=== PATIENT | female | born 1990 | race Caucasian/White ===

== ENCOUNTER 2016-07-09 17:17 | Emergency (ER) | payer OTHER ==
--- NOTE | 2016-07-09 19:13 | EDM.PDOC ---
ED HPI Trauma - General Chief Complaint: Upper Extremity Injury/Pain Stated Complaint: RT ARM INJURY Time Seen by Provider: 07/09/16 18:52 Source: Reports: Patient History Limitations: Reports: No limitations - History of Present Illness INITIAL COMMENTS - FREE TEXT/NARRATIVE: Patient presents for evaluation and treatment of an injury to the right clavicle and shoulder. Patient reports that she was using a rifle on a tripod for target shooting. She states that the gun kicked back jarring her right clavicle and right shoulder. States she is having pain to the right clavicle and right shoulder. She has also noticed some numbness and tingling down her right arm. She is limited range of motion due to the pain. She states that she has tried [id number] Tylenol but does not have any symptom relief. No Other treatment prior to arrival in the ER. No previous injury to the right shoulder. Patient is right-handed. Occurred When: this afternoon Method of Injury: direct blow Pain/Injury Location: Reports: upper extremity, right Allergies/ADRs: Allergies amoxicillin Allergy (Verified 07/09/16 19:57) Other amoxicillin trihydrate [From Augmentin] Allergy (Verified 07/09/16 19:57) Other ciprofloxacin Allergy (Verified 07/09/16 19:57) Itching codeine phosphate [From Tylenol-Codeine #3] Allergy (Verified 07/09/16 19:57) Itching potassium clavulanate [From Augmentin] Allergy (Verified 07/09/16 19:57) Other diphenhydramine HCl [From Benadryl] Adverse Reaction (Verified 07/09/16 19:57) "muscle aches" Home Medications: Ambulatory Orders Cholecalciferol (Vitamin D3) [Vitamin D3] 2,000 unit PO DAILY 11/11/14 [ Confirmed 02/18/16] Ketorolac [Toradol] 10 mg PO Q8H #12 tablet 01/05/16 [Confirmed 02/18/16] Metoclopramide [Reglan] 10 mg PO Q8H #12 tablet 01/05/16 [Confirmed 02/18/16] predniSONE 20 mg PO DAILY #5 tablet 02/19/16 Past Medical History - Past Health History Medical/Surgical History: Denies Medical/Surgical History Cardiovascular History: Reports: Heart murmur Other Cardiovascular History: Recent EKG and Echo secondary to low K+, Na+ in ER when there c/o kidney/back pain on 12/02/14. Respiratory History: Reports: Asthma, Other (see below) Other Respiratory History: Rx'd Albuterol inhaler PRN--uses on occasion. Last use was approx 10d ago. 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 Musculoskeletal History: Reports: RA, SLE, Other (see below) Other Musculoskeletal History: Sjogren syndrome Neurological History: Reports: Migraines Other Neuro History: Lupus Psychiatric History: Reports: Depression Other Psychiatric History: PP depression following second child's delivery. On antidepressant medication x approx 6 months for such. Oncologic (Cancer) History: Reports: None Other Dermatologic History: Severe cellulitis with pseudomonal infection to L ear cartlidge following ear piercing at age 11--required a PICC line and 6 weeks of IV abx as well as two reconstructive surgeries following daily debridement over a period of weeks as well. - Past Surgical History GI Surgical History: Reports: Cholecystectomy Female Surgical History: Reports: Kidney stone extraction Social & Family History - Family History Family Medical History: Noncontributory - Tobacco Use Smoking Status *Q: Never Smoker Second Hand Smoke Exposure: No - Caffeine Use Caffeine Use: Reports: Coffee, Soda - Alcohol Use Days Per Week of Alcohol Use: 0 - Recreational Drug Use Recreational Drug Use: No - Living Situation & Occupation Living situation: Reports: , with spouse, with family (5 kids) Occupation: unemployed Review of Systems - Review of Systems Review Of Systems: See Below Musculoskeletal: Reports: shoulder pain (right) Skin: Denies: bruising, erythema, wound Neurological: Reports: Numbness, Tingling (right anterior shoulder and proximal right arm) Trauma Exam - Physical Exam Exam: See Below Exam Limited By: No limitations General Appearance: Reports: alert, WD/WN, no apparent distress Head: Reports: atraumatic, normocephalic Eyes: bilateral eye: PERRL Ears: Reports: normal external exam Nose: Reports: normal inspection Throat/Mouth: Reports: Normal inspection, Normal voice, No airway compromise Neck: Reports: non-tender, full range of motion, normal alignment, normal inspection. Denies: spinous processes tender Respiratory Exam: Reports: no respiratory distress, lungs clear, normal breath sounds Cardiovascular: Reports: normal peripheral pulses, regular rate, rhythm, no murmur Extremities: Reports: no evidence of injury, pain with movement (forward flexion of the right arm to 90 degrees, extension to 10 degrees, adduction to 90 degrees, abduction to 70 degrees, po), tenderness (right clavicle and superior to the clavicle; right shoulder (anterior proximal humerus)), other ( no bruising or swelling noted to the right shoulder or clavicle; reports pain with right empty can testing, unable to preform lift off or additional special tests due to pain) Neurologic: Reports: alert, other (reports sensation to light touch to the right arm; filling hauler left is 5/5, girp right is 4/5 (questoinable effort)) Skin: Reports: Normal color, Warm/dry. Denies: Ecchymosis Course - Vital Signs Last Recorded V/S: Last Vital Signs Temp 37.1 C 07/09/16 17:37 Pulse 75 07/09/16 20:24 Resp 16 07/09/16 20:24 BP 126/80 07/09/16 20:24 Pulse Ox 98 07/09/16 20:24 - Radiology Interpretation Free Text/Narrative:: xrays of the right should and clavicle shows no acute fractures or dislocations. - Re-Assessments/Exams Free Text/Narrative Re-Assessment/Exam: 07/09/16 20:08 I reviewed the x-ray results with the patient. Likely just soft tissue injury causing her symptoms. I will have her utilize [id number] Tylenol or Motrin as needed for pain relief. Discharge instructions as documented. Departure - Departure Time of Disposition: 20:10 Disposition: Home, Self-Care 01 Condition: good Clinical Impression: Contusion Instructions: Contusion Referrals: PCP,None [Primary Care Provider] - Birdie Ying PA [Physician Rock Splitter] - Forms: ED Department Discharge Additional Instructions: [id number] Tylenol and Motrin as needed for pain and symptom relief. Shoulder sling as needed for comfort. I recommend you move the arm from the sling and perform pendulum arm circles several times a day to prevent a frozen shoulder. Use ice to this area or heat to help with muscle relaxation. Expect your symptoms to last about 10 days. The first 3 days will be the worst. If her symptoms last beyond 10 days I recommend you follow up with family medicine. I recommend karthikeyan Woodruff or Ursula ying. Call [phone] to schedule for them. Please return to the ER should your symptoms change or worsen.
[2016-07-09 20:26] VITALS: BP 126/80
--- NOTE | 2016-07-10 16:19 | CR ---
Right clavicle: Two views of the right clavicle were obtained. Comparison: No previous clavicle study. No fracture or other bony normality is seen. Impression: 1. No abnormality is identified on two-view right clavicle study. Diagnostic code #1
--- NOTE | 2016-07-10 16:19 | CR ---
Right shoulder: Three views of the right shoulder were obtained. Glenohumeral joint and acromioclavicular joint are unremarkable. No fracture, dislocation or other bony abnormality is seen. Impression: 1. No abnormality is identified on three-view right shoulder study. Diagnostic code #1
== END 2016-07-09 20:20 | disposition home or self-care (01) ==
LOC: JD.ED 17:17
DX: S40.021A Contusion of right upper arm, initial encounter (principal); W22.8XXA Striking against or struck by other objects, initial encounter; J45.909 Unspecified asthma, uncomplicated; Z79.899 Other long term (current) drug therapy; M32.9 Systemic lupus erythematosus, unspecified; F32.9 Major depressive disorder, single episode, unspecified; Z90.49 Acquired absence of other specified parts of digestive tract; Z98.890 Other specified postprocedural states; Z88.1 Allergy status to other antibiotic agents; Z88.8 Allergy status to other drugs, medicaments and biological substances
CPT/HCPCS: 73000-26-RT; 73000-RT; 73030-26-RT; 73030-RT; 99282; 99283

== ENCOUNTER 2016-07-22 23:35 | Emergency (ER) | payer OTHER ==
[2016-07-23] MEDS ORDERED: HYDROmorphone 1 MG/ML Syringe IM ONE (00:20)
--- NOTE | 2016-07-23 00:59 | EDM.PDOC ---
ED HPI ENT - General Chief Complaint: ENT Problem Stated Complaint: INFECTED TOOTH Time Seen by Provider: 07/22/16 23:51 Source of Information: Reports: Patient, RN notes reviewed - History of Present Illness INITIAL COMMENTS - FREE TEXT/NARRATIVE: 25 year old female comes in with L lower jaw pain. She had her 2 lower jaw wisdom teeth extracted 2 days ago. slight bleeding only. Increased pain and swelling L lower jaw area of extraction today. Slight L facial swelling. No fever or chills. On ceftin abx. Allergic to pcn and clindamycin. - Related Data Allergies/ADRs: Allergies Allergy/AdvReac Type Severity Reaction Status Date / Time amoxicillin Allergy Other Verified 07/22/16 23:43 amoxicillin trihydrate Allergy Other Verified 07/22/16 23:43 [From Augmentin] ciprofloxacin Allergy Itching Verified 07/22/16 23:43 clindamycin Allergy Rash Verified 07/22/16 23:43 codeine phosphate Allergy Itching Verified 07/22/16 23:43 [From Tylenol-Codeine #3] potassium clavulanate Allergy Other Verified 07/22/16 23:43 [From Augmentin] diphenhydramine HCl AdvReac "muscle Verified 07/22/16 23:43 [From Benadryl] aches" Home Meds: Home Meds Albuterol [Proair HFA] 2 puff INH Q6H PRN 07/22/16 [History] Hydrocodone/Acetaminophen [Hydrocodon-Acetaminophen 5-325] 2 tab PO ASDIRECTED PRN 07/22/16 [History] Past Medical History - Past Health History Medical/Surgical History: Denies Medical/Surgical History Cardiovascular History: Reports: Heart murmur Other Cardiovascular History: Recent EKG and Echo secondary to low K+, Na+ in ER when there c/o kidney/back pain on 12/02/14. Respiratory History: Reports: Asthma, Other (see below) Other Respiratory History: Rx'd Albuterol inhaler PRN--uses on occasion. Last use was approx 10d ago. 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 Musculoskeletal History: Reports: RA, SLE, Other (see below) Other Musculoskeletal History: Sjogren syndrome Neurological History: Reports: Migraines Other Neuro History: Lupus Psychiatric History: Reports: Depression Other Psychiatric History: PP depression following second child's delivery. On antidepressant medication x approx 6 months for such. Oncologic (Cancer) History: Reports: None Other Dermatologic History: Severe cellulitis with pseudomonal infection to L ear cartlidge following ear piercing at age 11--required a PICC line and 6 weeks of IV abx as well as two reconstructive surgeries following daily debridement over a period of weeks as well. - Past Surgical History GI Surgical History: Reports: Cholecystectomy Female Surgical History: Reports: Kidney stone extraction Social & Family History - Family History Family Medical History: Noncontributory - Tobacco Use Smoking Status *Q: Never Smoker Second Hand Smoke Exposure: No - Caffeine Use Caffeine Use: Reports: Coffee, Soda - Alcohol Use Days Per Week of Alcohol Use: 0 - Recreational Drug Use Recreational Drug Use: No - Living Situation & Occupation Living situation: Reports: , with spouse, with family (5 kids) Occupation: unemployed ED ROS ENT - Review of Systems Review Of Systems: See Below Constitutional: Denies: fever, chills HEENT: Reports: Other (L lower jaw pain) Respiratory: Denies: Shortness of Breath Cardiovascular: Denies: Chest pain GI/Abdominal: Denies: Nausea, Vomiting Musculoskeletal: Reports: joint pain (mild pain L TMJ) Skin: Reports: no symptoms Neurological: Reports: No Symptoms ED EXAM, ENT - Physical Exam Exam: See Below General Appearance: alert, moderate distress Eye Exam: bilateral eye: PERRL Ears: normal external exam, normal canal, normal TMs Mouth/Throat: Other (no active bleeding, L posterior gum very mildly swollen, locally tender) Head: facial swelling (slight L angle of mandible) Neck: supple, lymphadenopathy (L) (very mild L ant. ). No: lymphadenopathy (R) Respiratory/Chest: no respiratory distress, lungs clear Cardiovascular: regular rate, rhythm Extremities: normal inspection, normal range of motion Neurological: alert, oriented, no motor/sensory deficits Course - Vital Signs Last Recorded V/S: Last Vital Signs Temp 98.4 F 07/22/16 23:45 Pulse 72 07/23/16 01:07 Resp 16 07/22/16 23:45 BP 135/78 07/23/16 01:07 Pulse Ox 99 07/23/16 01:07 - Orders/Labs/Meds Meds: Medications Discontinued Medications Generic Name Dose Route Start Last Admin Trade Name Jarvis PRN Reason Stop Dose Admin Hydromorphone HCl 1 mg 07/23/16 00:20 07/23/16 00:27 Dilaudid IM 07/23/16 00:21 1 mg ONETIME ONE Administration Departure - Departure Time of Disposition: 00:57 Disposition: Home, Self-Care 01 Condition: fair Clinical Impression: Pain, dental Instructions: Dental Caries Referrals: PCP,None [Primary Care Provider] - Forms: ED Department Discharge Additional Instructions: Continue Ceftin antibiotic as prescribed, percocet for the next 2 or 3 days as needed for severe pain, than back to hydrocodone as it gets better for you, call or see your dentist if not much better by Monday.
[2016-07-23 01:09] VITALS: BP 135/78
== END 2016-07-23 01:09 | disposition home or self-care (01) ==
LOC: JD.ED 23:35
DX: K08.89 Other specified disorders of teeth and supporting structures (principal); R22.0 Localized swelling, mass and lump, head; R01.1 Cardiac murmur, unspecified; J45.909 Unspecified asthma, uncomplicated; F32.9 Major depressive disorder, single episode, unspecified; Z90.49 Acquired absence of other specified parts of digestive tract; Z88.1 Allergy status to other antibiotic agents; Z88.5 Allergy status to narcotic agent
CPT/HCPCS: 96372; 99282; J1170; 99284

== ENCOUNTER 2016-07-27 09:24 | Emergency (ER) | payer OTHER ==
--- NOTE | 2016-07-27 10:41 | EDM.PDOC ---
ED HPI GENERAL MEDICAL PROBLEM - General Chief Complaint: General Stated Complaint: JAW PAIN AFTER WISDOM TEETH REMOVED Time Seen by Provider: 07/27/16 10:15 Source of Information: Reports: Patient History Limitations: Reports: No limitations - History of Present Illness INITIAL COMMENTS - FREE TEXT/NARRATIVE: 25-year-old female presents to the ED with severe pain in her left mandible. She is wisdom tooth extraction bilaterally on the lower mandible about one week ago by Dr. Taco Kim maxillofacial surgeon in [place]. The right side was temporarily sore but is much improved. She still has severe trismus and severe pain on the end of her mandible condyle on the left side and temporomandibular joint. She is taking pain medicine continuously. Has appreciated that the gingiva in the areas now becoming once again reddened. He did have a primary infection that she was started on antibiotics for but unfortunately developed allergy to clindamycin and Augmentin. She is currently on Ceftin 500 twice daily. Onset: sudden Onset Date: 07/20/16 Duration: Day(s):, Constant Location: Reports: face (Left mandible and temporomandibular joint.) Quality: Reports: Ache, Throbbing Severity: severe Improves with: Reports: Cold therapy, Medication (Percocet tabs.) Worsens with: Reports: Movement Context: Reports: Trauma ([place] tooth extraction left mandible one week ago). Denies: Activity, Exercise, Lifting, Sick contact Associated Symptoms: Reports: no other symptoms Treatments SAMPLE DISTRIBUTOR: Reports: Other (see below) Other Treatments SAMPLE DISTRIBUTOR: oxycodone at 0600 Left Tooth/Teeth Pain Score (Numeric/FACES): 7 - Related Data Allergies Allergy/AdvReac Type Severity Reaction Status Date / Time amoxicillin Allergy Other Verified 07/27/16 09:33 amoxicillin trihydrate Allergy Other Verified 07/27/16 09:33 [From Augmentin] ciprofloxacin Allergy Itching Verified 07/27/16 09:33 clindamycin Allergy Rash Verified 07/27/16 09:33 codeine phosphate Allergy Itching Verified 07/27/16 09:33 [From Tylenol-Codeine #3] potassium clavulanate Allergy Other Verified 07/27/16 09:33 [From Augmentin] diphenhydramine HCl AdvReac "muscle Verified 07/27/16 09:33 [From Benadryl] aches" Home Meds: Home Meds Albuterol [Proair HFA] 2 puff INH Q6H PRN 07/22/16 [History] Cefuroxime [Ceftin] 500 mg PO BID 07/27/16 [History] Cefuroxime [Ceftin] 500 mg PO ONETIME #10 tablet 07/27/16 [Rx] Dexamethasone 4 mg PO BID #6 tablet 07/27/16 [Rx] oxyCODONE HCl/Acetaminophen [Oxycodone-Acetaminophen 5-325] 1 tab PO Q6H PRN [History] oxyCODONE HCl/Acetaminophen [Percocet 5-325 mg Tablet] 1 - 2 each PO Q4H PRN # 20 tablet 07/27/16 [Rx] Past Medical History - Past Health History Medical/Surgical History: Denies Medical/Surgical History Cardiovascular History: Reports: Heart murmur Other Cardiovascular History: Recent EKG and Echo secondary to low K+, Na+ in ER when there c/o kidney/back pain on 12/02/14. Respiratory History: Reports: Asthma, Other (see below) Other Respiratory History: Rx'd Albuterol inhaler PRN--uses on occasion. 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 Musculoskeletal History: Reports: RA, SLE, Other (see below) Other Musculoskeletal History: Sjogren syndrome Neurological History: Reports: Migraines Other Neuro History: Lupus Psychiatric History: Reports: Depression Other Psychiatric History: PP depression following second child's delivery. On antidepressant medication x approx 6 months for such. Oncologic (Cancer) History: Reports: None Other Dermatologic History: Severe cellulitis with pseudomonal infection to L ear cartlidge following ear piercing at age 11--required a PICC line and 6 weeks of IV abx as well as two reconstructive surgeries following daily debridement over a period of weeks as well. - Past Surgical History HEENT Surgical History: Reports: Other (see below) Other HEENT Surgeries/Procedures: wisdom teeth removal GI Surgical History: Reports: Cholecystectomy Female Surgical History: Reports: Kidney stone extraction Social & Family History - Family History Family Medical History: Noncontributory - Tobacco Use Smoking Status *Q: Never Smoker Second Hand Smoke Exposure: No - Caffeine Use Caffeine Use: Reports: Other - Alcohol Use Days Per Week of Alcohol Use: 0 - Recreational Drug Use Recreational Drug Use: No - Living Situation & Occupation Living situation: Reports: , with spouse, with family (5 kids) Occupation: unemployed ED ROS GENERAL - Review of Systems Review Of Systems: See Below Constitutional: Reports: fatigue. Denies: fever, chills, weakness HEENT: Reports: Dental pain (Left lower molar or wisdom tooth extraction site), Other Respiratory: Reports: No Symptoms (Left temporomandibular joint and angle of the mandible.) Cardiovascular: Reports: No symptoms Endocrine: Reports: no symptoms GI/Abdominal: Reports: No symptoms : Reports: no symptoms ED EXAM, GENERAL - Physical Exam Exam: See Below Exam Limited By: No limitations General Appearance: alert, WD/WN, moderate distress, other Ears: normal TMs Nose: normal inspection Throat/Mouth: Other (She does have some erythema developing on the medial aspect of the extraction site left lower mandible. There appears to be a likely Vicryl suture coming out of this area. No purulent material identified. Pain is localized to the angle of the mandible goes up towards her ear and temporomandibular joint. There is no 2 temporomandibular joint crepitus on opening and closing but she has limited range of motion.) Head: atraumatic, normocephalic Neck: normal inspection, supple, non-tender, full range of motion Respiratory/Chest: no respiratory distress, lungs clear, normal breath sounds, no accessory muscle use Course - Vital Signs Last Recorded V/S: Last Vital Signs Temp 37.3 C 07/27/16 09:36 Pulse 82 07/27/16 09:36 Resp 16 07/27/16 09:36 BP 131/78 07/27/16 09:36 Pulse Ox 100 07/27/16 09:36 - Radiology Interpretation Free Text/Narrative:: 25-year-old female tends the ED with severe pain at postoperative wisdom tooth extraction site left lower mandible. Pain is radiating up into the temporomandibular joint and she can barely open her mouth one week postop. On examination she is showing some signs of infection occurring at the site and will continue on Ceftin 500 twice a day for the next 7 days. She has 2 days of medicine at home. I'm going to CT her mandible to make sure that there is no cough fracture from extraction. - Re-Assessments/Exams Free Text/Narrative Re-Assessment/Exam: 07/27/16 11:25 CT of the mandible does not reveal any abnormalities. The mandibular condyle and temporal mandibular joints are anatomically aligned without any evidence of fracture. Patient will continue using Percocet 5 325 one or 2 every 3-4 hours as needed for pain relief going to place her on dexamethasone 4 mg twice daily for 3 days to reduce pain and inflammation. We' ll continue Ceftin 500 twice a day for another 5 days as well. Departure - Departure Time of Disposition: 11:26 Disposition: Home, Self-Care 01 Condition: fair Clinical Impression: Post-operative pain Prescriptions: Cefuroxime [Ceftin] 500 mg PO ONETIME #10 tablet Dexamethasone 4 mg PO BID #6 tablet oxyCODONE HCl/Acetaminophen [Percocet 5-325 mg Tablet] 1 - 2 each PO Q4H PRN # 20 tablet PRN Reason: pain relief. Instructions: Pain Relief Preoperatively and Postoperatively Referrals: PCP,None [Primary Care Provider] - Forms: ED Department Discharge Additional Instructions: Evaluation in the emergency department today in regards to persistent postoperative pain and wisdom tooth extraction site left lower mandible. It is now one week postop. Significant pain persists at the operative site as well as freeing up the condyle of the mandible into the temporomandibular joint and side of face. This may be due to nerve eructation but it is most likely due to bone pain from the extraction site. Slight amount of infection or erythema is appreciated in the medial aspect of the extraction site. Therefore it would advise continuing Ceftin 500 g twice daily for the next 7 days to clear up any infection. CT of the mandible was carried out and it reveals no anatomical abnormalities or fractures of the tibial condyle or temporomandibular joint. Therefore continue pain management with Percocet 5 325 mg tablets one or 2 every 4-6 hours nystatin for pain relief. Continue Aleve 2 tablets every 8 hours for pain inflammation relief. I also placed her on dexamethasone 4 mg tablet be taken with breakfast and supper for 3 days to reduce pain and inflammation as well. Expect gradual improvement in the pain over the next 10 days.
--- NOTE | 2016-07-27 11:25 | CT ---
CT facial bones Technique: Multiple axial sections through the facial bones were obtained. Reconstructed coronal and sagittal images were reviewed. Findings: Defect noted within the anterior right molar on the mandible. Please correlate if this represents a large dental caries. Lucency noted on both sides the mandible from previous wisdom teeth removal. Small amount of air noted on the left side within the surgical bed raising the possibility of incomplete overlying defect within the soft tissue cap causing the air within the surgical defect which can be a cause of pain. No fluid collections are seen to indicate soft tissue abscess. Minimal areas of mucosal thickening seen within both maxillary sinuses. Mild nasal septal deviation is noted. Impression: 1. Lucency on both sides of the mandible compatible with previous wisdom teeth removal. Small amount of air noted within the left surgical bed raising the possibility of incomplete soft tissue cap which can be a cause of pain. 2. Questionable dental caries on the right side, please correlate. 3. Other incidental findings as noted above. Diagnostic code #3
[2016-07-27 11:50] VITALS: BP 132/74
== END 2016-07-27 11:40 | disposition home or self-care (01) ==
LOC: JD.ED 09:24
DX: G89.18 Other acute postprocedural pain (principal); K08.89 Other specified disorders of teeth and supporting structures; Z88.1 Allergy status to other antibiotic agents; Z88.8 Allergy status to other drugs, medicaments and biological substances; J45.909 Unspecified asthma, uncomplicated; Z79.899 Other long term (current) drug therapy; M06.9 Rheumatoid arthritis, unspecified; F32.9 Major depressive disorder, single episode, unspecified
CPT/HCPCS: 70486; 70486-26; 99283; 99284-25

== ENCOUNTER 2017-01-20 19:29 | Emergency (ER) | payer BC, OTHER ==
[2017-01-20 19:42] VITALS: BP 134/91
--- NOTE | 2017-01-20 20:16 | EDM.PDOC ---
ED HPI GENERAL MEDICAL PROBLEM - General Chief Complaint: Chest Pain Stated Complaint: CHEST PAINS/POTASIUM LOW Time Seen by Provider: 01/20/17 20:00 Source of Information: Reports: Patient, Old Records (recent clinic visit ) History Limitations: Reports: No Limitations - History of Present Illness INITIAL COMMENTS - FREE TEXT/NARRATIVE: 26-year-old female presents for evaluation treatment of chest pain. This of the chest pain for started about 1 week ago. She describes the chest pain as a tightness, pressure and dull pain. She was seen by her primary care provider 3 days ago on 01/17/17. Labs were done including a CBC, CMP, magnesium, TSH and hCG. She was found to have a low potassium of 3.3 and was started on potassium supplementation. She has not appreciated any change of her symptoms with potassium supplementation. Reports she is now breaking out in hives with the potassium. She called her primary care and was instructed take Zyrtec with the potassium. She has not done this but didn't take her potassium today. Patient reports the chest pain is located in the center of her chest. No radiation into her neck, arms or back. She reports that is episodic. Last episode was around 17:30 tonight. Reports that this is the fifth time this occurred today. She states that her heart feels irregular. she states today speeds up. She states that she then coughs and it seems to go back on her normal. She feels like if she would not cough she would possibly pass out. She describes this as a tightness, pressure and abdomen pain. Reports after the episode she feels short of breath, lightheaded, diaphoretic, nauseous, fatigued , irritable and develops a headache afterwards. She denies any dizziness, syncope, vomiting or abdominal pain. Patient reports that she had similar symptoms to this in the past. She has had full cardiac workups in the past including Holter monitors and saw cardiology about one year ago. She was told that her heart looks great. Reports her last Holter monitor was around age 16. Patient has a past medical history of connective tissue disease, lupus like syndrome. She sees rheumatology in [place]. She is currently on tramadol and Zanaflex for her autoimmune diseases. Primary care provider is Ramya So. Duration: Week(s): (1) Location: Reports: Chest Chest Pain Score (Numeric/FACES): 3 - Related Data Allergies Allergy/AdvReac Type Severity Reaction Status Date / Time amoxicillin Allergy Other Verified 01/20/17 19:42 amoxicillin trihydrate Allergy Other Verified 01/20/17 19:42 [From Augmentin] ciprofloxacin Allergy Itching Verified 01/20/17 19:42 clindamycin Allergy Rash Verified 01/20/17 19:42 codeine phosphate Allergy Itching Verified 01/20/17 19:42 [From Tylenol-Codeine #3] potassium clavulanate Allergy Other Verified 01/20/17 19:42 [From Augmentin] diphenhydramine HCl AdvReac "muscle Verified 01/20/17 19:42 [From Benadryl] aches" Home Meds: Home Meds tiZANidine [Zanaflex] 4 mg PO BEDTIME PRN 01/20/17 [History] traMADol [Ultram] 50 mg PO Q4H PRN 01/20/17 [History] Past Medical History - Past Health History Medical/Surgical History: Denies Medical/Surgical History Cardiovascular History: Reports: Heart Murmur Other Cardiovascular History: Recent EKG and Echo secondary to low K+, Na+ in ER when there c/o kidney/back pain on 12/02/14. Respiratory History: Reports: Asthma Other Respiratory History: Rx'd Albuterol inhaler PRN--uses on occasion. 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 Musculoskeletal History: Reports: RA, SLE, Other (See Below) Other Musculoskeletal History: Sjogren syndrome Neurological History: Reports: Migraines Other Neuro History: Lupus Psychiatric History: Reports: Depression Other Psychiatric History: PP depression following second child's delivery. On antidepressant medication x approx 6 months for such. Immunologic History: Reports: Other (See Below) Other Immunologic History: lupus Oncologic (Cancer) History: Reports: None Other Dermatologic History: Severe cellulitis with pseudomonal infection to L ear cartlidge following ear piercing at age 11--required a PICC line and 6 weeks of IV abx as well as two reconstructive surgeries following daily debridement over a period of weeks as well. - Past Surgical History GI Surgical History: Reports: Cholecystectomy Social & Family History - Family History Family Medical History: Noncontributory - Tobacco Use Smoking Status *Q: Never Smoker Second Hand Smoke Exposure: No - Caffeine Use Caffeine Use: Reports: Soda - Alcohol Use Days Per Week of Alcohol Use: 0 - Recreational Drug Use Recreational Drug Use: No - Living Situation & Occupation Living situation: Reports: , with Spouse, with Family Occupation: Unemployed ED ROS GENERAL - Review of Systems Review Of Systems: See Below Constitutional: Reports: Malaise, Diaphoresis. Denies: Fever Respiratory: Reports: Shortness of Breath. Denies: Cough Cardiovascular: Reports: Chest Pain GI/Abdominal: Reports: Nausea. Denies: Abdominal Pain, Vomiting Neurological: Reports: Headache. Denies: Syncope ED EXAM, GENERAL - Physical Exam Exam: See Below Exam Limited By: No Limitations General Appearance: Alert, WD/WN, No Apparent Distress, Obese Eye Exam: Bilateral Eye: Normal Inspection Ears: Normal External Exam Nose: Normal Inspection Throat/Mouth: Normal Inspection, Normal Lips, Normal Oropharynx, Normal Voice, No Airway Compromise Respiratory/Chest: No Respiratory Distress, Lungs Clear, Normal Breath Sounds, Chest Non-Tender Cardiovascular: Normal Peripheral Pulses, Regular Rate, Rhythm, Systolic Murmur (grade 2 systolic heart murmur) GI/Abdominal: Soft, Non-Tender Neurological: Alert, Oriented, Normal Cognition Psychiatric: Normal Affect, Normal Mood Skin Exam: Warm, Dry, Normal Color EKG INTERPRETATION EKG Date: 01/20/17 Time: 19:45 Rhythm: NSR Rate (Beats/Min): 88 [place]: Normal P-Wave: Present QRS: Normal ST-T: Normal QT: Normal EKG Interpretation Comments: NSR at 88bpm. No acute changes. V6 lead missing. Reviewed by myself and Dr. Tirado. Course - Vital Signs Last Recorded V/S: Last Vital Signs Temp 36.4 C 01/20/17 19:39 Pulse 91 01/20/17 19:39 Resp 16 01/20/17 19:39 BP 134/91 H 01/20/17 19:39 Pulse Ox 100 01/20/17 19:39 - Orders/Labs/Meds Orders: Active Orders 24 hr Category Date Time Status Cardiac Monitoring [RC] . DIRECTED Care 01/20/17 20:07 Active EKG Documentation Completion [RC] ASDIRECTED Care 01/20/17 19:46 Active Holter Monitor 48 Hours [RC] .PRN Care 01/20/17 21:26 Ordered Orthostatic Vital Signs [RC] ASDIRECTED Care 01/20/17 20:27 Active Chest 2V [CR] Stat Exams 01/20/17 20:07 Taken EKG 12 Lead [EK] Stat Ther 01/20/17 19:46 Ordered Labs: Laboratory Tests 01/20/17 01/20/17 Range/Units 20:25 20:25 WBC 8.91 (3.98-10.04) K/mm3 RBC 4.43 (3.98-5.22) M/mm3 Hgb 12.6 (11.2-15.7) gm/L Hct 38.3 (34.1-44.9) % MCV 86.5 (79.4-94.8) fl MCH 28.4 (25.6-32.2) pg MCHC 32.9 (32.2-35.5) g/dl RDW Std Deviation 38.8 (36.4-46.3) fL Plt Count 398 H (182-369) K/mm3 MPV 8.5 L (9.4-12.3) fl Neut % (Auto) 54.0 (34.0-71.1) % Lymph % (Auto) 35.4 (19.3-51.7) % [place] % (Auto) 8.3 (4.7-12.5) % Eos % (Auto) 1.7 (0.7-5.8) Baso % (Auto) 0.4 (0.1-1.2) % Neut # (Auto) 4.81 (1.56-6.13) K/mm3 Lymph # (Auto) 3.15 (1.18-3.74) K/mm3 [place] # (Auto) 0.74 H (0.24-0.36) K/mm3 Eos # (Auto) 0.15 (0.04-0.36) K/mm3 Baso # (Auto) 0.04 (0.01-0.08) K/mm3 Sodium 145 (136-145) mEq/L Potassium 3.6 (3.5-5.1) mEq/L Chloride 107 (98-107) mEq/L Carbon Dioxide 26 (21-32) mEq/L Anion Gap 15.6 H (5-15) BUN 12 (7-18) mg/dL Creatinine 0.8 (0.55-1.02) mg/dL Est Cr Clr Drug Dosing 90.41 mL/min Estimated GFR (MDRD) > 60 (>60) mL/min BUN/Creatinine Ratio 15.0 (14-18) Glucose 98 (74-106) mg/dL Calcium 9.1 (8.5-10.1) mg/dL Total Bilirubin 0.6 (0.2-1.0) mg/dL AST 17 (15-37) U/L ALT 21 (14-59) U/L Alkaline Phosphatase 67 (46-116) U/L Troponin I < 0.017 (0.00-0.056) ng/mL C-Reactive Protein 0.5 (<1.0) mg/dL Total Protein 7.6 (6.4-8.2) g/dl Albumin 3.3 L (3.4-5.0) g/dl Globulin 4.3 gm/dL Albumin/Globulin Ratio 0.8 L (1-2) Lipase 178 (73-393) U/L Meds: Medications Discontinued Medications Generic Name Dose Route Start Last Admin Trade Name Freq PRN Reason Stop Dose Admin Ketorolac Tromethamine 60 mg 01/20/17 21:26 01/20/17 21:35 Toradol IM 01/20/17 21:27 60 mg ONETIME ONE Administration - Radiology Interpretation Free Text/Narrative:: chest xray shows no acute intrathroacic process - Re-Assessments/Exams Free Text/Narrative Re-Assessment/Exam: 01/20/17 21:41 I reviewed the chest x-ray, EKG and lab results with the patient. She reports she is now getting headache. I will order Toradol IM. I feel the next appropriate step would be to obtain a Holter monitor. We have not appreciated anything on the energy assistant here. She states that she did have a "slight "episode while in the ER but no changes were identified on telemetryl. Will discharge her home with a Holter monitor. Discharge instructions as documented. Departure - Departure Time of Disposition: 21:42 Disposition: Home, Self-Care 01 Condition: Fair Clinical Impression: Heart palpitations Instructions: Palpitations, [id number] Referrals: Ramya So, REGIONAL CONSTRUCTION MANAGER [Primary Care Provider] - Forms: ED Department Discharge Additional Instructions: wear the Holter monitor the next 48 hours. Follow-up with Ramya Johnson this week for a recheck of your symptoms and for your Holter monitor results. Rest. Make sure you're drinking plenty of fluids. may continue on potassium if you choose to. your Potassium was normal today. You could also supplement your diet with potassium rich foods in lieu of taking the oral potassium. Please return to the ER if your symptoms change or worsen. - My Orders Last 24 Hours: My Active Orders 01/20/17 19:46 EKG Documentation Completion [RC] ASDIRECTED EKG 12 Lead [EK] Stat 01/20/17 20:07 Cardiac Monitoring [RC] . DIRECTED Chest 2V [CR] Stat 01/20/17 20:27 Orthostatic Vital Signs [RC] ASDIRECTED 01/20/17 21:26 Holter Monitor 48 Hours [RC] .PRN - Assessment/Plan Last 24 Hours: My Active Orders 01/20/17 19:46 EKG Documentation Completion [RC] ASDIRECTED EKG 12 Lead [EK] Stat 01/20/17 20:07 Cardiac Monitoring [RC] . DIRECTED Chest 2V [CR] Stat 01/20/17 20:27 Orthostatic Vital Signs [RC] ASDIRECTED 01/20/17 21:26 Holter Monitor 48 Hours [RC] .PRN
[2017-01-20] MEDS ORDERED: Ketorolac 60 MG/2 ML SDV IM ONE (21:26)
--- NOTE | 2017-01-22 17:12 | CR ---
Chest: Two views of the chest were obtained. Comparison: Prior chest x-ray of 01/14/16. Heart size and mediastinum are within normal limits. Lungs are clear. Bony structures are within normal limits for the patient's age. Impression: 1. Nothing acute is seen on two-view chest x-ray. Diagnostic code #1
== END 2017-01-20 21:53 | disposition home or self-care (01) ==
LOC: JD.ED 19:29
DX: R00.2 Palpitations (principal); Z88.1 Allergy status to other antibiotic agents; Z88.8 Allergy status to other drugs, medicaments and biological substances
CPT/HCPCS: 36415; 71020; 80053; 83690; 84484; 85025; 86140; 93005; 93225; 93226; 96372; 99285; J1885

== ENCOUNTER 2017-04-15 02:15 | Emergency (ER) | payer BC ==
[2017-04-15 02:28] VITALS: BP 153/81
--- NOTE | 2017-04-15 03:52 | EDM.PDOC ---
ED HPI GENERAL MEDICAL PROBLEM - General Chief Complaint: Cardiovascular Problem Stated Complaint: HEART ISSUES DIFICULTY BREATHING Time Seen by Provider: 04/15/17 03:05 Source of Information: Reports: Patient, Family (), Old Records History Limitations: Reports: No Limitations - History of Present Illness INITIAL COMMENTS - FREE TEXT/NARRATIVE: The patient states that she has had palpitations, the sensation of a racing heart, on and off for the past 2 years. Initially she would have episodes only once or twice a month, but they have been increasing in frequency recently. She has worn a Holter monitor 2 or 3 times in the past, but states that she did not have any palpitations while wearing the Holter monitor, and the reports have always come back negative. She states that she has not had any other type of cardiac evaluation. She states that she had another episode of racing heart palpitations that developed around 01:45 this morning, lasting 10 minutes, terminating after she coughed. She states that when she has the palpitations, she feels short of breath and cannot swallow. Here in the ED, the patient states that she is asymptomatic, without any palpitations, dyspnea, or difficulty swallowing. The patient's PCP is Ramya So. - Related Data Allergies Allergy/AdvReac Type Severity Reaction Status Date / Time amoxicillin Allergy Other Verified 01/20/17 19:42 amoxicillin trihydrate Allergy Other Verified 01/20/17 19:42 [From Augmentin] ciprofloxacin Allergy Itching Verified 01/20/17 19:42 clindamycin Allergy Rash Verified 01/20/17 19:42 potassium clavulanate Allergy Other Verified 01/20/17 19:42 [From Augmentin] diphenhydramine HCl AdvReac "muscle Verified 01/20/17 19:42 [From Benadryl] aches" Home Meds: Home Meds traMADol [Ultram] 50 mg PO Q4H PRN 01/20/17 [History] Acetaminophen [Tylenol Extra Strength] 1,000 mg PO DAILY 04/15/17 [History] ClomiPHENE [ClomiPHENE Citrate] 50 mg PO DAILY 04/15/17 [History] Past Medical History Respiratory History: Reports: Asthma Genitourinary History: Reports: Renal Calculus, Other (See Below) (Thin basement membrane nephropathy, aka benign familial hematuria) 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: Psychiatric History: Reports: Anxiety (untreated), Depression (untreated) Endocrine/Metabolic History: Reports: Obesity/BMI 30+ - Past Surgical History GI Surgical History: Reports: Cholecystectomy Social & Family History - Family History Family Medical History: Noncontributory - Tobacco Use Smoking Status *Q: Never Smoker Second Hand Smoke Exposure: No - Caffeine Use Caffeine Use: Reports: Soda - Alcohol Use Days Per Week of Alcohol Use: 0 - Recreational Drug Use Recreational Drug Use: No - Living Situation & Occupation Living situation: Reports: , with Spouse, with Family Occupation: Unemployed ED ROS GENERAL - Review of Systems Review Of Systems: ROS reveals no pertinent complaints other than HPI. ED EXAM, GENERAL - Physical Exam Exam: See Below Exam Limited By: No Limitations General Appearance: Alert, WD/WN, No Apparent Distress, Anxious Eye Exam: Bilateral Eye: Normal Inspection Ears: Normal External Exam, Hearing Grossly Normal Nose: Normal Inspection, No Blood Throat/Mouth: Normal Inspection, Normal Lips, Normal Voice, No Airway Compromise Head: Atraumatic, Normocephalic Neck: Normal Inspection, Full Range of Motion Respiratory/Chest: No Respiratory Distress, Lungs Clear, Normal Breath Sounds, No Accessory Muscle Use Cardiovascular: Normal Peripheral Pulses, No Gallop, No JVD, No Murmur, No Rub, Tachycardia (regular) Peripheral Pulses: 4+: Radial (L), Radial (R) GI/Abdominal: Normal Bowel Sounds, Soft, Non-Tender, No Organomegaly, No Distention, No Abnormal Bruit, No Mass, Other (Obese) (Female) Exam: Deferred Rectal (Female) Exam: Deferred Back Exam: Normal Inspection, Full Range of Motion, NT Extremities: Normal Inspection, Normal Range of Motion, No Pedal Edema, Normal Capillary Refill Neurological: Alert, Oriented, Normal Cognition, No Motor/Sensory Deficits Psychiatric: Normal Affect, Anxious Skin Exam: Warm, Dry, Intact, Normal Color, No Rash EKG INTERPRETATION EKG Date: 04/15/17 Time: 03:46 Rhythm: NSR Rate (Beats/Min): 88 [place]: Normal P-Wave: Present QRS: Normal ST-T: Normal QT: Normal Comparison: No Change (01/20/2017) Course - Vital Signs Last Recorded V/S: Last Vital Signs Temp 36.2 C 04/15/17 02:22 Pulse 90 04/15/17 02:22 Resp 16 04/15/17 02:22 BP 153/81 H 04/15/17 02:22 Pulse Ox 99 04/15/17 02:22 Orthostatic Blood Pressure [ 127/91 Standing] Orthostatic Blood Pressure [ 125/79 Sitting] Orthostatic Blood Pressure [ 121/84 Supine] - Orders/Labs/Meds Orders: Active Orders 24 hr Category Date Time Status EKG Documentation Completion [RC] STAT Care 04/15/17 03:32 Active Event Monitor [RC] .PRN Care 04/15/17 05:36 Active Orthostatic Vital Signs [RC] STAT Care 04/15/17 03:32 Active Chest 2V [CR] Stat Exams 04/15/17 03:32 Taken Labs: Laboratory Tests 04/15/17 04/15/17 04/15/17 Range/Units 03:35 03:35 03:44 WBC 10.85 H (3.98-10.04) K/mm3 RBC 4.73 (3.98-5.22) M/mm3 Hgb 13.4 (11.2-15.7) gm/L Hct 40.8 (34.1-44.9) % MCV 86.3 (79.4-94.8) fl MCH 28.3 (25.6-32.2) pg MCHC 32.8 (32.2-35.5) g/dl RDW Std Deviation 38.0 (36.4-46.3) fL Plt Count 452 H (182-369) K/mm3 MPV 8.4 L (9.4-12.3) fl Neutrophils % (Manual) 69 H (40-60) % Band Neutrophils % 0 (0-10) % Lymphocytes % (Manual) 26 (20-40) % Atypical Lymphs % 0 % Monocytes % (Manual) 2 (2-10) % Eosinophils % (Manual) 3 (0.7-5.8) % Basophils % (Manual) 0 L (0.1-1.2) Platelet Estimate Adequate RBC Morph Comment Normal PT (8.0-13.0) SECONDS INR APTT (22-36) SECONDS D-Dimer, Quantitative (0.19-0.59) mg/L Puncture Site ABG pH (7.35-7.45) ABG pCO2 (35.0-45.0) mmHg ABG pO2 (80.0-100.0) mmHg ABG HCO3 (22.0-26.0) meq/L ABG O2 Saturation (96.0-97.0) % ABG Base Excess (-2-2.0) A-a Gradient mmHg O2 Delivery Device FiO2 (21.00-100.00) % Sodium (136-145) mEq/L Potassium (3.5-5.1) mEq/L Chloride (98-107) mEq/L Carbon Dioxide (21-32) mEq/L Anion Gap (5-15) BUN (7-18) mg/dL Creatinine (0.55-1.02) mg/dL Est Cr Clr Drug Dosing mL/min Estimated GFR (MDRD) (>60) mL/min BUN/Creatinine Ratio (14-18) Glucose (74-106) mg/dL Calcium (8.5-10.1) mg/dL Magnesium (1.8-2.4) mg/dl Total Bilirubin (0.2-1.0) mg/dL AST (15-37) U/L ALT (14-59) U/L Alkaline Phosphatase (46-116) U/L Troponin I (0.00-0.056) ng/mL C-Reactive Protein (<1.0) mg/dL NT-Pro-B Natriuret Pep (0-125) pg/mL Total Protein (6.4-8.2) g/dl Albumin (3.4-5.0) g/dl Globulin gm/dL Albumin/Globulin Ratio (1-2) TSH 3rd Generation (0.358-3.74) uIU/mL Urine Color Yellow (Yellow) Urine Appearance Clear (Clear) Urine pH 6.5 (5.0-8.0) Ur Specific [place] 1.015 (1.005-1.030) Urine Protein Negative (Negative) Urine Glucose (UA) Negative (Negative) Urine Ketones Negative (Negative) Urine Occult Blood 1+ H (Negative) Urine Nitrite Negative (Negative) Urine Bilirubin Negative (Negative) Urine Urobilinogen 0.2 (0.2-1.0) Ur Leukocyte Esterase Negative (Negative) Urine RBC 0-5 (0-5) /hpf Urine WBC 0-5 (0-5) /hpf Ur Epithelial Cells 0-5 (0-5) /hpf Urine Bacteria Not seen (FEW) /hpf Urine Mucus Not seen (FEW) /hpf Urine HCG, Qual Negative (NEGATIVE) 04/15/17 04/15/17 04/15/17 Range/Units 03:44 03:44 03:50 WBC (3.98-10.04) K/mm3 RBC (3.98-5.22) M/mm3 Hgb (11.2-15.7) gm/L Hct (34.1-44.9) % MCV (79.4-94.8) fl MCH (25.6-32.2) pg MCHC (32.2-35.5) g/dl RDW Std Deviation (36.4-46.3) fL Plt Count (182-369) K/mm3 MPV (9.4-12.3) fl Neutrophils % (Manual) (40-60) % Band Neutrophils % (0-10) % Lymphocytes % (Manual) (20-40) % Atypical Lymphs % % Monocytes % (Manual) (2-10) % Eosinophils % (Manual) (0.7-5.8) % Basophils % (Manual) (0.1-1.2) Platelet Estimate RBC Morph Comment PT 10.5 (8.0-13.0) SECONDS INR 0.97 APTT 29 (22-36) SECONDS D-Dimer, Quantitative 0.39 (0.19-0.59) mg/L Puncture Site Lt radial ABG pH 7.41 (7.35-7.45) ABG pCO2 39.7 (35.0-45.0) mmHg ABG pO2 81.0 (80.0-100.0) mmHg ABG HCO3 24.3 (22.0-26.0) meq/L ABG O2 Saturation 97.3 H (96.0-97.0) % ABG Base Excess 0.2 (-2-2.0) A-a Gradient 4 mmHg O2 Delivery Device Room air FiO2 21.00 (21.00-100.00) % Sodium 142 (136-145) mEq/L Potassium 3.6 (3.5-5.1) mEq/L Chloride 104 (98-107) mEq/L Carbon Dioxide 27 (21-32) mEq/L Anion Gap 14.6 (5-15) BUN 13 (7-18) mg/dL Creatinine 0.9 (0.55-1.02) mg/dL Est Cr Clr Drug Dosing 80.36 mL/min Estimated GFR (MDRD) > 60 (>60) mL/min BUN/Creatinine Ratio 14.4 (14-18) Glucose 98 (74-106) mg/dL Calcium 9.7 (8.5-10.1) mg/dL Magnesium 1.4 L (1.8-2.4) mg/dl Total Bilirubin 0.6 (0.2-1.0) mg/dL AST 18 (15-37) U/L ALT 20 (14-59) U/L Alkaline Phosphatase 58 (46-116) U/L Troponin I < 0.017 (0.00-0.056) ng/mL C-Reactive Protein < 0.2 (<1.0) mg/dL NT-Pro-B Natriuret Pep 18 (0-125) pg/mL Total Protein 7.8 (6.4-8.2) g/dl Albumin 3.6 (3.4-5.0) g/dl Globulin 4.2 gm/dL Albumin/Globulin Ratio 0.9 L (1-2) TSH 3rd Generation 5.586 H (0.358-3.74) uIU/mL Urine Color (Yellow) Urine Appearance (Clear) Urine pH (5.0-8.0) Ur Specific [place] (1.005-1.030) Urine Protein (Negative) Urine Glucose (UA) (Negative) Urine Ketones (Negative) Urine Occult Blood (Negative) Urine Nitrite (Negative) Urine Bilirubin (Negative) Urine Urobilinogen (0.2-1.0) Ur Leukocyte Esterase (Negative) Urine RBC (0-5) /hpf Urine WBC (0-5) /hpf Ur Epithelial Cells (0-5) /hpf Urine Bacteria (FEW) /hpf Urine Mucus (FEW) /hpf Urine HCG, Qual (NEGATIVE) - Re-Assessments/Exams Free Text/Narrative Re-Assessment/Exam: 04/15/17 04:04 Two-view chest radiograph appears to be grossly normal. Cardiac silhouette is within normal limits. No pulmonary vascular congestion. No pleural effusions. No focal infiltrate. No pneumothorax. Formal read per the Radiologist pending. 04/15/17 04:10 The patient is not orthostatic. 04/15/17 05:40 Test results discussed with the patient and her . The patient's oxygen saturation was noted be 100% on room air, suspicious for hyperventilation syndrome, as were her symptoms of perioral tingling, throat tightness, chest pain, dyspnea, palpitations, and bilateral hand and feet tingling. Known medical causes of hyperventilation, including , metabolic acidosis, hypocalcemia, hypoglycemia, hyperthyroidism, liver failure, severe anemia, sepsis, acute coronary event, pneumothorax, pneumonia, dysrhythmia, PE, and CHF were all ruled out. By a process of elimination, the patient's hyperventilation syndrome is most likely due to anxiety. I recommended that she follow-up with her PCP to discuss anxiety treatment options. The patient's TSH returned high, suggesting hypo-thyroidism, so I also recommended that she have that rechecked per her PCP, as well. The patient will be discharged home with an event monitor. Departure - Departure Time of Disposition: 05:44 Disposition: Home, Self-Care 01 Condition: Good Clinical Impression: Hyperventilation syndrome, Palpitations Instructions: Hyperventilation Referrals: Ramya So NP [Primary Care Provider] - Forms: ED Department Discharge Additional Instructions: You were seen in the emergency room for recurrent palpitations, felt as a rapid heart beat. Your oxygen saturation was noticed to be 100% on room air, suggestive of hyperventilation syndrome. Workup in the ER included blood work, an arterial blood gas, an ECG, a chest x- ray, and positional blood pressure checks. With the exception of your magnesium being low at 1.4, and your TSH being high at 5.586 (suggestive of hypothyroidism), your entire workup was unremarkable. We recommend that you take some [id number] magnesium. Hyperventilation syndrome is usually caused by anxiety, but can also be caused by medical problems, such as , metabolic acidosis, hypocalcemia, hypoglycemia, hyperthyroidism, liver failure, severe anemia, sepsis, acute coronary event, pneumothorax, pneumonia, dysrhythmia, PE, and CHF. In your case , all of these were ruled out. The cause of your palpitations, and, likely, the cause of the tingling that you have felt around your mouth, the throat tightness, chest pain, shortness of breath, and tingling of your hands and feet, is MOST LIKELY due to hyperventilation due to anxiety. You have been fitted with an event monitor. We recommend that you follow-up with your PCP, Ramya So, to get the event monitor results, discuss treatment options for anxiety, and recheck your TSH ( thyroid-stimulating hormone). If any other problems, please do not hesitate to return to the ER. - My Orders Last 24 Hours: My Active Orders 04/15/17 03:32 EKG Documentation Completion [RC] STAT Orthostatic Vital Signs [RC] STAT Chest 2V [CR] Stat 04/15/17 05:36 Event Monitor [RC] .PRN - Assessment/Plan Last 24 Hours: My Active Orders 04/15/17 03:32 EKG Documentation Completion [RC] STAT Orthostatic Vital Signs [RC] STAT Chest 2V [CR] Stat 04/15/17 05:36 Event Monitor [RC] .PRN
--- NOTE | 2017-04-15 13:29 | CR ---
Chest: Two views of the chest were obtained. Comparison: Prior chest x-ray of 01/20/17. Heart size and mediastinum are normal. Lungs are clear. Bony structures are unremarkable. Impression: 1. Nothing acute is identified on two-view chest x-ray. Diagnostic code #1
== END 2017-04-15 06:09 | disposition home or self-care (01) ==
LOC: JD.ED 02:15
DX: F45.8 Other somatoform disorders (principal); R00.2 Palpitations; J45.909 Unspecified asthma, uncomplicated; Z79.899 Other long term (current) drug therapy; Z88.8 Allergy status to other drugs, medicaments and biological substances; Z88.1 Allergy status to other antibiotic agents
CPT/HCPCS: 36415; 36600; 71046; 71046-26; 80053; 81001; 81025; 82803; 83735; 83880; 84443; 84484; 85025; 85379; 85610; 85730; 86140; 93005; 93010; 93270; 93271; 99282-25; 99285-25

== ENCOUNTER 2017-06-08 20:28 | Emergency (ER) | payer BC ==
[2017-06-08 20:38] VITALS: BP 149/84
--- NOTE | 2017-06-08 22:15 | EDM.PDOC ---
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 She slipped on the ice yesterday and did the splits and then landed on her butt. She did not hit her head or hurt her neck. She does have pain to her right lower abdomen. She is 9 weeks with twins. Her LNMP was April 07. She has no bleeding. She normally has vaginal discharge but there is more and it is clear. She has no headache, neck pain, chest pain, or back pain. She has no pain in her hips. She did talk to her OB nurse and she was told to come in if she got worse and she has a little more pain to the right lower abdomen. She has some cramping. Onset: Sudden Duration: Day(s): (Yesterday) Location: Reports: Abdomen (RLQ) Quality: Reports: Sharp Severity: Mild Improves with: Reports: None Worsens with: Reports: None Associated Symptoms: Reports: No Other Symptoms Right Lower Abdomen Pain Score (Numeric/FACES): 6 - Related Data Allergies Allergy/AdvReac Type Severity Reaction Status Date / Time amoxicillin Allergy Other Verified 06/08/17 20:38 amoxicillin trihydrate Allergy Other Verified 06/08/17 20:38 [From Augmentin] ciprofloxacin Allergy Itching Verified 06/08/17 20:38 clindamycin Allergy Rash Verified 06/08/17 20:38 potassium clavulanate Allergy Other Verified 06/08/17 20:38 [From Augmentin] diphenhydramine HCl AdvReac "muscle Verified 06/08/17 20:38 [From Benadryl] aches" Home Meds: Home Meds Acetaminophen [Tylenol Extra Strength] 1,000 mg PO DAILY 04/15/17 [History] Pnv No.122/Iron/Folic Acid [ Multi Tablet] 1 each PO DAILY 06/08/17 [ History] Past Medical History - Past Health History Medical/Surgical History: Denies Medical/Surgical History Cardiovascular History: Reports: Heart Murmur Other Cardiovascular History: Recent EKG and Echo secondary to low K+, Na+ in ER when there c/o kidney/back pain on 12/02/14. Respiratory History: Reports: Asthma Other Respiratory History: Rx'd Albuterol inhaler PRN--uses on occasion. 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 Musculoskeletal History: Reports: RA, SLE, Other (See Below) Other Musculoskeletal History: Sjogren syndrome Neurological History: Reports: Migraines Other Neuro History: Lupus Psychiatric History: Reports: Anxiety, Depression Other Psychiatric History: PP depression following second child's delivery. On antidepressant medication x approx 6 months for such. Endocrine/Metabolic History: Reports: Obesity/BMI 30+ Immunologic History: Reports: Other (See Below) Other Immunologic History: lupus Oncologic (Cancer) History: Reports: None Other Dermatologic History: Severe cellulitis with pseudomonal infection to L ear cartlidge following ear piercing at age 11--required a PICC line and 6 weeks of IV abx as well as two reconstructive surgeries following daily debridement over a period of weeks as well. - Past Surgical History GI Surgical History: Reports: Cholecystectomy Social & Family History - Family History Family Medical History: Noncontributory - Tobacco Use Smoking Status *Q: Never Smoker Second Hand Smoke Exposure: No - Caffeine Use Caffeine Use: Reports: None - Alcohol Use Days Per Week of Alcohol Use: 0 - Recreational Drug Use Recreational Drug Use: No - Living Situation & Occupation Living situation: Reports: , with Spouse, with Family Occupation: Unemployed ED ROS GENERAL - Review of Systems Review Of Systems: See Below Constitutional: Reports: No Symptoms HEENT: Reports: No Symptoms Respiratory: Reports: No Symptoms Cardiovascular: Reports: No Symptoms Endocrine: Reports: No Symptoms GI/Abdominal: Reports: Abdominal Pain (RLQ) : Reports: No Symptoms Musculoskeletal: Reports: No Symptoms Skin: Reports: No Symptoms Neurological: Reports: No Symptoms ED EXAM, GI/ABD - Physical Exam Exam: See Below Exam Limited By: No Limitations General Appearance: Alert, No Apparent Distress Ears: Normal External Exam Nose: Normal Inspection Head: Atraumatic, Normocephalic Neck: Normal Inspection Respiratory/Chest: No Respiratory Distress, Lungs Clear, Normal Breath Sounds Cardiovascular: Regular Rate, Rhythm, No Edema, No Murmur GI/Abdominal Exam: Soft, No Organomegaly, No Mass, Tender (Mild to the RLQ) (Female) Exam: Other (Cervical os is closed. There is very minimal whitish clear drainage) Course - Vital Signs Last Recorded V/S: Last Vital Signs Temp 97.6 F 06/08/17 20:35 Pulse 73 06/08/17 20:35 Resp 19 06/08/17 20:35 BP 149/84 H 06/08/17 20:35 Pulse Ox 100 06/08/17 20:35 - Orders/Labs/Meds Orders: Active Orders 24 hr Category Date Time Status Cardiac Monitoring [RC] . DIRECTED Care 06/08/17 20:54 Active Pelvic Exam, Set Up [RC] ASDIRECTED Care 06/08/17 20:56 Active OB Transvaginal [US] Stat Exams 06/08/17 20:56 Taken Labs: Laboratory Tests 06/08/17 06/08/17 06/08/17 Range/Units 21:11 21:24 21:24 WBC 12.07 H (3.98-10.04) K/mm3 RBC 4.46 (3.98-5.22) M/mm3 Hgb 12.8 (11.2-15.7) gm/L Hct 38.5 (34.1-44.9) % MCV 86.3 (79.4-94.8) fl MCH 28.7 (25.6-32.2) pg MCHC 33.2 (32.2-35.5) g/dl RDW Std Deviation 38.0 (36.4-46.3) fL Plt Count 426 H (182-369) K/mm3 MPV 8.4 L (9.4-12.3) fl Neut % (Auto) 67.3 (34.0-71.1) % Lymph % (Auto) 24.4 (19.3-51.7) % Mccormick % (Auto) 7.4 (4.7-12.5) % Eos % (Auto) 0.5 L (0.7-5.8) Baso % (Auto) 0.2 (0.1-1.2) % Neut # (Auto) 8.14 H (1.56-6.13) K/mm3 Lymph # (Auto) 2.94 (1.18-3.74) K/mm3 Mccormick # (Auto) 0.89 H (0.24-0.36) K/mm3 Eos # (Auto) 0.06 (0.04-0.36) K/mm3 Baso # (Auto) 0.02 (0.01-0.08) K/mm3 Urine Color Yellow (Yellow) Urine Appearance Clear (Clear) Urine pH 6.0 (5.0-8.0) Ur Specific [place] > or = 1.030 (1.005-1.030) Urine Protein 1+ H (Negative) Urine Glucose (UA) Negative (Negative) Urine Ketones Negative (Negative) Urine Occult Blood 1+ H (Negative) Urine Nitrite Negative (Negative) Urine Bilirubin Negative (Negative) Urine Urobilinogen 0.2 (0.2-1.0) Ur Leukocyte Esterase Negative (Negative) Urine RBC 5-10 H (0-5) /hpf Urine WBC 5-10 H (0-5) /hpf Ur Epithelial Cells 50-75 H (0-5) /hpf Urine Bacteria Moderate H (FEW) /hpf Urine Mucus Few (FEW) /hpf Blood Type A POSITIVE - Re-Assessments/Exams Free Text/Narrative Re-Assessment/Exam: 06/08/17 22:18 I ordered a transvaginal US and labs. 06/08/17 22:32 Her WBC was slightly elevated at 12.07. Her Hgb was normal. Her platelets were elevated at 426. Her UA was contaminated. She is A positive. I did a pelvic exam and her cervical os is closed. I tested the pH of her vaginal discharge and the pH was about 5 to 6. I am waiting for the US report now. 06/08/17 22:51 The US shows living twin intrauterine both measure 8 weeks 6 days. No other abnormalities are seen. I will discharge her home. If she has more pain she should return. Departure - Departure Time of Disposition: 22:55 Disposition: Home, Self-Care 01 Condition: Good Clinical Impression: Fall Qualifiers: Encounter type: initial encounter Qualified Code(s): W19.XXXA - Unspecified fall, initial encounter Qualifiers: Weeks of gestation: 8 weeks Qualified Code(s): Z3A.08 - 8 weeks gestation of Abdominal pain Qualifiers: Abdominal location: right lower quadrant Qualified Code(s): R10.31 - Right lower quadrant pain - Discharge Information Referrals: Karl Peralta MD [Primary Care Provider] - 1 Week Forms: ED Department Discharge Additional Instructions: Take tylenol for any pain. Please return if the pain in your right lower abdomen gets worse. That is where your appendix is. Also return if you have more drainage, bleeding or cramping. Follow up with Dr Peralta within the week. - My Orders Last 24 Hours: My Active Orders 06/08/17 20:54 Cardiac Monitoring [RC] . DIRECTED 06/08/17 20:56 Pelvic Exam, Set Up [RC] ASDIRECTED OB Transvaginal [US] Stat - Assessment/Plan Last 24 Hours: My Active Orders 06/08/17 20:54 Cardiac Monitoring [RC] . DIRECTED 06/08/17 20:56 Pelvic Exam, Set Up [RC] ASDIRECTED OB Transvaginal [US] Stat
--- NOTE | 2017-06-09 07:01 | US ---
First trimester obstetrical ultrasound (multiple gestation): Multiple real-time images were obtained transvaginally. Dates: LMP: LMP given as 04/07/17, ERNIE 01/12/18, gestational age of 8 weeks 6 days Gestation A: Current ultrasound: ERNIE 01/14/18, gestational age of 8 weeks 4 days Gestation B: Current ultrasound: ERNIE 01/10/18, gestational age 9 weeks 1 days Twin is seen in separate amniotic sacs. Embryos are identified within both gestational sacs. No subchorionic hemorrhage is seen. Small amount of fluid seen around the right ovary. Two cysts seen within the right ovary measuring 2.2 cm and 2.5 cm. Small cyst noted within the left ovary measuring 2.2 cm. Measurements (gestation A): Rincon-rump length: 21.82 mm - 8 weeks 6 days Mean sac diameter: 2.97 cm - 8 weeks 2 days Heart rate: 172 bpm Measurements (gestation B): Rincon-rump length: 21.12 cm - 8 weeks 6 days Mean sac diameter: 3.84 cm - 9 weeks 3 days Heart rate: 181 bpm Impression: 1. Twin in separate amniotic sacs. Dates as noted above. 2. Small cysts within both ovaries felt to be incidental. Small amount of fluid around the right ovary is seen likely due to cyst leakage. 3. No complicating process is seen by ultrasound at this time. Diagnostic code #1 Agree with preliminary report issued by [email or web address] ([facility] preliminary report dictated on 06/08/17, 11:35 PM Central Time)
== END 2017-06-08 23:00 | disposition home or self-care (01) ==
LOC: JD.ED 20:28
DX: O99.89 Other specified diseases and conditions complicating pregnancy, childbirth and the puerperium (principal); R10.31 Right lower quadrant pain; Z88.1 Allergy status to other antibiotic agents; Z79.899 Other long term (current) drug therapy; Z3A.09 9 weeks gestation of pregnancy; W00.9XXA Unspecified fall due to ice and snow, initial encounter
CPT/HCPCS: 36415; 76817; 76817-26; 81001; 85025; 86900; 86901; 99283; 99284-25

== ENCOUNTER 2019-03-19 13:21 | Emergency (ER) | payer BC ==
[2019-03-19 13:38] VITALS: BP 129/86; PULSE 68
[2019-03-19] MEDS ORDERED: Sodium Chloride 0.9% 10 ML Syringe FLUSH PRN (13:42)
--- NOTE | 2019-03-19 14:14 | EDM.PDOC ---
<Jose Hillman - Last Filed: 03/19/19 18:06> ED HPI GENERAL MEDICAL PROBLEM - General Chief Complaint: Syncope Stated Complaint: BLOODY STOOLS, FAINTED Time Seen by Provider: 03/19/19 13:39 - Related Data Allergies Allergy/AdvReac Type Severity Reaction Status Date / Time amoxicillin Allergy Other Verified 03/19/19 13:38 amoxicillin trihydrate Allergy Other Verified 03/19/19 13:38 [From Augmentin] ciprofloxacin Allergy Itching Verified 03/19/19 13:38 clindamycin Allergy Rash Verified 03/19/19 13:38 Penicillins Allergy Hives Verified 03/19/19 13:38 potassium clavulanate Allergy Other Verified 03/19/19 13:38 [From Augmentin] diphenhydramine HCl AdvReac "muscle Verified 03/19/19 13:38 [From Benadryl] aches" Home Meds: Home Meds Albuterol Sulfate [Proair Hfa] 2 puff IH Q4H PRN 11/22/17 [History] Ondansetron HCl [Zofran] 1 tab BUCCAL Q12H PRN 11/22/17 [History] traMADol [Ultram] 50 mg PO Q6H PRN 11/22/17 [History] oxyCODONE HCl/Acetaminophen [Endocet 5-325 Tablet] 5 - 325 mg PO Q6H PRN [History] Dicyclomine HCl [Bentyl] 20 mg PO QID #12 capsule 03/19/19 [Rx] Hydrocortisone Acetate [Anusol-Hc] 25 mg RC BEDTIME #5 supp.rect 03/19/19 [Rx] ED ABDOMINAL/GI PROCEDURES - Additional/Other Procedure(s) Procedure(s) (Free Text): Rigid sigmoidoscopy performed up to 15 cm. Patient had the anus and rectum anesthetized with lidocaine gel. I was able to introduce the scope up to about 15 cm before she to good deal of pain due to curvature of the sigmoid colon. The colon that I could visualize at this area was completely normal with no ulceration. It was nice and pink and no blood was coming from above this area. Bleeding was discovered to be coming from a ruptured internal hemorrhoid at the 3 o'clock position. Actively bleeding at the time of my exam. I could not identify any anal fissure. There is also a thrombosed internal hemorrhoid at the 11 o'clock position. No active bleeding from this area. It appears that 2 and half days of diarrhea have created this problem. Patient will be treated with Anusol suppositories at at bedtime 5 days and Bentyl 20 mg every 6 hours to reduce cramping and help form of the stool. He should stop within 2 days. Note the hemorrhoids were not big enough to band. Course - Vital Signs Last Recorded V/S: Last Vital Signs Temp 97.6 F 03/19/19 13:36 Pulse 68 03/19/19 13:36 Resp 15 03/19/19 13:36 BP 129/86 03/19/19 13:36 Pulse Ox 97 03/19/19 13:36 Orthostatic Blood Pressure [ 121/79 Standing] Orthostatic Blood Pressure [ 121/76 Supine] - Orders/Labs/Meds Orders: Active Orders 24 hr Category Date Time Status Orthostatic Vital Signs [RC] ASDIRECTED Care 03/19/19 13:44 Active Peripheral IV Care [RC] . DIRECTED Care 03/19/19 13:43 Active Peripheral IV Insertion Adult [OM.PC] Stat Oth 03/19/19 13:39 Ordered Labs: Laboratory Tests 03/19/19 03/19/19 03/19/19 Range/Units 13:55 13:55 13:55 WBC 9.57 (3.98-10.04) K/mm3 RBC 4.54 (3.98-5.22) M/mm3 Hgb 12.8 (11.2-15.7) gm/dl Hct 40.1 (34.1-44.9) % MCV 88.3 (79.4-94.8) fl MCH 28.2 (25.6-32.2) pg MCHC 31.9 L (32.2-35.5) g/dl RDW Std Deviation 39.6 (36.4-46.3) fL Plt Count 345 (182-369) K/mm3 MPV 8.4 L (9.4-12.3) fl Neut % (Auto) 78.0 H (34.0-71.1) % Lymph % (Auto) 15.8 L (19.3-51.7) % [place] % (Auto) 5.3 (4.7-12.5) % Eos % (Auto) 0.5 L (0.7-5.8) Baso % (Auto) 0.2 (0.1-1.2) % Neut # (Auto) 7.46 H (1.56-6.13) K/mm3 Lymph # (Auto) 1.51 (1.18-3.74) K/mm3 [place] # (Auto) 0.51 H (0.24-0.36) K/mm3 Eos # (Auto) 0.05 (0.04-0.36) K/mm3 Baso # (Auto) 0.02 (0.01-0.08) K/mm3 Manual Slide Review Normal smear Sodium 144 (136-145) mEq/L Potassium 3.5 (3.5-5.1) mEq/L Chloride 107 (98-107) mEq/L Carbon Dioxide 26 (21-32) mEq/L Anion Gap 14.5 (5-15) BUN 13 (7-18) mg/dL Creatinine 0.8 (0.55-1.02) mg/dL Est Cr Clr Drug Dosing TNP Estimated GFR (MDRD) > 60 (>60) mL/min BUN/Creatinine Ratio 16.3 (14-18) Glucose 154 H (74-106) mg/dL Calcium 8.8 (8.5-10.1) mg/dL Total Bilirubin 0.5 (0.2-1.0) mg/dL AST 17 (15-37) U/L ALT 23 (14-59) U/L Alkaline Phosphatase 50 (46-116) U/L Total Protein 7.2 (6.4-8.2) g/dl Albumin 3.4 (3.4-5.0) g/dl Globulin 3.8 gm/dL Albumin/Globulin Ratio 0.9 L (1-2) Blood Type A POSITIVE Gel Antibody Screen Negative Meds: Medications Discontinued Medications Generic Name Dose Route Start Last Admin Trade Name Freq PRN Reason Stop Dose Admin Dicyclomine HCl 20 mg 03/19/19 17:21 03/19/19 17:34 Bentyl PO 03/19/19 17:22 20 mg ONETIME ONE Administration Hydromorphone HCl 0.5 mg 03/19/19 15:58 03/19/19 16:04 Dilaudid IVPUSH 03/19/19 15:59 0.5 mg ONETIME ONE Administration Sodium Chloride 1,000 mls @ 999 mls/hr 03/19/19 15:21 03/19/19 15:35 Normal Saline IV 03/19/19 16:21 999 mls/hr ONETIME ONE Administration Lidocaine HCl 10 ml 03/19/19 16:56 03/19/19 17:02 Xylocaine 2% Jelly MUCMEM 03/19/19 16:57 10 ml ONETIME ONE Administration Metoclopramide HCl 10 mg 03/19/19 17:33 03/19/19 17:34 Reglan IVPUSH 03/19/19 17:34 10 mg ONETIME ONE Administration Metoclopramide HCl Confirm 03/19/19 17:31 Reglan Administered 03/19/19 17:32 Dose 10 mg .ROUTE .STK-MED ONE Ondansetron HCl 4 mg 03/19/19 15:58 03/19/19 16:04 Zofran IVPUSH 03/19/19 15:59 4 mg ONETIME ONE Administration Sodium Chloride 10 ml 03/19/19 13:42 03/19/19 14:38 Saline Flush FLUSH 10 ml ASDIRECTED PRN Administration Keep Vein Open Departure - Departure Disposition: Home, Self-Care 01 Clinical Impression: Heme positive stool Hemorrhoids Qualifiers: Hemorrhoid type: unspecified Qualified Code(s): K64.9 - Unspecified hemorrhoids - Discharge Information Prescriptions: Dicyclomine HCl [Bentyl] 20 mg PO QID #12 capsule Hydrocortisone Acetate [Anusol-Hc] 25 mg RC BEDTIME #5 supp.rect Instructions: Hemorrhoids, [id number] Referrals: Shy Fuchs PA-C [Primary Care Provider] - Forms: ED Department Discharge Additional Instructions: You were evaluated in the ER today regarding your abdominal cramping and blood in your stool. You were given some IV fluids, and your laboratory evaluation demonstrated no acute drop in your blood count that would require a blood transfusion at today' s visit. You did have a rigid sigmoidoscopy done in the ER, by Dr. Hillman, and this demonstrated a bleeding internal hemorrhoid. You have been given a prescription for Anusol, these are anal suppositories, please insert 1 per rectum for the next 5 nights, at bedtime. You were given a few tablets of dicyclomine, this is a pill for abdominal cramping, please take 20 mg 4 times daily as needed for further abdominal cramping. Recommend that you obtain some Metamucil, to help bulk up your stool and guard against ongoing diarrhea. Please do so for the next 4 days. Recommend follow-up with your regular provider in a week or so's time for re- evaluation. Please return to the ER at any time if your symptoms change or worsen. Sepsis Event Note - Focused Exam Vital Signs: Vital Signs Temp Pulse Resp BP Pulse Ox 03/19/19 13:36 97.6 F 68 15 129/86 97 Date Exam was Performed: 03/19/19 Time Exam was Performed: 18:06 - My Orders Last 24 Hours: My Active Orders 03/19/19 13:39 Peripheral IV Insertion Adult [OM.PC] Stat 03/19/19 13:43 Peripheral IV Care [RC] . DIRECTED 03/19/19 13:44 Orthostatic Vital Signs [RC] ASDIRECTED - Assessment/Plan Last 24 Hours: My Active Orders 03/19/19 13:39 Peripheral IV Insertion Adult [OM.PC] Stat 03/19/19 13:43 Peripheral IV Care [RC] . DIRECTED 03/19/19 13:44 Orthostatic Vital Signs [RC] ASDIRECTED <Francine Rico - Last Filed: 03/19/19 18:49> ED HPI GENERAL MEDICAL PROBLEM - General Source of Information: Reports: Patient, RN Notes Reviewed History Limitations: Reports: No Limitations - History of Present Illness INITIAL COMMENTS - FREE TEXT/NARRATIVE: Patient is a 28-year-old female who presents to the ED for evaluation of bloody stools. Patient notes that she has been sick with fever, body aches, cough since , she states that she developed lightheadedness and dizziness with a mild headache on Monday. Over the weekend things has not gotten much better. She notes that she has regular issues with chronic diarrhea and abdominal cramping, but she states that this morning she had a loose stool, and she noted some maroon-red blood with clots in the bottom of the toilet. She notes that she just finished up her last menstrual period last week, so does not think it could be menstrual. Patient states that this morning from sitting to standing, she felt increasingly dizzy, where vision kind of went black, and she began to not hear as well, so she laid down on her bed. She notes she had about 2 episodes of this, and she called her mother to bring her to the ER for evaluation. She states now that the fever has been better, but she still feels generalized fatigue, lower abdominal cramping some mild nausea but has not had any vomiting. Patient states that she has been trying to keep her oral fluid intake normal. Her primary care provider is Rebecca Reyes. Patient denies any sort of smoking, drugs, or alcohol use. She does note that she has had her gallbladder taken out, she still retains her appendix. She further notes a history of multiple autoimmune diseases. Past Medical History - Past Health History Medical/Surgical History: Denies Medical/Surgical History Cardiovascular History: Reports: Arrhythmia, Heart Murmur Other Cardiovascular History: Recent EKG and Echo secondary to low K+, Na+ in ER when there c/o kidney/back pain on 12/02/14. SVT Respiratory History: Reports: Asthma Other Respiratory History: Rx'd Albuterol inhaler PRN--uses on occasion. pleurisy Gastrointestinal History: Reports: Chronic Constipation, Chronic Diarrhea Genitourinary History: Reports: Pyelonephritis, Renal Calculus, Renal Disease, Other (See Below) Other Genitourinary History: thin basement membrane [employer] History: Reports: , Spontaneous Other [employer] History: Hx of PP hemorrhage following third son's delivery. Musculoskeletal History: Reports: RA, SLE, Other (See Below) Other Musculoskeletal History: Sjogren syndrome Neurological History: Reports: Migraines Other Neuro History: Lupus Psychiatric History: Reports: Anxiety, Depression Other Psychiatric History: PP depression following second child's delivery. On antidepressant medication x approx 6 months for such. Endocrine/Metabolic History: Reports: Obesity/BMI 30+ Hematologic History: Reports: Anemia Immunologic History: Reports: Other (See Below) Other Immunologic History: lupus Oncologic (Cancer) History: Reports: None Other Dermatologic History: Severe cellulitis with pseudomonal infection to L ear cartlidge following ear piercing at age 11--required a PICC line and 6 weeks of IV abx as well as two reconstructive surgeries following daily debridement over a period of weeks as well. - Past Surgical History Cardiovascular Surgical History: Reports: Cardiac Ablation GI Surgical History: Reports: Cholecystectomy, Colonoscopy Social & Family History - Family History Family Medical History: Noncontributory - Tobacco Use Smoking Status *Q: Never Smoker - Caffeine Use Caffeine Use: Reports: Soda Other Caffeine Use: coffee rarely - Recreational Drug Use Recreational Drug Use: No - Living Situation & Occupation Living situation: Reports: , with Spouse, with Family Occupation: Unemployed ED ROS GENERAL - Review of Systems Review Of Systems: See Below Constitutional: Reports: Fever (at home, afebrile here), Malaise (generalized) Respiratory: Denies: Shortness of Breath Cardiovascular: Denies: Chest Pain GI/Abdominal: Reports: Abdominal Pain (bilateral lower abdominal cramping), Bloody Stool (dark maroon red stool), Diarrhea, Nausea. Denies: Vomiting : Denies: Dysuria, Frequency, Urgency ED EXAM, GI/ABD - Physical Exam Exam: See Below Exam Limited By: No Limitations General Appearance: Alert, WD/WN, No Apparent Distress Throat/Mouth: Normal Inspection, Normal Lips, Normal Teeth, Normal Gums, Normal Oropharynx, Normal Voice, No Airway Compromise Head: Atraumatic, Normocephalic Neck: Normal Inspection Respiratory/Chest: No Respiratory Distress, Lungs Clear, Normal Breath Sounds, No Accessory Muscle Use, Chest Non-Tender Cardiovascular: Normal Peripheral Pulses, Regular Rate, Rhythm, No Edema, No Murmur GI/Abdominal Exam: Normal Bowel Sounds, Soft, No Distention, No Mass, Tender ( bilateral lower quadrant ) Rectal (Female) Exam: Normal Exam, Normal Rectal Tone, Heme + Stool (small amount of light brown stool noted on glove on rectal), Hemorrhoids (small external hemorrhoids noted), Tenderness (on rectal exam). No: Rectal Fissure Extremities: Normal Inspection, Normal Capillary Refill Neurological: Alert, Oriented, Normal Cognition, No Motor/Sensory Deficits Psychiatric: Normal Affect, Normal Mood Skin Exam: Warm, Dry, Intact, No Rash, Pallor (generalized) Course - Orders/Labs/Meds Labs: Laboratory Tests 03/19/19 03/19/19 03/19/19 Range/Units 13:55 13:55 13:55 WBC 9.57 (3.98-10.04) K/mm3 RBC 4.54 (3.98-5.22) M/mm3 Hgb 12.8 (11.2-15.7) gm/dl Hct 40.1 (34.1-44.9) % MCV 88.3 (79.4-94.8) fl MCH 28.2 (25.6-32.2) pg MCHC 31.9 L (32.2-35.5) g/dl RDW Std Deviation 39.6 (36.4-46.3) fL Plt Count 345 (182-369) K/mm3 MPV 8.4 L (9.4-12.3) fl Neut % (Auto) 78.0 H (34.0-71.1) % Lymph % (Auto) 15.8 L (19.3-51.7) % [place] % (Auto) 5.3 (4.7-12.5) % Eos % (Auto) 0.5 L (0.7-5.8) Baso % (Auto) 0.2 (0.1-1.2) % Neut # (Auto) 7.46 H (1.56-6.13) K/mm3 Lymph # (Auto) 1.51 (1.18-3.74) K/mm3 [place] # (Auto) 0.51 H (0.24-0.36) K/mm3 Eos # (Auto) 0.05 (0.04-0.36) K/mm3 Baso # (Auto) 0.02 (0.01-0.08) K/mm3 Manual Slide Review Normal smear Sodium 144 (136-145) mEq/L Potassium 3.5 (3.5-5.1) mEq/L Chloride 107 (98-107) mEq/L Carbon Dioxide 26 (21-32) mEq/L Anion Gap 14.5 (5-15) BUN 13 (7-18) mg/dL Creatinine 0.8 (0.55-1.02) mg/dL Est Cr Clr Drug Dosing TNP Estimated GFR (MDRD) > 60 (>60) mL/min BUN/Creatinine Ratio 16.3 (14-18) Glucose 154 H (74-106) mg/dL Calcium 8.8 (8.5-10.1) mg/dL Total Bilirubin 0.5 (0.2-1.0) mg/dL AST 17 (15-37) U/L ALT 23 (14-59) U/L Alkaline Phosphatase 50 (46-116) U/L Total Protein 7.2 (6.4-8.2) g/dl Albumin 3.4 (3.4-5.0) g/dl Globulin 3.8 gm/dL Albumin/Globulin Ratio 0.9 L (1-2) Blood Type A POSITIVE Gel Antibody Screen Negative - Re-Assessments/Exams Free Text/Narrative Re-Assessment/Exam: 03/19/19 14:17 Patient presents to the ED for the evaluation of bloody stools. Stool was heme positive, suggestive of a GI bleed of lower GI tract origin. Did order IV to be placed with CBC, CMP, type and screen, orthostatics were done at time of triage, and appear to be within normal limits at this time. 03/19/19 15:48 Labs are back, demonstrate no acute abnormalities. Hemoglobin is within normal limits, CMP is also within normal limits. Patient was reassessed at bedside, and states that she is having worsening bilateral lower abdominal cramping, she tried to go to the bathroom again, but did not have a productive stool at all. I did discuss the patient's case with Dr. Hillman, he suggests that the source of bleeding is probably d/t hemorrhoids and would not recommend CT or x-ray today. I did order 0.5mg Dilaudid and 4 mg Zofran for further management. Pt is hemodynamically stable on re-exam, Dr. Hillman will do a bedside sigmoidoscopy to try to see if we can find a source of bleeding. Pt is okay with this. Departure - Departure Time of Disposition: 17:24 Condition: Fair - Discharge Information *PRESCRIPTION DRUG MONITORING PROGRAM REVIEWED*: No *COPY OF PRESCRIPTION DRUG MONITORING REPORT IN PATIENT FLORENTINO: No Sepsis Event Note - Evaluation Sepsis Screening Result: No Definite Risk - Focused Exam Date Exam was Performed: 03/19/19 Time Exam was Performed: 18:49
[2019-03-19] MEDS ORDERED: Sodium Chloride 0.9% 1,000 ML IV ONE (15:21)
[2019-03-19] MEDS ORDERED: HYDROmorphone 0.5 MG/0.5 ML Syringe IVPUSH ONE (15:58)
[2019-03-19] MEDS ORDERED: Ondansetron 4 MG/2 ML SDV IVPUSH ONE (15:58)
[2019-03-19] MEDS ORDERED: Lidocaine 2% Jelly 10 ML Urojet MUCMEM ONE (16:56)
[2019-03-19] MEDS ORDERED: Dicyclomine 10 MG Cap PO ONE (17:21)
[2019-03-19] MEDS ORDERED: Metoclopramide 10 MG/2 ML SDV ONE (17:31)
[2019-03-19] MEDS ORDERED: Metoclopramide 10 MG/2 ML SDV IVPUSH ONE (17:33)
== END 2019-03-19 17:43 | disposition home or self-care (01) ==
LOC: JD.ED 13:21
DX: K92.1 Melena (principal); K64.4 Residual hemorrhoidal skin tags; K64.5 Perianal venous thrombosis; J45.909 Unspecified asthma, uncomplicated; F41.9 Anxiety disorder, unspecified; F32.9 Major depressive disorder, single episode, unspecified; E66.9 Obesity, unspecified; Z86.2 Personal history of diseases of the blood and blood-forming organs and certain disorders involving the immune mechanism; Z90.49 Acquired absence of other specified parts of digestive tract; Z88.1 Allergy status to other antibiotic agents; Z88.8 Allergy status to other drugs, medicaments and biological substances; Z88.0 Allergy status to penicillin
CPT/HCPCS: 36415; 45330; 80053; 85025; 86850; 86900; 86901; 87804; 96361; 96374; 96375; 99284; A9270; J1170; J2405; J2765; J7030; 45300; 99283

== ENCOUNTER 2019-08-21 16:15 | Emergency (ER) | payer BC, MEDICAID ==
[2019-08-21 17:43] VITALS: BP 157/85; PULSE 85
[2019-08-21] MEDS ORDERED: HYDROmorphone 1 MG/ML Syringe IM ONE (18:47)
--- NOTE | 2019-08-21 19:01 | EDM.PDOC ---
ED HPI GENERAL MEDICAL PROBLEM - General Chief Complaint: General Stated Complaint: LUPUS FLARE UP MULTIPLE ISSUES Time Seen by Provider: 08/21/19 17:40 Source of Information: Reports: Patient History Limitations: Reports: No Limitations - History of Present Illness INITIAL COMMENTS - FREE TEXT/NARRATIVE: The patient feels like she is having a lupus flare up. She was on steroids for about 3 weeks and she weaned off of them. A few days after she started having more pain. She has pain to her back, abdomen and chest. She also has hematuria. She is trying to get in to see a fnp but there has been some obstacles. Onset: Gradual Duration: Day(s): Location: Reports: Generalized Quality: Reports: Sharp Severity: Moderate Improves with: Reports: None Worsens with: Reports: None Associated Symptoms: Reports: Chest Pain Headache Pain Score (Numeric/FACES): 8 - Related Data Allergies Allergy/AdvReac Type Severity Reaction Status Date / Time amoxicillin Allergy Other Verified 08/21/19 17:46 amoxicillin trihydrate Allergy Other Verified 08/21/19 17:46 [From Augmentin] ciprofloxacin Allergy Itching Verified 08/21/19 17:46 clindamycin Allergy Rash Verified 08/21/19 17:46 Penicillins Allergy Hives Verified 08/21/19 17:46 potassium clavulanate Allergy Other Verified 08/21/19 17:46 [From Augmentin] diphenhydramine HCl AdvReac "muscle Verified 08/21/19 17:46 [From Benadryl] aches" Home Meds: Home Meds Albuterol Sulfate [Proair Hfa] 2 puff IH Q4H PRN 11/22/17 [History] ondansetron HCL [Zofran] 1 tab BUCCAL Q12H PRN 11/22/17 [History] traMADol [Ultram] 50 mg PO Q6H PRN 11/22/17 [History] oxyCODONE HCl/Acetaminophen [Endocet 5-325 Tablet] 5 - 325 mg PO Q6H PRN [History] Dicyclomine HCl [Bentyl] 20 mg PO QID #12 capsule 03/19/19 [Rx] Hydrocortisone Acetate [Anusol-Hc] 25 mg RC BEDTIME #5 supp.rect 03/19/19 [Rx] Hydrocodone/Acetaminophen [Hydrocodone-Acetamin 5-325 mg] 1 - 2 each PO Q6HR PRN #20 tablet 08/21/19 [Rx] predniSONE [Prednisone] 20 mg PO DAILY #10 tablet 08/21/19 [Rx] Past Medical History - Past Health History Medical/Surgical History: Denies Medical/Surgical History Cardiovascular History: Reports: Arrhythmia, Heart Murmur Other Cardiovascular History: Recent EKG and Echo secondary to low K+, Na+ in ER when there c/o kidney/back pain on 12/02/14. SVT Respiratory History: Reports: Asthma Other Respiratory History: Rx'd Albuterol inhaler PRN--uses on occasion. pleurisy Gastrointestinal History: Reports: Chronic Constipation, Chronic Diarrhea Genitourinary History: Reports: Pyelonephritis, Renal Calculus, Renal Disease, Other (See Below) Other Genitourinary History: thin basement membrane [employer] History: Reports: , Spontaneous Other [employer] History: Hx of PP hemorrhage following third son's delivery. Musculoskeletal History: Reports: RA, SLE, Other (See Below) Other Musculoskeletal History: Sjogren syndrome Neurological History: Reports: Migraines Other Neuro History: Lupus Psychiatric History: Reports: Anxiety, Depression Other Psychiatric History: PP depression following second child's delivery. On antidepressant medication x approx 6 months for such. Endocrine/Metabolic History: Reports: Obesity/BMI 30+ Hematologic History: Reports: Anemia Immunologic History: Reports: Other (See Below) Other Immunologic History: lupus Oncologic (Cancer) History: Reports: None Other Dermatologic History: Severe cellulitis with pseudomonal infection to L ear cartlidge following ear piercing at age 11--required a PICC line and 6 weeks of IV abx as well as two reconstructive surgeries following daily debridement over a period of weeks as well. - Past Surgical History HEENT Surgical History: Reports: Other (See Below) Other HEENT Surgeries/Procedures: ear piercing removed. Cardiovascular Surgical History: Reports: Cardiac Ablation GI Surgical History: Reports: Cholecystectomy, Colonoscopy Social & Family History - Family History Family Medical History: Noncontributory - Tobacco Use Smoking Status *Q: Never Smoker Second Hand Smoke Exposure: No - Caffeine Use Caffeine Use: Reports: None Other Caffeine Use: coffee rarely - Recreational Drug Use Recreational Drug Use: No - Living Situation & Occupation Living situation: Reports: , with Spouse, with Family Occupation: Unemployed ED ROS GENERAL - Review of Systems Review Of Systems: See Below Constitutional: Reports: No Symptoms HEENT: Reports: No Symptoms Respiratory: Reports: No Symptoms Cardiovascular: Reports: Chest Pain Endocrine: Reports: No Symptoms GI/Abdominal: Reports: Abdominal Pain Musculoskeletal: Reports: Back Pain ED EXAM, GENERAL - Physical Exam Exam: See Below Exam Limited By: No Limitations General Appearance: Alert, No Apparent Distress Ears: Normal External Exam Nose: Normal Inspection Head: Atraumatic, Normocephalic Neck: Normal Inspection Respiratory/Chest: No Respiratory Distress, Lungs Clear, Normal Breath Sounds Cardiovascular: Regular Rate, Rhythm, No Edema, No Murmur GI/Abdominal: Soft, No Organomegaly, No Mass, Tender (generalized) Back Exam: Other (Generalized tenderness) Extremities: Normal Inspection Course - Vital Signs Last Recorded V/S: Last Vital Signs Temp 97.3 F 08/21/19 17:38 Pulse 85 08/21/19 17:38 Resp 16 08/21/19 17:38 BP 157/85 H 08/21/19 17:38 Pulse Ox 100 08/21/19 17:38 - Orders/Labs/Meds Labs: Laboratory Tests 08/21/19 Range/Units 18:10 Sodium 141 (136-145) mEq/L Potassium 3.5 (3.5-5.1) mEq/L Chloride 105 (98-107) mEq/L Carbon Dioxide 26 (21-32) mEq/L Anion Gap 13.5 (5-15) BUN 11 (7-18) mg/dL Creatinine 0.7 (0.55-1.02) mg/dL Est Cr Clr Drug Dosing 110.01 mL/min Estimated GFR (MDRD) > 60 (>60) mL/min BUN/Creatinine Ratio 15.7 (14-18) Glucose 96 (74-106) mg/dL Calcium 8.9 (8.5-10.1) mg/dL Total Bilirubin 0.8 (0.2-1.0) mg/dL AST 19 (15-37) U/L ALT 28 (14-59) U/L Alkaline Phosphatase 52 (46-116) U/L Total Protein 7.1 (6.4-8.2) g/dl Albumin 3.4 (3.4-5.0) g/dl Globulin 3.7 gm/dL Albumin/Globulin Ratio 0.9 L (1-2) Meds: Medications Discontinued Medications Generic Name Dose Route Start Last Admin Trade Name Jarvis PRN Reason Stop Dose Admin Hydromorphone HCl 1 mg 08/21/19 18:47 Dilaudid IM 08/21/19 18:48 ONETIME ONE - Re-Assessments/Exams Free Text/Narrative Re-Assessment/Exam: 08/21/19 19:00 I ordered dilaudid 1mg IM and a CMP. The CMP looks good. I will discharge her on some prednisone 20mg daily for 10 days. I will also give her something for pain. Departure - Departure Time of Disposition: 19:05 Disposition: Home, Self-Care 01 Condition: Good Clinical Impression: Lupus - Discharge Information *PRESCRIPTION DRUG MONITORING PROGRAM REVIEWED*: No *COPY OF PRESCRIPTION DRUG MONITORING REPORT IN PATIENT FLORENTINO: No Prescriptions: Hydrocodone/Acetaminophen [Hydrocodone-Acetamin 5-325 mg] 1 - 2 each PO Q6HR PRN #20 tablet PRN Reason: Pain predniSONE [Prednisone] 20 mg PO DAILY #10 tablet Referrals: Shy Fuchs PA-C [Primary Care Provider] - Additional Instructions: Drink plenty of fluids. Take the prednisone daily for 10 days. Take the hydrocodone as needed for pain. Follow up with your doctor to discuss tapering off the the prednisone or keeping on a dose for longer. Do not stop the prednisone abruptly. That will make you very sick because your body gets used to the prednisone. Please return if you are worse. Sepsis Event Note - Evaluation Sepsis Screening Result: No Definite Risk - Focused Exam Vital Signs: Vital Signs Temp Pulse Resp BP Pulse Ox 08/21/19 17:38 97.3 F 85 16 157/85 H 100 Date Exam was Performed: 08/21/19 Time Exam was Performed: 18:56
== END 2019-08-21 19:17 | disposition home or self-care (01) ==
LOC: JD.ED 16:15
DX: M32.9 Systemic lupus erythematosus, unspecified (principal); F41.9 Anxiety disorder, unspecified; F32.9 Major depressive disorder, single episode, unspecified; E66.9 Obesity, unspecified; Z68.29 Body mass index [BMI] 29.0-29.9, adult; J45.909 Unspecified asthma, uncomplicated; Z88.1 Allergy status to other antibiotic agents; Z88.0 Allergy status to penicillin; Z88.8 Allergy status to other drugs, medicaments and biological substances
CPT/HCPCS: 36415; 80053; 96372; 99284; J1170; 99282

== ENCOUNTER 2019-09-07 13:03 | Emergency (ER) | payer MEDICAID ==
[2019-09-07 13:16] VITALS: BP 146/97; PULSE 85
[2019-09-07] MEDS ORDERED: Ondansetron 4 MG/2 ML SDV IVPUSH ONE (13:54)
[2019-09-07] MEDS ORDERED: HYDROmorphone 0.5 MG/0.5 ML Syringe IVPUSH ONE (13:54)
[2019-09-07] MEDS ORDERED: Sodium Chloride 0.9% 10 ML Syringe FLUSH PRN (13:54)
[2019-09-07] MEDS ORDERED: Sodium Chloride 0.9% 1,000 ML IV SCH (14:00)
--- NOTE | 2019-09-07 14:01 | EDM.PDOC ---
ED HPI GENERAL MEDICAL PROBLEM - General Chief Complaint: Abdominal Pain Stated Complaint: ABDOMINAL/CHEST PAIN Time Seen by Provider: 09/07/19 13:13 Source of Information: Reports: Patient History Limitations: Reports: No Limitations - History of Present Illness INITIAL COMMENTS - FREE TEXT/NARRATIVE: Patient is a 28-year-old female who presents with complaints of intermittent episodes of epigastric pain for the last 6 years. This particular episode she is having today has been going on for the last 3 days. She complains of nausea and diarrhea but has had no vomiting. She states the symptoms come and go. When she has an episode they generally last 4 to 7 days and then may be gone for a couple weeks to months. She has been seen by gastroenterology in the past. Had an EGD colonoscopy done about 2 years ago and there were no substantial findings. She has been tested for hpylori and was found to be negative. She has used Carafate in the past which she states did not help. States she has been seen in this emergency department previously for similar symptoms. She was given a GI cocktail which she states actually made the symptoms worse. She is not currently on a PPI. She says she is tried Tums with these episodes with no improvement. There is no correlation to when she eats or drinks. Patient does have a history of lupus and is currently taking prednisone. She also complains of intermittent kidney pain, however she states that she frequently has this with her lupus. Denies any dysuria or frequency of urination. She denies any fever or chills. - Related Data Allergies Allergy/AdvReac Type Severity Reaction Status Date / Time amoxicillin trihydrate Allergy Severe Other Verified 09/07/19 13:16 [From Augmentin] amoxicillin Allergy Other Verified 08/21/19 17:46 ciprofloxacin Allergy Itching Verified 08/21/19 17:46 clindamycin Allergy Rash Verified 08/21/19 17:46 Penicillins Allergy Hives Verified 08/21/19 17:46 potassium clavulanate Allergy Other Verified 08/21/19 17:46 [From Augmentin] diphenhydramine HCl AdvReac "muscle Verified 08/21/19 17:46 [From Benadryl] aches" Home Meds: Home Meds Albuterol Sulfate [Proair Hfa] 2 puff IH Q4H PRN 11/22/17 [History] ondansetron HCL [Zofran] 1 tab BUCCAL Q12H PRN 11/22/17 [History] traMADol [Ultram] 50 mg PO Q6H PRN 11/22/17 [History] oxyCODONE HCl/Acetaminophen [Endocet 5-325 Tablet] 5 - 325 mg PO Q6H PRN [History] predniSONE [Prednisone] 20 mg PO DAILY #10 tablet 08/21/19 [Rx] Past Medical History - Past Health History Medical/Surgical History: Denies Medical/Surgical History Cardiovascular History: Reports: Arrhythmia, Heart Murmur Other Cardiovascular History: Recent EKG and Echo secondary to low K+, Na+ in ER when there c/o kidney/back pain on 12/02/14. SVT Respiratory History: Reports: Asthma Other Respiratory History: Rx'd Albuterol inhaler PRN--uses on occasion. pleurisy Gastrointestinal History: Reports: Chronic Constipation, Chronic Diarrhea Genitourinary History: Reports: Pyelonephritis, Renal Calculus, Renal Disease, Other (See Below) Other Genitourinary History: thin basement membrane UNARMED SECURITY OFFICER History: Reports: , Spontaneous Other UNARMED SECURITY OFFICER History: Hx of PP hemorrhage following third son's delivery. Musculoskeletal History: Reports: RA, SLE, Other (See Below) Other Musculoskeletal History: Sjogren syndrome Neurological History: Reports: Migraines Other Neuro History: Lupus Psychiatric History: Reports: Anxiety, Depression Other Psychiatric History: PP depression following second child's delivery. On antidepressant medication x approx 6 months for such. Endocrine/Metabolic History: Reports: Obesity/BMI 30+ Hematologic History: Reports: Anemia Immunologic History: Reports: Other (See Below) Other Immunologic History: lupus Oncologic (Cancer) History: Reports: None Other Dermatologic History: Severe cellulitis with pseudomonal infection to L ear cartlidge following ear piercing at age 11--required a PICC line and 6 weeks of IV abx as well as two reconstructive surgeries following daily debridement over a period of weeks as well. - Past Surgical History HEENT Surgical History: Reports: Other (See Below) Other HEENT Surgeries/Procedures: ear piercing removed. Cardiovascular Surgical History: Reports: Cardiac Ablation GI Surgical History: Reports: Cholecystectomy, Colonoscopy Social & Family History - Family History Family Medical History: Noncontributory - Tobacco Use Smoking Status *Q: Never Smoker - Caffeine Use Caffeine Use: Reports: None Other Caffeine Use: coffee rarely - Living Situation & Occupation Living situation: Reports: , with Spouse, with Family Occupation: Unemployed ED ROS GENERAL - Review of Systems Review Of Systems: Comprehensive ROS is negative, except as noted in HPI. ED EXAM, GI/ABD - Physical Exam Exam: See Below Exam Limited By: No Limitations General Appearance: Alert, WD/WN, No Apparent Distress Respiratory/Chest: No Respiratory Distress, Lungs Clear, Normal Breath Sounds, No Accessory Muscle Use, Chest Non-Tender Cardiovascular: Normal Peripheral Pulses, Regular Rate, Rhythm, No Edema, No Gallop, No JVD, No Murmur, No Rub GI/Abdominal Exam: Normal Bowel Sounds, Soft, No Organomegaly, No Distention, No Abnormal Bruit, No Mass, Pelvis Stable, Tender (epigastric) Neurological: Alert, Oriented, CN II-XII Intact, Normal Cognition, Normal Gait, Normal Reflexes, No Motor/Sensory Deficits Psychiatric: Normal Affect, Normal Mood Skin Exam: Warm, Dry, Intact, Normal Color, No Rash Course - Vital Signs Last Recorded V/S: Last Vital Signs Temp 98.0 F 09/07/19 13:11 Pulse 85 09/07/19 13:11 Resp 16 09/07/19 13:11 BP 146/97 H 09/07/19 13:11 Pulse Ox 100 09/07/19 13:11 - Orders/Labs/Meds Orders: Active Orders 24 hr Category Date Time Status Peripheral IV Care [RC] . DIRECTED Care 09/07/19 13:54 Active Peripheral IV Insertion Adult [OM.PC] Stat Oth 09/07/19 13:54 Ordered Labs: Laboratory Tests 09/07/19 09/07/19 09/07/19 Range/Units 14:00 14:05 14:05 WBC 11.94 H (3.98-10.04) K/mm3 RBC 4.55 (3.98-5.22) M/mm3 Hgb 13.2 (11.2-15.7) gm/dl Hct 41.5 (34.1-44.9) % MCV 91.2 D (79.4-94.8) fl MCH 29.0 (25.6-32.2) pg MCHC 31.8 L (32.2-35.5) g/dl RDW Std Deviation 43.4 (36.4-46.3) fL Plt Count 480 H (182-369) K/mm3 MPV 8.5 L (9.4-12.3) fl Neut % (Auto) 80.0 H (34.0-71.1) % Lymph % (Auto) 12.8 L (19.3-51.7) % [place] % (Auto) 6.0 (4.7-12.5) % Eos % (Auto) 0.2 L (0.7-5.8) Baso % (Auto) 0.3 (0.1-1.2) % Neut # (Auto) 9.55 H (1.56-6.13) K/mm3 Lymph # (Auto) 1.53 (1.18-3.74) K/mm3 [place] # (Auto) 0.72 H (0.24-0.36) K/mm3 Eos # (Auto) 0.02 L (0.04-0.36) K/mm3 Baso # (Auto) 0.04 (0.01-0.08) K/mm3 Manual Slide Review Normal smear Sodium 143 (136-145) mEq/L Potassium 4.0 (3.5-5.1) mEq/L Chloride 106 (98-107) mEq/L Carbon Dioxide 25 (21-32) mEq/L Anion Gap 16.0 H (5-15) BUN 15 (7-18) mg/dL Creatinine 1.0 (0.55-1.02) mg/dL Est Cr Clr Drug Dosing 74.02 mL/min Estimated GFR (MDRD) > 60 (>60) mL/min BUN/Creatinine Ratio 15.0 (14-18) Glucose 136 H (74-106) mg/dL Calcium 10.1 (8.5-10.1) mg/dL Total Bilirubin 0.6 (0.2-1.0) mg/dL AST 11 L (15-37) U/L ALT 27 (14-59) U/L Alkaline Phosphatase 58 (46-116) U/L C-Reactive Protein < 0.2 (<1.0) mg/dL Total Protein 7.8 (6.4-8.2) g/dl Albumin 3.7 (3.4-5.0) g/dl Globulin 4.1 gm/dL Albumin/Globulin Ratio 0.9 L (1-2) Lipase 234 (73-393) U/L Urine Color Cancelled Urine Appearance Cancelled Urine pH Cancelled Ur Specific [place] Cancelled Urine Protein Cancelled Urine Glucose (UA) Cancelled Urine Ketones Cancelled Urine Occult Blood Cancelled Urine Nitrite Cancelled Urine Bilirubin Cancelled Urine Urobilinogen Cancelled Ur Leukocyte Esterase Cancelled U Hyaline Cast (Auto) Cancelled Urine RBC Cancelled Urine WBC Cancelled Urine WBC Clumps Cancelled Ur Epithelial Cells Cancelled Ur Squamous Epith Cells Cancelled Ur Transition Epith Cell Cancelled Ur Renal Epithelial Cell Cancelled Jesus Biurate Crystals Cancelled Calcium Carbonate Cryst Cancelled Calcium Phosphate Cryst Cancelled Calcium Oxalate Crystal Cancelled Leucine Crystals Cancelled Cystine Crystals Cancelled Uric Acid Crystals Cancelled Triple Phos Crystals Cancelled Sodium Urate Crystals Cancelled Tyrosine Crystals Cancelled Other Crystals Cancelled Amorphous Sediment Cancelled Urine Bacteria Cancelled Epithelial Casts Cancelled Fatty Casts Cancelled Fine Granular Casts Cancelled Coarse Granular Casts Cancelled Waxy Casts Cancelled Broad Casts Cancelled RBC Casts Cancelled WBC Casts Cancelled Urine Mucus Cancelled Urine Other Cancelled Urine Trichomonas Cancelled Urine Yeast Cancelled Ur Yeast w Hyphae Cancelled Urine Yeast (Budding) Cancelled Ur Oval Fat Bodies Cancelled Urinalysis Comment Cancelled 09/07/19 Range/Units 14:55 WBC (3.98-10.04) K/mm3 RBC (3.98-5.22) M/mm3 Hgb (11.2-15.7) gm/dl Hct (34.1-44.9) % MCV (79.4-94.8) fl MCH (25.6-32.2) pg MCHC (32.2-35.5) g/dl RDW Std Deviation (36.4-46.3) fL Plt Count (182-369) K/mm3 MPV (9.4-12.3) fl Neut % (Auto) (34.0-71.1) % Lymph % (Auto) (19.3-51.7) % [place] % (Auto) (4.7-12.5) % Eos % (Auto) (0.7-5.8) Baso % (Auto) (0.1-1.2) % Neut # (Auto) (1.56-6.13) K/mm3 Lymph # (Auto) (1.18-3.74) K/mm3 [place] # (Auto) (0.24-0.36) K/mm3 Eos # (Auto) (0.04-0.36) K/mm3 Baso # (Auto) (0.01-0.08) K/mm3 Manual Slide Review Sodium (136-145) mEq/L Potassium (3.5-5.1) mEq/L Chloride (98-107) mEq/L Carbon Dioxide (21-32) mEq/L Anion Gap (5-15) BUN (7-18) mg/dL Creatinine (0.55-1.02) mg/dL Est Cr Clr Drug Dosing mL/min Estimated GFR (MDRD) (>60) mL/min BUN/Creatinine Ratio (14-18) Glucose (74-106) mg/dL Calcium (8.5-10.1) mg/dL Total Bilirubin (0.2-1.0) mg/dL AST (15-37) U/L ALT (14-59) U/L Alkaline Phosphatase (46-116) U/L C-Reactive Protein (<1.0) mg/dL Total Protein (6.4-8.2) g/dl Albumin (3.4-5.0) g/dl Globulin gm/dL Albumin/Globulin Ratio (1-2) Lipase (73-393) U/L Urine Color Yellow Urine Appearance Slt cloudy H Urine pH 6.0 Ur Specific [place] > or = 1.030 Urine Protein 1+ H Urine Glucose (UA) Negative Urine Ketones Negative Urine Occult Blood 2+ H Urine Nitrite Negative Urine Bilirubin Negative Urine Urobilinogen 0.2 Ur Leukocyte Esterase Negative U Hyaline Cast (Auto) Urine RBC 30-40 H Urine WBC 0-5 Urine WBC Clumps Ur Epithelial Cells Ur Squamous Epith Cells 10-20 H Ur Transition Epith Cell Ur Renal Epithelial Cell Jesus Biurate Crystals Calcium Carbonate Cryst Calcium Phosphate Cryst Calcium Oxalate Crystal Few H Leucine Crystals Cystine Crystals Uric Acid Crystals Triple Phos Crystals Sodium Urate Crystals Tyrosine Crystals Other Crystals Amorphous Sediment Urine Bacteria Few Epithelial Casts Fatty Casts Fine Granular Casts Coarse Granular Casts Waxy Casts Broad Casts RBC Casts WBC Casts Urine Mucus Moderate H Urine Other Urine Trichomonas Urine Yeast Ur Yeast w Hyphae Urine Yeast (Budding) Ur Oval Fat Bodies Urinalysis Comment Meds: Medications Discontinued Medications Generic Name Dose Route Start Last Admin Trade Name Jarvis PRN Reason Stop Dose Admin Hydromorphone HCl 0.5 mg 09/07/19 13:54 09/07/19 14:10 Dilaudid IVPUSH 09/07/19 13:55 0.5 mg ONETIME ONE Administration Sodium Chloride 1,000 mls @ 150 mls/hr 09/07/19 14:00 09/07/19 14:10 Normal Saline IV 150 mls/hr ASDIRECTED RADHA Administration Ketorolac Tromethamine 30 mg 09/07/19 15:24 09/07/19 15:30 Toradol IVPUSH 09/07/19 15:25 30 mg ONETIME ONE Administration Ondansetron HCl 4 mg 09/07/19 13:54 09/07/19 14:10 Zofran IVPUSH 09/07/19 13:55 4 mg ONETIME ONE Administration Sodium Chloride 10 ml 09/07/19 13:54 09/07/19 14:10 Saline Flush FLUSH 10 ml ASDIRECTED PRN Administration Keep Vein Open - Re-Assessments/Exams Free Text/Narrative Re-Assessment/Exam: Patient is a 28-year-old female who presents with a long history of recurrent epigastric pain. This episodes been lasting the last 3 days. She has seen gastroenterology in the past, however it has been quite a while. They were not able at that time to determine the cause of the pain. She has a follow-up appointment scheduled with her primary care provider, Rebecca Reyes, this coming Monday. Discussed the option of attempting a GI cocktail, however she states that that has made it worse in the past and does not want that at this time. She states the pain has let up somewhat and denies the need for pain medications this time. We will start with a CBC, CMP, CRP, lipase, and urinalysis. 09/07/19 13:59 Patient notified nursing staff that her pain has returned. I will order a liter of IV fluids, Dilaudid for pain, and Zofran for nausea. 09/07/19 15:28 Patient notified nursing staff that pain returned. I have ordered Toradol 30 mg IV. Lab work was grossly unremarkable. WBC is elevated at 11.94, however patient is on prednisone so this is to be expected. Electrolytes are all normal. Anion gap slightly elevated at 16.0. The IV fluids she received should correct this. Kidney function is normal. There is no elevation in her lipase, liver enzymes, alk phos, or CRP. Urinalysis was negative for infection. Looking through the patient's past medical records, it appears that she has been on numerous PPIs, dicyclomine, and Carafate none of which she states helped her symptoms. I feel that ultimately she needs to return to gastroenterology for ongoing work-up and management of her chronic abdominal pain. She does have an appointment scheduled with Rebecca Reyes on Monday morning. Recommend she keep this to discuss the possibility of referral to GI. She is in agreement with this plan. Discharge instructions as documented. 09/07/19 2761 I was notified by nursing staff that the patient was requesting a prescription for pain medications. I discussed with her that she received a prescription for 30 tablets of Percocet at the end of August. Recommend that she use these medications as needed for pain. If she feels that she needs more, she may discuss this with her primary care provider on Monday. She agreed to this plan. Departure - Departure Time of Disposition: 15:30 Disposition: Home, Self-Care 01 Condition: Good Clinical Impression: Chronic abdominal pain - Discharge Information *PRESCRIPTION DRUG MONITORING PROGRAM REVIEWED*: Yes *COPY OF PRESCRIPTION DRUG MONITORING REPORT IN PATIENT [place]: No Instructions: Abdominal Pain, Adult, [id number] Referrals: Shy Fuchs PA-C [Primary Care Provider] - Forms: ED Department Discharge Additional Instructions: You were seen in the emergency department today for an episode of your chronic, recurrent epigastric pain. Blood work and urinalysis was completed and found to all be normal. You have been on numerous different GI medications and he reports that none of them worked to alleviate your symptoms. I would recommend that you keep your appointment with Rebecca Reyes on Monday to discuss a referral to a optical engineering technician for further work-up and management of your chronic abdominal pain. You may use the Percocets that FOSTER Shea prescribed at the end of August as needed for pain management. Return to the ER as needed. Sepsis Event Note - Evaluation Sepsis Screening Result: No Definite Risk - Focused Exam Vital Signs: Vital Signs Temp Pulse Resp BP Pulse Ox 09/07/19 13:11 98.0 F 85 16 146/97 H 100 Date Exam was Performed: 09/07/19 Time Exam was Performed: 16:49 - My Orders Last 24 Hours: My Active Orders 09/07/19 13:54 Peripheral IV Care [RC] . DIRECTED Peripheral IV Insertion Adult [OM.PC] Stat - Assessment/Plan Last 24 Hours: My Active Orders 09/07/19 13:54 Peripheral IV Care [RC] . DIRECTED Peripheral IV Insertion Adult [OM.PC] Stat
[2019-09-07] MEDS ORDERED: Ketorolac 30 MG/ML SDV IVPUSH ONE (15:24)
== END 2019-09-07 15:45 | disposition home or self-care (01) ==
LOC: JD.ED 13:03
DX: R10.13 Epigastric pain (principal); G89.29 Other chronic pain; R19.7 Diarrhea, unspecified; J45.909 Unspecified asthma, uncomplicated; E66.9 Obesity, unspecified; Z68.33 Body mass index [BMI] 33.0-33.9, adult; Z88.1 Allergy status to other antibiotic agents; Z88.0 Allergy status to penicillin; Z88.8 Allergy status to other drugs, medicaments and biological substances; Z79.899 Other long term (current) drug therapy
CPT/HCPCS: 36415; 80053; 81001; 83690; 85025; 86140; 96361; 96374; 96375; 99284; J1170; J1885; J2405; J7030

== ENCOUNTER 2019-10-06 13:48 | Emergency (ER) | payer MEDICAID ==
[2019-10-06 14:08] VITALS: BP 154/92; PULSE 86
[2019-10-06] MEDS ORDERED: Acetaminophen/HYDROcodone 325-5 MG Tab PO ONE (14:13)
--- NOTE | 2019-10-06 15:11 | EDM.PDOC ---
ED HPI GENERAL MEDICAL PROBLEM - General Chief Complaint: Genitourinary Problem Stated Complaint: KIDNEY STONES & TOOTH INFECTION Time Seen by Provider: 10/06/19 13:57 Source of Information: Reports: Patient History Limitations: Reports: No Limitations - History of Present Illness INITIAL COMMENTS - FREE TEXT/NARRATIVE: The patient presents with left flank pain, abdominal pain, nausea, vomiting, dysuria and hematuria. She also has some swelling to her left upper face. She had a dental infection and had the tooth extracted a few days ago. She was on keflex a few weeks before and now after the extraction. She has developed stomach cramps and diarrhea. She also has a history of kidney disease and multiple kidney stones in the past. She currently has 2 in her left kidney. She is concerned she may be passing a stone. Onset: Gradual Duration: Day(s): Location: Reports: Abdomen, Back Quality: Reports: Sharp Severity: Moderate Improves with: Reports: None Worsens with: Reports: None Associated Symptoms: Reports: Nausea/Vomiting. Denies: Chest Pain, Cough, Fever/Chills, Headaches, Shortness of Breath Lower Back Pain Score (Numeric/FACES): 5 - Related Data Allergies Allergy/AdvReac Type Severity Reaction Status Date / Time amoxicillin Allergy Severe Other Verified 10/06/19 14:09 amoxicillin trihydrate Allergy Severe Other Verified 10/06/19 14:09 [From Augmentin] ciprofloxacin Allergy Severe Itching Verified 10/06/19 14:09 clindamycin Allergy Severe Rash Verified 10/06/19 14:09 Penicillins Allergy Severe Hives Verified 10/06/19 14:09 potassium clavulanate Allergy Severe Other Verified 10/06/19 14:09 [From Augmentin] diphenhydramine HCl AdvReac Severe "muscle Verified 10/06/19 14:09 [From Benadryl] aches" Home Meds: Home Meds Albuterol Sulfate [Proair Hfa] 2 puff IH Q4H PRN 11/22/17 [History] ondansetron HCL [Zofran] 1 tab BUCCAL Q12H PRN 11/22/17 [History] traMADol [Ultram] 50 mg PO Q6H PRN 11/22/17 [History] Ibuprofen [Advil] 800 mg PO BID PRN 10/06/19 [History] Vancomycin 125 mg PO ONETIME #40 capsule 10/06/19 [Rx] predniSONE [Prednisone] 40 mg PO DAILY 10/06/19 [History] Past Medical History - Past Health History Medical/Surgical History: Denies Medical/Surgical History Cardiovascular History: Reports: Arrhythmia, Heart Murmur Other Cardiovascular History: Recent EKG and Echo secondary to low K+, Na+ in ER when there c/o kidney/back pain on 12/02/14. SVT Respiratory History: Reports: Asthma Other Respiratory History: Rx'd Albuterol inhaler PRN--uses on occasion. pleurisy Gastrointestinal History: Reports: Chronic Constipation, Chronic Diarrhea Genitourinary History: Reports: Pyelonephritis, Renal Calculus, Renal Disease, Other (See Below) Other Genitourinary History: thin basement membrane COURT INTERPRETER History: Reports: , Spontaneous Other COURT INTERPRETER History: Hx of PP hemorrhage following third son's delivery. Musculoskeletal History: Reports: RA, SLE, Other (See Below) Other Musculoskeletal History: Sjogren syndrome Neurological History: Reports: Migraines Other Neuro History: Lupus Psychiatric History: Reports: Anxiety, Depression Other Psychiatric History: PP depression following second child's delivery. On antidepressant medication x approx 6 months for such. Endocrine/Metabolic History: Reports: Obesity/BMI 30+ Hematologic History: Reports: Anemia Immunologic History: Reports: Other (See Below) Other Immunologic History: lupus Oncologic (Cancer) History: Reports: None Other Dermatologic History: Severe cellulitis with pseudomonal infection to L ear cartlidge following ear piercing at age 11--required a PICC line and 6 weeks of IV abx as well as two reconstructive surgeries following daily debridement over a period of weeks as well. - Past Surgical History HEENT Surgical History: Reports: Other (See Below) Other HEENT Surgeries/Procedures: ear piercing removed. Cardiovascular Surgical History: Reports: Cardiac Ablation GI Surgical History: Reports: Cholecystectomy, Colonoscopy Social & Family History - Family History Family Medical History: Noncontributory - Tobacco Use Smoking Status *Q: Never Smoker Second Hand Smoke Exposure: No - Caffeine Use Caffeine Use: Reports: None Other Caffeine Use: coffee rarely - Living Situation & Occupation Living situation: Reports: , with Spouse, with Family Occupation: Unemployed ED ROS GENERAL - Review of Systems Review Of Systems: See Below Constitutional: Reports: No Symptoms HEENT: Reports: No Symptoms Respiratory: Reports: No Symptoms Cardiovascular: Reports: No Symptoms Endocrine: Reports: No Symptoms GI/Abdominal: Reports: Abdominal Pain, Diarrhea, Nausea, Vomiting : Reports: Flank Pain (left) Musculoskeletal: Reports: Back Pain (left) ED EXAM, GI/ABD - Physical Exam Exam: See Below Exam Limited By: No Limitations General Appearance: Alert, No Apparent Distress Ears: Normal External Exam Nose: Normal Inspection Head: Atraumatic, Normocephalic Neck: Normal Inspection Respiratory/Chest: No Respiratory Distress, Lungs Clear, Normal Breath Sounds Cardiovascular: Regular Rate, Rhythm, No Edema, No Murmur GI/Abdominal Exam: Soft, Non-Tender, No Organomegaly, No Mass Back Exam: CVA Tenderness (L) Extremities: Normal Inspection Course - Vital Signs Last Recorded V/S: Last Vital Signs Temp 98.1 F 10/06/19 14:00 Pulse 86 10/06/19 14:00 Resp 20 10/06/19 14:00 BP 154/92 H 10/06/19 14:00 Pulse Ox 99 10/06/19 14:00 - Orders/Labs/Meds Orders: Active Orders 24 hr Category Date Time Status C DIFFICILE TOXIN IMMUNOASSAY [MREF] Stat Lab 10/06/19 15:47 Received STOOL CULTURE/SHIGA TOXIN [MREF] Stat Lab 10/06/19 15:47 Received Labs: Laboratory Tests 10/06/19 10/06/19 10/06/19 Range/Units 14:35 14:35 14:35 WBC 10.10 H (3.98-10.04) K/mm3 RBC 4.54 (3.98-5.22) M/mm3 Hgb 13.1 (11.2-15.7) gm/dl Hct 41.6 (34.1-44.9) % MCV 91.6 (79.4-94.8) fl MCH 28.9 (25.6-32.2) pg MCHC 31.5 L (32.2-35.5) g/dl RDW Std Deviation 44.9 (36.4-46.3) fL Plt Count 408 H (182-369) K/mm3 MPV 8.1 L (9.4-12.3) fl Neut % (Auto) 79.9 H (34.0-71.1) % Lymph % (Auto) 14.4 L (19.3-51.7) % [place] % (Auto) 4.3 L (4.7-12.5) % Eos % (Auto) 0.2 L (0.7-5.8) Baso % (Auto) 0.2 (0.1-1.2) % Neut # (Auto) 8.08 H (1.56-6.13) K/mm3 Lymph # (Auto) 1.45 (1.18-3.74) K/mm3 [place] # (Auto) 0.43 H (0.24-0.36) K/mm3 Eos # (Auto) 0.02 L (0.04-0.36) K/mm3 Baso # (Auto) 0.02 (0.01-0.08) K/mm3 Manual Slide Review Normal smear Sodium 141 (136-145) mEq/L Potassium 3.6 (3.5-5.1) mEq/L Chloride 104 (98-107) mEq/L Carbon Dioxide 25 (21-32) mEq/L Anion Gap 15.6 H (5-15) BUN 15 (7-18) mg/dL Creatinine 1.1 H (0.55-1.02) mg/dL Est Cr Clr Drug Dosing 67.29 mL/min Estimated GFR (MDRD) 58 (>60) mL/min BUN/Creatinine Ratio 13.6 L (14-18) Glucose 165 H (74-106) mg/dL Calcium 9.4 (8.5-10.1) mg/dL Total Bilirubin 0.7 (0.2-1.0) mg/dL AST 11 L (15-37) U/L ALT 25 (14-59) U/L Alkaline Phosphatase 48 (46-116) U/L Total Protein 7.4 (6.4-8.2) g/dl Albumin 3.5 (3.4-5.0) g/dl Globulin 3.9 gm/dL Albumin/Globulin Ratio 0.9 L (1-2) HCG, Qual Negative (NEGATIVE) Urine Color (Yellow) Urine Appearance (Clear) Urine pH (5.0-8.0) Ur Specific [place] (1.005-1.030) Urine Protein (Negative) Urine Glucose (UA) (Negative) Urine Ketones (Negative) Urine Occult Blood (Negative) Urine Nitrite (Negative) Urine Bilirubin (Negative) Urine Urobilinogen (0.2-1.0) Ur Leukocyte Esterase (Negative) Urine RBC (0-5) /hpf Urine WBC (0-5) /hpf Ur Squamous Epith Cells (0-5) /hpf Calcium Oxalate Crystal (NONE) Urine Bacteria (FEW) /hpf Urine Mucus (FEW) /hpf C.difficile [id number]-[id number] C. difficile Tox (PCR) 10/06/19 10/06/19 Range/Units 14:45 15:47 WBC (3.98-10.04) K/mm3 RBC (3.98-5.22) M/mm3 Hgb (11.2-15.7) gm/dl Hct (34.1-44.9) % MCV (79.4-94.8) fl MCH (25.6-32.2) pg MCHC (32.2-35.5) g/dl RDW Std Deviation (36.4-46.3) fL Plt Count (182-369) K/mm3 MPV (9.4-12.3) fl Neut % (Auto) (34.0-71.1) % Lymph % (Auto) (19.3-51.7) % [place] % (Auto) (4.7-12.5) % Eos % (Auto) (0.7-5.8) Baso % (Auto) (0.1-1.2) % Neut # (Auto) (1.56-6.13) K/mm3 Lymph # (Auto) (1.18-3.74) K/mm3 [place] # (Auto) (0.24-0.36) K/mm3 Eos # (Auto) (0.04-0.36) K/mm3 Baso # (Auto) (0.01-0.08) K/mm3 Manual Slide Review Sodium (136-145) mEq/L Potassium (3.5-5.1) mEq/L Chloride (98-107) mEq/L Carbon Dioxide (21-32) mEq/L Anion Gap (5-15) BUN (7-18) mg/dL Creatinine (0.55-1.02) mg/dL Est Cr Clr Drug Dosing mL/min Estimated GFR (MDRD) (>60) mL/min BUN/Creatinine Ratio (14-18) Glucose (74-106) mg/dL Calcium (8.5-10.1) mg/dL Total Bilirubin (0.2-1.0) mg/dL AST (15-37) U/L ALT (14-59) U/L Alkaline Phosphatase (46-116) U/L Total Protein (6.4-8.2) g/dl Albumin (3.4-5.0) g/dl Globulin gm/dL Albumin/Globulin Ratio (1-2) HCG, Qual (NEGATIVE) Urine Color Yellow (Yellow) Urine Appearance Clear (Clear) Urine pH 6.0 (5.0-8.0) Ur Specific [place] > or = 1.030 (1.005-1.030) Urine Protein 2+ H (Negative) Urine Glucose (UA) Negative (Negative) Urine Ketones Negative (Negative) Urine Occult Blood 3+ H (Negative) Urine Nitrite Negative (Negative) Urine Bilirubin Negative (Negative) Urine Urobilinogen 0.2 (0.2-1.0) Ur Leukocyte Esterase Negative (Negative) Urine RBC 10-20 H (0-5) /hpf Urine WBC 0-5 (0-5) /hpf Ur Squamous Epith Cells 20-30 H (0-5) /hpf Calcium Oxalate Crystal Few H (NONE) Urine Bacteria Rare (FEW) /hpf Urine Mucus Rare (FEW) /hpf C.difficile [id number]-[id number] Presumptive negative C. difficile Tox (PCR) Positive H Meds: Medications Discontinued Medications Generic Name Dose Route Start Last Admin Trade Name Freq PRN Reason Stop Dose Admin Hydrocodone Bitart/Acetaminophen 2 tab 10/06/19 14:13 10/06/19 14:43 Keo 325-5 Mg PO 10/06/19 14:14 2 tab ONETIME ONE Administration Ondansetron HCl 4 mg 10/06/19 15:50 10/06/19 15:54 Zofran Odt PO 10/06/19 15:51 4 mg ONETIME ONE Administration - Re-Assessments/Exams Free Text/Narrative Re-Assessment/Exam: 10/06/19 15:12 I ordered labs, UA and a stool sample. 10/06/19 16:49 Her WBC is elevated at 10.10. Her anion gap is elevated at 15.6. Her creatinine is elevated at 1.1. Her UA shows blood and calcium oxilate crystals. Her c-dif is postive. 10/06/19 16:51 I have ordered vancomyin 125mg PO and a shot of dilaudid. Departure - Departure Time of Disposition: 16:55 Disposition: Home, Self-Care 01 Condition: Good Clinical Impression: Clostridium difficile colitis - Discharge Information *PRESCRIPTION DRUG MONITORING PROGRAM REVIEWED*: No *COPY OF PRESCRIPTION DRUG MONITORING REPORT IN PATIENT FLORENTINO: No Prescriptions: Vancomycin 125 mg PO ONETIME #40 capsule Referrals: Shy Fuchs PA-C [Primary Care Provider] - 1 Week Forms: ED Department Discharge Additional Instructions: Drink plenty of fluids. Take vancomyin 4 times per day for 10 days. Take tylenol or motrin for pain. If that does not help, try the hydrocodone. Follow up with Rebecca Fuchs. Please return if you are worse. Hand sanitizers do not work on this bacteria. Do good hand washing with soap for about 20 seconds. Please return if you are worse. Sepsis Event Note (ED) - Evaluation Sepsis Screening Result: No Definite Risk - Focused Exam Vital Signs: Vital Signs Temp Pulse Resp BP Pulse Ox 10/06/19 14:00 98.1 F 86 20 154/92 H 99 - My Orders Last 24 Hours: My Active Orders 10/06/19 15:47 C DIFFICILE TOXIN IMMUNOASSAY [MREF] Stat STOOL CULTURE/SHIGA TOXIN [MREF] Stat - Assessment/Plan Last 24 Hours: My Active Orders 10/06/19 15:47 C DIFFICILE TOXIN IMMUNOASSAY [MREF] Stat STOOL CULTURE/SHIGA TOXIN [MREF] Stat
[2019-10-06] MEDS ORDERED: Ondansetron 4 MG Tab.DIS PO ONE (15:50)
[2019-10-06] MEDS ORDERED: Vancomycin 125 MG Cap PO ONE (16:51)
[2019-10-06] MEDS ORDERED: HYDROmorphone 1 MG/ML Syringe IM ONE (16:52)
== END 2019-10-06 17:15 | disposition home or self-care (01) ==
LOC: JD.ED 13:48
DX: A04.72 Enterocolitis due to Clostridium difficile, not specified as recurrent (principal); E66.9 Obesity, unspecified; Z68.33 Body mass index [BMI] 33.0-33.9, adult; Z88.1 Allergy status to other antibiotic agents; Z88.0 Allergy status to penicillin; Z88.8 Allergy status to other drugs, medicaments and biological substances; Z79.899 Other long term (current) drug therapy
CPT/HCPCS: 36415; 80053; 81001; 84703; 85025; 87045; 87046; 87324; 87493; 87899; 96372; 99284; A9270; J1170

== ENCOUNTER 2019-10-27 20:26 | Emergency (ER) | payer SELFPAY ==
[2019-10-27 20:46] VITALS: BP 156/81; PULSE 72
[2019-10-27] MEDS ORDERED: Ketorolac 30 MG/ML SDV IVPUSH ONE (21:24)
[2019-10-27] MEDS ORDERED: HYDROmorphone 0.5 MG/0.5 ML Syringe IVPUSH ONE ×2 (21:24→22:41)
[2019-10-27] MEDS ORDERED: Ondansetron 4 MG/2 ML SDV IVPUSH ONE (21:24)
[2019-10-27] MEDS ORDERED: Sodium Chloride 0.9% 1,000 ML IV SCH (21:30)
--- NOTE | 2019-10-27 21:39 | EDM.PDOC ---
ED HPI GENERAL MEDICAL PROBLEM - General Chief Complaint: Headache Stated Complaint: MIGRAINE/FLANK PAIN Time Seen by Provider: 10/27/19 20:52 Source of Information: Reports: Patient History Limitations: Reports: No Limitations - History of Present Illness INITIAL COMMENTS - FREE TEXT/NARRATIVE: Patient is a 29-year-old female who presents to the emergency department with complaints of a migraine headache. States symptoms began on Monday. She has been trying to manage it at home, however it has been getting progressively worse. Nausea began around 6 PM this evening and she developed intermittent visual changes around 5 PM this evening. She has been using [id number] Tylenol and ibuprofen for pain, in addition to her tramadol that is prescribed for her chronic pain. She last took ibuprofen around 5 PM this evening and tramadol around 2 PM this afternoon. She has a long history of migraine headaches. States she saw a neurologist this last Monday and the plan is for them to begin Botox treatments. Patient also complains of bilateral flank pain and hematuria. States she has a "kidney condition "that causes her to have chronic, recurrent hematuria; h owever, she is concerned that this may have developed into a urinary tract infection. She states that when she has hematuria, she usually waits a few weeks to see if symptoms of UTI develop. She denies any burning with urination or frequency. Denies any fever or chills. Headache Pain Score (Numeric/FACES): 8 - Related Data Allergies Allergy/AdvReac Type Severity Reaction Status Date / Time amoxicillin Allergy Severe Other Verified 10/27/19 20:45 amoxicillin trihydrate Allergy Severe Other Verified 10/27/19 20:45 [From Augmentin] ciprofloxacin Allergy Severe Itching Verified 10/27/19 20:45 clindamycin Allergy Severe Rash Verified 10/27/19 20:45 Penicillins Allergy Severe Hives Verified 10/27/19 20:45 potassium clavulanate Allergy Severe Other Verified 10/27/19 20:45 [From Augmentin] diphenhydramine HCl AdvReac Severe "muscle Verified 10/27/19 20:45 [From Benadryl] aches" Home Meds: Home Meds Albuterol Sulfate [Proair Hfa] 2 puff IH Q4H PRN 11/22/17 [History] ondansetron HCL [Zofran] 1 tab BUCCAL Q12H PRN 11/22/17 [History] traMADol [Ultram] 50 mg PO Q6H PRN 11/22/17 [History] Ibuprofen [Advil] 800 mg PO BID PRN 10/06/19 [History] Vancomycin 125 mg PO ONETIME #40 capsule 10/06/19 [Rx] predniSONE [Prednisone] 40 mg PO DAILY 10/06/19 [History] Past Medical History - Past Health History Medical/Surgical History: Denies Medical/Surgical History Cardiovascular History: Reports: Arrhythmia, Heart Murmur Other Cardiovascular History: Recent EKG and Echo secondary to low K+, Na+ in ER when there c/o kidney/back pain on 12/02/14. SVT Respiratory History: Reports: Asthma Other Respiratory History: Rx'd Albuterol inhaler PRN--uses on occasion. 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 Musculoskeletal History: Reports: RA, SLE, Other (See Below) Other Musculoskeletal History: Sjogren syndrome Neurological History: Reports: Migraines Other Neuro History: Lupus Psychiatric History: Reports: Anxiety, Depression Other Psychiatric History: PP depression following second child's delivery. On antidepressant medication x approx 6 months for such. Endocrine/Metabolic History: Reports: Obesity/BMI 30+ Hematologic History: Reports: Anemia Immunologic History: Reports: Other (See Below) Other Immunologic History: lupus Oncologic (Cancer) History: Reports: None Other Dermatologic History: Severe cellulitis with pseudomonal infection to L ear cartlidge following ear piercing at age 11--required a PICC line and 6 weeks of IV abx as well as two reconstructive surgeries following daily debridement over a period of weeks as well. - Past Surgical History HEENT Surgical History: Reports: Other (See Below) Other HEENT Surgeries/Procedures: ear piercing removed. Cardiovascular Surgical History: Reports: Cardiac Ablation GI Surgical History: Reports: Cholecystectomy, Colonoscopy Social & Family History - Family History Family Medical History: Noncontributory - Tobacco Use Smoking Status *Q: Never Smoker - Caffeine Use Caffeine Use: Reports: None Other Caffeine Use: coffee rarely - Living Situation & Occupation Living situation: Reports: , with Spouse, with Family Occupation: Unemployed ED ROS GENERAL - Review of Systems Review Of Systems: See Below Constitutional: Reports: No Symptoms. Denies: Fever, Chills, Weakness HEENT: Reports: Vision Change Respiratory: Reports: No Symptoms Cardiovascular: Reports: No Symptoms Endocrine: Reports: No Symptoms GI/Abdominal: Reports: Nausea. Denies: Vomiting : Reports: Flank Pain, Hematuria. Denies: Dysuria, Frequency Musculoskeletal: Reports: No Symptoms Skin: Reports: No Symptoms Neurological: Reports: Headache. Denies: Dizziness Psychiatric: Reports: No Symptoms Hematologic/Lymphatic: Reports: No Symptoms Immunologic: Reports: No Symptoms - Physical Exam Exam: See Below Exam Limited By: No Limitations General Appearance: Alert, WD/WN, No Apparent Distress Eye Exam: Bilateral Eye: PERRL Respiratory/Chest: No Respiratory Distress, Lungs Clear, Normal Breath Sounds, No Accessory Muscle Use, Chest Non-Tender Cardiovascular: Normal Peripheral Pulses, Regular Rate, Rhythm, No Edema, No Gallop, No JVD, No Murmur, No Rub Neuro Exam (Abbreviated): Alert, Oriented, CN II-XII Intact, Normal Cognition, Normal Gait, Normal Reflexes, No Motor/Sensory Deficits Back Exam: Normal Inspection, CVA Tenderness (L), CVA Tenderness (R) Psychiatric: Normal Affect, Normal Mood Skin Exam: Warm, Dry, Intact, Normal Color, No Rash Course - Vital Signs Last Recorded V/S: Last Vital Signs Temp 97.7 F 10/27/19 20:42 Pulse 72 10/27/19 20:42 Resp 16 10/27/19 20:42 BP 156/81 H 10/27/19 20:42 Pulse Ox 95 10/27/19 20:42 - Orders/Labs/Meds Orders: Active Orders 24 hr Category Date Time Status Acetaminophen/oxyCODONE [Percocet 325-5 MG] Med 10/27/19 23:11 Once 2 tab PO ONETIME ONE Sodium Chloride 0.9% [Normal Saline] 1,000 ml Med 10/27/19 21:30 Active IV ASDIRECTED Medication Orders Sodium Chloride (Normal Saline) 1,000 mls @ 999 mls/hr IV ASDIRECTED [facility] Last Admin: 10/27/19 21:57 Dose: 999 mls/hr Documented by: [facility] Labs: Laboratory Tests 10/27/19 Range/Units 22:15 Urine Color Yellow (Yellow) Urine Appearance Clear (Clear) Urine pH 6.0 (5.0-8.0) Ur Specific [place] > or = 1.030 (1.005-1.030) Urine Protein 1+ H (Negative) Urine Glucose (UA) Negative (Negative) Urine Ketones Trace H (Negative) Urine Occult Blood 3+ H (Negative) Urine Nitrite Negative (Negative) Urine Bilirubin Negative (Negative) Urine Urobilinogen 0.2 (0.2-1.0) Ur Leukocyte Esterase Negative (Negative) Urine RBC 75-100 H (0-5) /hpf Urine WBC 0-5 (0-5) /hpf Ur Squamous Epith Cells 0-5 (0-5) /hpf Amorphous Sediment Many H (NOT SEEN) /hpf Urine Bacteria Moderate H (FEW) /hpf Urine Mucus Many H (FEW) /hpf Meds: Medications Generic Name Dose Route Start Last Admin Trade Name Freq PRN Reason Stop Dose Admin Sodium Chloride 1,000 mls @ 999 mls/hr 10/27/19 21:30 10/27/19 21:57 Normal Saline IV 999 mls/hr ASDIRECTED RADHA Administration Discontinued Medications Generic Name Dose Route Start Last Admin Trade Name Freq PRN Reason Stop Dose Admin Hydromorphone HCl 0.5 mg 10/27/19 21:24 10/27/19 21:57 Dilaudid IVPUSH 10/27/19 21:25 0.5 mg ONETIME ONE Administration Hydromorphone HCl 0.5 mg 10/27/19 22:41 Dilaudid IVPUSH 10/27/19 22:42 ONETIME ONE Hydromorphone HCl 1 mg 10/27/19 22:43 10/27/19 22:57 Dilaudid IVPUSH 10/27/19 22:44 1 mg ONETIME ONE Administration Ketorolac Tromethamine 30 mg 10/27/19 21:24 10/27/19 21:56 Toradol IVPUSH 10/27/19 21:25 30 mg ONETIME ONE Administration Ondansetron HCl 4 mg 10/27/19 21:24 10/27/19 21:55 Zofran IVPUSH 10/27/19 21:25 4 mg ONETIME ONE Administration - Re-Assessments/Exams Free Text/Narrative Re-Assessment/Exam: Patient is a 29-year-old female who presents to the emergency department with complaints of migraine headache since Monday evening. She is also had blood in her urine which is fairly common for her, however she is unsure if she could have an infection. Patient has a long history of migraine headaches so this is nothing new for her. She has seen neurology this last Monday and they plan to start Botox. On review of the PAEDIATRIC SURGEON, patient does have tramadol and Percocet at home, however she states she is only been using the tramadol for the pain. I have ordered a liter of normal saline bolus, Dilaudid 0.5 mg IV, Zofran 4 mg IV, and Toradol 30 mg IV. We will do a UA to look for infection. [id number]/[id number] Nursing reports that when patient got up to use the bathroom and give a urine sample, her headache worsened. I ordered Dilaudid 1 mg IV. 10/27/19 23:13 Patient has had some relief after the Dilaudid. She feels that if we give her a longer acting medication to help her sleep through the night, she will do okay at home now. I ordered Percocet 2 tabs to be given now. Discharge instructions as documented. Departure - Departure Time of Disposition: 23:14 Disposition: Home, Self-Care 01 Condition: Good Clinical Impression: Migraine - Discharge Information *PRESCRIPTION DRUG MONITORING PROGRAM REVIEWED*: Yes *COPY OF PRESCRIPTION DRUG MONITORING REPORT IN PATIENT FLORENTINO: No Instructions: Recurrent Migraine Headache Referrals: Shy Fuchs PA-C [Primary Care Provider] - Forms: ED Department Discharge Additional Instructions: You were seen in the emergency department for an ongoing migraine as well as blood in your urine. Urinalysis was done and shows blood in your urine but no infection. While in the ER, you received a liter of IV fluids, Dilaudid, Toradol, and Zofran. This did improve your symptoms. Prior to discharge you received 2 Percocet to help you get through the night. Recommend that you go home and rest in a quiet dark room. Follow-up with your primary care provider tomorrow as you plan. Return to the ER as needed. Sepsis Event Note (ED) - Evaluation Sepsis Screening Result: No Definite Risk - Focused Exam Vital Signs: Vital Signs Temp Pulse Resp BP Pulse Ox 10/27/19 20:42 97.7 F 72 16 156/81 H 95 - My Orders Last 24 Hours: My Active Orders 10/27/19 21:30 Sodium Chloride 0.9% [Normal Saline] 1,000 ml IV ASDIRECTED 10/27/19 23:11 Acetaminophen/oxyCODONE [Percocet 325-5 MG] 2 tab PO ONETIME ONE - Assessment/Plan Last 24 Hours: My Active Orders 10/27/19 21:30 Sodium Chloride 0.9% [Normal Saline] 1,000 ml IV ASDIRECTED 10/27/19 23:11 Acetaminophen/oxyCODONE [Percocet 325-5 MG] 2 tab PO ONETIME ONE
[2019-10-27] MEDS ORDERED: HYDROmorphone 1 MG/ML Syringe IVPUSH ONE (22:43)
[2019-10-27] MEDS ORDERED: Acetaminophen/oxyCODONE 325-5 MG Tab PO ONE (23:11)
== END 2019-10-27 23:45 | disposition home or self-care (01) ==
LOC: JD.ED 20:26
DX: G43.909 Migraine, unspecified, not intractable, without status migrainosus (principal); J45.909 Unspecified asthma, uncomplicated; Z88.1 Allergy status to other antibiotic agents; Z88.0 Allergy status to penicillin; Z88.8 Allergy status to other drugs, medicaments and biological substances; Z79.899 Other long term (current) drug therapy
CPT/HCPCS: 81001; 96374; 96375; 96376; 99283; A9270; J1170; J1885; J2405; J7030

== ENCOUNTER 2019-11-09 15:12 | Emergency (ER) | payer MEDICAID ==
--- NOTE | 2019-11-09 15:51 | EDM.PDOC ---
ED HPI GENERAL MEDICAL PROBLEM - General Chief Complaint: Flank Pain Stated Complaint: MULTIPLE ISSUES WITH LUPUS AND KIDNEY DISEASE Time Seen by Provider: 11/09/19 15:41 - History of Present Illness INITIAL COMMENTS - FREE TEXT/NARRATIVE: 29-year-old female presents to the emergency room with right-sided flank pain and abdominal pain. This is been going on for a couple of months on and on and off basis. Patient has a significant past history of kidney stones usually on the left side. However this pain reminds her of a kidney stone. The patient currently has an ongoing C. difficile problem and is getting scheduled for a fecal transplant. She is under the care of a ultrasound tester for this. 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 Her ultrasound tester is trying to get her in sooner as her lupus and her 60 mg a day of prednisone that she is using to try and suppress the lupus is and potentially further can interfere with treatment for her C. difficile. 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 Bilateral Flank Pain Score (Numeric/FACES): 8 - Related Data Allergies Allergy/AdvReac Type Severity Reaction Status Date / Time amoxicillin Allergy Severe Other Verified 11/09/19 15:27 amoxicillin trihydrate Allergy Severe Other Verified 11/09/19 15:27 [From Augmentin] ciprofloxacin Allergy Severe Itching Verified 11/09/19 15:27 clindamycin Allergy Severe Rash Verified 11/09/19 15:27 Penicillins Allergy Severe Hives Verified 11/09/19 15:27 potassium clavulanate Allergy Severe Other Verified 11/09/19 15:27 [From Augmentin] diphenhydramine HCl AdvReac Severe "muscle Verified 11/09/19 15:27 [From Benadryl] aches" Home Meds: Home Meds Albuterol Sulfate [Proair Hfa] 2 puff IH Q4H PRN 11/22/17 [History] ondansetron HCL [Zofran] 1 tab BUCCAL Q12H PRN 11/22/17 [History] traMADol [Ultram] 50 mg PO Q6H PRN 11/22/17 [History] Ibuprofen [Advil] 800 mg PO BID PRN 10/06/19 [History] predniSONE [Prednisone] 60 mg PO DAILY 10/06/19 [History] Acetaminophen/HYDROcodone [Baggs 325-5 MG] 1 - 2 tab PO Q6H PRN #25 tablet 11/09/19 [Rx] Past Medical History - Past Health History Medical/Surgical History: Denies Medical/Surgical History Cardiovascular History: Reports: Arrhythmia, Heart Murmur Other Cardiovascular History: Recent EKG and Echo secondary to low K+, Na+ in ER when there c/o kidney/back pain on 12/02/14. SVT Respiratory History: Reports: Asthma Other Respiratory History: Rx'd Albuterol inhaler PRN--uses on occasion. pleurisy Gastrointestinal History: Reports: Chronic Constipation, Chronic Diarrhea Genitourinary History: Reports: Pyelonephritis, Renal Calculus, Renal Disease, Other (See Below) Other Genitourinary History: thin basement membrane TIRE MOUNTER History: Reports: , Spontaneous Other TIRE MOUNTER History: Hx of PP hemorrhage following third son's delivery. Musculoskeletal History: Reports: RA, SLE, Other (See Below) Other Musculoskeletal History: Sjogren syndrome Neurological History: Reports: Migraines Other Neuro History: Lupus Psychiatric History: Reports: Anxiety, Depression Other Psychiatric History: PP depression following second child's delivery. On antidepressant medication x approx 6 months for such. Endocrine/Metabolic History: Reports: Obesity/BMI 30+ Hematologic History: Reports: Anemia Immunologic History: Reports: Other (See Below) Other Immunologic History: lupus Oncologic (Cancer) History: Reports: None Other Dermatologic History: Severe cellulitis with pseudomonal infection to L ear cartlidge following ear piercing at age 11--required a PICC line and 6 weeks of IV abx as well as two reconstructive surgeries following daily debridement over a period of weeks as well. - Infectious Disease History Infectious Disease History: Reports: C-Difficile - Past Surgical History HEENT Surgical History: Reports: Other (See Below) Other HEENT Surgeries/Procedures: ear piercing removed. Cardiovascular Surgical History: Reports: Cardiac Ablation GI Surgical History: Reports: Cholecystectomy, Colonoscopy Social & Family History - Family History Family Medical History: Noncontributory - Tobacco Use Smoking Status *Q: Never Smoker Second Hand Smoke Exposure: No - Caffeine Use Caffeine Use: Reports: Coffee, Soda Other Caffeine Use: coffee rarely - Recreational Drug Use Recreational Drug Use: No - Living Situation & Occupation Living situation: Reports: , with Spouse, with Family Occupation: Unemployed ED ROS GENERAL - Review of Systems Review Of Systems: See Below Constitutional: Reports: No Symptoms HEENT: Reports: No Symptoms Respiratory: Reports: No Symptoms Cardiovascular: Reports: No Symptoms Endocrine: Reports: No Symptoms GI/Abdominal: Reports: Abdominal Pain, Diarrhea, Nausea. Denies: Constipation : Reports: Hematuria Skin: Reports: No Symptoms Neurological: Reports: No Symptoms Psychiatric: Reports: No Symptoms Hematologic/Lymphatic: Reports: No Symptoms Immunologic: Reports: No Symptoms ED EXAM, GENERAL - Physical Exam Exam: See Below Exam Limited By: No Limitations General Appearance: Alert, Mild Distress (She has a hard time getting comfortable) Head: Atraumatic, Normocephalic Neck: Normal Inspection, Supple, Non-Tender, Full Range of Motion Respiratory/Chest: No Respiratory Distress, Lungs Clear, Normal Breath Sounds Cardiovascular: Regular Rate, Rhythm, No Edema, No Murmur GI/Abdominal: Normal Bowel Sounds, Soft, Other (She has right-sided abdominal tenderness with palpation that is slightly worsened with palpation. She has generalized abdominal pain from her C. difficile.). No: Guarding, Rigid, Rebound Back Exam: Normal Inspection. No: CVA Tenderness (L), CVA Tenderness (R) Extremities: Normal Inspection, Normal Range of Motion, Non-Tender Neurological: Alert, Oriented, Normal Cognition Course - Vital Signs Last Recorded V/S: Last Vital Signs Temp 37.1 C 11/09/19 15:23 Pulse 99 11/09/19 15:23 Resp 20 11/09/19 15:23 BP 155/94 H 11/09/19 15:23 Pulse Ox 100 11/09/19 15:23 - Orders/Labs/Meds Orders: Active Orders 24 hr Category Date Time Status Abdomen Pelvis wo Cont [CT] Stat Exams 11/09/19 17:18 Ordered Lactated Ringers [Ringers, Lactated] 1,000 ml Med 11/09/19 16:30 Active IV ASDIRECTED Medication Orders Lactated Ringer's (Ringers, Lactated) 1,000 mls @ 125 mls/hr IV ASDIRECTED RADHA Last Admin: 11/09/19 16:46 Dose: 125 mls/hr Documented by: ISABELLA Labs: Laboratory Tests 11/09/19 11/09/19 11/09/19 Range/Units 16:00 16:30 16:30 WBC 13.46 H (3.98-10.04) K/mm3 RBC 4.42 (3.98-5.22) M/mm3 Hgb 13.0 (11.2-15.7) gm/dl Hct 40.4 (34.1-44.9) % MCV 91.4 (79.4-94.8) fl MCH 29.4 (25.6-32.2) pg MCHC 32.2 (32.2-35.5) g/dl RDW Std Deviation 45.1 (36.4-46.3) fL Plt Count 397 H (182-369) K/mm3 MPV 8.2 L (9.4-12.3) fl Neut % (Auto) 88.1 H (34.0-71.1) % Lymph % (Auto) 7.6 L (19.3-51.7) % [place] % (Auto) 3.0 L (4.7-12.5) % Eos % (Auto) 0 L (0.7-5.8) Baso % (Auto) 0.1 (0.1-1.2) % Neut # (Auto) 11.86 H (1.56-6.13) K/mm3 Lymph # (Auto) 1.02 L (1.18-3.74) K/mm3 [place] # (Auto) 0.40 H (0.24-0.36) K/mm3 Eos # (Auto) 0.00 L (0.04-0.36) K/mm3 Baso # (Auto) 0.02 (0.01-0.08) K/mm3 Manual Slide Review Abnormal smear ESR (0-20) mm/hr Sodium 138 (136-145) mEq/L Potassium 4.0 (3.5-5.1) mEq/L Chloride 101 (98-107) mEq/L Carbon Dioxide 30 (21-32) mEq/L Anion Gap 11.0 (5-15) BUN 17 (7-18) mg/dL Creatinine 1.0 (0.55-1.02) mg/dL Est Cr Clr Drug Dosing 73.35 mL/min Estimated GFR (MDRD) > 60 (>60) mL/min BUN/Creatinine Ratio 17.0 (14-18) Glucose 159 H (74-106) mg/dL Calcium 9.0 (8.5-10.1) mg/dL Total Bilirubin 0.8 (0.2-1.0) mg/dL AST 15 (15-37) U/L ALT 32 (14-59) U/L Alkaline Phosphatase 42 L (46-116) U/L C-Reactive Protein <0.2 (<1.0) mg/dL Total Protein 7.3 (6.4-8.2) g/dl Albumin 3.6 (3.4-5.0) g/dl Globulin 3.7 gm/dL Albumin/Globulin Ratio 1.0 (1-2) Urine Color Yellow (Yellow) Urine Appearance Slt cloudy H (Clear) Urine pH 6.0 (5.0-8.0) Ur Specific [place] > or = 1.030 (1.005-1.030) Urine Protein Trace H (Negative) Urine Glucose (UA) Negative (Negative) Urine Ketones Negative (Negative) Urine Occult Blood 2+ H (Negative) Urine Nitrite Negative (Negative) Urine Bilirubin Negative (Negative) Urine Urobilinogen 0.2 (0.2-1.0) Ur Leukocyte Esterase Negative (Negative) U Hyaline Cast (Auto) 0-5 (0-5) /lpf Urine RBC 10-20 H (0-5) /hpf Urine WBC 0-5 (0-5) /hpf Ur Squamous Epith Cells 10-20 H (0-5) /hpf Urine Bacteria Few (FEW) /hpf Urine Mucus Few (FEW) /hpf 11/09/19 Range/Units 16:30 WBC (3.98-10.04) K/mm3 RBC (3.98-5.22) M/mm3 Hgb (11.2-15.7) gm/dl Hct (34.1-44.9) % MCV (79.4-94.8) fl MCH (25.6-32.2) pg MCHC (32.2-35.5) g/dl RDW Std Deviation (36.4-46.3) fL Plt Count (182-369) K/mm3 MPV (9.4-12.3) fl Neut % (Auto) (34.0-71.1) % Lymph % (Auto) (19.3-51.7) % [place] % (Auto) (4.7-12.5) % Eos % (Auto) (0.7-5.8) Baso % (Auto) (0.1-1.2) % Neut # (Auto) (1.56-6.13) K/mm3 Lymph # (Auto) (1.18-3.74) K/mm3 [place] # (Auto) (0.24-0.36) K/mm3 Eos # (Auto) (0.04-0.36) K/mm3 Baso # (Auto) (0.01-0.08) K/mm3 Manual Slide Review ESR 9 (0-20) mm/hr Sodium (136-145) mEq/L Potassium (3.5-5.1) mEq/L Chloride (98-107) mEq/L Carbon Dioxide (21-32) mEq/L Anion Gap (5-15) BUN (7-18) mg/dL Creatinine (0.55-1.02) mg/dL Est Cr Clr Drug Dosing mL/min Estimated GFR (MDRD) (>60) mL/min BUN/Creatinine Ratio (14-18) Glucose (74-106) mg/dL Calcium (8.5-10.1) mg/dL Total Bilirubin (0.2-1.0) mg/dL AST (15-37) U/L ALT (14-59) U/L Alkaline Phosphatase (46-116) U/L C-Reactive Protein (<1.0) mg/dL Total Protein (6.4-8.2) g/dl Albumin (3.4-5.0) g/dl Globulin gm/dL Albumin/Globulin Ratio (1-2) Urine Color (Yellow) Urine Appearance (Clear) Urine pH (5.0-8.0) Ur Specific [place] (1.005-1.030) Urine Protein (Negative) Urine Glucose (UA) (Negative) Urine Ketones (Negative) Urine Occult Blood (Negative) Urine Nitrite (Negative) Urine Bilirubin (Negative) Urine Urobilinogen (0.2-1.0) Ur Leukocyte Esterase (Negative) U Hyaline Cast (Auto) (0-5) /lpf Urine RBC (0-5) /hpf Urine WBC (0-5) /hpf Ur Squamous Epith Cells (0-5) /hpf Urine Bacteria (FEW) /hpf Urine Mucus (FEW) /hpf Meds: Medications Generic Name Dose Route Start Last Admin Trade Name Jarvis PRN Reason Stop Dose Admin Lactated Ringer's 1,000 mls @ 125 mls/hr 11/09/19 16:30 11/09/19 16:46 Ringers, Lactated IV 125 mls/hr ASDIRECTED RADHA Administration Discontinued Medications Generic Name Dose Route Start Last Admin Trade Name Jarvis PRN Reason Stop Dose Admin Fentanyl 50 mcg 11/09/19 16:27 11/09/19 16:44 Sublimaze IVPUSH 11/09/19 16:28 50 mcg ONETIME ONE Administration Hydromorphone HCl 0.5 mg 11/09/19 18:10 11/09/19 18:15 Dilaudid IVPUSH 11/09/19 18:11 0.5 mg ONETIME ONE Administration Ondansetron HCl 4 mg 11/09/19 16:53 11/09/19 17:01 Zofran IVPUSH 11/09/19 16:54 4 mg ONETIME ONE Administration - Re-Assessments/Exams Free Text/Narrative Re-Assessment/Exam: 11/09/19 18:32 Laboratory evaluation is basically unrevealing it does not appear she has a urinary tract infection she is got microscopic hematuria. Looking back through old labs going back couple years this is a fairly constant finding. She seems to get very symptomatic when she has gross hematuria and following this which makes me wonder if thin basement membrane disease is really what is going on here or is there something else going on which can be a real possibility with her underlying lupus. I went ahead and got a CT of her abdomen and pelvis to rule in or rule out the presence of a kidney stone she is got bilateral obstructing nephrolithiasis. No CT evidence of appendicitis albeit no contrast was used. At this point the patient has follow-up with her primary provider on Monday I will give her some Baggs to use until then. Departure - Departure Time of Disposition: 18:37 Disposition: Home, Self-Care 01 Clinical Impression: Lupus, Clostridium difficile colitis, Abdominal pain, Hematuria, Thin basement membrane disease - Discharge Information Referrals: Shy Fuchs PA-C [Primary Care Provider] - Forms: ED Department Discharge Additional Instructions: Return to the emergency room with any questions problems or worsening symptoms. Follow-up with your regular provider this Monday as scheduled. To help improve your pain I have given you some Baggs, or hydrocodone take 1 or 2 every 6 hours only if absolutely necessary to help control your pain. Because of the pain medication you received here in the emergency room I do not want you taking a dose of this until 11:00 this evening. Sepsis Event Note (ED) - Evaluation Sepsis Screening Result: No Definite Risk - Focused Exam Vital Signs: Vital Signs Temp Pulse Resp BP Pulse Ox 11/09/19 15:23 37.1 C 99 20 155/94 H 100 - My Orders Last 24 Hours: My Active Orders 11/09/19 16:30 Lactated Ringers [Ringers, Lactated] 1,000 ml IV ASDIRECTED 11/09/19 17:18 Abdomen Pelvis wo Cont [CT] Stat - Assessment/Plan Last 24 Hours: My Active Orders 11/09/19 16:30 Lactated Ringers [Ringers, Lactated] 1,000 ml IV ASDIRECTED 11/09/19 17:18 Abdomen Pelvis wo Cont [CT] Stat
[2019-11-09] MEDS ORDERED: fentaNYL 100 MCG/2 ML SDV IVPUSH ONE (16:27)
[2019-11-09] MEDS ORDERED: Lactated Ringers 1,000 ML IV SCH (16:30)
[2019-11-09] MEDS ORDERED: Ondansetron 4 MG/2 ML SDV IVPUSH ONE (16:53)
[2019-11-09] MEDS ORDERED: HYDROmorphone 0.5 MG/0.5 ML Syringe IVPUSH ONE (18:10)
[2019-11-09 18:57] VITALS: BP 138/83; PULSE 82
--- NOTE | 2019-11-10 13:13 | CT ---
CT abdomen and pelvis Technique: Multiple axial sections were obtained from above the dome of the diaphragm inferiorly through the pubic symphysis. Intravenous and oral contrast not utilized. Study has been performed as a ureteral stone protocol. Findings: No ureteral dilatation or ureteral calculi are seen. Several nonobstructing calculi are seen within both kidneys. Visualized lung bases show nothing acute. Noncontrast appearance of the liver shows no focal abnormality. Spleen appears within normal limits. Surgical clips are seen from prior cholecystectomy. Pancreas is felt to be within normal limits. Aorta shows no aneurysm. No retroperitoneal adenopathy or mesenteric abnormalities are seen. No pelvic mass or adenopathy is seen. Cyst is noted within the left ovary measuring 3.1 cm in size. No free fluid or inflammatory change is seen. Appendix is not seen with certainty. Bone window settings were reviewed which shows no acute osseous finding. Impression: 1. Nonobstructing calculi within both kidneys. No ureteral dilatation or ureteral stone is seen. 2. 3.1 cm cyst within the left ovary. 3. Nothing acute is appreciated on CT study of the abdomen and pelvis. Diagnostic code #2 This report was dictated in MDT I agree with preliminary report from [facility], finalized on 11/09/19, 7:08 PM Central Daylight Time
== END 2019-11-09 19:00 | disposition home or self-care (01) ==
LOC: JD.ED 15:12
DX: M32.9 Systemic lupus erythematosus, unspecified (principal); A04.72 Enterocolitis due to Clostridium difficile, not specified as recurrent; N02.9 Recurrent and persistent hematuria with unspecified morphologic changes; J45.909 Unspecified asthma, uncomplicated; E66.9 Obesity, unspecified; Z90.49 Acquired absence of other specified parts of digestive tract; Z79.899 Other long term (current) drug therapy; Z88.0 Allergy status to penicillin; Z88.1 Allergy status to other antibiotic agents; Z88.8 Allergy status to other drugs, medicaments and biological substances; Z68.34 Body mass index [BMI] 34.0-34.9, adult
CPT/HCPCS: 36415; 74176; 80053; 81001; 85025; 85652; 86140; 96361; 96374; 96375; 99284; J1170; J2405; J3010; J7120

== ENCOUNTER 2019-11-24 21:42 | Emergency (ER) | payer MEDICAID ==
[2019-11-24 22:00] VITALS: BP 177/91; PULSE 88
--- NOTE | 2019-11-24 22:50 | EDM.PDOC ---
ED HPI GENERAL MEDICAL PROBLEM - General Chief Complaint: General Stated Complaint: MIGRAINE/KIDNEY STONES Time Seen by Provider: 11/24/19 22:48 Source of Information: Reports: Patient, RN Notes Reviewed - History of Present Illness INITIAL COMMENTS - FREE TEXT/NARRATIVE: 29 yr female with Campbell, nausea, bilat low back pain. Has had the back pain since yesterday, Campbell since last evening, worse today. Voiding urgency. No fever or chills, no vomiting. Hx Lupus. Headache Pain Score (Numeric/FACES): 8 - Related Data Allergies Allergy/AdvReac Type Severity Reaction Status Date / Time amoxicillin Allergy Severe Other Verified 11/24/19 22:01 amoxicillin trihydrate Allergy Severe Other Verified 11/24/19 22:01 [From Augmentin] ciprofloxacin Allergy Severe Itching Verified 11/24/19 22:01 clindamycin Allergy Severe Rash Verified 11/24/19 22:01 Penicillins Allergy Severe Hives Verified 11/24/19 22:01 potassium clavulanate Allergy Severe Other Verified 11/24/19 22:01 [From Augmentin] diphenhydramine HCl AdvReac Severe "muscle Verified 11/24/19 22:01 [From Benadryl] aches" Home Meds: Home Meds Albuterol Sulfate [Proair Hfa] 2 puff IH Q4H PRN 11/22/17 [History] ondansetron HCL [Zofran] 1 tab BUCCAL Q12H PRN 11/22/17 [History] traMADol [Ultram] 50 mg PO Q6H PRN 11/22/17 [History] Ibuprofen [Advil] 800 mg PO BID PRN 10/06/19 [History] predniSONE [Prednisone] 60 mg PO DAILY 10/06/19 [History] Acetaminophen/HYDROcodone [Trosper 325-5 MG] 1 - 2 tab PO Q6H PRN #25 tablet 11/09/19 [Rx] Acetaminophen/HYDROcodone [Trosper 325-5 MG] 1 tab PO Q6H PRN #10 tablet 11/25/19 [Rx] Past Medical History - Past Health History Medical/Surgical History: Denies Medical/Surgical History Cardiovascular History: Reports: Arrhythmia, Heart Murmur Other Cardiovascular History: Recent EKG and Echo secondary to low K+, Na+ in ER when there c/o kidney/back pain on 12/02/14. SVT Respiratory History: Reports: Asthma Other Respiratory History: Rx'd Albuterol inhaler PRN--uses on occasion. 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 Musculoskeletal History: Reports: RA, SLE, Other (See Below) Other Musculoskeletal History: Sjogren syndrome Neurological History: Reports: Migraines Other Neuro History: Lupus Psychiatric History: Reports: Anxiety, Depression Other Psychiatric History: PP depression following second child's delivery. On antidepressant medication x approx 6 months for such. Endocrine/Metabolic History: Reports: Obesity/BMI 30+ Hematologic History: Reports: Anemia Immunologic History: Reports: Other (See Below) Other Immunologic History: lupus Oncologic (Cancer) History: Reports: None Other Dermatologic History: Severe cellulitis with pseudomonal infection to L ear cartlidge following ear piercing at age 11--required a PICC line and 6 weeks of IV abx as well as two reconstructive surgeries following daily debridement over a period of weeks as well. - Infectious Disease History Infectious Disease History: Reports: C-Difficile - Past Surgical History HEENT Surgical History: Reports: Other (See Below) Other HEENT Surgeries/Procedures: ear piercing removed. Cardiovascular Surgical History: Reports: Cardiac Ablation GI Surgical History: Reports: Cholecystectomy, Colonoscopy Social & Family History - Family History Family Medical History: Noncontributory - Tobacco Use Smoking Status *Q: Never Smoker Second Hand Smoke Exposure: No - Caffeine Use Caffeine Use: Reports: None Other Caffeine Use: coffee rarely - Recreational Drug Use Recreational Drug Use: No - Living Situation & Occupation Living situation: Reports: , with Spouse, with Family Occupation: Unemployed ED ROS GENERAL - Review of Systems Review Of Systems: See Below Constitutional: Denies: Fever, Chills HEENT: Denies: Sinus Problem, Throat Pain Respiratory: Denies: Shortness of Breath, Cough Cardiovascular: Denies: Chest Pain GI/Abdominal: Reports: Nausea. Denies: Abdominal Pain, Vomiting Musculoskeletal: Reports: Back Pain Skin: Denies: Rash Neurological: Reports: Dizziness, Headache. Denies: Numbness, Tingling, Trouble Speaking, Difficulty Walking, Weakness ED EXAM, GENERAL - Physical Exam Exam: See Below General Appearance: Alert, Mild Distress Head: Atraumatic. No: Facial Swelling Neck: Normal Inspection, Supple Respiratory/Chest: No Respiratory Distress, Lungs Clear, Normal Breath Sounds Cardiovascular: Regular Rate, Rhythm GI/Abdominal: Soft, Non-Tender. No: Guarding Back Exam: No: CVA Tenderness (L), CVA Tenderness (R) Extremities: Normal Inspection, Normal Range of Motion, No Pedal Edema Skin Exam: Warm, Dry, Normal Color, No Rash Course - Vital Signs Last Recorded V/S: Last Vital Signs Temp 98.4 F 11/24/19 21:58 Pulse 88 11/24/19 21:58 Resp 16 11/24/19 21:58 BP 177/91 H 11/24/19 21:58 Pulse Ox 97 11/24/19 21:58 - Orders/Labs/Meds Orders: Active Orders 24 hr Category Date Time Status Abdomen Pelvis wo Cont [CT] Stat Exams 11/24/19 22:58 Taken CULTURE URINE [RM] Stat Lab 11/25/19 00:46 Received Peripheral IV Insertion Adult [OM.PC] Stat Oth 11/24/19 22:56 Ordered Labs: Laboratory Tests 11/24/19 11/24/19 11/24/19 Range/Units 22:05 23:10 23:10 WBC 13.36 H (3.98-10.04) K/mm3 RBC 4.30 (3.98-5.22) M/mm3 Hgb 12.6 (11.2-15.7) gm/dl Hct 39.4 (34.1-44.9) % MCV 91.6 (79.4-94.8) fl MCH 29.3 (25.6-32.2) pg MCHC 32.0 L (32.2-35.5) g/dl RDW Std Deviation 46.1 (36.4-46.3) fL Plt Count 366 (182-369) K/mm3 MPV 8.1 L (9.4-12.3) fl Neut % (Auto) 74.8 H (34.0-71.1) % Lymph % (Auto) 15.9 L (19.3-51.7) % Titus % (Auto) 7.3 (4.7-12.5) % Eos % (Auto) 0.1 L (0.7-5.8) Baso % (Auto) 0.4 (0.1-1.2) % Neut # (Auto) 9.99 H (1.56-6.13) K/mm3 Lymph # (Auto) 2.13 (1.18-3.74) K/mm3 Titus # (Auto) 0.97 H (0.24-0.36) K/mm3 Eos # (Auto) 0.01 L (0.04-0.36) K/mm3 Baso # (Auto) 0.06 (0.01-0.08) K/mm3 Manual Slide Review Normal smear Sodium 141 (136-145) mEq/L Potassium 3.9 (3.5-5.1) mEq/L Chloride 103 (98-107) mEq/L Carbon Dioxide 29 (21-32) mEq/L Anion Gap 12.9 (5-15) BUN 15 (7-18) mg/dL Creatinine 0.8 (0.55-1.02) mg/dL Est Cr Clr Drug Dosing 91.68 mL/min Estimated GFR (MDRD) > 60 (>60) mL/min BUN/Creatinine Ratio 18.8 H (14-18) Glucose 105 (74-106) mg/dL Calcium 9.3 (8.5-10.1) mg/dL Total Bilirubin 0.6 (0.2-1.0) mg/dL AST 15 (15-37) U/L ALT 35 (14-59) U/L Alkaline Phosphatase 40 L (46-116) U/L Total Protein 7.0 (6.4-8.2) g/dl Albumin 3.4 (3.4-5.0) g/dl Globulin 3.6 gm/dL Albumin/Globulin Ratio 0.9 L (1-2) Urine Color Yellow (Yellow) Urine Appearance Clear (Clear) Urine pH 6.5 (5.0-8.0) Ur Specific [place] > or = 1.030 (1.005-1.030) Urine Protein 1+ H (Negative) Urine Glucose (UA) Negative (Negative) Urine Ketones Negative (Negative) Urine Occult Blood 3+ H (Negative) Urine Nitrite Negative (Negative) Urine Bilirubin Negative (Negative) Urine Urobilinogen 0.2 (0.2-1.0) Ur Leukocyte Esterase Negative (Negative) Urine RBC >100 H (0-5) /hpf Urine WBC 0-5 (0-5) /hpf Ur Squamous Epith Cells 0-5 (0-5) /hpf Urine Bacteria Moderate H (FEW) /hpf Urine Mucus Not seen (FEW) /hpf Meds: Medications Discontinued Medications Generic Name Dose Route Start Last Admin Trade Name Freq PRN Reason Stop Dose Admin Hydromorphone HCl 0.5 mg 11/24/19 22:57 11/24/19 23:05 Dilaudid IVPUSH 11/24/19 22:58 0.5 mg ONETIME ONE Administration Hydromorphone HCl 0.5 mg 11/25/19 00:17 11/25/19 00:23 Dilaudid IVPUSH 11/25/19 00:18 0.5 mg ONETIME ONE Administration Sodium Chloride 1,000 mls @ 999 mls/hr 11/24/19 23:00 11/24/19 23:05 Normal Saline IV 999 mls/hr ONETIME RADHA Administration Metoclopramide HCl 5 mg 11/25/19 00:17 11/25/19 00:23 Reglan IVPUSH 11/25/19 00:18 5 mg ONETIME ONE Administration Ondansetron HCl 4 mg 11/24/19 22:57 11/24/19 23:05 Zofran IVPUSH 11/24/19 22:58 4 mg ONETIME ONE Administration Sodium Chloride 10 ml 11/24/19 22:57 11/24/19 23:05 Saline Flush FLUSH 10 ml ASDIRECTED PRN Administration Keep Vein Open - Re-Assessments/Exams Free Text/Narrative Re-Assessment/Exam: 11/25/19 02:[address] showed no acute findings, UA showed hematuria, some bacteria but nitrite and leukocyte neg. Urine culture done, treated with IV fluid and meds, feeling better at time of discharge. Departure - Departure Time of Disposition: 00:53 Disposition: Home, Self-Care 01 Condition: Fair Clinical Impression: Back pain, Headache, Hematuria - Discharge Information Prescriptions: Acetaminophen/HYDROcodone [Trosper 325-5 MG] 1 tab PO Q6H PRN #10 tablet PRN Reason: Pain Instructions: General Headache Without Cause, Acute Back Pain, Adult, Hematuria, Adult Referrals: Shy Fuchs PA-C [Primary Care Provider] - Forms: ED Department Discharge Additional Instructions: Drink plenty of water to maintain hydration. Tylenol q 6 to 8 hr for mild to moderate pain or 1/2 tablet hydrocodone with 500 mg tylenol not more than q 6 to 8 hr. Prescription has been sent to the [facility] located at the [facility]. Do not drive when taking hydrocodone. Follow up with your medical practice manager as planned. Sepsis Event Note (ED) - Evaluation Sepsis Screening Result: No Definite Risk - Focused Exam Vital Signs: Vital Signs Temp Pulse Resp BP Pulse Ox 11/24/19 21:58 98.4 F 88 16 177/91 H 97 - My Orders Last 24 Hours: My Active Orders 11/24/19 22:56 Peripheral IV Insertion Adult [OM.PC] Stat 11/24/19 22:58 Abdomen Pelvis wo Cont [CT] Stat 11/25/19 00:46 CULTURE URINE [RM] Stat - Assessment/Plan Last 24 Hours: My Active Orders 11/24/19 22:56 Peripheral IV Insertion Adult [OM.PC] Stat 11/24/19 22:58 Abdomen Pelvis wo Cont [CT] Stat 11/25/19 00:46 CULTURE URINE [RM] Stat
[2019-11-24] MEDS ORDERED: HYDROmorphone 0.5 MG/0.5 ML Syringe IVPUSH ONE (22:57)
[2019-11-24] MEDS ORDERED: Sodium Chloride 0.9% 10 ML Syringe FLUSH PRN (22:57)
[2019-11-24] MEDS ORDERED: Ondansetron 4 MG/2 ML SDV IVPUSH ONE (22:57)
[2019-11-24] MEDS ORDERED: Sodium Chloride 0.9% 1,000 ML IV SCH (23:00)
[2019-11-25] MEDS ORDERED: Metoclopramide 10 MG/2 ML SDV IVPUSH ONE (00:17)
[2019-11-25] MEDS ORDERED: HYDROmorphone 0.5 MG/0.5 ML Syringe IVPUSH ONE (00:17)
--- NOTE | 2019-11-25 07:22 | CT ---
CT abdomen and pelvis Technique: Multiple axial sections were obtained from above the dome of the diaphragm inferiorly through the pubic symphysis. Intravenous and oral contrast was not utilized. Comparison: Prior CT abdomen and pelvis exam of 11/09/19 and renal ultrasound of 11/14/19. Findings: Nonobstructing calculi are noted within both kidneys. Findings are fairly stable from previous exam. No ureteral dilatation or ureteral stone is seen. No bladder calculi are noted. Visualized lung bases show nothing acute. Liver contains no focal parenchymal abnormality. Spleen appears within normal limits. Adrenal glands show no nodule. Pancreas shows no discrete abnormality. Surgical clips are seen from prior cholecystectomy. Aorta shows no aneurysm. No retroperitoneal adenopathy or mesenteric abnormalities are seen. No pelvic mass or adenopathy is seen. No free fluid or inflammatory change is identified. Appendix is seen which is normal in size. Bone window settings were reviewed which show no acute osseous finding. Small fat-containing umbilical hernia is noted. Impression: 1. Both kidneys show nonobstructing renal calculi. 2. No ureteral dilatation or ureteral stone is seen. 3. Nothing acute is appreciated on noncontrast CT study of the abdomen and pelvis. Diagnostic code #2 This report was dictated in MDT I agree with preliminary report from [facility], finalized on 11/25/19, 12:48 AM Central Daylight Time
== END 2019-11-25 01:15 | disposition home or self-care (01) ==
LOC: JD.ED 21:42
DX: M54.5 Low back pain (principal); R51 Headache; R31.9 Hematuria, unspecified; E66.9 Obesity, unspecified; J45.909 Unspecified asthma, uncomplicated; Z88.1 Allergy status to other antibiotic agents; Z88.0 Allergy status to penicillin; Z88.8 Allergy status to other drugs, medicaments and biological substances; Z90.49 Acquired absence of other specified parts of digestive tract; Z79.899 Other long term (current) drug therapy; Z68.35 Body mass index [BMI] 35.0-35.9, adult
CPT/HCPCS: 36415; 74176; 80053; 81001; 85025; 87086; 96361; 96374; 96375; 96376; 99284; J1170; J2405; J2765; J7030

== ENCOUNTER 2019-12-19 17:12 | Emergency (ER) | payer MEDICAID ==
[2019-12-19 17:54] VITALS: BP 147/99; PULSE 87
--- NOTE | 2019-12-19 18:24 | EDM.PDOC ---
ED HPI GENERAL MEDICAL PROBLEM - General Chief Complaint: Flank Pain Stated Complaint: LOW ABDOMINAL AND KIDNEY PAIN Time Seen by Provider: 12/19/19 17:59 Source of Information: Reports: Patient, RN Notes Reviewed History Limitations: Reports: No Limitations - History of Present Illness INITIAL COMMENTS - FREE TEXT/NARRATIVE: Patient is a 29-year-old female who presents to the ED for her lower abdomen pain. 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 She has a history of kidney stones about 6 years ago. She states that the pain feels more in her bladder, rather than an issue with her kidneys at today's visit. She notes that she had her recent visit with her specialist in [place], and states everything seemed to be going fine. She notes that yesterday afternoon however the bladder symptoms started, she is complaining of severe dysuria, burning with frequency and urgency, she states some severe pelvic pressure as well. She is not had any fevers, but is complaining of some chills, no cough or shortness of breath, no nausea vomiting or diarrhea. Her primary care provider is Rebecca Fuchs. She states that she is using tramadol and ibuprofen for pain, but none of this seems to be helping much. She does note that she is also recently started an JORDAN inhibitor for the thin basement membrane syndrome along with the kidney pain she is having. Treatments MANAGER SPECIALTY: Reports: Other (see below) Other Treatments MANAGER SPECIALTY: motrin and tramadol; also took azo Bilateral Flank Pain Score (Numeric/FACES): 7 - Related Data Allergies Allergy/AdvReac Type Severity Reaction Status Date / Time amoxicillin Allergy Severe Other Verified 11/24/19 22:01 amoxicillin trihydrate Allergy Severe Other Verified 11/24/19 22:01 [From Augmentin] ciprofloxacin Allergy Severe Itching Verified 11/24/19 22:01 clindamycin Allergy Severe Rash Verified 11/24/19 22:01 Penicillins Allergy Severe Hives Verified 11/24/19 22:01 potassium clavulanate Allergy Severe Other Verified 11/24/19 22:01 [From Augmentin] diphenhydramine HCl AdvReac Severe "muscle Verified 11/24/19 22:01 [From Benadryl] aches" Home Meds: Home Meds Albuterol Sulfate [Proair Hfa] 2 puff IH Q4H PRN 11/22/17 [History] ondansetron HCL [Zofran] 1 tab BUCCAL Q12H PRN 11/22/17 [History] traMADol [Ultram] 50 mg PO Q6H PRN 11/22/17 [History] Ibuprofen [Advil] 800 mg PO BID PRN 10/06/19 [History] predniSONE [Prednisone] 10 mg PO DAILY 10/06/19 [History] Acetaminophen/HYDROcodone [[place] 325-5 MG] 1 tab PO Q6H PRN #12 tablet 12/19/19 [Rx] Cefdinir [Omnicef] 300 mg PO BID 7 Days #14 cap 12/19/19 [Rx] Past Medical History Cardiovascular History: Reports: Arrhythmia, Heart Murmur Other Cardiovascular History: Recent EKG and Echo secondary to low K+, Na+ in ER when there c/o kidney/back pain on 12/02/14. SVT Respiratory History: Reports: Asthma Other Respiratory History: Rx'd Albuterol inhaler PRN--uses on occasion. 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 Musculoskeletal History: Reports: RA, SLE, Other (See Below) Other Musculoskeletal History: Sjogren syndrome Neurological History: Reports: Migraines Other Neuro History: Lupus Psychiatric History: Reports: Anxiety, Depression Other Psychiatric History: PP depression following second child's delivery. On antidepressant medication x approx 6 months for such. Endocrine/Metabolic History: Reports: Obesity/BMI 30+ Hematologic History: Reports: Anemia Immunologic History: Reports: Other (See Below) Other Immunologic History: lupus Dermatologic History: Reports: Other (See Below) Other Dermatologic History: Severe cellulitis with pseudomonal infection to L ear cartlidge following ear piercing at age 11--required a PICC line and 6 weeks of IV abx as well as two reconstructive surgeries following daily debridement over a period of weeks as well. - Infectious Disease History Infectious Disease History: Reports: C-Difficile - Past Surgical History HEENT Surgical History: Reports: Other (See Below) Other HEENT Surgeries/Procedures: ear piercing removed. Cardiovascular Surgical History: Reports: Cardiac Ablation GI Surgical History: Reports: Cholecystectomy, Colonoscopy Social & Family History - Family History Family Medical History: Noncontributory - Tobacco Use Smoking Status *Q: Never Smoker - Caffeine Use Caffeine Use: Reports: Soda Other Caffeine Use: coffee rarely - Recreational Drug Use Recreational Drug Use: No - Living Situation & Occupation Living situation: Reports: , with Spouse, with Family Occupation: Unemployed ED ROS GENERAL - Review of Systems Review Of Systems: Comprehensive ROS is negative, except as noted in HPI. ED EXAM, RENAL/ - Physical Exam Exam: See Below Exam Limited By: No Limitations General Appearance: Alert, WD/WN, No Apparent Distress Respiratory/Chest: No Respiratory Distress, Lungs Clear, Normal Breath Sounds, No Accessory Muscle Use, Chest Non-Tender Cardiovascular: Normal Peripheral Pulses, Regular Rate, Rhythm, No Murmur GI/Abdominal: Normal Bowel Sounds, Soft, No Distention, No Mass, Tender (suprapubic tenderness noted) Extremities: Normal Inspection, Normal Capillary Refill Neurological: Alert, Oriented, Normal Cognition, No Motor/Sensory Deficits Psychiatric: Normal Affect, Normal Mood Skin Exam: Warm, Dry, Intact, Normal Color, No Rash Course - Vital Signs Last Recorded V/S: Last Vital Signs Temp 97.8 F 12/19/19 17:52 Pulse 87 12/19/19 17:52 Resp 20 12/19/19 17:52 BP 147/99 H 12/19/19 17:52 Pulse Ox 100 12/19/19 17:52 - Orders/Labs/Meds Orders: Active Orders 24 hr Category Date Time Status CULTURE URINE [RM] Routine Lab 12/19/19 19:26 Ordered Labs: Laboratory Tests 12/19/19 Range/Units 18:28 Urine Color Dark yellow (Yellow) Urine Appearance Clear (Clear) Urine pH 7.0 (5.0-8.0) Ur Specific [place] 1.020 (1.005-1.030) Urine Protein 1+ H (Negative) Urine Glucose (UA) Trace H (Negative) Urine Ketones Negative (Negative) Urine Occult Blood 3+ H (Negative) Urine Nitrite Positive H (Negative) Urine Bilirubin Negative (Negative) Urine Urobilinogen 1.0 (0.2-1.0) Ur Leukocyte Esterase Negative (Negative) Urine RBC 40-50 H (0-5) /hpf Urine WBC 0-5 (0-5) /hpf Ur Squamous Epith Cells 10-20 H (0-5) /hpf Urine Bacteria Few (FEW) /hpf Urine Mucus Not seen (FEW) /hpf Meds: Medications Discontinued Medications Generic Name Dose Route Start Last Admin Trade Name Freq PRN Reason Stop Dose Admin Cefdinir 300 mg 12/19/19 19:22 Omnicef PO 12/19/19 19:23 ONETIME ONE - Re-Assessments/Exams Free Text/Narrative Re-Assessment/Exam: 12/19/19 18:26 Patient presents to the ED for her urinary symptoms. Urine sample was obtained at time of triage. Rather orange in appearance, states that she did take Azo, for pain relief. 12/19/19 19:26 UA demonstrates a UTI in nature. She will be started on cefdinir for antibiotic and a culture will be sent for sensitivities. Departure - Departure Time of Disposition: 19:27 Disposition: Home, Self-Care 01 Condition: Good Clinical Impression: UTI (urinary tract infection) Qualifiers: Urinary tract infection type: acute cystitis Hematuria presence: with hematuria Qualified Code(s): N30.01 - Acute cystitis with hematuria - Discharge Information *PRESCRIPTION DRUG MONITORING PROGRAM REVIEWED*: Yes *COPY OF PRESCRIPTION DRUG MONITORING REPORT IN PATIENT FLORENTINO: No Prescriptions: Acetaminophen/HYDROcodone [[place] 325-5 MG] 1 tab PO Q6H PRN #12 tablet PRN Reason: Pain Cefdinir [Omnicef] 300 mg PO BID 7 Days #14 cap Instructions: Urinary Tract Infection, Adult, [id number] Referrals: Shy Fuchs PA-C [Primary Care Provider] - Forms: ED Department Discharge Additional Instructions: You have been evaluated in the ED for your urinary symptoms. Your urinalysis was consistent with an acute urinary tract infection. Your urine was sent for culture, and you will be notified if you should need a change in your antibiotic. This may take up to 48 hours to result. You may take AZO for urinary pain relief. This is available over the counter, and can be attained at any retail store like [employer] or any pharmacy. Please be aware that this medication will make your urine turn orange. Please only use this for 2 days. You have been given a prescription for cefdinir, 300 mg 1 tablet 2 times a day for 7 days. This has been electronically sent to the Clinic pharmacy located in in the [facility]. You were given a prescription for a strong pain medication, hydrocodone/acetaminophen 5/325 mg., please take 1 tab every 6 hours as needed for pain not relieved by Tylenol or ibuprofen alone. Please note this medication does contain Tylenol in it, so do not take more than 4000 mg in a 24- hour time span. These medications can be addictive, so please take as few as possible to achieve adequate pain control. These meds can also be quite constipating, recommend that you increase your oral fluid intake and take a stool softener like MiraLAX while taking these medications. Do not drive while taking this medication. Please increase your oral fluid intake and try to stay adequately hydrated. Please return to the ED if your symptoms change or worsen. Sepsis Event Note (ED) - Evaluation Sepsis Screening Result: No Definite Risk - Focused Exam Vital Signs: Vital Signs Temp Pulse Resp BP Pulse Ox 12/19/19 17:52 97.8 F 87 20 147/99 H 100 - My Orders Last 24 Hours: My Active Orders 12/19/19 19:26 CULTURE URINE [RM] Routine - Assessment/Plan Last 24 Hours: My Active Orders 12/19/19 19:26 CULTURE URINE [RM] Routine
[2019-12-19] MEDS ORDERED: Cefdinir 300 MG Cap PO ONE (19:22)
== END 2019-12-19 19:57 | disposition home or self-care (01) ==
LOC: JD.ED 17:12
DX: N30.01 Acute cystitis with hematuria (principal); J45.909 Unspecified asthma, uncomplicated; E66.9 Obesity, unspecified; Z68.33 Body mass index [BMI] 33.0-33.9, adult; Z88.1 Allergy status to other antibiotic agents; Z88.0 Allergy status to penicillin; Z88.8 Allergy status to other drugs, medicaments and biological substances; Z79.899 Other long term (current) drug therapy
CPT/HCPCS: 81001; 87086; 99284; A9270; 99283

== ENCOUNTER 2019-12-21 13:35 | Emergency (ER) | payer MEDICAID ==
[2019-12-21 13:54] VITALS: BP 156/92; PULSE 83
[2019-12-21] MEDS ORDERED: Metoclopramide 10 MG/2 ML SDV IVPUSH ONE (14:25)
[2019-12-21] MEDS ORDERED: HYDROmorphone 1 MG/ML Syringe IVPUSH ONE (14:25)
--- NOTE | 2019-12-21 14:29 | EDM.PDOC ---
ED HPI GENERAL MEDICAL PROBLEM - General Chief Complaint: Genitourinary Problem Stated Complaint: STOMACH PAIN Time Seen by Provider: 12/21/19 14:24 Source of Information: Reports: Patient History Limitations: Reports: No Limitations - History of Present Illness INITIAL COMMENTS - FREE TEXT/NARRATIVE: 29-year-old female returns to the ED after being seen 2 days ago. She presented at that time with acute onset of dysuria urgency frequency with urinary tract symptoms. The urinalysis done at that time revealed 1+ proteinuria 3+ occult blood positive nitrates and 40-50 red blood cells per high-power field but only 0-5 white cells and 10-20 squamous epithelial cells. Urine culture grew out a mixed for a suggestive of contamination. Patient was treated with Omnicef 300 mg twice daily. She returns today with increased severe left flank pain rating down towards the left groin. It is been very severe over the last 36 hours. She has a history of kidney stones with the last stone being removed by lithotripsy 4 years ago. She has a history of basement membrane disease nephritis and has been recently started on lisinopril lisinopril daily. She appreciates the urine to be quite dark and likely containing blood. She does not have the dysuria but she does have a constant feeling of need to void. She does have pain suprapubically. Associated nausea without vomiting. Has not been able to eat at all since yesterday at noon. Feels lightheaded dizzy and ill. No fever or chills. Having some loose stools which she blamed on the antibiotic. Onset: Gradual Onset Date: 12/18/19 (Been having left flank pain off and on with acute onset of dysuria urgency frequency on the evening of the .) Duration: Day(s):, Getting Worse (Left flank pain rating down to the left groin. Constant feeling of need to void.) Location: Reports: Abdomen, Back (Left lower quadrant of the abdomen left flank pain), Radiates to (Radiates down to the left groin and suprapubic region) Quality: Reports: Ache (Pain is described as a constant deep aching pain with intermittent colic compatible with cannot kidney stone. She has been taking Percocet and tramadol and Motrin with very little relief.) Severity: Severe Improves with: Reports: None (9 out of 10) Worsens with: Reports: None Context: Reports: Other (Spontaneous symptoms developing 3 days ago). Denies: Activity, Exercise, Lifting, Sick Contact, Trauma Associated Symptoms: Reports: Loss of Appetite (But ate anything solid since yesterday at noon.), Malaise, Nausea/Vomiting. Denies: Shortness of Breath Treatments [employer]: Reports: NSAIDS, Other (see below) (Motrin Percocet tablets) Lower Back Pain Score (Numeric/FACES): 9 - Related Data Allergies Allergy/AdvReac Type Severity Reaction Status Date / Time amoxicillin Allergy Severe Other Verified 12/21/19 14:02 amoxicillin trihydrate Allergy Severe Other Verified 12/21/19 14:02 [From Augmentin] ciprofloxacin Allergy Severe Itching Verified 12/21/19 14:02 clindamycin Allergy Severe Rash Verified 12/21/19 14:02 Penicillins Allergy Severe Hives Verified 12/21/19 14:02 potassium clavulanate Allergy Severe Other Verified 12/21/19 14:02 [From Augmentin] diphenhydramine HCl AdvReac Severe "muscle Verified 12/21/19 14:02 [From Benadryl] aches" Home Meds: Home Meds Albuterol Sulfate [Proair Hfa] 2 puff IH Q4H PRN 11/22/17 [History] ondansetron HCL [Zofran] 1 tab BUCCAL Q12H PRN 11/22/17 [History] traMADol [Ultram] 50 mg PO Q6H PRN 11/22/17 [History] Ibuprofen [Advil] 800 mg PO BID PRN 10/06/19 [History] predniSONE [Prednisone] 10 mg PO DAILY 10/06/19 [History] levoFLOXacin [Levaquin] 750 mg PO DAILY #7 tab 12/21/19 [Rx] oxyCODONE HCl/Acetaminophen [Percocet 5-325 mg Tablet] 1 - 2 each PO Q4H PRN #12 tablet 12/21/19 [Rx] Past Medical History - Past Health History Medical/Surgical History: Denies Medical/Surgical History Cardiovascular History: Reports: Arrhythmia, Heart Murmur Other Cardiovascular History: Recent EKG and Echo secondary to low K+, Na+ in ER when there c/o kidney/back pain on 12/02/14. SVT Respiratory History: Reports: Asthma Other Respiratory History: Rx'd Albuterol inhaler PRN--uses on occasion. pleurisy Gastrointestinal History: Reports: Chronic Constipation, Chronic Diarrhea Genitourinary History: Reports: Pyelonephritis, Renal Calculus, Renal Disease, Other (See Below) Other Genitourinary History: thin basement membrane;painful Loin disease [employer] P[employer]ER History: Reports: , Spontaneous Other W[employer]SE [employer] P[employer]ER History: Hx of PP hemorrhage following third son's delivery. Musculoskeletal History: Reports: RA, SLE, Other (See Below) Other Musculoskeletal History: Sjogren syndrome Neurological History: Reports: Migraines Other Neuro History: Lupus Psychiatric History: Reports: Anxiety, Depression Other Psychiatric History: PP depression following second child's delivery. On antidepressant medication x approx 6 months for such. Endocrine/Metabolic History: Reports: Obesity/BMI 30+ Hematologic History: Reports: Anemia Immunologic History: Reports: Other (See Below) Other Immunologic History: lupus Oncologic (Cancer) History: Reports: None Dermatologic History: Reports: Other (See Below) Other Dermatologic History: Severe cellulitis with pseudomonal infection to L ear cartlidge following ear piercing at age 11--required a PICC line and 6 weeks of IV abx as well as two reconstructive surgeries following daily debridement over a period of weeks as well. - Infectious Disease History Infectious Disease History: Reports: C-Difficile - Past Surgical History HEENT Surgical History: Reports: Other (See Below) Other HEENT Surgeries/Procedures: ear piercing removed. Cardiovascular Surgical History: Reports: Cardiac Ablation GI Surgical History: Reports: Cholecystectomy, Colonoscopy Social & Family History - Family History Family Medical History: Noncontributory - Tobacco Use Smoking Status *Q: Never Smoker Second Hand Smoke Exposure: No - Caffeine Use Caffeine Use: Reports: Soda Other Caffeine Use: coffee rarely Caffeine Use Comment: 1 Soda Daily - Recreational Drug Use Recreational Drug Use: No - Living Situation & Occupation Living situation: Reports: , with Spouse, with Family Occupation: Unemployed ED ROS GENERAL - Review of Systems Review Of Systems: See Below Constitutional: Reports: Malaise, Weakness, Fatigue, Decreased Appetite. Denies: Fever, Chills HEENT: Reports: No Symptoms Respiratory: Reports: Shortness of Breath (Is a history of asthma but not wheezing at present.) Cardiovascular: Reports: No Symptoms Endocrine: Reports: Fatigue GI/Abdominal: Reports: Abdominal Pain (See history of present illness.), Diarrhea (This are on the looser side which she blamed on the Omnicef she started 2 days ago.), Decreased Appetite, Nausea. Denies: Vomiting : Reports: Flank Pain, Frequency, Urgency (And feeling of need to void.). Denies: Dysuria (Left flank pain), Incontinence, Irregular Menses, Urinary Retention Musculoskeletal: Reports: Back Pain (Left flank pain) Skin: Reports: No Symptoms Neurological: Reports: No Symptoms Psychiatric: Reports: No Symptoms Hematologic/Lymphatic: Reports: No Symptoms Immunologic: Reports: No Symptoms ED EXAM, RENAL/ - Physical Exam Exam: See Below Exam Limited By: No Limitations General Appearance: WD/WN, Moderate Distress, Other (Patient looks to be in quite significant discomfort. Temperature is 36.1 with a heart rate of 83 and sinus respiratory is 18 BP 1 5692. Pulse ox 97% room air.) Eye Exam: Bilateral Eye: Normal Inspection (No scleral icterus or blepharal pallor.), PERRL Throat/Mouth: Other (Tongue is mildly dry and coated) Neck: Normal Inspection, Supple, Non-Tender, Full Range of Motion. No: Lymphadenopathy (L), Lymphadenopathy (R) Respiratory/Chest: No Respiratory Distress, Lungs Clear, Normal Breath Sounds, Chest Non-Tender Cardiovascular: Normal Peripheral Pulses, Regular Rate, Rhythm, No Edema, No Gallop, No Murmur, No Rub GI/Abdominal: No Organomegaly, Tender (Tenderness throughout the left lower quadrant of the abdomen which she feels radiates down towards her urethra.), Abnormal Bowel Sounds (Bowel sounds are very quiesced sent in all 4 quadrants.). No: Distended Back Exam: Normal Inspection, Full Range of Motion. No: CVA Tenderness (L), CVA Tenderness (R) Extremities: Normal Inspection, Normal Range of Motion, Non-Tender, No Pedal Edema Neurological: Alert, Oriented, CN II-XII Intact, Normal Cognition Psychiatric: Anxious, Tearful Skin Exam: Warm, Dry, Intact, Normal Color, No Rash Course - Vital Signs Last Recorded V/S: Last Vital Signs Temp 36.1 C 12/21/19 13:42 Pulse 83 12/21/19 13:42 Resp 18 12/21/19 13:42 BP 156/92 H 12/21/19 13:42 Pulse Ox 97 12/21/19 13:42 - Orders/Labs/Meds Orders: Active Orders 24 hr Category Date Time Status Abdomen Pelvis wo Cont [CT] Stat Exams 12/21/19 14:24 Taken CULTURE URINE [RM] Stat Lab 12/21/19 13:49 Received Dextrose 5%-0.9% NaCl [Dextrose 5%-Normal Saline] 1,000 Med 12/21/19 14:30 Active ml IV ASDIRECTED Medication Orders Dextrose/Sodium Chloride (Dextrose 5%-Normal Saline) 1,000 mls @ 999 mls/hr IV ASDIRECTED RADHA Last Admin: 12/21/19 14:42 Dose: 999 mls/hr Documented by: LANETTE Labs: Laboratory Tests 12/21/19 Range/Units 13:49 Urine Color [place] H (Yellow) Urine Appearance Clear (Clear) Urine pH 5.5 (5.0-8.0) Ur Specific [place] 1.020 (1.005-1.030) Urine Protein 2+ H (Negative) Urine Glucose (UA) Trace H (Negative) Urine Ketones Trace H (Negative) Urine Occult Blood 2+ H (Negative) Urine Nitrite Positive H (Negative) Urine Bilirubin 1+ H (Negative) Urine Urobilinogen 2.0 H (0.2-1.0) Ur Leukocyte Esterase 3+ H (Negative) Urine RBC 10-20 H (0-5) /hpf Urine WBC 5-10 H (0-5) /hpf Ur Squamous Epith Cells 10-20 H (0-5) /hpf Urine Bacteria Few (FEW) /hpf Urine Mucus Few (FEW) /hpf Meds: Medications Generic Name Dose Route Start Last Admin Trade Name Freq PRN Reason Stop Dose Admin Dextrose/Sodium Chloride 1,000 mls @ 999 mls/hr 12/21/19 14:30 12/21/19 14:42 Dextrose 5%-Normal Saline IV 999 mls/hr ASDIRECTED RADHA Administration Discontinued Medications Generic Name Dose Route Start Last Admin Trade Name Freq PRN Reason Stop Dose Admin Hydromorphone HCl 1 mg 12/21/19 14:25 12/21/19 14:44 Dilaudid IVPUSH 12/21/19 14:26 1 mg ONETIME ONE Administration Metoclopramide HCl 7.5 mg 12/21/19 14:25 12/21/19 14:43 Reglan IVPUSH 12/21/19 14:26 7.5 mg ONETIME ONE Administration - Radiology Interpretation Free Text/Narrative:: 29-year-old female presents to the ED with increased left flank pain rating down towards her left groin suspicious for a kidney stone. She was seen through the ED 2 days ago because of acute onset of dysuria urgency and feeling like she developed a UTI UTI. Her urinalysis showed 30-40 red blood cells per high-power field but no pus cells. It was nitrate positive due to the red cells in the urine. She was placed on Omnicef 300 mg twice daily for which she is been taking for the last 2 days. She states the pain increased yesterday afternoon in her left flank. It is constant with a strong colicky component which radiates down towards the left groin. She has a history of kidney stones requiring lithotripsy 4 years ago. She passes gravel intermittently per urethra. Associated nausea but no vomiting. Benign abdominal examination today. Suspect renal colic left side. Plan urinalysis to be repeated. CT of the abdomen per renal protocol to be done. IV will be D5 normal saline at open. Dilaudid 1 mg IV with Reglan 7.5 mg IV for pain and nausea relief. - Re-Assessments/Exams Free Text/Narrative Re-Assessment/Exam: 12/21/19 15:23 Urinalysis is reported as orange in color and I believe the patient is taking Azo. Urine protein is 2+ trace of glucose trace of ketones 2+ occult blood positive nitrate 1+ bilirubin and 2+ urobilinogen. Leukocyte Estrace is 3+ the micro shows 10-20 RBCs per high-power field and 5-10 WBCs per high-power field 10-20 epithelial cells suggestive of pyelonephritis. CT of the abdomen and pelvis has been performed per renal protocol. Liver appears normal with no masses. The gallbladder has been removed surgical clips present. Pancreas is normal spleen is normal adrenal glands are normal. Several stones are present within the kidneys. They are relatively small measuring 3 and 4 mm in size. At least 2 stones are present on the right and 2 stones on the left. A tiny stone is present within the distal left ureter near the region of the ureterovesical junction it measures approximately 0.1 x 0.1 cm. There is minimal hydroureter. There is minimal hydronephrosis on the left side few scattered colonic diverticula are present there is no evidence for active diverticulitis the appendix is well seen and normal in appearance. No free air no significant fluid collections in the pelvis no enlarged lymph nodes. Bladder is unremarkable reproductive system unremarkable. Plan patient is feeling much better after the IV Dilaudid and Reglan. She has had 500 mils of IV fluid and is feeling better. Plan will be to discontinue the Omnicef since it appears that she still has an active urinary tract infection in spite of being on antibiotics. She has essentially passed a small left renal stone which should help ease up her pain substantially on the left side. She will discontinue Omnicef and it will be replaced with Levaquin 500 mg once daily for 8 days. She wishes to use medications from the [facility] since her drugstore is closed at this time. Departure - Departure Time of Disposition: 15:25 Disposition: Home, Self-Care 01 Condition: Fair Clinical Impression: Renal colic on left side, UTI, Urinary tract infectious disease, Kidney stone Urinary tract infection Qualifiers: Urinary tract infection type: acute cystitis Hematuria presence: with hematuria Qualified Code(s): N30.01 - Acute cystitis with hematuria - Discharge Information *PRESCRIPTION DRUG MONITORING PROGRAM REVIEWED*: No *COPY OF PRESCRIPTION DRUG MONITORING REPORT IN PATIENT [place]: No Prescriptions: levoFLOXacin [Levaquin] 750 mg PO DAILY #7 tab oxyCODONE HCl/Acetaminophen [Percocet 5-325 mg Tablet] 1 - 2 each PO Q4H PRN #12 tablet PRN Reason: pain relief. Referrals: Shy Fuchs PA-C [Primary Care Provider] - Forms: ED Department Discharge Additional Instructions: Valuation in the emergency room today in regards to increasing left flank pain rating down towards the left groin highly suspicious for kidney stone. Recent evaluation in the ED did show 30-40 red blood cells per high-power field and only a few white blood cells but you are having significant burning with voiding. You were therefore treated with antibiotic Omnicef 300 mg twice daily for the last 2 days. In spite of this the pain has increased tremendously in the left kidney and lower abdomen. CT scan of the abdomen was performed and reveals a small stone that is just passing into the urinary bladder on the left side with a markedly dilated left ureter and mildly dilated left kidney. This stone will pass later today. You were treated with intravenous fluids and Dilaudid 1 mg and Reglan 7.5 mg IV for pain and nausea relief. Urinalysis today does show increased amount of pus cells in the urine indicating that the Omnicef is not clearing up the urinary tract infection caused by obstruction from stone. Therefore suggest discontinuing the Omnicef and replace it with Levaquin 750 mg once daily for the next 7 days. Continue pain medication Percocet 5/325mg as needed usually 1 tablet every 4-6 hours with Motrin 600 mg every 6 hours until pain relieves which should be within the next 24 hours. Sepsis Event Note (ED) - Evaluation Sepsis Screening Result: No Definite Risk - Focused Exam Vital Signs: Vital Signs Temp Pulse Resp BP Pulse Ox 12/21/19 13:42 36.1 C 83 18 156/92 H 97 - My Orders Last 24 Hours: My Active Orders 12/21/19 13:49 CULTURE URINE [RM] Stat 12/21/19 14:24 Abdomen Pelvis wo Cont [CT] Stat 12/21/19 14:30 Dextrose 5%-0.9% NaCl [Dextrose 5%-Normal Saline] 1,000 ml IV ASDIRECTED - Assessment/Plan Last 24 Hours: My Active Orders 12/21/19 13:49 CULTURE URINE [RM] Stat 12/21/19 14:24 Abdomen Pelvis wo Cont [CT] Stat 12/21/19 14:30 Dextrose 5%-0.9% NaCl [Dextrose 5%-Normal Saline] 1,000 ml IV ASDIRECTED
[2019-12-21] MEDS ORDERED: Dextrose 5%-0.9% NaCl 1,000 ML IV SCH (14:30)
--- NOTE | 2019-12-22 11:26 | CT ---
CT abdomen and pelvis Technique: Multiple axial sections were obtained from above the dome of the diaphragm inferiorly through the pubic symphysis. Intravenous and oral contrast not utilized. Study has been performed as a ureteral stone protocol. Reconstructed coronal and sagittal images were obtained. Comparison: Prior CT abdomen and pelvis study of 11/24/19. Findings: Left ureter and left renal collecting system is mildly prominent. Findings are caused by a distal left ureteral stone measuring about 2-3 mm in size. This calculus is located close to the UVJ. No additional ureteral calculi are seen. Nonobstructing calculi are seen within both kidneys. Other findings: Visualized lung bases show nothing acute. Noncontrast appearance of the liver shows no discrete abnormality. Spleen appears normal. Adrenal glands show no nodule. Pancreas shows no discrete abnormality. Surgical clips are seen from prior cholecystectomy. Aorta shows no aneurysm. No retroperitoneal adenopathy or mesenteric abnormalities are seen. Appendix is seen which is normal in size. No pelvic mass or adenopathy is seen. Bone window settings were reviewed. No acute osseous finding is appreciated. Impression: 1. 2-3 mm obstructing stone within the distal left ureter close to the UVJ causing mild proximal hydronephrosis and hydroureter. 2. Several nonobstructing calculi within both kidneys. 3. Other findings believed to be incidental as noted above. Diagnostic code #3 Agree with preliminary report issued by [facility] ([facility] preliminary report dictated on , 4:07 PM Central Daylight Time) Study was dictated in MDT
== END 2019-12-21 15:45 | disposition home or self-care (01) ==
LOC: JD.ED 13:35
DX: N30.01 Acute cystitis with hematuria (principal); N13.2 Hydronephrosis with renal and ureteral calculous obstruction; J45.909 Unspecified asthma, uncomplicated; E66.9 Obesity, unspecified; Z68.33 Body mass index [BMI] 33.0-33.9, adult; Z88.1 Allergy status to other antibiotic agents; Z88.0 Allergy status to penicillin; Z88.8 Allergy status to other drugs, medicaments and biological substances; Z79.899 Other long term (current) drug therapy
CPT/HCPCS: 74176; 81001; 87086; 96361; 96374; 96375; 99284; J1170; J2765; J7042

== ENCOUNTER 2019-12-22 20:30 | Emergency (ER) | payer MEDICAID ==
[2019-12-22 20:44] VITALS: BP 161/105; PULSE 77
[2019-12-22] MEDS ORDERED: HYDROmorphone 1 MG/ML Syringe IM ONE (21:42)
[2019-12-22] MEDS ORDERED: Tamsulosin 0.4 MG Cap.ER PO ONE (21:42)
[2019-12-22] MEDS ORDERED: Ondansetron 4 MG Tab.DIS PO ONE (21:43)
--- NOTE | 2019-12-22 21:45 | EDM.PDOC ---
ED HPI GENERAL MEDICAL PROBLEM - General Chief Complaint: Flank Pain Stated Complaint: KIDNEY STONE GETTING WORSE FEVER PAIN ECT Time Seen by Provider: 12/22/19 20:47 Source of Information: Reports: Patient, Old Records (ED visit 12/19/19, 12/21/19) History Limitations: Reports: No Limitations - History of Present Illness INITIAL COMMENTS - FREE TEXT/NARRATIVE: Mrs. Pablo is a very pleasant 29-year-old woman who, medical records indicate, was seen in this ED on , 12/19/2019, with a complaint at that time of lower abdominal pain, dysuria, and urinary frequency and urgency. She had not had fever, nausea, or vomiting. She was diagnosed with a UTI, and discharged home with a prescription for cefdinir (Omnicef). The urine culture sent at that time has since returned as mixed jonathon consistent with contamination. Medical records indicate that she was seen again in this ED yesterday, 12/21/2019, with increased left flank pain radiating to her left groin. She had had both nausea and vomiting, although still no fever or chills. CT of her abdomen and pelvis found a 2 to 3 mm stone in the distal left ureter, near the UVJ. Her urinalysis was suggestive of a UTI. She was discharged home with a prescription for Levaquin 750 mg po #7 and Percocet 5/325 #12, along with the recommendation that she take [id number] ibuprofen. The patient now returns the ED stating that her left flank pain has continued and worsened. She continues to have nausea, and vomited twice. No fever, but she reports having chills and increased urinary frequency without dysuria. She also reports watery diarrhea, but states that that is chronic for her, ever since she underwent a cholecystectomy in 2018. The patient states that she has been taking 4 tablets (800 mg) of ibuprofen twice a day. She is also taking prednisone 10 mg a day, to treat her rheumatologic conditions. Here in the ED, the patient's initial BP is found to be mildly elevated at 161/105, otherwise, she is hemodynamically stable, afebrile, saturating 100% on room air. Prior to 12/19/2019, the patient denies having a recent fever, chills, sore throat, ear pain, nasal or sinus congestion, cough, dyspnea, chest pain, palpitations, nausea, vomiting, constipation, diarrhea, abdominal pain, urinary symptoms, recent weight gain or weight loss, recent bloody bowel movements or black bowel movements, recent joint aches, headaches, or rashes. The patient's PCP is FOSTER Boone. Her Manager Special Events is Dr. Laquita Bird, at [facility] in [place], [place]. Her Rug Setter [place] is Dr. Mikel Rey. Her EP Flat Knitter is Dr. Huber Alcala. Her Vehicle Assembler is Dr. Richard Taylor. Her Ground Wirer is Dr. Taco Alejandra, at [facility] in [place], [place]. The patient does not recall the name of her Neurologist at [facility] (Carmencita Phillips, JOE?). - Related Data Allergies Allergy/AdvReac Type Severity Reaction Status Date / Time amoxicillin Allergy Severe Other Verified 12/22/19 20:48 amoxicillin trihydrate Allergy Severe Other Verified 12/22/19 20:48 [From Augmentin] ciprofloxacin Allergy Severe Itching Verified 12/22/19 20:48 clindamycin Allergy Severe Rash Verified 12/22/19 20:48 Penicillins Allergy Severe Hives Verified 12/22/19 20:48 potassium clavulanate Allergy Severe Other Verified 12/22/19 20:48 [From Augmentin] diphenhydramine HCl AdvReac Severe "muscle Verified 12/22/19 20:48 [From Benadryl] aches" Home Meds: Home Meds Albuterol Sulfate [Proair Hfa] 2 puff IH Q4H PRN 11/22/17 [History] ondansetron HCL [Zofran] 1 tab BUCCAL Q12H PRN 11/22/17 [History] traMADol [Ultram] 50 mg PO Q6H PRN 11/22/17 [History] Ibuprofen [Advil] 800 mg PO BID PRN 10/06/19 [History] predniSONE [Prednisone] 10 mg PO DAILY 10/06/19 [History] levoFLOXacin [Levaquin] 750 mg PO DAILY #7 tab 12/21/19 [Rx] oxyCODONE HCl/Acetaminophen [Percocet 5-325 mg Tablet] 1 - 2 each PO Q4H PRN #12 tablet 12/21/19 [Rx] Ondansetron [Zofran ODT] 1 tab PO Q8H PRN 20 Days #10 tab.dis 12/22/19 [Rx] Tamsulosin HCl [Flomax] 1 cap PO QPM #10 cap.er.24h 12/22/19 [Rx] Past Medical History Cardiovascular History: Reports: Arrhythmia (SVT, s/p ablation), Heart Murmur Gastrointestinal History: Reports: Diverticulosis Genitourinary History: Reports: Renal Calculus, Other (See Below) (Thin basement nephropathy, aka benign familial hematuria) 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: Reports: Spontaneous (x 2) : 7 Para: 6 Musculoskeletal History: Reports: RA, SLE, Other (See Below) (Sjogren syndrome) Neurological History: Reports: Migraines Psychiatric History: Reports: Anxiety (untreated), Depression (untreated) Endocrine/Metabolic History: Reports: Obesity/BMI 30+ - Infectious Disease History Infectious Disease History: Reports: C-Difficile - Past Surgical History HEENT Surgical History: Reports: Oral Surgery (wisdom teeth extracted) Cardiovascular Surgical History: Reports: Cardiac Ablation (for SVT, 2018) GI Surgical History: Reports: Cholecystectomy (2015), Colonoscopy (x 2 0r 3), EGD (x 2) Female Surgical History: Reports: D&C (x 1), Lithotripsy/ESWL (2016) Social & Family History - Family History Family Medical History: Noncontributory - Tobacco Use Smoking Status *Q: Never Smoker - Caffeine Use Caffeine Use: Reports: Soda Other Caffeine Use: coffee rarely Caffeine Use Comment: 1 Soda Daily - Alcohol Use Alcohol Use History: No - Recreational Drug Use Recreational Drug Use: No - Living Situation & Occupation Living situation: Reports: , with Spouse, with Family (6 kids) Occupation: Unemployed ED ROS GENERAL - Review of Systems Review Of Systems: Comprehensive ROS is negative, except as noted in HPI. GI/Abdominal: Reports: Diarrhea (chronic, since cholecystectomy 2014) ED EXAM, RENAL/ - Physical Exam Exam: See Below Exam Limited By: No Limitations General Appearance: Alert, WD/WN, Mild Distress (Appears mildly uncomfortable) Eye Exam: Bilateral Eye: EOMI, Normal Inspection Ears: Normal External Exam, Hearing Grossly Normal Nose: Normal Inspection Throat/Mouth: Normal Inspection, Normal Lips, Normal Voice, No Airway Compromise Head: Atraumatic, Normocephalic Neck: Normal Inspection, Full Range of Motion Respiratory/Chest: No Respiratory Distress, Lungs Clear, Normal Breath Sounds, No Accessory Muscle Use Cardiovascular: Normal Peripheral Pulses, Regular Rate, Rhythm, No Edema, No Ga llop, No JVD, No Murmur, No Rub GI/Abdominal: Normal Bowel Sounds, Soft, No Organomegaly, No Distention, No Abnormal Bruit, No Mass, Tender (Mild, left lower quadrant only. Nontender elsewhere.) Back Exam: Normal Inspection, Full Range of Motion, CVA Tenderness (L) (mild). No: CVA Tenderness (R) Extremities: Normal Inspection, Normal Range of Motion, No Pedal Edema, Normal Capillary Refill Neurological: Alert, Oriented, Normal Cognition, No Motor/Sensory Deficits Psychiatric: Normal Affect Skin Exam: Warm, Dry, Intact, Normal Color, No Rash Course - Vital Signs Last Recorded V/S: Last Vital Signs Temp 36.6 C 12/22/19 20:40 Pulse 77 12/22/19 20:40 Resp 16 12/22/19 20:40 BP 161/105 H 12/22/19 20:40 Pulse Ox 100 12/22/19 20:40 - Orders/Labs/Meds Meds: Medications Discontinued Medications Generic Name Dose Route Start Last Admin Trade Name Freq PRN Reason Stop Dose Admin Hydromorphone HCl 1 mg 12/22/19 21:42 12/22/19 21:54 Dilaudid IM 12/22/19 21:43 1 mg ONETIME ONE Administration Ondansetron HCl 4 mg 12/22/19 21:43 12/22/19 21:54 Zofran Odt PO 12/22/19 21:44 4 mg ONETIME ONE Administration Tamsulosin HCl 0.4 mg 12/22/19 21:42 12/22/19 21:54 Flomax PO 12/22/19 21:43 0.4 mg ONETIME ONE Administration - Re-Assessments/Exams Free Text/Narrative Re-Assessment/Exam: 12/22/19 21:45 As above, the patient was seen in this ED on 12/19/2019 with lower abdominal pain, dysuria, and urinary frequency and urgency. She was diagnosed with a UTI and prescribed cefdinir, however, the urine culture from that date returned as mixed jonathon consistent with contamination. She then returned to the ED yesterda y, 12/21/2019 with complaints of increased left flank pain radiating to her left groin, nausea, and vomiting. A CT of her abdomen and pelvis demonstrated a 2 to 3 mm stone near the left UVJ. Her urinalysis was consistent with a UTI, and she was prescribed both Levaquin and Percocet, that she was instructed to take along with [id number] ibuprofen. She now returns to the ED with increased pain, nausea, vomiting, chills without fever, and increased urinary frequency. She also reports watery diarrhea, but tells me that she has had watery diarrhea ever since her cholecystectomy in 2014, so that is not new. Her physical exam finds relatively mild left CVA tenderness and very mild left lower quadrant tenderness, with the remainder of her physical exam being benign. While she states that she is having significant pain, we spoke for a long time, and she really does not appear to be in all that much pain. I explained to the patient that I do not see an indication for a repeat CT of her abdomen and pelvis so soon after the one she had yesterday, and the patient appears to understand that. For today's purposes, I am recommending that we get her a urine strainer, and start her on oral Flomax and oral Zofran. She will receive a single injection of IM Dilaudid prior to being discharged home with prescriptions for both Zofran and Flomax. I will refer her to Dr. Iqbal at [facility]. Lastly, because the patient is on prednisone 10 mg a day to treat her rheumatologic issues, I instructed her to stop taking ibuprofen. Departure - Departure Time of Disposition: 21:48 Disposition: Home, Self-Care 01 Condition: Good Clinical Impression: Ureterolithiasis UTI (urinary tract infection) Qualifiers: Urinary tract infection type: acute cystitis Hematuria presence: with hematuria Qualified Code(s): N30.01 - Acute cystitis with hematuria - Discharge Information *PRESCRIPTION DRUG MONITORING PROGRAM REVIEWED*: Not Applicable *COPY OF PRESCRIPTION DRUG MONITORING REPORT IN PATIENT FLORENTINO: Not Applicable Prescriptions: Tamsulosin HCl [Flomax] 1 cap PO QPM #10 cap.er.24h Ondansetron [Zofran ODT] 1 tab PO Q8H PRN 20 Days #10 tab.dis PRN Reason: Nausea/Vomiting Instructions: Kidney Stones, [id number], Urinary Tract Infection, Adult, [id number] Referrals: Shy Fuchs PA-C [Primary Care Provider] - Carter Iqbal MD [Ordering Only Provider] - Mikel Rey MD [Ordering Only Provider] - Taco Alejandra MD [Ordering Only Provider] - Huber Alcala [Ordering Only Provider] - Laquita Bird MD [Ordering Only Provider] - Richard Taylor MD [Ordering Only Provider] - Forms: ED Department Discharge Additional Instructions: You were seen in the emergency room for persistent left flank pain, nausea, vomiting, urinary frequency, and chills, in the setting of being diagnosed with a left kidney stone yesterday. Based on your history and physical examination, your symptoms are most cons istent with the evolution of your kidney stone. A repeat CT of your abdomen and pelvis was not recommended, however, if your symptoms persist, we recommend that you follow-up with your PCP, FOSTER Aguilar, to discuss the option of obtaining an MRI of your abdomen and pelvis. This would avoid unnecessary radiation. You have been started on the anti-nausea medicine Zofran and the anti-spasm medicine Flomax, and prescriptions for both Zofran and Flomax have [facility], located in the [facility] across the [address] from the hospital. You may dissolve 1 tablet of Zofran on your tongue up to every 8 hours, as needed for nausea/vomiting. You may take 1 tablet of Flomax every evening, starting tomorrow evening, 12/23/2019, as needed for pain. You may continue to take your previously prescribed Percocet, 1 to 2 tablets up to every 6 hours, as needed for pain. As discussed, we recommend that you STOP taking [id number] ibuprofen, as long as you are on prednisone. Stay adequately hydrated. Strain all of your urine. If you capture the stone, take it to your doctor for analysis. Follow-up with the Urologist Dr. Carter Iqbal, at [facility], at the next available appointment. If any other problems, please do not hesitate to return to the ER. Sepsis Event Note (ED) - Evaluation Sepsis Screening Result: No Definite Risk - Focused Exam Vital Signs: Vital Signs Temp Pulse Resp BP Pulse Ox 12/22/19 20:40 36.6 C 77 16 161/105 H 100
== END 2019-12-22 22:05 | disposition home or self-care (01) ==
LOC: JD.ED 20:30
DX: N30.01 Acute cystitis with hematuria (principal); N20.1 Calculus of ureter; E66.9 Obesity, unspecified; Z68.33 Body mass index [BMI] 33.0-33.9, adult; Z88.1 Allergy status to other antibiotic agents; Z88.0 Allergy status to penicillin; Z88.8 Allergy status to other drugs, medicaments and biological substances; Z79.899 Other long term (current) drug therapy
CPT/HCPCS: 96372; 99283; A9270; J1170

== ENCOUNTER 2020-03-12 14:05 | Emergency (ER) | payer MEDICAID ==
[2020-03-12 15:07] VITALS: BP 162/90; PULSE 80
[2020-03-12] MEDS ORDERED: Sodium Chloride 0.9% 10 ML Syringe FLUSH PRN (15:29)
[2020-03-12] MEDS ORDERED: Sodium Chloride 0.9% 1,000 ML IV SCH (15:45)
[2020-03-12] MEDS ORDERED: HYDROmorphone 0.5 MG/0.5 ML Syringe IVPUSH ONE (16:21)
[2020-03-12] MEDS ORDERED: Metoclopramide 10 MG/2 ML SDV IVPUSH ONE (16:54)
[2020-03-12] MEDS ORDERED: Metoclopramide 10 MG/2 ML SDV ONE (16:55)
[2020-03-12] MEDS ORDERED: cefTRIAXone 2 GM in Sodium Chloride 0.9% 100 ML IV ONE (17:29)
--- NOTE | 2020-03-12 17:56 | EDM.PDOC ---
ED HPI GENERAL MEDICAL PROBLEM - General Chief Complaint: Genitourinary Problem Stated Complaint: C DIFF, BLADDER AND KIDNEY INFECTION NOT BETTER Time Seen by Provider: 03/12/20 15:11 Source of Information: Reports: Patient, RN Notes Reviewed - History of Present Illness INITIAL COMMENTS - FREE TEXT/NARRATIVE: 29 yr old female comes in with nausea, bladder sx. She was diagnosed with UTI 2 or 3 days ago but did not fill her script until this morning. Therefore first dose of macrobid this past AM, has only had 1 dose. Started having some back discomfort this afternoon, chills, nausea, worried about "kidney infection". she is not diabetic, not actively vomiting, chronic diarrhea for several months. Flank Pain Score (Numeric/FACES): 7 - Related Data Allergies Allergy/AdvReac Type Severity Reaction Status Date / Time amoxicillin Allergy Severe Other Verified 12/22/19 20:48 amoxicillin trihydrate Allergy Severe Other Verified 12/22/19 20:48 [From Augmentin] ciprofloxacin Allergy Severe Itching Verified 12/22/19 20:48 clindamycin Allergy Severe Rash Verified 12/22/19 20:48 Penicillins Allergy Severe Hives Verified 12/22/19 20:48 potassium clavulanate Allergy Severe Other Verified 12/22/19 20:48 [From Augmentin] diphenhydramine HCl AdvReac Severe "muscle Verified 12/22/19 20:48 [From Benadryl] aches" Home Meds: Home Meds Albuterol Sulfate [Proair Hfa] 2 puff IH Q4H PRN 11/22/17 [History] ondansetron HCL [Zofran] 1 tab BUCCAL Q12H PRN 11/22/17 [History] traMADol [Ultram] 50 mg PO Q6H PRN 11/22/17 [History] Ibuprofen [Advil] 800 mg PO BID PRN 10/06/19 [History] predniSONE [Prednisone] 10 mg PO DAILY 10/06/19 [History] oxyCODONE HCl/Acetaminophen [Percocet 5-325 mg Tablet] 1 - 2 each PO Q4H PRN #12 tablet 12/21/19 [Rx] L Acidophil/B Lactis/B Longum [Florajen3] 1 tab PO DAILY 03/12/20 [History] Nitrofurantoin Monohyd/M-Cryst [Macrobid 100 mg Capsule] 100 mg PO BID 03/12/20 [History] Past Medical History - Past Health History Medical/Surgical History: Denies Medical/Surgical History Cardiovascular History: Reports: Arrhythmia, Heart Murmur Other Cardiovascular History: Recent EKG and Echo secondary to low K+, Na+ in ER when there c/o kidney/back pain on 12/02/14. SVT Respiratory History: Reports: Asthma Other Respiratory History: Rx'd Albuterol inhaler PRN--uses on occasion. 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 Musculoskeletal History: Reports: RA, SLE, Other (See Below) Other Musculoskeletal History: Sjogren syndrome Neurological History: Reports: Migraines Other Neuro History: Lupus Psychiatric History: Reports: Anxiety, Depression Other Psychiatric History: PP depression following second child's delivery. On antidepressant medication x approx 6 months for such. Endocrine/Metabolic History: Reports: Obesity/BMI 30+ Hematologic History: Reports: Anemia Immunologic History: Reports: Other (See Below) Other Immunologic History: lupus Oncologic (Cancer) History: Reports: None Dermatologic History: Reports: Other (See Below) Other Dermatologic History: Severe cellulitis with pseudomonal infection to L ear cartlidge following ear piercing at age 11--required a PICC line and 6 weeks of IV abx as well as two reconstructive surgeries following daily debridement over a period of weeks as well. - Infectious Disease History Infectious Disease History: Reports: C-Difficile - Past Surgical History HEENT Surgical History: Reports: Oral Surgery Other HEENT Surgeries/Procedures: ear piercing removed. Cardiovascular Surgical History: Reports: Cardiac Ablation GI Surgical History: Reports: Cholecystectomy, Colonoscopy, EGD Female Surgical History: Reports: D&C, Lithotripsy/ESWL Musculoskeletal Surgical History: Reports: None Social & Family History - Family History Family Medical History: No Pertinent Family History - Tobacco Use Tobacco Use Status *Q: Never Tobacco User - Caffeine Use Caffeine Use: Reports: Coffee, Soda Other Caffeine Use: coffee rarely Caffeine Use Comment: 1 Soda Daily - Recreational Drug Use Recreational Drug Use: No - Living Situation & Occupation Living situation: Reports: , with Spouse, with Family (6 kids) Occupation: Unemployed ED ROS GENERAL - Review of Systems Review Of Systems: See Below Constitutional: Reports: Chills. Denies: Fever HEENT: Reports: No Symptoms Respiratory: Denies: Shortness of Breath Cardiovascular: Denies: Chest Pain GI/Abdominal: Reports: Diarrhea, Nausea. Denies: Abdominal Pain, Vomiting Musculoskeletal: Reports: Back Pain Skin: Reports: No Symptoms Neurological: Reports: No Symptoms ED EXAM, GENERAL - Physical Exam Exam: See Below General Appearance: Alert, No Apparent Distress Head: Atraumatic Neck: Supple Respiratory/Chest: No Respiratory Distress, Lungs Clear, Normal Breath Sounds Cardiovascular: Regular Rate, Rhythm GI/Abdominal: Soft, Non-Tender. No: Guarding Back Exam: CVA Tenderness (L) (mild), CVA Tenderness (R) (mild) Neurological: Alert, Oriented, No Motor/Sensory Deficits Skin Exam: Warm, Dry, Normal Color Course - Vital Signs Last Recorded V/S: Last Vital Signs Temp 98.3 F 03/12/20 15:06 Pulse 80 03/12/20 15:06 Resp 20 03/12/20 15:06 BP 162/90 H 03/12/20 15:06 Pulse Ox 100 03/12/20 15:06 - Orders/Labs/Meds Orders: Active Orders 24 hr Category Date Time Status Peripheral IV Insertion Adult [OM.PC] Stat Oth 03/12/20 15:30 Ordered Labs: Laboratory Tests 03/12/20 03/12/20 03/12/20 Range/Units 16:15 16:15 16:15 WBC 10.26 H (3.98-10.04) K/mm3 RBC 4.40 (3.98-5.22) M/mm3 Hgb 12.6 (11.2-15.7) gm/dl Hct 40.1 (34.1-44.9) % MCV 91.1 (79.4-94.8) fl MCH 28.6 (25.6-32.2) pg MCHC 31.4 L (32.2-35.5) g/dl RDW Std Deviation 42.3 (36.4-46.3) fL Plt Count 483 H (182-369) K/mm3 MPV 8.3 L (9.4-12.3) fl Neut % (Auto) 81.3 H (34.0-71.1) % Lymph % (Auto) 13.5 L (19.3-51.7) % [place] % (Auto) 4.0 L (4.7-12.5) % Eos % (Auto) 0.1 L (0.7-5.8) Baso % (Auto) 0.3 (0.1-1.2) % Neut # (Auto) 8.34 H (1.56-6.13) K/mm3 Lymph # (Auto) 1.39 (1.18-3.74) K/mm3 Gladwin # (Auto) 0.41 H (0.24-0.36) K/mm3 Eos # (Auto) 0.01 L (0.04-0.36) K/mm3 Baso # (Auto) 0.03 (0.01-0.08) K/mm3 Sodium 139 (136-145) mEq/L Potassium 4.2 (3.5-5.1) mEq/L Chloride 103 (98-107) mEq/L Carbon Dioxide 27 (21-32) mEq/L Anion Gap 13.2 (5-15) BUN 11 (7-18) mg/dL Creatinine 0.9 (0.55-1.02) mg/dL Est Cr Clr Drug Dosing 74.92 mL/min Estimated GFR (MDRD) > 60 (>60) mL/min BUN/Creatinine Ratio 12.2 L (14-18) Glucose 150 H (74-106) mg/dL Calcium 9.0 (8.5-10.1) mg/dL Total Bilirubin 0.4 (0.2-1.0) mg/dL AST 18 (15-37) U/L ALT 30 (14-59) U/L Alkaline Phosphatase 52 (46-116) U/L C-Reactive Protein 0.8 (<1.0) mg/dL Total Protein 7.5 (6.4-8.2) g/dl Albumin 3.4 (3.4-5.0) g/dl Globulin 4.1 gm/dL Albumin/Globulin Ratio 0.8 L (1-2) Meds: Medications Discontinued Medications Generic Name Dose Route Start Last Admin Trade Name Freq PRN Reason Stop Dose Admin Hydromorphone HCl 0.5 mg 03/12/20 16:21 03/12/20 17:03 Dilaudid IVPUSH 03/12/20 16:22 0.5 mg ONETIME ONE Administration Sodium Chloride 1,000 mls @ 999 mls/hr 03/12/20 15:45 03/12/20 16:17 Normal Saline IV 999 mls/hr ONETIME RADHA Administration Ceftriaxone Sodium 2 gm/ 100 mls @ 200 mls/hr 03/12/20 17:29 03/12/20 17:39 Sodium Chloride IV 03/12/20 17:58 200 mls/hr ONETIME ONE Administration Metoclopramide HCl 5 mg 03/12/20 16:54 03/12/20 17:02 Reglan IVPUSH 03/12/20 16:55 5 mg ONETIME ONE Administration Metoclopramide HCl Confirm 03/12/20 16:55 03/12/20 17:01 Reglan Administered 03/12/20 16:56 Not Given Dose 10 mg .ROUTE .STK-MED ONE Sodium Chloride 10 ml 03/12/20 15:29 03/12/20 16:17 Saline Flush FLUSH 10 ml ASDIRECTED PRN Administration Keep Vein Open - Re-Assessments/Exams Free Text/Narrative Re-Assessment/Exam: 03/12/20 18:12 WBC 10,000, CRP 0.8. Will give rocephin 2 grams IV, have her continue the macrobid as prescribed. Discharge instr. as documented. Departure - Departure Time of Disposition: 18:13 Disposition: Home, Self-Care 01 Condition: Fair Clinical Impression: UTI (urinary tract infection) Qualifiers: Urinary tract infection type: acute cystitis Hematuria presence: with hematuria Qualified Code(s): N30.01 - Acute cystitis with hematuria - Discharge Information Instructions: Urinary Tract Infection, Adult, [id number] Referrals: Shy Fuchs PA-C [Primary Care Provider] - Forms: ED Department Discharge Additional Instructions: Continue macrobid 100 mg twice daily as prescribed. You have been given a dose of 2 grams rocephin IV. Zofran if needed for any further nausea or vomiting. Drink plenty of water to maintain hydration. Follow up clinic as needed. Return to ED as needed if symptoms worsening in any way. Sepsis Event Note (ED) - Evaluation Sepsis Screening Result: No Definite Risk - My Orders Last 24 Hours: My Active Orders 03/12/20 15:30 Peripheral IV Insertion Adult [OM.PC] Stat - Assessment/Plan Last 24 Hours: My Active Orders 03/12/20 15:30 Peripheral IV Insertion Adult [OM.PC] Stat
== END 2020-03-12 18:25 | disposition home or self-care (01) ==
LOC: JD.ED 14:05
DX: N30.01 Acute cystitis with hematuria (principal); J45.909 Unspecified asthma, uncomplicated; M32.9 Systemic lupus erythematosus, unspecified; E66.9 Obesity, unspecified; Z68.35 Body mass index [BMI] 35.0-35.9, adult; Z88.1 Allergy status to other antibiotic agents; Z88.0 Allergy status to penicillin; Z88.8 Allergy status to other drugs, medicaments and biological substances
CPT/HCPCS: 36415; 80053; 85025; 86140; 96365; 96375; 99284; J0696; J1170; J2765; J7030; J7050; 99283

== ENCOUNTER 2020-04-25 22:16 | Emergency (ER) | payer MEDICAID ==
[2020-04-25 22:38] VITALS: BP 166/92; PULSE 89
--- NOTE | 2020-04-25 22:50 | EDM.PDOC ---
ED HPI GENERAL MEDICAL PROBLEM - General Chief Complaint: Genitourinary Problem Stated Complaint: KIDNEY STONES/POSS KIDNEY INFECTION Time Seen by Provider: 04/25/20 22:25 Source of Information: Reports: Patient History Limitations: Reports: No Limitations - History of Present Illness INITIAL COMMENTS - FREE TEXT/NARRATIVE: This is a 29-year-old female. She has been to the ER many times in the past due to kidney problems and stones. She states that several days ago she started having increasing urinary symptoms and now she has got some right renal colic and feels like there is a stone. She has been taking some Azo Gantrisin to help with the discomfort. She has an appointment to see her family doctor on Monday but due to the increasing discomfort she comes to the ER. 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 She is supposed to see your urologist on May 05 for evaluation of her kidney problems and her thin basement membrane disease. She denies any fever or chills. She denies any significant nausea vomiting or diarrhea. Treatments INFECTIOUS DISEASE PHYSICIAN: Reports: Acetaminophen, NSAIDS, Other Medication(s) Other Treatments INFECTIOUS DISEASE PHYSICIAN: Azo Lower Posterior Flank Pain Score (Numeric/FACES): 8 - Related Data Allergies Allergy/AdvReac Type Severity Reaction Status Date / Time amoxicillin Allergy Severe Other Verified 04/25/20 22:38 amoxicillin trihydrate Allergy Severe Other Verified 04/25/20 22:38 [From Augmentin] ciprofloxacin Allergy Severe Itching Verified 04/25/20 22:38 clindamycin Allergy Severe Rash Verified 04/25/20 22:38 Penicillins Allergy Severe Hives Verified 04/25/20 22:38 potassium clavulanate Allergy Severe Other Verified 04/25/20 22:38 [From Augmentin] diphenhydramine HCl AdvReac Severe "muscle Verified 04/25/20 22:38 [From Benadryl] aches" Home Meds: Home Meds Albuterol Sulfate [Proair Hfa] 2 puff IH Q4H PRN 11/22/17 [History] ondansetron HCL [Zofran] 1 tab BUCCAL Q12H PRN 11/22/17 [History] traMADol [Ultram] 50 mg PO Q6H PRN 08/22/18 [History] Ibuprofen [Advil] 800 mg PO BID PRN 10/06/19 [History] predniSONE [Prednisone] 10 mg PO DAILY 10/06/19 [History] L Acidophil/B Lactis/B Longum [Florajen3] 1 tab PO DAILY 03/12/20 [History] Nitrofurantoin Monohyd/M-Cryst [Macrobid 100 mg Capsule] 100 mg PO BID 03/12/20 [History] cephALEXin [Keflex] 500 mg PO TID #21 cap 04/26/20 [Rx] Past Medical History - Past Health History Medical/Surgical History: Denies Medical/Surgical History Cardiovascular History: Reports: Arrhythmia, Heart Murmur Other Cardiovascular History: Recent EKG and Echo secondary to low K+, Na+ in ER when there c/o kidney/back pain on 12/02/14. SVT Respiratory History: Reports: Asthma Other Respiratory History: Rx'd Albuterol inhaler PRN--uses on occasion. 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 Musculoskeletal History: Reports: RA, SLE, Other (See Below) Other Musculoskeletal History: Sjogren syndrome Neurological History: Reports: Migraines Other Neuro History: Lupus Psychiatric History: Reports: Anxiety, Depression Other Psychiatric History: PP depression following second child's delivery. On antidepressant medication x approx 6 months for such. Endocrine/Metabolic History: Reports: Obesity/BMI 30+ Hematologic History: Reports: Anemia Immunologic History: Reports: Other (See Below) Other Immunologic History: lupus Oncologic (Cancer) History: Reports: None Dermatologic History: Reports: Other (See Below) Other Dermatologic History: Severe cellulitis with pseudomonal infection to L ear cartlidge following ear piercing at age 11--required a PICC line and 6 weeks of IV abx as well as two reconstructive surgeries following daily debridement over a period of weeks as well. - Infectious Disease History Infectious Disease History: Reports: C-Difficile - Past Surgical History HEENT Surgical History: Reports: Oral Surgery Other HEENT Surgeries/Procedures: ear piercing removed. Cardiovascular Surgical History: Reports: Cardiac Ablation GI Surgical History: Reports: Cholecystectomy, Colonoscopy, EGD Female Surgical History: Reports: D&C, Lithotripsy/ESWL Musculoskeletal Surgical History: Reports: None Social & Family History - Family History Family Medical History: No Pertinent Family History - Tobacco Use Tobacco Use Status *Q: Never Tobacco User Second Hand Smoke Exposure: No - Caffeine Use Caffeine Use: Reports: Coffee, Soda Other Caffeine Use: coffee rarely Caffeine Use Comment: 1 Soda Daily - Recreational Drug Use Recreational Drug Use: No - Living Situation & Occupation Living situation: Reports: , with Spouse, with Family (6 kids) Occupation: Unemployed ED ROS GENERAL - Review of Systems Review Of Systems: See Below Constitutional: Denies: Fever, Chills HEENT: Reports: No Symptoms Respiratory: Reports: No Symptoms Cardiovascular: Reports: No Symptoms Endocrine: Reports: No Symptoms GI/Abdominal: Denies: Diarrhea, Nausea, Vomiting : Reports: Dysuria, Flank Pain, Hematuria, Pain Musculoskeletal: Reports: No Symptoms Skin: Reports: No Symptoms Neurological: Reports: No Symptoms Psychiatric: Reports: No Symptoms Hematologic/Lymphatic: Reports: No Symptoms ED EXAM, RENAL/ - Physical Exam Exam: See Below Exam Limited By: No Limitations General Appearance: Alert, WD/WN, No Apparent Distress Eye Exam: Bilateral Eye: Normal Inspection Ears: Normal External Exam Nose: Normal Inspection Throat/Mouth: Normal Inspection, Normal Lips, Normal Voice, No Airway Compromise Head: Normocephalic Neck: Supple Respiratory/Chest: No Respiratory Distress, Lungs Clear, Normal Breath Sounds Cardiovascular: Regular Rate, Rhythm, No Murmur GI/Abdominal: Soft, Other (Planes of tenderness in the right flank and slightly in the right lower quadrant no masses no rebound noted) Back Exam: Normal Inspection, Full Range of Motion, Other (Complains of right- sided CVAT though both sides of her back hurt.) Extremities: Normal Inspection, Normal Range of Motion Neurological: Alert, Oriented Psychiatric: Normal Affect, Normal Mood Skin Exam: Warm, Dry Course - Vital Signs Last Recorded V/S: Last Vital Signs Temp 97.0 F 04/25/20 22:33 Pulse 89 04/25/20 22:33 Resp 18 04/25/20 22:33 BP 166/92 H 04/25/20 22:33 Pulse Ox 98 04/25/20 22:33 - Orders/Labs/Meds Orders: Active Orders 24 hr Category Date Time Status Abdomen Pelvis wo Cont [CT] Stat Exams 04/25/20 22:46 Taken Sodium Chloride 0.9% [Normal Saline] 1,000 ml Med 04/25/20 23:45 Active IV ASDIRECTED Medication Orders Sodium Chloride (Normal Saline) 1,000 mls @ 1,000 mls/hr IV ASDIRECTED RADHA Last Admin: 04/26/20 00:03 Dose: 1,000 mls/hr Documented by: LANETTE Labs: Laboratory Tests 04/25/20 04/25/20 04/25/20 Range/Units 22:30 23:00 23:00 WBC 14.88 H (3.98-10.04) K/mm3 RBC 4.47 (3.98-5.22) M/mm3 Hgb 12.6 (11.2-15.7) gm/dl Hct 40.1 (34.1-44.9) % MCV 89.7 (79.4-94.8) fl MCH 28.2 (25.6-32.2) pg MCHC 31.4 L (32.2-35.5) g/dl RDW Std Deviation 42.7 (36.4-46.3) fL Plt Count 514 H (182-369) K/mm3 MPV 8.3 L (9.4-12.3) fl Neut % (Auto) 72.3 H (34.0-71.1) % Lymph % (Auto) 18.9 L (19.3-51.7) % [place] % (Auto) 7.9 (4.7-12.5) % Eos % (Auto) 0.3 L (0.7-5.8) Baso % (Auto) 0.2 (0.1-1.2) % Neut # (Auto) 10.75 H (1.56-6.13) K/mm3 Lymph # (Auto) 2.81 (1.18-3.74) K/mm3 [place] # (Auto) 1.18 H (0.24-0.36) K/mm3 Eos # (Auto) 0.05 (0.04-0.36) K/mm3 Baso # (Auto) 0.03 (0.01-0.08) K/mm3 Manual Slide Review Abnormal smear Sodium 142 (136-145) mEq/L Potassium 3.8 (3.5-5.1) mEq/L Chloride 104 (98-107) mEq/L Carbon Dioxide 27 (21-32) mEq/L Anion Gap 14.8 (5-15) BUN 15 (7-18) mg/dL Creatinine 0.8 (0.55-1.02) mg/dL Est Cr Clr Drug Dosing 87.99 mL/min Estimated GFR (MDRD) > 60 (>60) mL/min BUN/Creatinine Ratio 18.8 H (14-18) Glucose 109 H (74-106) mg/dL Calcium 9.3 (8.5-10.1) mg/dL Total Bilirubin 0.6 (0.2-1.0) mg/dL AST 11 L (15-37) U/L ALT 21 (14-59) U/L Alkaline Phosphatase 55 (46-116) U/L C-Reactive Protein <0.2 (<1.0) mg/dL Total Protein 7.7 (6.4-8.2) g/dl Albumin 3.5 (3.4-5.0) g/dl Globulin 4.2 gm/dL Albumin/Globulin Ratio 0.8 L (1-2) Urine Color [place] H (Yellow) Urine Appearance Cloudy H (Clear) Urine pH 5.5 (5.0-8.0) Ur Specific [place] > or = 1.030 (1.005-1.030) Urine Protein 2+ H (Negative) Urine Glucose (UA) Trace H (Negative) Urine Ketones Negative (Negative) Urine Occult Blood 3+ H (Negative) Urine Nitrite Positive H (Negative) Urine Bilirubin 1+ H (Negative) Urine Urobilinogen 1.0 (0.2-1.0) Ur Leukocyte Esterase Negative (Negative) Urine RBC >100 H (0-5) /hpf Urine WBC 0-5 (0-5) /hpf Ur Squamous Epith Cells 0-5 (0-5) /hpf Urine Bacteria Few (FEW) /hpf Urine Mucus Few (FEW) /hpf Meds: Medications Generic Name Dose Route Start Last Admin Trade Name Freq PRN Reason Stop Dose Admin Sodium Chloride 1,000 mls @ 1,000 mls/hr 04/25/20 23:45 04/26/20 00:03 Normal Saline IV 1,000 mls/hr ASDIRECTED RADHA Administration Discontinued Medications Generic Name Dose Route Start Last Admin Trade Name Jarvis PRN Reason Stop Dose Admin Hydromorphone HCl 0.5 mg 04/25/20 23:56 04/26/20 00:07 Dilaudid IVPUSH 04/25/20 23:57 0.5 mg ONETIME ONE Administration Hydromorphone HCl 0.5 mg 04/26/20 01:05 04/26/20 01:13 Dilaudid IVPUSH 04/26/20 01:06 0.5 mg ONETIME ONE Administration Ceftriaxone Sodium 2 gm/ 100 mls @ 200 mls/hr 04/25/20 23:59 04/26/20 00:08 Sodium Chloride IV 04/26/20 00:28 200 mls/hr ONETIME ONE Administration Ketorolac Tromethamine 30 mg 04/25/20 23:55 04/26/20 00:13 Toradol IM 04/25/20 23:56 Not Given ONETIME ONE Ketorolac Tromethamine 30 mg 04/26/20 00:13 04/26/20 00:14 Toradol IVPUSH 04/26/20 00:14 30 mg ONETIME STA Administration Ondansetron HCl 4 mg 04/25/20 23:55 04/26/20 00:04 Zofran IVPUSH 04/25/20 23:56 4 mg ONETIME ONE Administration - Radiology Interpretation Free Text/Narrative:: The scan of the abdomen and pelvis shows a mild to moderate right hydronephrosis and hydroureter due to a cluster of small calculi at the distal ureter and the group of them measure about 8 mm in length by 3 mm in width. - Re-Assessments/Exams Free Text/Narrative Re-Assessment/Exam: 04/25/20 23:58 Over the patient regarding the CT scan and her need to follow-up with her doctor on Monday and hopefully see the urologist sooner than May 05 due to this cluster of stones on the right side. She does have Percocet at home she states. 04/26/20 02:04 The patient is feeling better and now wants to go home. I am going to increase her Percocet to 2 tablets every 4 hours as needed for pain. I instructed her to tell her provider that we are doing this so if she runs short at the end of the month the provider will know why. Departure - Departure Time of Disposition: 02:05 Disposition: Home, Self-Care 01 Condition: Fair Clinical Impression: Renal colic on right side, Ureteral stone with hydronephrosis, Acute hemorrhagic cystitis - Discharge Information *PRESCRIPTION DRUG MONITORING PROGRAM REVIEWED*: Yes *COPY OF PRESCRIPTION DRUG MONITORING REPORT IN PATIENT FLORENTINO: No Prescriptions: cephALEXin [Keflex] 500 mg PO TID #21 cap Instructions: Renal Colic, [id number], Urinary Tract Infection, Adult, [id number] Referrals: Shy Fuchs PA-C [Primary Care Provider] - Forms: ED Department Discharge Additional Instructions: Start the antibiotics tomorrow for the infection and make sure you take them since the infection can get into your kidney and become seriously worse, increase your Percocet to 2 tablets every 4 hours as needed for pain, make sure you let your provider know that we changed the dose for the Percocet so if you run out of Percocet by the end of the month she will understand why because of the kidney stones, make sure you call her office on Monday you need to be seen as soon as possible and hopefully get into the urologist as soon as possible for those kidney stones, return to the ER if your symptoms worsen or you develop a fever greater than 101. Sepsis Event Note (ED) - Evaluation Sepsis Screening Result: No Definite Risk - Focused Exam Vital Signs: Vital Signs Temp Pulse Resp BP Pulse Ox 04/25/20 22:33 97.0 F 89 18 166/92 H 98 - My Orders Last 24 Hours: My Active Orders 04/25/20 22:46 Abdomen Pelvis wo Cont [CT] Stat 04/25/20 23:45 Sodium Chloride 0.9% [Normal Saline] 1,000 ml IV ASDIRECTED - Assessment/Plan Last 24 Hours: My Active Orders 04/25/20 22:46 Abdomen Pelvis wo Cont [CT] Stat 04/25/20 23:45 Sodium Chloride 0.9% [Normal Saline] 1,000 ml IV ASDIRECTED
[2020-04-25] MEDS ORDERED: Sodium Chloride 0.9% 1,000 ML IV SCH (23:45)
[2020-04-25] MEDS ORDERED: Ondansetron 4 MG/2 ML SDV IVPUSH ONE (23:55)
[2020-04-25] MEDS ORDERED: HYDROmorphone 0.5 MG/0.5 ML Syringe IVPUSH ONE (23:56)
[2020-04-25] MEDS ORDERED: cefTRIAXone 2 GM in Sodium Chloride 0.9% 100 ML IV ONE (23:59)
[2020-04-26] MEDS: Ketorolac 30 MG/ML SDV IM ONE ×2 (00:03→00:13)
[2020-04-26] MEDS ORDERED: Ketorolac 30 MG/ML SDV IVPUSH STA (00:13)
[2020-04-26] MEDS ORDERED: HYDROmorphone 0.5 MG/0.5 ML Syringe IVPUSH ONE (01:05)
--- NOTE | 2020-04-26 11:02 | CT ---
CT abdomen and pelvis Technique: Multiple axial sections were obtained from above the dome of the diaphragm inferiorly through the pubic symphysis. Intravenous and oral contrast was not utilized. Coronal and sagittal reconstructed images were obtained. Comparison: Prior CT abdomen and pelvis study of 12/21/19. Findings: Left kidney shows a nonobstructing stone within the lower pole measuring 6 mm. Several small nonobstructing calculi are noted within the right kidney. Right ureter is prominent which is caused by one or several small adjacent calcifications within the mid to distal right ureter located at the level of the sacroiliac joint. These measure approximately 6.5 mm in greatest dimension. No other abnormal calcifications are seen along the course of the ureters. Visualized lung bases show nothing acute. Noncontrast appearance of the liver shows no focal abnormality. Spleen appears normal. Surgical clips are noted from prior cholecystectomy. Pancreas is normal. Adrenal glands show no nodule. Aorta shows no aneurysm. No retroperitoneal adenopathy or mesenteric abnormalities are noted. Rectus sheath is mildly hypoplastic and bulges anteriorly mostly at the level of the umbilicus. No pelvic mass or adenopathy is appreciated. Minimal diverticulosis is seen within the sigmoid colon without findings of diverticulitis. Appendix is seen which is normal in size. Bone window settings were reviewed. No acute osseous abnormality is appreciated. Impression: 1. Nonobstructing calculi within both kidneys. 2. One or possibly several adjacent calcifications within the mid distal right ureter at the level of the sacroiliac joints causing proximal dilatation of the ureter. 3. Other nonacute findings as noted above. 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
== END 2020-04-26 02:15 | disposition home or self-care (01) ==
LOC: JD.ED 22:16
DX: N13.2 Hydronephrosis with renal and ureteral calculous obstruction (principal); N30.00 Acute cystitis without hematuria; J45.909 Unspecified asthma, uncomplicated; M32.9 Systemic lupus erythematosus, unspecified; E66.9 Obesity, unspecified; Z68.38 Body mass index [BMI] 38.0-38.9, adult; Z88.0 Allergy status to penicillin; Z88.1 Allergy status to other antibiotic agents
CPT/HCPCS: 36415; 74176; 80053; 81001; 85025; 86140; 96365; 96375; 96376; 99284; J0696; J1170; J1885; J2405; J7030; J7050

== ENCOUNTER 2020-05-28 12:22 | Emergency (ER) | payer MEDICAID ==
[2020-05-28 13:01] VITALS: BP 149/93; PULSE 80
[2020-05-28] MEDS ORDERED: Ondansetron 4 MG/2 ML SDV IVPUSH ONE (13:13)
[2020-05-28] MEDS ORDERED: Sodium Chloride 0.9% 10 ML Syringe FLUSH PRN (13:13)
[2020-05-28] MEDS ORDERED: HYDROmorphone 0.5 MG/0.5 ML Syringe IVPUSH ONE ×3 (13:13→14:41)
[2020-05-28] MEDS ORDERED: Sodium Chloride 0.9% 1,000 ML IV SCH (13:15)
--- NOTE | 2020-05-28 13:38 | EDM.PDOC ---
ED HPI GENERAL MEDICAL PROBLEM - General Chief Complaint: Flank Pain Stated Complaint: BACK PAIN /KIDNEY PAIN Time Seen by Provider: 05/28/20 12:52 Source of Information: Reports: Patient, RN Notes Reviewed - History of Present Illness INITIAL COMMENTS - FREE TEXT/NARRATIVE: 29 yr old female had onset of L back pain about 3 1/2 hrs ago today that radiates to L flank. Pain became severe quite suddenly, is sharp and shooting similar to discomfort she has had with previous stones. Slight dysuria for the past 2 days off and on. No fever or chills. No R sided discomfort. Left Flank Pain Score (Numeric/FACES): 9 Left Groin Pain Score (Numeric/FACES): 7 - Related Data Allergies Allergy/AdvReac Type Severity Reaction Status Date / Time amoxicillin Allergy Severe Other Verified 04/25/20 22:38 amoxicillin trihydrate Allergy Severe Other Verified 04/25/20 22:38 [From Augmentin] ciprofloxacin Allergy Severe Itching Verified 04/25/20 22:38 clindamycin Allergy Severe Rash Verified 04/25/20 22:38 Penicillins Allergy Severe Hives Verified 04/25/20 22:38 potassium clavulanate Allergy Severe Other Verified 04/25/20 22:38 [From Augmentin] diphenhydramine HCl AdvReac Severe "muscle Verified 04/25/20 22:38 [From Benadryl] aches" Home Meds: Home Meds Albuterol Sulfate [Proair Hfa] 2 puff IH Q4H PRN 11/22/17 [History] ondansetron HCL [Zofran] 1 tab BUCCAL Q12H PRN 11/22/17 [History] traMADol [Ultram] 50 mg PO Q6H PRN 11/22/17 [History] Ibuprofen [Advil] 800 mg PO BID PRN 10/06/19 [History] predniSONE [Prednisone] 10 mg PO DAILY 10/06/19 [History] L Acidophil/B Lactis/B Longum [Florajen3] 1 tab PO DAILY 03/12/20 [History] Nitrofurantoin Monohyd/M-Cryst [Macrobid 100 mg Capsule] 100 mg PO BID 03/12/20 [History] cephALEXin [Keflex] 500 mg PO TID #21 cap 04/26/20 [Rx] Past Medical History - Past Health History Medical/Surgical History: Denies Medical/Surgical History Cardiovascular History: Reports: Arrhythmia, Heart Murmur Other Cardiovascular History: Recent EKG and Echo secondary to low K+, Na+ in ER when there c/o kidney/back pain on 12/02/14. SVT Respiratory History: Reports: Asthma Other Respiratory History: Rx'd Albuterol inhaler PRN--uses on occasion. 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 Musculoskeletal History: Reports: RA, SLE, Other (See Below) Other Musculoskeletal History: Sjogren syndrome Neurological History: Reports: Migraines Other Neuro History: Lupus Psychiatric History: Reports: Anxiety, Depression Other Psychiatric History: PP depression following second child's delivery. On antidepressant medication x approx 6 months for such. Endocrine/Metabolic History: Reports: Obesity/BMI 30+ Hematologic History: Reports: Anemia Immunologic History: Reports: Other (See Below) Other Immunologic History: lupus Oncologic (Cancer) History: Reports: None Dermatologic History: Reports: Other (See Below) Other Dermatologic History: Severe cellulitis with pseudomonal infection to L ear cartlidge following ear piercing at age 11--required a PICC line and 6 weeks of IV abx as well as two reconstructive surgeries following daily debridement over a period of weeks as well. - Infectious Disease History Infectious Disease History: Reports: C-Difficile - Past Surgical History HEENT Surgical History: Reports: Oral Surgery Other HEENT Surgeries/Procedures: ear piercing removed. Cardiovascular Surgical History: Reports: Cardiac Ablation GI Surgical History: Reports: Cholecystectomy, Colonoscopy, EGD Female Surgical History: Reports: D&C, Lithotripsy/ESWL Musculoskeletal Surgical History: Reports: None Social & Family History - Family History Family Medical History: No Pertinent Family History - Tobacco Use Tobacco Use Status *Q: Never Tobacco User - Caffeine Use Caffeine Use: Reports: Coffee, Soda Other Caffeine Use: coffee rarely Caffeine Use Comment: 1 Soda Daily - Recreational Drug Use Recreational Drug Use: No - Living Situation & Occupation Living situation: Reports: , with Spouse, with Family (6 kids) Occupation: Unemployed ED ROS GENERAL - Review of Systems Review Of Systems: See Below Constitutional: Denies: Fever, Chills HEENT: Reports: No Symptoms Respiratory: Denies: Shortness of Breath, Pleuritic Chest Pain, Cough Cardiovascular: Denies: Chest Pain GI/Abdominal: Reports: Abdominal Pain (L flankd) Musculoskeletal: Reports: Back Pain Skin: Reports: No Symptoms Neurological: Reports: No Symptoms ED EXAM, RENAL/ - Physical Exam Exam: See Below General Appearance: Alert, Moderate Distress Throat/Mouth: Normal Inspection Respiratory/Chest: No Respiratory Distress, Lungs Clear, Normal Breath Sounds Cardiovascular: Regular Rate, Rhythm GI/Abdominal: Soft, Tender (mild tenderness L flank) Back Exam: CVA Tenderness (L) Extremities: Normal Inspection, Normal Range of Motion Neurological: Alert, Oriented, No Motor/Sensory Deficits Skin Exam: Warm, Dry, Normal Color Course - Vital Signs Last Recorded V/S: Last Vital Signs Temp 98.4 F 05/28/20 13:00 Pulse 80 05/28/20 13:00 Resp 20 05/28/20 13:00 BP 149/93 H 05/28/20 13:00 Pulse Ox 99 05/28/20 13:00 - Orders/Labs/Meds Orders: Active Orders 24 hr Category Date Time Status CULTURE URINE [RM] Stat Lab 05/28/20 14:17 Received Peripheral IV Insertion Adult [OM.PC] Stat Oth 05/28/20 13:13 Ordered Labs: Laboratory Tests 05/28/20 Range/Units 14:17 Urine Color Yellow (Yellow) Urine Appearance Cloudy H (Clear) Urine pH 6.0 (5.0-8.0) Ur Specific [place] > or = 1.030 (1.005-1.030) Urine Protein 1+ H (Negative) Urine Glucose (UA) Negative (Negative) Urine Ketones Negative (Negative) Urine Occult Blood 3+ H (Negative) Urine Nitrite Negative (Negative) Urine Bilirubin Negative (Negative) Urine Urobilinogen 0.2 (0.2-1.0) Ur Leukocyte Esterase Trace H (Negative) Urine RBC >100 H (0-5) /hpf Urine WBC 5-10 H (0-5) /hpf Ur Squamous Epith Cells 10-20 H (0-5) /hpf Urine Bacteria Moderate H (FEW) /hpf Urine Mucus Few (FEW) /hpf Meds: Medications Discontinued Medications Generic Name Dose Route Start Last Admin Trade Name Freq PRN Reason Stop Dose Admin Hydromorphone HCl 0.5 mg 05/28/20 13:13 05/28/20 13:24 Dilaudid IVPUSH 05/28/20 13:14 0.5 mg ONETIME ONE Administration Hydromorphone HCl 0.5 mg 05/28/20 14:19 05/28/20 14:25 Dilaudid IVPUSH 05/28/20 14:20 0.5 mg ONETIME ONE Administration Hydromorphone HCl 0.5 mg 05/28/20 14:41 05/28/20 14:51 Dilaudid IVPUSH 05/28/20 14:42 0.5 mg ONETIME ONE Administration Sodium Chloride 1,000 mls @ 999 mls/hr 05/28/20 13:15 05/28/20 13:23 Normal Saline IV 999 mls/hr ONETIME RADHA Administration Ondansetron HCl 4 mg 05/28/20 13:13 05/28/20 13:24 Zofran IVPUSH 05/28/20 13:14 4 mg ONETIME ONE Administration Sodium Chloride 10 ml 05/28/20 13:13 05/28/20 13:25 Saline Flush FLUSH 10 ml ASDIRECTED PRN Administration Keep Vein Open - Re-Assessments/Exams Free Text/Narrative Re-Assessment/Exam: 05/28/20 14:46 CT show 7 mm stone L proximal ureter, see Radiology report for details. There is hydronephrosis as expected. Pt has been given 2 doses dilaudid 0.5 mg IV with so far little relief of what is reported as severe pain. Have ordered 3rd dose of 0.5 mg dilaudid. Ua shows 7 mm stone L proximal ureter. 15:05. Still having moderate discomfort after 3rd dose of dilaudid. Pt is very concerned to go home regarding pain management. Have discussed with Dr Santiago, her Urologist. He suggests she be transferred to [facility] for hospital admission for pain management. He will than take her to surgery tomorrow. Dr Villalba, Hospitalist accepting Phys. Ua most likely contaminated specimen. 10-20 epith. cells, 5-10 WBC's, moderate bacteria. Have ordered culture of urine. Will send by ground ambulance to allow for IV fluid, IV pain control. Departure - Departure Time of Disposition: 15:56 Disposition: DC/Tfer to [facility] 02 Clinical Impression: Ureteric colic, Kidney stone on left side - Discharge Information Referrals: Shy Fuchs PA-C [Primary Care Provider] - Forms: ED Department Discharge Sepsis Event Note (ED) - Evaluation Sepsis Screening Result: No Definite Risk - Focused Exam Vital Signs: Vital Signs Temp Pulse Resp BP Pulse Ox 05/28/20 13:00 98.4 F 80 20 149/93 H 99 - My Orders Last 24 Hours: My Active Orders 05/28/20 13:13 Peripheral IV Insertion Adult [OM.PC] Stat 05/28/20 14:17 CULTURE URINE [RM] Stat - Assessment/Plan Last 24 Hours: My Active Orders 05/28/20 13:13 Peripheral IV Insertion Adult [OM.PC] Stat 05/28/20 14:17 CULTURE URINE [RM] Stat
--- NOTE | 2020-05-28 14:02 | CT ---
CT abdomen and pelvis Technique: Multiple axial sections were obtained from above the dome of the diaphragm inferiorly through the pubic symphysis. Intravenous and oral contrast was not utilized. Study has been performed as a ureteral stone protocol. Comparison: Prior CT abdomen and pelvis study of 04/25/20. Findings: Dilated left renal pelvis is seen. This finding is caused by an obstructing stone located within the proximal left ureter slightly past the UPJ. The stone measures about 7 mm and represents a stone seen within the kidney on prior study. Several minimal areas of nonobstructing calculi are noted within the right kidney. Visualized lung bases show nothing acute. Noncontrast appearance of the liver shows no focal abnormality. Surgical clips are seen from prior cholecystectomy. Spleen appears normal. Adrenal glands show no nodule. Pancreas shows no discrete abnormality. Abdominal aorta shows no aneurysm. No retroperitoneal adenopathy or mesenteric abnormalities are seen. No pelvic mass or adenopathy is appreciated. Appendix is seen which is normal in size. Bone window settings were reviewed which appear within normal limits for the patient's age. Impression: 1. 7 mm obstructing stone within the proximal left ureter slightly past the UPJ causing proximal hydronephrosis. 2. Several small nonobstructing calculi within the right kidney. 3. No other acute abnormality is appreciated. Diagnostic code #3
== END 2020-05-28 15:43 ==
LOC: JD.ED 12:22
DX: N13.2 Hydronephrosis with renal and ureteral calculous obstruction (principal); J45.909 Unspecified asthma, uncomplicated; E66.9 Obesity, unspecified; Z68.36 Body mass index [BMI] 36.0-36.9, adult; Z88.0 Allergy status to penicillin; Z88.1 Allergy status to other antibiotic agents; Z88.8 Allergy status to other drugs, medicaments and biological substances; Z79.899 Other long term (current) drug therapy
CPT/HCPCS: 74176; 81001; 87086; 96374; 96375; 96376; 99285; J1170; J2405; J7030; 99284

== ENCOUNTER 2020-08-22 12:35 | Observation (INO) | payer MEDICAID ==
[2020-08-22] MEDS ORDERED: Sodium Chloride 0.9% 10 ML Syringe FLUSH PRN (13:13)
[2020-08-22] MEDS ORDERED: Sodium Chloride 0.9% 1,000 ML IV ONE (13:14)
[2020-08-22] MEDS ORDERED: HYDROmorphone 0.5 MG/0.5 ML Syringe IVPUSH ONE (13:14)
[2020-08-22] MEDS ORDERED: Ondansetron 4 MG/2 ML SDV IVPUSH ONE (13:14)
--- NOTE | 2020-08-22 13:18 | EDM.PDOC ---
ED HPI GENERAL MEDICAL PROBLEM - General Chief Complaint: Abdominal Pain Stated Complaint: ABD PAIN AND BACK PAIN Time Seen by Provider: 08/22/20 12:53 Source of Information: Reports: Patient, RN Notes Reviewed History Limitations: Reports: No Limitations - History of Present Illness INITIAL COMMENTS - FREE TEXT/NARRATIVE: The patient is a 29-year-old female who presents to the ER for the evaluation of her ongoing abdomen pain and back pain. Patient notes she has been suffering from C. difficile for roughly 1 year. She has had multiple hospitalizations, where she has been given IV vancomycin and Flagyl with no results. She notes that she began to have another flare on Monday, so she went to the hospital in [facility] and was discharged early Monday morning. She states that they did give her some pain medication to try to keep her comfortable, they did a sigmoidoscopy, and this did not show any obvious inflammation. So they were unsure as to what to do to with her. She notes that she has been having multiple watery stools, that are full of bright red blood. She states that her pain has worsened, so much that she is not been able to get out of her bed since 9 PM last night. She notes she is not liking the care she is getting in [place] and has consulted a GI specialist in [place] named Dr. Ashraf through [facility] and he thinks that the patient could benefit from a fecal transplant. Apparently the patient's family did call [facility] yesterday as she was told this might be the only hospital in the area that could provide her with the services and the mother notes that the staff at [facility] stated that they would take her in transfer if all the doctors were in agreement as this is what she would need. She states that she is having some hot and cold flashes but no obvious fever. She is having nausea but no vomiting. She is having no cough or shortness of breath. She states she did have a tramadol and Tylenol at around 11 AM. She does also note she has history of kidney issues, but the back pain feels different than her normal kidney issues, and she believes that it is stemming from her abdomen issues. Patient states she has not been able to keep much down for food or fluids due to the nausea. Abdomen Pain Score (Numeric/FACES): 6 - Related Data Allergies Allergy/AdvReac Type Severity Reaction Status Date / Time amoxicillin Allergy Severe Other Verified 08/22/20 12:57 amoxicillin trihydrate Allergy Severe Other Verified 08/22/20 12:57 [From Augmentin] ciprofloxacin Allergy Severe Itching Verified 08/22/20 12:57 clindamycin Allergy Severe Rash Verified 08/22/20 12:57 Penicillins Allergy Severe Hives Verified 08/22/20 12:57 potassium clavulanate Allergy Severe Other Verified 08/22/20 12:57 [From Augmentin] diphenhydramine HCl AdvReac Severe "muscle Verified 08/22/20 12:57 [From Benadryl] aches" Home Meds: Home Meds Albuterol Sulfate [Proair Hfa] 2 puff IH Q4H PRN 11/22/17 [History] ondansetron HCL [Zofran] 1 tab BUCCAL Q12H PRN 11/22/17 [History] traMADol [Ultram] 50 mg PO Q6H PRN 11/22/17 [History] Ibuprofen [Advil] 800 mg PO BID PRN 10/06/19 [History] predniSONE [Prednisone] 20 mg PO DAILY 10/06/19 [History] Past Medical History Cardiovascular History: Reports: Arrhythmia, Heart Murmur Other Cardiovascular History: Recent EKG and Echo secondary to low K+, Na+ in ER when there c/o kidney/back pain on 12/02/14. SVT Respiratory History: Reports: Asthma Other Respiratory History: Rx'd Albuterol inhaler PRN--uses on occasion. pleurisy Gastrointestinal History: Reports: Diverticulosis Genitourinary History: Reports: Renal Calculus, Other (See Below) Other Genitourinary History: thin basement membrane;painful Loin disease SLATE HANDLER History: Reports: , Spontaneous Other SLATE HANDLER History: Hx of PP hemorrhage following third son's delivery. Musculoskeletal History: Reports: RA, SLE, Other (See Below) Other Musculoskeletal History: Sjogren syndrome Neurological History: Reports: Migraines Psychiatric History: Reports: Anxiety, Depression Other Psychiatric History: PP depression following second child's delivery. On antidepressant medication x approx 6 months for such. Endocrine/Metabolic History: Reports: Obesity/BMI 30+ Hematologic History: Reports: Anemia Immunologic History: Reports: Other (See Below) Other Immunologic History: lupus Dermatologic History: Reports: Other (See Below) Other Dermatologic History: Severe cellulitis with pseudomonal infection to L ear cartlidge following ear piercing at age 11--required a PICC line and 6 weeks of IV abx as well as two reconstructive surgeries following daily debridement over a period of weeks as well. - Infectious Disease History Infectious Disease History: Reports: C-Difficile - Past Surgical History HEENT Surgical History: Reports: Oral Surgery Other HEENT Surgeries/Procedures: ear piercing removed. Cardiovascular Surgical History: Reports: Cardiac Ablation GI Surgical History: Reports: Cholecystectomy, Colonoscopy, EGD Female Surgical History: Reports: D&C, Lithotripsy/ESWL Social & Family History - Family History Family Medical History: No Pertinent Family History - Caffeine Use Caffeine Use: Reports: Coffee, Soda Other Caffeine Use: coffee rarely Caffeine Use Comment: 1 Soda Daily - Living Situation & Occupation Living situation: Reports: , with Spouse, with Family (6 kids) Occupation: Unemployed ED ROS GENERAL - Review of Systems Review Of Systems: Comprehensive ROS is negative, except as noted in HPI. ED EXAM, GI/ABD - Physical Exam Exam: See Below Exam Limited By: No Limitations General Appearance: Alert, WD/WN, No Apparent Distress Eyes: Bilateral: Normal Appearance Respiratory/Chest: No Respiratory Distress, Lungs Clear, Normal Breath Sounds, No Accessory Muscle Use, Chest Non-Tender Cardiovascular: Normal Peripheral Pulses, Regular Rate, Rhythm, No Edema GI/Abdominal Exam: Normal Bowel Sounds, Soft, No Distention, No Mass, Tender (diffuse generalized) Extremities: Normal Inspection, Normal Capillary Refill Neurological: Alert, Oriented, Normal Cognition, No Motor/Sensory Deficits Psychiatric: Normal Affect, Normal Mood, Anxious Skin Exam: Warm, Dry, Intact, Normal Color, No Rash Course - Vital Signs Last Recorded V/S: Last Vital Signs Temp 97.5 F 08/22/20 12:52 Pulse 108 H 08/22/20 12:52 Resp 16 08/22/20 12:52 BP 132/82 08/22/20 12:52 Pulse Ox 98 08/22/20 12:52 - Orders/Labs/Meds Orders: Active Orders 24 hr Category Date Time Status Peripheral IV Care [RC] . DIRECTED Care 08/22/20 13:13 Active C-REACTIVE PROTEIN [CHEM] Stat Lab 08/22/20 13:30 Received COMPREHENSIVE METABOLIC PN,CMP [CHEM] Stat Lab 08/22/20 13:30 Received UA W/MICROSCOPIC [URIN] Stat Lab 08/22/20 13:13 Ordered Sodium Chloride 0.9% [Saline Flush] Med 08/22/20 13:13 Active 10 ml FLUSH ASDIRECTED PRN Peripheral IV Insertion Adult [OM.PC] Routine Oth 08/22/20 13:13 Ordered Medication Orders Sodium Chloride (Sodium Chloride 0.9% 10 Ml Syringe) 10 ml FLUSH ASDIRECTED PRN PRN Reason: Keep Vein Open Last Admin: 08/22/20 13:41 Dose: 10 ml Documented by: IVANA Labs: Laboratory Tests 08/22/20 Range/Units 13:30 WBC 12.36 H (3.98-10.04) K/mm3 RBC 4.58 (3.98-5.22) M/mm3 Hgb 13.0 D (11.2-15.7) gm/dl Hct 40.9 (34.1-44.9) % MCV 89.3 (79.4-94.8) fl MCH 28.4 (25.6-32.2) pg MCHC 31.8 L (32.2-35.5) g/dl RDW Std Deviation 43.7 (36.4-46.3) fL Plt Count 438 H (182-369) K/mm3 MPV 8.3 L (9.4-12.3) fl Neut % (Auto) 72.3 H (34.0-71.1) % Lymph % (Auto) 17.6 L (19.3-51.7) % Mora % (Auto) 8.7 (4.7-12.5) % Eos % (Auto) 0.6 L (0.7-5.8) Baso % (Auto) 0.4 (0.1-1.2) % Neut # (Auto) 8.95 H (1.56-6.13) K/mm3 Lymph # (Auto) 2.17 (1.18-3.74) K/mm3 Mora # (Auto) 1.07 H (0.24-0.36) K/mm3 Eos # (Auto) 0.07 (0.04-0.36) K/mm3 Baso # (Auto) 0.05 (0.01-0.08) K/mm3 Manual Slide Review Abnormal smear Meds: Medications Generic Name Dose Route Start Last Admin Trade Name Jarvis PRN Reason Stop Dose Admin Sodium Chloride 10 ml 08/22/20 13:13 08/22/20 13:41 Sodium Chloride 0.9% 10 Ml Syringe FLUSH 10 ml ASDIRECTED PRN Administration Keep Vein Open Discontinued Medications Generic Name Dose Route Start Last Admin Trade Name Jarvis PRN Reason Stop Dose Admin Hydromorphone HCl 0.5 mg 08/22/20 13:14 08/22/20 13:41 Hydromorphone 0.5 Mg/0.5 Ml Syringe IVPUSH 08/22/20 13:15 0.5 mg ONETIME ONE Administration Sodium Chloride 1,000 mls @ 999 mls/hr 08/22/20 13:14 08/22/20 13:40 Normal Saline IV 08/22/20 14:14 999 mls/hr ONETIME ONE Administration Ondansetron HCl 4 mg 08/22/20 13:14 08/22/20 13:41 Ondansetron 4 Mg/2 Ml Sdv IVPUSH 08/22/20 13:15 4 mg ONETIME ONE Administration - Re-Assessments/Exams Free Text/Narrative Re-Assessment/Exam: 08/22/20 13:20 Patient presents to the ER for the evaluation of her ongoing abdomen pain, difficulty with C. difficile infection. As she has been recently treated for C. difficile with antibiotics, I do not believe C. difficile testing at this facility would be appropriate. We will go ahead get IV established, get her some IV fluids, pain meds, nausea meds, take some basic labs for evaluation. Patient states that she did just have a CT done in [place] on Monday that showed C. difficile colitis and she would really rather not have another CT if possible as she has had quite a few of these in her life. This is fine with me as the patient is not writhing in pain on the ER cot. I will try to consult GI at [facility] in [place], and/or try to consult [facility] to see if they are aware of the patient for possible transfer and/or other plan. 08/22/20 13:56 The patient's CBC has resulted, white count is slightly elevated 12.36 with 72.3% neutrophils on the auto differential. Hemoglobin is stable at 13.0. I have contacted [facility] in [place], and 1 call staff was able to see Dr. Ashraf's note and they do see that he recommended possible fecal transplant, she will try to discuss the case with Dr. Coles there are GI specialist retail sales vitamin consultant, and we will try to get a plan figured out for this patient. It is obvious that conventional treatment with IV antibiotics has failed multiple times. 08/22/20 14:31 I have talked with Dr. Carrillo our hospitalist on-call, and he does ultimately accept the patient for admission for observation for C. difficile colitis for fluid resuscitation and pain/nausea management. Ultimate plan would be for her to hopefully be discharged late Monday or early Monday morning, so that she can follow-up with Dr. Ashraf on outpatient basis for the fecal transplant. Patient seemed okay with this plan at this time. Departure - Departure Time of Disposition: 14:32 Disposition: Refer to Observation Condition: Fair Clinical Impression: C. difficile colitis - Discharge Information *PRESCRIPTION DRUG MONITORING PROGRAM REVIEWED*: No *COPY OF PRESCRIPTION DRUG MONITORING REPORT IN PATIENT [place]ORENT[place]: No Referrals: Shy Fuchs PA-C [Primary Care Provider] - Forms: ED Department Discharge Sepsis Event Note (ED) - Evaluation Sepsis Screening Result: No Definite Risk - Focused Exam Vital Signs: Vital Signs Temp Pulse Resp BP Pulse Ox 08/22/20 12:52 97.5 F 108 H 16 132/82 98 - My Orders Last 24 Hours: My Active Orders 08/22/20 13:13 Peripheral IV Care [RC] . DIRECTED UA W/MICROSCOPIC [URIN] Stat Sodium Chloride 0.9% [Saline Flush] 10 ml FLUSH ASDIRECTED PRN Peripheral IV Insertion Adult [OM.PC] Routine 08/22/20 13:30 C-REACTIVE PROTEIN [CHEM] Stat COMPREHENSIVE METABOLIC PN,CMP [CHEM] Stat - Assessment/Plan Last 24 Hours: My Active Orders 08/22/20 13:13 Peripheral IV Care [RC] . DIRECTED UA W/MICROSCOPIC [URIN] Stat Sodium Chloride 0.9% [Saline Flush] 10 ml FLUSH ASDIRECTED PRN Peripheral IV Insertion Adult [OM.PC] Routine 08/22/20 13:30 C-REACTIVE PROTEIN [CHEM] Stat COMPREHENSIVE METABOLIC PN,CMP [CHEM] Stat
[2020-08-22] MEDS ORDERED: Ondansetron 4 MG Tab.DIS PO PRN (14:33)
[2020-08-22] MEDS ORDERED: Docusate Sodium 100 MG Cap PO PRN (14:33)
[2020-08-22] MEDS ORDERED: Temazepam 7.5 MG Cap PO PRN (14:33)
[2020-08-22] MEDS ORDERED: Albuterol 6.7 GM Inhaler INH PRN (14:38)
[2020-08-22] MEDS ORDERED: Cholestyramine/Sucrose Powder 4 GM Packet PO PRN (14:42)
--- NOTE | 2020-08-22 14:42 | PCM.HP.2 ---
H&P History of Present Illness - General Date of Service: 08/22/20 Admit Problem/Dx: Admission Diagnosis/Problem Admission Diagnosis/Problem Cdiff, Clostridium difficile colitis Source of Information: Patient History Limitations: Reports: No Limitations - History of Present Illness Initial Comments - Free Text/Narative: The patient is a 29-year-old lady who has presented to the emergency department for her ongoing abdominal pain and back pain. The patient has a history of multiple autoimmune disorders to include sicca, lupus and rheumatoid arthritis. The patient has been chronically taking steroids. The patient's primary concern is that she has been suffering from C. difficile colitis for possibly the past year. Patient says that she started having a flare and was in hospitalization in [place] and was discharged yesterday went home and did not feel any better at all. The patient also has been on multiple medications and antibiotics which have not worked for her. The patient says that she has had been evaluated for fecal transplant and is in evaluation with tobacco sprayer in [place]. The patient complains that she has had multiple severe episodes of watery, bloody diarrhea. The patient has had generalized abdominal pain. Medications have relieved the pain. Eating has worsened the pain. The patient has denied any fever or chills. Onset of Symptoms: Reports: Gradual Duration of Symptoms: Reports: Day(s): Location: Reports: Abdomen Quality: Reports: Ache, Burning Severity: Moderate Improves with: Reports: Medication, Rest Worsens with: Reports: Eating Context: Reports: Other (Autoimmune disorder) Associated Symptoms: Reports: No Other Symptoms Abdomen Pain Score (Numeric/FACES): 6 - Related Data Allergies/Adverse Reactions: Allergies Allergy/AdvReac Type Severity Reaction Status Date / Time amoxicillin Allergy Severe Other Verified 08/22/20 16:15 amoxicillin trihydrate Allergy Severe Other Verified 08/22/20 16:15 [From Augmentin] ciprofloxacin Allergy Severe Itching Verified 08/22/20 16:15 clindamycin Allergy Severe Rash Verified 08/22/20 16:15 Penicillins Allergy Severe Hives Verified 08/22/20 16:15 potassium clavulanate Allergy Severe Other Verified 08/22/20 16:15 [From Augmentin] lemon Allergy Hives Verified 08/22/20 16:15 diphenhydramine HCl AdvReac Severe "muscle Verified 08/22/20 16:15 [From Benadryl] aches" Home Medications: Home Meds Albuterol Sulfate [Proair Hfa] 2 puff IH Q4H PRN 11/22/17 [History] ondansetron HCL [Zofran] 4 mg BUCCAL Q8H PRN 11/22/17 [History] traMADol [Ultram] 50 mg PO Q6H PRN 11/22/17 [History] Ibuprofen [Advil] 800 mg PO BID PRN 10/06/19 [History] predniSONE [Prednisone] 20 mg PO DAILY 10/06/19 [History] Past Medical History Cardiovascular History: Reports: Arrhythmia, Heart Murmur Other Cardiovascular History: Recent EKG and Echo secondary to low K+, Na+ in ER when there c/o kidney/back pain on 12/02/14. SVT Respiratory History: Reports: Asthma Other Respiratory History: Rx'd Albuterol inhaler PRN--uses on occasion. 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 Musculoskeletal History: Reports: RA, SLE, Other (See Below) Other Musculoskeletal History: Sjogren syndrome Neurological History: Reports: Migraines Psychiatric History: Reports: Anxiety, Depression Other Psychiatric History: PP depression following second child's delivery. On antidepressant medication x approx 6 months for such. Endocrine/Metabolic History: Reports: Obesity/BMI 30+ Hematologic History: Reports: Anemia Immunologic History: Reports: Other (See Below) (Sicca) Other Immunologic History: lupus Dermatologic History: Reports: Other (See Below) Other Dermatologic History: Severe cellulitis with pseudomonal infection to L ear cartlidge following ear piercing at age 11--required a PICC line and 6 weeks of IV abx as well as two reconstructive surgeries following daily debridement over a period of weeks as well. - Infectious Disease History Infectious Disease History: Reports: C-Difficile - Past Surgical History HEENT Surgical History: Reports: Oral Surgery Other HEENT Surgeries/Procedures: ear piercing removed. Cardiovascular Surgical History: Reports: Cardiac Ablation GI Surgical History: Reports: Cholecystectomy, Colonoscopy, EGD Female Surgical History: Reports: D&C, Lithotripsy/ESWL Social & Family History - Family History Family Medical History: No Pertinent Family History - Caffeine Use Caffeine Use: Reports: Coffee, Soda Other Caffeine Use: coffee rarely Caffeine Use Comment: 1 Soda Daily - Living Situation & Occupation Living situation: Reports: , with Spouse, with Family (6 kids) Occupation: Unemployed H&P Review of Systems - Review of Systems: Review Of Systems: See Below General: Reports: Decreased Appetite HEENT: Reports: No Symptoms Pulmonary: Reports: No Symptoms Cardiovascular: Reports: No Symptoms Gastrointestinal: Reports: Abdominal Pain, Bloody Stool, Diarrhea, Distension Genitourinary: Reports: No Symptoms Musculoskeletal: Reports: No Symptoms Skin: Reports: No Symptoms Psychiatric: Reports: No Symptoms Neurological: Reports: No Symptoms Hematologic/Lymphatic: Reports: No Symptoms Immunologic: Reports: No Symptoms Exam - Exam Exam: See Below - Vital Signs Vital Signs: Last Vital Signs Temp 36.4 C 08/22/20 12:52 Pulse 108 H 08/22/20 12:52 Resp 16 08/22/20 12:52 BP 132/82 08/22/20 12:52 Pulse Ox 98 08/22/20 12:52 Weight: 91.081 kg - Exam Quality Assessment: No: Supplemental Oxygen, DVT Prophylaxis General: Alert, Oriented, Cooperative HEENT: Conjunctiva Clear, EACs Clear, Hearing Intact, Nares Patent, PERRLA. No: Mucosa Moist & [place] (Dry) Neck: Supple, Trachea Midline Lungs: Clear to Auscultation, Normal Respiratory Effort Cardiovascular: Regular Rate, Regular Rhythm GI/Abdominal Exam: Normal Bowel Sounds, Soft, Tender (Generalized). No: Guarding, Rigid, Rebound (Female) Exam: Deferred Rectal (Female) Exam: Deferred Back Exam: Normal Inspection, Full Range of Motion Extremities: Normal Inspection, Normal Range of Motion, No Pedal Edema Skin: Warm, Dry, Intact Neurological: Cranial Nerves Intact, Reflexes Equal Bilateral, Normal Speech Neuro Extensive - Mental Status: Alert, Oriented x3 Psychiatric: Alert, Normal Affect, Normal Mood - Patient Data Lab Results Last 24 hrs: Laboratory Results - last 24 hr 08/22/20 08/22/20 Range/Units 13:30 13:30 WBC 12.36 H (3.98-10.04) K/mm3 RBC 4.58 (3.98-5.22) M/mm3 Hgb 13.0 D (11.2-15.7) gm/dl Hct 40.9 (34.1-44.9) % MCV 89.3 (79.4-94.8) fl MCH 28.4 (25.6-32.2) pg MCHC 31.8 L (32.2-35.5) g/dl RDW Std Deviation 43.7 (36.4-46.3) fL Plt Count 438 H (182-369) K/mm3 MPV 8.3 L (9.4-12.3) fl Neut % (Auto) 72.3 H (34.0-71.1) % Lymph % (Auto) 17.6 L (19.3-51.7) % [place] % (Auto) 8.7 (4.7-12.5) % Eos % (Auto) 0.6 L (0.7-5.8) Baso % (Auto) 0.4 (0.1-1.2) % Neut # (Auto) 8.95 H (1.56-6.13) K/mm3 Lymph # (Auto) 2.17 (1.18-3.74) K/mm3 [place] # (Auto) 1.07 H (0.24-0.36) K/mm3 Eos # (Auto) 0.07 (0.04-0.36) K/mm3 Baso # (Auto) 0.05 (0.01-0.08) K/mm3 Manual Slide Review Abnormal smear Sodium 145 (136-145) mEq/L Potassium 3.3 L (3.5-5.1) mEq/L Chloride 105 (98-107) mEq/L Carbon Dioxide 28 (21-32) mEq/L Anion Gap 15.3 H (5-15) BUN 8 (7-18) mg/dL Creatinine 0.9 (0.55-1.02) mg/dL Est Cr Clr Drug Dosing 78.21 mL/min Estimated GFR (MDRD) > 60 (>60) mL/min BUN/Creatinine Ratio 8.9 L (14-18) Glucose 95 (70-99) mg/dL Calcium 9.2 (8.5-10.1) mg/dL Total Bilirubin 1.3 H (0.2-1.0) mg/dL AST 19 (15-37) U/L ALT 27 (14-59) U/L Alkaline Phosphatase 51 (46-116) U/L C-Reactive Protein 2.2 H* (<1.0) mg/dL Total Protein 7.7 (6.4-8.2) g/dl Albumin 3.6 (3.4-5.0) g/dl Globulin 4.1 gm/dL Albumin/Globulin Ratio 0.9 L (1-2) Result Diagrams: 08/22/20 13:30 08/22/20 13:30 Sepsis Event Note - Evaluation Sepsis Screening Result: No Definite Risk - Focused Exam Vital Signs: Vital Signs Temp Pulse Resp BP Pulse Ox 08/22/20 12:52 36.4 C 108 H 16 132/82 98 - Problem List (1) Dehydration SNOMED Code(s): 50570509 ICD Code: E86.0 - DEHYDRATION Status: Acute Priority: High Current Visit: Yes (2) Diarrhea associated with pseudomembranous colitis SNOMED Code(s): 43883012, 236675284 ICD Code: A04.72 - ENTEROCOLITIS D/T CLOSTRIDIUM DIFFICILE, NOT SPCF RECUR Status: Chronic Priority: High Current Visit: Yes (3) Sicca syndrome, Sjogren's SNOMED Code(s): 70707833 ICD Code: M35.00 - SICCA SYNDROME, UNSPECIFIED Status: Chronic Priority: Medium Current Visit: Yes Qualifiers: Sjogren's organ involvement: unspecified organ involvement Qualified Code(s): M35.00 - Sicca syndrome, unspecified (4) C. difficile colitis SNOMED Code(s): 774423023 ICD Code: A04.72 - ENTEROCOLITIS D/T CLOSTRIDIUM DIFFICILE, NOT SPCF RECUR Status: Chronic Priority: High Current Visit: Yes Problem List Initiated/Reviewed/Updated: Yes Orders Last 24hrs: Active Orders 24 hr Category Date Time Status Patient Status [ADT] Routine ADT 08/22/20 14:33 Active Oxygen Therapy [RC] PRN Care 08/22/20 14:33 Active Peripheral IV Care [RC] . DIRECTED Care 08/22/20 13:13 Active RT Post Treatment Assessment [RC] Click to Edit Care 08/22/20 14:38 Active RT Pre-Treatment Assessment [RC] Click to Edit Care 08/22/20 14:38 Active Up With Assistance [RC] ASDIRECTED Care 08/22/20 14:33 Active VTE/DVT Education [RC] PER UNIT ROUTINE Care 08/22/20 14:33 Active Vital Signs [RC] Q4H Care 08/22/20 14:33 Active Clear Liquid Diet [DIET] Diet 08/22/20 Dinner Active BASIC METABOLIC PANEL,BMP [CHEM] AM Lab 08/23/20 05:11 Ordered CBC WITH AUTO DIFF [HEME] AM Lab 08/23/20 05:11 Ordered MAGNESIUM [CHEM] AM Lab 08/23/20 05:11 Ordered UA W/MICROSCOPIC [URIN] Stat Lab 08/22/20 13:13 Ordered Acetaminophen [TylenoL] Med 08/22/20 14:33 Active 650 mg PO Q4H PRN Albuterol [Proventil HFA] Med 08/22/20 14:38 Ordered DOSE gm INH Q4H PRN Docusate Sodium [Colace] Med 08/22/20 14:33 Active 100 mg PO BID PRN Enoxaparin [Lovenox] Med 08/22/20 14:45 Ordered 30 mg SUBCUT DAILY HYDROmorphone [Dilaudid] Med 08/22/20 14:33 Active 0.5 mg IVPUSH Q2H PRN Lactated Ringers [Ringers, Lactated] 1,000 ml Med 08/22/20 14:45 Active IV ASDIRECTED Ondansetron [Zofran ODT] Med 08/22/20 14:33 Active 4 mg PO Q4H PRN Ondansetron [Zofran] Med 08/22/20 14:33 Active 4 mg IV Q4H PRN Sodium Chloride 0.9% [Saline Flush] Med 08/22/20 13:13 Active 10 ml FLUSH ASDIRECTED PRN Temazepam [Restoril] Med 08/22/20 14:33 Active 7.5 mg PO BEDTIME PRN oxyCODONE Med 08/22/20 14:33 Active 5 mg PO Q4H PRN Peripheral IV Insertion Adult [OM.PC] Routine Oth 08/22/20 13:13 Ordered Resuscitation Status Routine Resus Stat 08/22/20 14:33 Ordered Medication Orders Acetaminophen (Acetaminophen 325 Mg Tab) 650 mg PO Q4H PRN PRN Reason: Pain (Mild 1-3)/fever Albuterol (Albuterol 6.7 Gm Inhaler) gm INH Q4H PRN PRN Reason: asthma Docusate Sodium (Docusate Sodium 100 Mg Cap) 100 mg PO BID PRN PRN Reason: Constipation Enoxaparin Sodium (Enoxaparin 30 Mg/0.3 Ml Syringe) 30 mg SUBCUT DAILY RADHA Hydromorphone HCl (Hydromorphone 0.5 Mg/0.5 Ml Syringe) 0.5 mg IVPUSH Q2H PRN PRN Reason: Pain (severe 7-10) Lactated Ringer's (Ringers, Lactated) 1,000 mls @ 125 mls/hr IV ASDIRECTED RADHA Ondansetron HCl (Ondansetron 4 Mg Tab.Dis) 4 mg PO Q4H PRN PRN Reason: nausea, able to take PO Ondansetron HCl (Ondansetron 4 Mg/2 Ml Sdv) 4 mg IV Q4H PRN PRN Reason: Nausea/Vomiting Oxycodone HCl (Oxycodone 5 Mg Tab) 5 mg PO Q4H PRN PRN Reason: Pain (moderate 4-6) Sodium Chloride (Sodium Chloride 0.9% 10 Ml Syringe) 10 ml FLUSH ASDIRECTED PRN PRN Reason: Keep Vein Open Last Admin: 08/22/20 13:41 Dose: 10 ml Documented by: IVANA Temazepam (Temazepam 7.5 Mg Cap) 7.5 mg PO BEDTIME PRN PRN Reason: Sleep Assessment/Plan Comment:: The patient is a 29-year-old lady who has been admitted to observation after concern for refractory C. difficile colitis. Because of the patient's dehydration status I have ordered fluids lactated Ringer's at 125 mL/h. The patient has a follow-up scheduled with her tobacco sprayer in at least a couple of weeks. For now the patient will be started on vancomycin 250 mg p.o. 4 times daily along with cholestyramine 4 g 4 times daily as needed to help with diarrhea. The patient's electrolytes will also be monitored and she is hypokalemic and I have ordered this replaced. The patient will have pain control with the use of narcotic pain medications. The patient also has an autoimmune disorder, predominantly Sicca syndrome along with lupus and she has been chronically on steroids and this will be continued. The patient will also have DVT prophylaxis with the use of Lovenox 30 mg subcu daily. She will be placed on clear liquid diet for now. The patient's diet will be advanced as tolerated. The patient should be appropriate for discharge in 1 day to 2 days. - Mortality Measure Prognosis:: Good
[2020-08-22] MEDS: oxyCODONE 5 MG Tab PO PRN ×2 (15:15→22:51)
[2020-08-22] MEDS: Enoxaparin 40 MG/0.4 ML Syringe SUBCUT SCH (15:33)
[2020-08-22] MEDS: Lactated Ringers 1,000 ML IV SCH ×2 (15:34→22:53)
[2020-08-22] MEDS ORDERED: Potassium Chloride 20 MEQ Tab.ER PO ONE (16:34)
[2020-08-22] MEDS: Vancomycin 125 MG Cap PO SCH ×2 (17:20→20:18)
[2020-08-22] MEDS: Potassium Chloride 10 MEQ in Premix Bag 1 BAG IV SCH ×2 (17:21→18:34)
[2020-08-22] MEDS ORDERED: predniSONE 20 MG Tab PO ONE (17:30)
[2020-08-22] MEDS: Ondansetron 4 MG/2 ML SDV IV PRN ×2 (17:46→21:48)
[2020-08-22] MEDS: HYDROmorphone 0.5 MG/0.5 ML Syringe IVPUSH PRN ×2 (17:46→21:19)
[2020-08-23] MEDS: oxyCODONE 5 MG Tab PO PRN ×4 (06:02→21:51)
[2020-08-23] MEDS: Lactated Ringers 1,000 ML IV SCH ×3 (06:02→21:52)
[2020-08-23] MEDS ORDERED: Magnesium Sulfate/Water 2 GM in Premix Bag 1 BAG IV ONE (06:57)
[2020-08-23] MEDS ORDERED: predniSONE 20 MG Tab PO SCH (07:00)
[2020-08-23] MEDS: Vancomycin 125 MG Cap PO SCH (08:43)
[2020-08-23] MEDS: predniSONE 20 MG Tab PO SCH (08:43)
[2020-08-23] MEDS: Enoxaparin 40 MG/0.4 ML Syringe SUBCUT SCH (08:43)
[2020-08-23] MEDS: HYDROmorphone 0.5 MG/0.5 ML Syringe IVPUSH PRN ×6 (08:43→23:49)
[2020-08-23] MEDS: Ondansetron 4 MG/2 ML SDV IV PRN ×4 (08:43→21:52)
--- NOTE | 2020-08-23 09:35 | PCM.PN ---
- General Info Date of Service: 08/23/20 Admission Dx/Problem (Free Text): Admission Diagnosis/Problem Admission Diagnosis/Problem Cdiff, Clostridium difficile colitis Subjective Update: The patient is a 29-year-old lady who was admitted yesterday secondary to chroni c C. difficile colitis. The patient had been started on vancomycin p.o. and IV fluids as she had profuse watery diarrhea. Patient says today that she is still having diarrhea and some abdominal pain. She has been on a clear liquid diet and she is still having cramping if she tries to eat something solid. The patient has been doing well otherwise. Functional Status: Reports: Pain Controlled, Tolerating Diet (Clear liquid diet) - Review of Systems General: Reports: No Symptoms HEENT: Reports: No Symptoms Pulmonary: Reports: No Symptoms Cardiovascular: Reports: No Symptoms Gastrointestinal: Reports: Abdominal Pain, Diarrhea Genitourinary: Reports: No Symptoms Musculoskeletal: Reports: No Symptoms Skin: Reports: No Symptoms Neurological: Reports: No Symptoms Psychiatric: Reports: No Symptoms - Patient Data Vitals - Most Recent: Last Vital Signs Temp 36.5 C 08/23/20 07:49 Pulse 79 08/23/20 07:49 Resp 14 08/23/20 07:49 BP 110/66 08/23/20 07:49 Pulse Ox 100 08/23/20 07:49 Weight - Most Recent: 100.38 kg I&O - Last 24 Hours: Intake & Output 08/22/20 08/23/20 08/23/20 22:59 06:59 14:59 Intake Total 210 2175 Output Total 250 625 Balance -40 1550 Lab Results Last 24 Hours: Laboratory Results - last 24 hr 08/22/20 08/22/20 08/22/20 Range/Units 13:30 13:30 16:09 WBC 12.36 H (3.98-10.04) K/mm3 RBC 4.58 (3.98-5.22) M/mm3 Hgb 13.0 D (11.2-15.7) gm/dl Hct 40.9 (34.1-44.9) % MCV 89.3 (79.4-94.8) fl MCH 28.4 (25.6-32.2) pg MCHC 31.8 L (32.2-35.5) g/dl RDW Std Deviation 43.7 (36.4-46.3) fL Plt Count 438 H (182-369) K/mm3 MPV 8.3 L (9.4-12.3) fl Neut % (Auto) 72.3 H (34.0-71.1) % Lymph % (Auto) 17.6 L (19.3-51.7) % [place] % (Auto) 8.7 (4.7-12.5) % Eos % (Auto) 0.6 L (0.7-5.8) Baso % (Auto) 0.4 (0.1-1.2) % Neut # (Auto) 8.95 H (1.56-6.13) K/mm3 Lymph # (Auto) 2.17 (1.18-3.74) K/mm3 [place] # (Auto) 1.07 H (0.24-0.36) K/mm3 Eos # (Auto) 0.07 (0.04-0.36) K/mm3 Baso # (Auto) 0.05 (0.01-0.08) K/mm3 Manual Slide Review Abnormal smear Sodium 145 (136-145) mEq/L Potassium 3.3 L (3.5-5.1) mEq/L Chloride 105 (98-107) mEq/L Carbon Dioxide 28 (21-32) mEq/L Anion Gap 15.3 H (5-15) BUN 8 (7-18) mg/dL Creatinine 0.9 (0.55-1.02) mg/dL Est Cr Clr Drug Dosing 78.21 mL/min Estimated GFR (MDRD) > 60 (>60) mL/min BUN/Creatinine Ratio 8.9 L (14-18) Glucose 95 (70-99) mg/dL Calcium 9.2 (8.5-10.1) mg/dL Magnesium (1.8-2.4) mg/dL Total Bilirubin 1.3 H (0.2-1.0) mg/dL AST 19 (15-37) U/L ALT 27 (14-59) U/L Alkaline Phosphatase 51 (46-116) U/L C-Reactive Protein 2.2 H* (<1.0) mg/dL Total Protein 7.7 (6.4-8.2) g/dl Albumin 3.6 (3.4-5.0) g/dl Globulin 4.1 gm/dL Albumin/Globulin Ratio 0.9 L (1-2) Urine Color Yellow (Yellow) Urine Appearance Clear (Clear) Urine pH 6.5 (5.0-8.0) Ur Specific [place] 1.025 (1.005-1.030) Urine Protein Trace H (Negative) Urine Glucose (UA) Negative (Negative) Urine Ketones 2+ H (Negative) Urine Occult Blood 2+ H (Negative) Urine Nitrite Negative (Negative) Urine Bilirubin Negative (Negative) Urine Urobilinogen 0.2 (0.2-1.0) Ur Leukocyte Esterase Negative (Negative) Urine RBC 10-20 H (0-5) /hpf Urine WBC 0-5 (0-5) /hpf Ur Squamous Epith Cells 10-20 H (0-5) /hpf Urine Bacteria Moderate H (FEW) /hpf Urine Mucus Moderate H (FEW) /hpf SARS-CoV-2 RNA (ILYA) (NEGATIVE) 08/22/20 08/23/20 08/23/20 Range/Units 17:28 05:52 05:52 WBC 12.99 H (3.98-10.04) K/mm3 RBC 4.17 (3.98-5.22) M/mm3 Hgb 11.6 (11.2-15.7) gm/dl Hct 37.6 (34.1-44.9) % MCV 90.2 (79.4-94.8) fl MCH 27.8 (25.6-32.2) pg MCHC 30.9 L (32.2-35.5) g/dl RDW Std Deviation 43.8 (36.4-46.3) fL Plt Count 394 H (182-369) K/mm3 MPV 8.5 L (9.4-12.3) fl Neut % (Auto) 78.0 H (34.0-71.1) % Lymph % (Auto) 15.7 L (19.3-51.7) % [place] % (Auto) 5.5 (4.7-12.5) % Eos % (Auto) 0.2 L (0.7-5.8) Baso % (Auto) 0.2 (0.1-1.2) % Neut # (Auto) 10.13 H (1.56-6.13) K/mm3 Lymph # (Auto) 2.04 (1.18-3.74) K/mm3 [place] # (Auto) 0.71 H (0.24-0.36) K/mm3 Eos # (Auto) 0.03 L (0.04-0.36) K/mm3 Baso # (Auto) 0.03 (0.01-0.08) K/mm3 Manual Slide Review Sodium 141 (136-145) mEq/L Potassium 3.8 (3.5-5.1) mEq/L Chloride 105 (98-107) mEq/L Carbon Dioxide 26 (21-32) mEq/L Anion Gap 13.8 (5-15) BUN 6 L (7-18) mg/dL Creatinine 0.6 (0.55-1.02) mg/dL Est Cr Clr Drug Dosing 117.31 mL/min Estimated GFR (MDRD) > 60 (>60) mL/min BUN/Creatinine Ratio 10.0 L (14-18) Glucose 91 (70-99) mg/dL Calcium 8.5 (8.5-10.1) mg/dL Magnesium 1.4 L (1.8-2.4) mg/dL Total Bilirubin (0.2-1.0) mg/dL AST (15-37) U/L ALT (14-59) U/L Alkaline Phosphatase (46-116) U/L C-Reactive Protein (<1.0) mg/dL Total Protein (6.4-8.2) g/dl Albumin (3.4-5.0) g/dl Globulin gm/dL Albumin/Globulin Ratio (1-2) Urine Color (Yellow) Urine Appearance (Clear) Urine pH (5.0-8.0) Ur Specific [place] (1.005-1.030) Urine Protein (Negative) Urine Glucose (UA) (Negative) Urine Ketones (Negative) Urine Occult Blood (Negative) Urine Nitrite (Negative) Urine Bilirubin (Negative) Urine Urobilinogen (0.2-1.0) Ur Leukocyte Esterase (Negative) Urine RBC (0-5) /hpf Urine WBC (0-5) /hpf Ur Squamous Epith Cells (0-5) /hpf Urine Bacteria (FEW) /hpf Urine Mucus (FEW) /hpf SARS-CoV-2 RNA (ILYA) Negative (NEGATIVE) Med Orders - Current: Current Medications Acetaminophen (Acetaminophen 325 Mg Tab) 650 mg PO Q4H PRN PRN Reason: Pain (Mild 1-3)/fever Albuterol (Albuterol 6.7 Gm Inhaler) 0 gm INH Q4H PRN PRN Reason: asthma Cholestyramine Resin (Cholestyramine/Sucrose Powder 4 Gm Packet) 4 gm PO TID PRN PRN Reason: Diarrhea Last Admin: 08/22/20 17:21 Dose: 4 gm Documented by: Docusate Sodium (Docusate Sodium 100 Mg Cap) 100 mg PO BID PRN PRN Reason: Constipation Enoxaparin Sodium (Enoxaparin 40 Mg/0.4 Ml Syringe) 40 mg SUBCUT DAILY [facility] Last Admin: 08/23/20 08:43 Dose: 40 mg Documented by: Hydromorphone HCl (Hydromorphone 0.5 Mg/0.5 Ml Syringe) 0.5 mg IVPUSH Q2H PRN PRN Reason: Pain (severe 7-10) Last Admin: 08/23/20 08:43 Dose: 0.5 mg Documented by: Lactated Ringer's (Ringers, Lactated) 1,000 mls @ 125 mls/hr IV ASDIRECTED [facility] Last Admin: 08/23/20 06:02 Dose: 125 mls/hr Documented by: Ondansetron HCl (Ondansetron 4 Mg Tab.Dis) 4 mg PO Q4H PRN PRN Reason: nausea, able to take PO Ondansetron HCl (Ondansetron 4 Mg/2 Ml Sdv) 4 mg IV Q4H PRN PRN Reason: Nausea/Vomiting Last Admin: 08/23/20 08:43 Dose: 4 mg Documented by: Oxycodone HCl (Oxycodone 5 Mg Tab) 5 mg PO Q4H PRN PRN Reason: Pain (moderate 4-6) Last Admin: 08/23/20 06:02 Dose: 5 mg Documented by: Prednisone (Prednisone 20 Mg Tab) 20 mg PO DAILY@0800 [facility] Last Admin: 08/23/20 08:43 Dose: 20 mg Documented by: Sodium Chloride (Sodium Chloride 0.9% 10 Ml Syringe) 10 ml FLUSH ASDIRECTED PRN PRN Reason: Keep Vein Open Last Admin: 08/22/20 13:41 Dose: 10 ml Documented by: Temazepam (Temazepam 7.5 Mg Cap) 7.5 mg PO BEDTIME PRN PRN Reason: Sleep Vancomycin HCl (Vancomycin 125 Mg Cap) 250 mg PO QID [facility] Last Admin: 08/23/20 08:43 Dose: 250 mg Documented by: Discontinued Medications Hydromorphone HCl (Hydromorphone 0.5 Mg/0.5 Ml Syringe) 0.5 mg IVPUSH ONETIME ONE Stop: 08/22/20 13:15 Last Admin: 08/22/20 13:41 Dose: 0.5 mg Documented by: Sodium Chloride (Normal Saline) 1,000 mls @ 999 mls/hr IV ONETIME ONE Stop: 08/22/20 14:14 Last Admin: 08/22/20 13:40 Dose: 999 mls/hr Documented by: Potassium Chloride 10 meq/ (Premix) 100 mls @ 100 mls/hr IV Q1H [facility] Stop: 08/22/20 18:59 Last Admin: 08/22/20 18:34 Dose: 100 mls/hr Documented by: Magnesium Sulfate 2 gm/ Premix 50 mls @ 25 mls/hr IV ONETIME ONE Stop: 08/23/20 08:56 Last Admin: 08/23/20 08:42 Dose: 25 mls/hr Documented by: Ondansetron HCl (Ondansetron 4 Mg/2 Ml Sdv) 4 mg IVPUSH ONETIME ONE Stop: 08/22/20 13:15 Last Admin: 08/22/20 13:41 Dose: 4 mg Documented by: Potassium Chloride (Potassium Chloride 20 Meq Tab.Er) 20 meq PO ONETIME ONE Stop: 08/22/20 16:35 Last Admin: 08/22/20 17:38 Dose: Not Given Documented by: Prednisone (Prednisone 20 Mg Tab) 20 mg PO WITHBREAKFAST [facility] Prednisone (Prednisone 20 Mg Tab) 20 mg PO ONETIME ONE Stop: 08/23/20 16:55 Prednisone (Prednisone 20 Mg Tab) 20 mg PO ONETIME ONE Stop: 08/22/20 17:31 Last Admin: 08/22/20 17:45 Dose: 20 mg Documented by: - Exam Quality Assessment: DVT Prophylaxis. No: Supplemental Oxygen General: Alert, Oriented, Cooperative, No Acute Distress HEENT: Pupils Reactive, EOMI. No: Mucous Membr. Moist/[place] (Dry) Neck: Supple, Trachea Midline Lungs: Clear to Auscultation, Normal Respiratory Effort Cardiovascular: Regular Rate, Regular Rhythm GI/Abdominal Exam: Normal Bowel Sounds, Soft, Non-Tender, No Distention (Female) Exam: Deferred Back Exam: Normal Inspection, Full Range of Motion Extremities: Normal Inspection, No Pedal Edema Skin: Warm, Dry, Intact Neurological: No New Focal Deficit Psy/Mental Status: Alert, Normal Affect - Patient Data Lab Results Last 24 hrs: Laboratory Results - last 24 hr 08/22/20 08/22/20 08/22/20 Range/Units 13:30 13:30 16:09 WBC 12.36 H (3.98-10.04) K/mm3 RBC 4.58 (3.98-5.22) M/mm3 Hgb 13.0 D (11.2-15.7) gm/dl Hct 40.9 (34.1-44.9) % MCV 89.3 (79.4-94.8) fl MCH 28.4 (25.6-32.2) pg MCHC 31.8 L (32.2-35.5) g/dl RDW Std Deviation 43.7 (36.4-46.3) fL Plt Count 438 H (182-369) K/mm3 MPV 8.3 L (9.4-12.3) fl Neut % (Auto) 72.3 H (34.0-71.1) % Lymph % (Auto) 17.6 L (19.3-51.7) % [place] % (Auto) 8.7 (4.7-12.5) % Eos % (Auto) 0.6 L (0.7-5.8) Baso % (Auto) 0.4 (0.1-1.2) % Neut # (Auto) 8.95 H (1.56-6.13) K/mm3 Lymph # (Auto) 2.17 (1.18-3.74) K/mm3 [place] # (Auto) 1.07 H (0.24-0.36) K/mm3 Eos # (Auto) 0.07 (0.04-0.36) K/mm3 Baso # (Auto) 0.05 (0.01-0.08) K/mm3 Manual Slide Review Abnormal smear Sodium 145 (136-145) mEq/L Potassium 3.3 L (3.5-5.1) mEq/L Chloride 105 (98-107) mEq/L Carbon Dioxide 28 (21-32) mEq/L Anion Gap 15.3 H (5-15) BUN 8 (7-18) mg/dL Creatinine 0.9 (0.55-1.02) mg/dL Est Cr Clr Drug Dosing 78.21 mL/min Estimated GFR (MDRD) > 60 (>60) mL/min BUN/Creatinine Ratio 8.9 L (14-18) Glucose 95 (70-99) mg/dL Calcium 9.2 (8.5-10.1) mg/dL Magnesium (1.8-2.4) mg/dL Total Bilirubin 1.3 H (0.2-1.0) mg/dL AST 19 (15-37) U/L ALT 27 (14-59) U/L Alkaline Phosphatase 51 (46-116) U/L C-Reactive Protein 2.2 H* (<1.0) mg/dL Total Protein 7.7 (6.4-8.2) g/dl Albumin 3.6 (3.4-5.0) g/dl Globulin 4.1 gm/dL Albumin/Globulin Ratio 0.9 L (1-2) Urine Color Yellow (Yellow) Urine Appearance Clear (Clear) Urine pH 6.5 (5.0-8.0) Ur Specific [place] 1.025 (1.005-1.030) Urine Protein Trace H (Negative) Urine Glucose (UA) Negative (Negative) Urine Ketones 2+ H (Negative) Urine Occult Blood 2+ H (Negative) Urine Nitrite Negative (Negative) Urine Bilirubin Negative (Negative) Urine Urobilinogen 0.2 (0.2-1.0) Ur Leukocyte Esterase Negative (Negative) Urine RBC 10-20 H (0-5) /hpf Urine WBC 0-5 (0-5) /hpf Ur Squamous Epith Cells 10-20 H (0-5) /hpf Urine Bacteria Moderate H (FEW) /hpf Urine Mucus Moderate H (FEW) /hpf SARS-CoV-2 RNA (ILYA) (NEGATIVE) 08/22/20 08/23/20 08/23/20 Range/Units 17:28 05:52 05:52 WBC 12.99 H (3.98-10.04) K/mm3 RBC 4.17 (3.98-5.22) M/mm3 Hgb 11.6 (11.2-15.7) gm/dl Hct 37.6 (34.1-44.9) % MCV 90.2 (79.4-94.8) fl MCH 27.8 (25.6-32.2) pg MCHC 30.9 L (32.2-35.5) g/dl RDW Std Deviation 43.8 (36.4-46.3) fL Plt Count 394 H (182-369) K/mm3 MPV 8.5 L (9.4-12.3) fl Neut % (Auto) 78.0 H (34.0-71.1) % Lymph % (Auto) 15.7 L (19.3-51.7) % [place] % (Auto) 5.5 (4.7-12.5) % Eos % (Auto) 0.2 L (0.7-5.8) Baso % (Auto) 0.2 (0.1-1.2) % Neut # (Auto) 10.13 H (1.56-6.13) K/mm3 Lymph # (Auto) 2.04 (1.18-3.74) K/mm3 [place] # (Auto) 0.71 H (0.24-0.36) K/mm3 Eos # (Auto) 0.03 L (0.04-0.36) K/mm3 Baso # (Auto) 0.03 (0.01-0.08) K/mm3 Manual Slide Review Sodium 141 (136-145) mEq/L Potassium 3.8 (3.5-5.1) mEq/L Chloride 105 (98-107) mEq/L Carbon Dioxide 26 (21-32) mEq/L Anion Gap 13.8 (5-15) BUN 6 L (7-18) mg/dL Creatinine 0.6 (0.55-1.02) mg/dL Est Cr Clr Drug Dosing 117.31 mL/min Estimated GFR (MDRD) > 60 (>60) mL/min BUN/Creatinine Ratio 10.0 L (14-18) Glucose 91 (70-99) mg/dL Calcium 8.5 (8.5-10.1) mg/dL Magnesium 1.4 L (1.8-2.4) mg/dL Total Bilirubin (0.2-1.0) mg/dL AST (15-37) U/L ALT (14-59) U/L Alkaline Phosphatase (46-116) U/L C-Reactive Protein (<1.0) mg/dL Total Protein (6.4-8.2) g/dl Albumin (3.4-5.0) g/dl Globulin gm/dL Albumin/Globulin Ratio (1-2) Urine Color (Yellow) Urine Appearance (Clear) Urine pH (5.0-8.0) Ur Specific [place] (1.005-1.030) Urine Protein (Negative) Urine Glucose (UA) (Negative) Urine Ketones (Negative) Urine Occult Blood (Negative) Urine Nitrite (Negative) Urine Bilirubin (Negative) Urine Urobilinogen (0.2-1.0) Ur Leukocyte Esterase (Negative) Urine RBC (0-5) /hpf Urine WBC (0-5) /hpf Ur Squamous Epith Cells (0-5) /hpf Urine Bacteria (FEW) /hpf Urine Mucus (FEW) /hpf SARS-CoV-2 RNA (ILYA) Negative (NEGATIVE) Result Diagrams: 08/23/20 05:52 08/23/20 05:52 Sepsis Event Note - Evaluation Sepsis Screening Result: No Definite Risk - Focused Exam Vital Signs: Vital Signs Temp Pulse Resp BP Pulse Ox 08/23/20 07:49 36.5 C 79 14 110/66 100 08/23/20 04:47 36.7 C 80 14 119/71 96 - Problem List & Annotations (1) Dehydration SNOMED Code(s): 34652241 Code(s): E86.0 - DEHYDRATION Status: Acute Priority: High Current Visit: Yes (2) Diarrhea associated with pseudomembranous colitis SNOMED Code(s): 32550770, 371353809 Code(s): A04.72 - ENTEROCOLITIS D/T CLOSTRIDIUM DIFFICILE, NOT SPCF RECUR Status: Chronic Priority: High Current Visit: Yes (3) Sicca syndrome, Sjogren's SNOMED Code(s): 48311758 Code(s): M35.00 - SICCA SYNDROME, UNSPECIFIED Status: Chronic Priority: Medium Current Visit: Yes Qualifiers: Sjogren's organ involvement: unspecified organ involvement Qualified Code(s): M35.00 - Sicca syndrome, unspecified (4) C. difficile colitis SNOMED Code(s): 546392782 Code(s): A04.72 - ENTEROCOLITIS D/T CLOSTRIDIUM DIFFICILE, NOT SPCF RECUR Status: Chronic Priority: High Current Visit: Yes - Problem List Review Problem List Initiated/Reviewed/Updated: Yes - My Orders Last 24 Hours: My Active Orders 08/22/20 14:33 Patient Status [ADT] Routine Oxygen Therapy [RC] PRN Up With Assistance [RC] ASDIRECTED VTE/DVT Education [RC] PER UNIT ROUTINE Vital Signs [RC] Q4HR Acetaminophen [TylenoL] 650 mg PO Q4H PRN Docusate Sodium [Colace] 100 mg PO BID PRN HYDROmorphone [Dilaudid] 0.5 mg IVPUSH Q2H PRN Ondansetron [Zofran ODT] 4 mg PO Q4H PRN Ondansetron [Zofran] 4 mg IV Q4H PRN Temazepam [Restoril] 7.5 mg PO BEDTIME PRN oxyCODONE 5 mg PO Q4H PRN Resuscitation Status Routine 08/22/20 14:38 RT Post Treatment Assessment [RC] Click to Edit RT Pre-Treatment Assessment [RC] Click to Edit Albuterol [Proventil HFA] 0 gm INH Q4H PRN 08/22/20 14:42 Cholestyramine/Sucrose [Cholestyramine Packet] 4 gm PO TID PRN 08/22/20 14:45 Enoxaparin [Lovenox] 40 mg SUBCUT DAILY Lactated Ringers [Ringers, Lactated] 1,000 ml IV ASDIRECTED 08/22/20 Dinner Clear Liquid Diet [DIET] Vancomycin [Vancocin 125 MG Capsule] 250 mg PO QID 08/23/20 08:00 predniSONE 20 mg PO DAILY@0800 - Assessment Assessment:: The patient is a 29-year-old lady who is being treated currently for flare of her chronic C. difficile colitis. Her IV fluids will be continued to help with her dehydration. The patient will also remain on vancomycin p.o. 250 mg 4 times daily. She has been advised to follow-up with her finance officer of choice upon discharge. Repeat laboratory studies have been ordered. Continue on clear liquid diet. The patient has been encouraged to ambulate. The patient should be appropriate for discharge tomorrow when her diet is advanced and tolerated. - Plan Plan:: The patient is a 29-year-old lady who has been admitted to observation after concern for refractory C. difficile colitis. Because of the patient's dehydration status I have ordered fluids lactated Ringer's at 125 mL/h. The patient has a follow-up scheduled with her finance officer in at least a couple of weeks. For now the patient will be started on vancomycin 250 mg p.o. 4 times daily along with cholestyramine 4 g 4 times daily as needed to help with diarrhea. The patient's electrolytes will also be monitored and she is hypokalemic and I have ordered this replaced. The patient will have pain control with the use of narcotic pain medications. The patient also has an autoimmune disorder, predominantly Sicca syndrome along with lupus and she has been chronically on steroids and this will be continued. The patient will also have DVT prophylaxis with the use of Lovenox 30 mg subcu daily. She will be placed on clear liquid diet for now. The patient's diet will be advanced as t olerated. The patient should be appropriate for discharge in 1 day to 2 days.
[2020-08-23] MEDS: Vancomycin 250 MG Cap PO SCH ×4 (13:14→21:42)
[2020-08-23] MEDS ORDERED: predniSONE 20 MG Tab PO ONE (16:54)
[2020-08-24] MEDS: oxyCODONE 5 MG Tab PO PRN ×3 (02:59→18:03)
[2020-08-24] MEDS: Ondansetron 4 MG/2 ML SDV IV PRN ×4 (05:10→23:18)
[2020-08-24] MEDS: HYDROmorphone 0.5 MG/0.5 ML Syringe IVPUSH PRN ×6 (05:11→23:22)
[2020-08-24] MEDS: Lactated Ringers 1,000 ML IV SCH ×3 (05:16→23:33)
[2020-08-24] MEDS: Enoxaparin 40 MG/0.4 ML Syringe SUBCUT SCH (08:55)
[2020-08-24] MEDS: predniSONE 20 MG Tab PO SCH (08:55)
[2020-08-24] MEDS: Vancomycin 250 MG Cap PO SCH ×4 (08:55→21:10)
[2020-08-24] MEDS: Acetaminophen 325 MG Tab PO PRN ×2 (10:15→15:07)
[2020-08-24] MEDS ORDERED: Magnesium Sulfate/Water 2 GM in Premix Bag 1 BAG IV ONE (11:30)
--- NOTE | 2020-08-24 13:44 | PCM.DCSUM1 ---
Discharge Summary - Hospital Course Free Text/Narrative:: Admitted for dehydration due to profuse diarrhea from C. difficile colitis. Diagnosis: Stroke: No - Discharge Data Discharge Date: 08/25/20 Discharge Disposition: Home, Self-Care 01 Condition: Good - Referral to Home Health Primary Care Physician: Shy Fuchs PA-C - Discharge Diagnosis/Problem(s) (1) Dehydration SNOMED Code(s): 69950908 ICD Code: E86.0 - DEHYDRATION Status: Resolved Priority: High Current Visit: Yes (2) Diarrhea associated with pseudomembranous colitis SNOMED Code(s): 88160925, 205003470 ICD Code: A04.72 - ENTEROCOLITIS D/T CLOSTRIDIUM DIFFICILE, NOT SPCF RECUR Status: Chronic Priority: High Current Visit: Yes (3) Sicca syndrome, Sjogren's SNOMED Code(s): 91863349 ICD Code: M35.00 - SICCA SYNDROME, UNSPECIFIED Status: Chronic Priority: Medium Current Visit: Yes Qualifiers: Sjogren's organ involvement: unspecified organ involvement Qualified Code(s): M35.00 - Sicca syndrome, unspecified (4) C. difficile colitis SNOMED Code(s): 874683382 ICD Code: A04.72 - ENTEROCOLITIS D/T CLOSTRIDIUM DIFFICILE, NOT SPCF RECUR Status: Chronic Priority: High Current Visit: Yes Problem Details: Flare of C. difficile colitis - Patient Summary/Data Hospital Course: The patient is a 29-year-old lady who was admitted on August 22, 2020 after flairs of C. difficile colitis that has been going on for the past year. The patient is also dehydrated due to profuse watery diarrhea. The patient was admitted primarily out of concern for her dehydration status, pain control and she was placed on oral vancomycin 250 mg p.o. 4 times daily. Initially initially, the patient was placed on clear liquid diet. She had tolerated this and wanted to advance her diet somewhat and originally she had been scheduled to be discharged on August 24, 2020. The patient reports that she was still having some pain with eating and not able to tolerate diet. She was retained in hospitalization for further doses of oral vancomycin and IV fluids. She had been noted to be deficient in magnesium and potassium due to GI losses and these were replaced. On initial presentation the patient's white blood cell count had been at 12.36 and this is remained somewhat steady through her hospitalization as she has been taking steroids chronically for her Sicca syndrome and lupus. The patient reportedly had been wanting to follow-up with a diversified crops farmer who was able to do a fecal transplant. The patient was under the impression that she had an appointment with a physician in [facility] however, she was told that she would not be able to get an appointment until November. The patient is worried that she will be back in the hospital if she has to wait that long. It should also be noted that the patient had been previously in the hospital in [facility] and was subsequently discharged 1 day prior to admission to this hospital. The patient's hospital course as well as her multiple histories of flares of the C. difficile colitis with subsequent hospitalization have been compounded by the fact that the patient does have a history of autoimmune disease and has been on steroids for this. 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 By day of discharge the patient had improved sufficiently to be able to be discharged safely. She reported that she has sufficient stores of oral vancomycin and she had been given prescription for Questran 4 g 3 times a day with meals in order to help absorb intestinal secretions. The patient also has pain medications available from her primary care physician. The patient has been recommended to follow-up with physician in [place] or possibly [facility]. The patient has been recommended to have diet as tolerated. She is also to have activity as tolerated. The patient has been hemodynamically stable and she has been discharged from acute hospitalization with the recommendations listed above. - Patient Instructions Diet: Usual Diet as Tolerated Activity: As Tolerated - Discharge Plan *PRESCRIPTION DRUG MONITORING PROGRAM REVIEWED*: No *COPY OF PRESCRIPTION DRUG MONITORING REPORT IN PATIENT [place]ENT[place]: No Prescriptions/Med Rec: Cholestyramine/Sucrose [Cholestyramine] 4 gm PO TID PRN 30 Days #90 packet PRN Reason: Diarrhea Home Medications: Home Meds Albuterol Sulfate [Proair Hfa] 2 puff IH Q4H PRN 11/22/17 [History] ondansetron HCL [Zofran] 4 mg BUCCAL Q8H PRN 11/22/17 [History] traMADol [Ultram] 50 mg PO Q6H PRN 11/22/17 [History] Ibuprofen [Advil] 800 mg PO BID PRN 10/06/19 [History] predniSONE [Prednisone] 20 mg PO DAILY 10/06/19 [History] Cholestyramine/Sucrose [Cholestyramine] 4 gm PO TID PRN 30 Days #90 packet 08/25/20 [Rx] Oxygen Therapy Mode: Room Air Referrals: Endoscopy, Fecal Transplant [Other] (Referral was faxed. Once it is reviewed they will call patient for appt. date and time.) Shy Fuchs PA-C [Primary Care Provider] - 09/01/20 1:30 pm (check in 1:30 for appt. ) Edward Ashraf MD [Ordering Only Provider] - 11/26/20 10:45 am (check in time 10:30 central time in [place]. (you will be put on a wait list)) - Discharge Summary/Plan Comment DC Time >30 min.: Yes - General Info Date of Service: 08/25/20 Admission Dx/Problem (Free Text: Admission Diagnosis/Problem Admission Diagnosis/Problem Cdiff, Clostridium difficile colitis Subjective Update: The patient has been tolerating her diet. She is worried about having to wait for appointment with gastroenterology. - Review of Systems General: Reports: No Symptoms HEENT: Reports: No Symptoms Pulmonary: Reports: No Symptoms Cardiovascular: Reports: No Symptoms Gastrointestinal: Reports: Abdominal Pain, Diarrhea (Improved) Genitourinary: Reports: No Symptoms Musculoskeletal: Reports: No Symptoms Skin: Reports: No Symptoms Neurological: Reports: No Symptoms Psychiatric: Reports: No Symptoms - Patient Data Vitals - Most Recent: Last Vital Signs Temp 36.6 C 08/24/20 07:47 Pulse 83 08/24/20 12:45 Resp 20 08/24/20 12:45 BP 148/91 H 08/24/20 12:45 Pulse Ox 99 08/24/20 12:45 Weight - Most Recent: 99.836 kg I&O - Last 24 hours: Intake & Output 08/23/20 08/24/20 08/24/20 22:59 06:59 14:59 Intake Total 1702 2076 Output Total 1900 1200 Balance -198 876 Lab Results - Last 24 hrs: Laboratory Results - last 24 hr 08/24/20 08/24/20 Range/Units 06:29 06:29 WBC 10.99 H (3.98-10.04) K/mm3 RBC 4.09 (3.98-5.22) M/mm3 Hgb 11.6 (11.2-15.7) gm/dl Hct 37.1 (34.1-44.9) % MCV 90.7 (79.4-94.8) fl MCH 28.4 (25.6-32.2) pg MCHC 31.3 L (32.2-35.5) g/dl RDW Std Deviation 43.6 (36.4-46.3) fL Plt Count 415 H (182-369) K/mm3 MPV 8.3 L (9.4-12.3) fl Neut % (Auto) 63.0 (34.0-71.1) % Lymph % (Auto) 27.8 (19.3-51.7) % [place] % (Auto) 7.8 (4.7-12.5) % Eos % (Auto) 0.9 (0.7-5.8) Baso % (Auto) 0.2 (0.1-1.2) % Neut # (Auto) 6.92 H (1.56-6.13) K/mm3 Lymph # (Auto) 3.06 (1.18-3.74) K/mm3 [place] # (Auto) 0.86 H (0.24-0.36) K/mm3 Eos # (Auto) 0.10 (0.04-0.36) K/mm3 Baso # (Auto) 0.02 (0.01-0.08) K/mm3 Sodium 145 (136-145) mEq/L Potassium 3.6 (3.5-5.1) mEq/L Chloride 108 H (98-107) mEq/L Carbon Dioxide 29 (21-32) mEq/L Anion Gap 11.6 (5-15) BUN 6 L (7-18) mg/dL Creatinine 0.8 (0.55-1.02) mg/dL Est Cr Clr Drug Dosing 87.99 mL/min Estimated GFR (MDRD) > 60 (>60) mL/min BUN/Creatinine Ratio 7.5 L (14-18) Glucose 91 (70-99) mg/dL Calcium 8.4 L (8.5-10.1) mg/dL Med Orders - Current: Current Medications Acetaminophen (Acetaminophen 325 Mg Tab) 650 mg PO Q4H PRN PRN Reason: Pain (Mild 1-3)/fever Last Admin: 08/24/20 10:15 Dose: 650 mg Documented by: Albuterol (Albuterol 6.7 Gm Inhaler) 0 gm INH Q4H PRN PRN Reason: asthma Cholestyramine Resin (Cholestyramine/Sucrose Powder 4 Gm Packet) 4 gm PO TID PRN PRN Reason: Diarrhea Last Admin: 08/22/20 17:21 Dose: 4 gm Documented by: Docusate Sodium (Docusate Sodium 100 Mg Cap) 100 mg PO BID PRN PRN Reason: Constipation Enoxaparin Sodium (Enoxaparin 40 Mg/0.4 Ml Syringe) 40 mg SUBCUT DAILY [facility] Last Admin: 08/24/20 08:55 Dose: 40 mg Documented by: Hydromorphone HCl (Hydromorphone 0.5 Mg/0.5 Ml Syringe) 0.5 mg IVPUSH Q2H PRN PRN Reason: Pain (severe 7-10) Last Admin: 08/24/20 12:30 Dose: 0.5 mg Documented by: Lactated Ringer's (Ringers, Lactated) 1,000 mls @ 125 mls/hr IV ASDIRECTED [facility] Last Admin: 08/24/20 05:16 Dose: 125 mls/hr Documented by: Ondansetron HCl (Ondansetron 4 Mg Tab.Dis) 4 mg PO Q4H PRN PRN Reason: nausea, able to take PO Ondansetron HCl (Ondansetron 4 Mg/2 Ml Sdv) 4 mg IV Q4H PRN PRN Reason: Nausea/Vomiting Last Admin: 08/24/20 09:03 Dose: 4 mg Documented by: Oxycodone HCl (Oxycodone 5 Mg Tab) 5 mg PO Q4H PRN PRN Reason: Pain (moderate 4-6) Last Admin: 08/24/20 10:16 Dose: 5 mg Documented by: Prednisone (Prednisone 20 Mg Tab) 20 mg PO DAILY@0800 [facility] Last Admin: 08/24/20 08:55 Dose: 20 mg Documented by: Sodium Chloride (Sodium Chloride 0.9% 10 Ml Syringe) 10 ml FLUSH ASDIRECTED PRN PRN Reason: Keep Vein Open Last Admin: 08/22/20 13:41 Dose: 10 ml Documented by: Temazepam (Temazepam 7.5 Mg Cap) 7.5 mg PO BEDTIME PRN PRN Reason: Sleep Vancomycin HCl (Vancomycin 250 Mg Cap) 250 mg PO QID [facility] Last Admin: 08/24/20 12:30 Dose: 250 mg Documented by: Discontinued Medications Hydromorphone HCl (Hydromorphone 0.5 Mg/0.5 Ml Syringe) 0.5 mg IVPUSH ONETIME ONE Stop: 08/22/20 13:15 Last Admin: 08/22/20 13:41 Dose: 0.5 mg Documented by: Sodium Chloride (Normal Saline) 1,000 mls @ 999 mls/hr IV ONETIME ONE Stop: 08/22/20 14:14 Last Admin: 08/22/20 13:40 Dose: 999 mls/hr Documented by: Potassium Chloride 10 meq/ (Premix) 100 mls @ 100 mls/hr IV Q1H [facility] Stop: 08/22/20 18:59 Last Admin: 08/22/20 18:34 Dose: 100 mls/hr Documented by: Magnesium Sulfate 2 gm/ Premix 50 mls @ 25 mls/hr IV ONETIME ONE Stop: 08/23/20 08:56 Last Admin: 08/23/20 08:42 Dose: 25 mls/hr Documented by: Magnesium Sulfate 2 gm/ Premix 50 mls @ 25 mls/hr IV ONETIME ONE Stop: 08/24/20 13:29 Last Admin: 08/24/20 12:30 Dose: 25 mls/hr Documented by: Ondansetron HCl (Ondansetron 4 Mg/2 Ml Sdv) 4 mg IVPUSH ONETIME ONE Stop: 08/22/20 13:15 Last Admin: 08/22/20 13:41 Dose: 4 mg Documented by: Potassium Chloride (Potassium Chloride 20 Meq Tab.Er) 20 meq PO ONETIME ONE Stop: 08/22/20 16:35 Last Admin: 08/22/20 17:38 Dose: Not Given Documented by: Prednisone (Prednisone 20 Mg Tab) 20 mg PO WITHBREAKFAST [facility] Prednisone (Prednisone 20 Mg Tab) 20 mg PO ONETIME ONE Stop: 08/23/20 16:55 Prednisone (Prednisone 20 Mg Tab) 20 mg PO ONETIME ONE Stop: 08/22/20 17:31 Last Admin: 08/22/20 17:45 Dose: 20 mg Documented by: Vancomycin HCl (Vancomycin 125 Mg Cap) 250 mg PO QID [facility] Last Admin: 08/23/20 08:43 Dose: 250 mg Documented by: - Exam Quality Assessment: Denies: Supplemental Oxygen General: Reports: Alert, Oriented, Cooperative HEENT: Reports: Pupils Equal, Pupils Reactive, EOMI, Mucous Membr. Moist/[place] Neck: Reports: Supple, Trachea Midline Lungs: Reports: Clear to Auscultation, Normal Respiratory Effort Cardiovascular: Reports: Regular Rate, Regular Rhythm GI/Abdominal Exam: Normal Bowel Sounds, Soft, No Distention (Female) Exam: Deferred Rectal (Female) Exam: Deferred Back Exam: Reports: Normal Inspection, Full Range of Motion Extremities: Normal Inspection, No Pedal Edema Skin: Reports: Warm, Dry, Intact Neurological: Reports: No New Focal Deficit Psy/Mental Status: Reports: Alert, Normal Affect, Normal Mood
--- NOTE | 2020-08-24 14:21 | PCM.PN ---
- General Info Date of Service: 08/24/20 Admission Dx/Problem (Free Text): Admission Diagnosis/Problem Admission Diagnosis/Problem Cdiff, Clostridium difficile colitis Subjective Update: The patient is a 29-year-old lady who was admitted secondary to off-and-on chron ic C. difficile colitis. The patient says that she was doing better, her diet was advanced and she still developed abdominal pain. The patient feels like she cannot go home. She has been doing well otherwise and her pain has been controlled. Her diarrhea has improved somewhat. No other complaints. Functional Status: Reports: Pain Controlled. Denies: Tolerating Diet - Review of Systems General: Reports: No Symptoms HEENT: Reports: No Symptoms Pulmonary: Reports: No Symptoms Cardiovascular: Reports: No Symptoms Gastrointestinal: Reports: Abdominal Pain, Diarrhea Genitourinary: Reports: No Symptoms Musculoskeletal: Reports: No Symptoms Skin: Reports: No Symptoms Neurological: Reports: No Symptoms Psychiatric: Reports: No Symptoms - Patient Data Vitals - Most Recent: Last Vital Signs Temp 36.6 C 08/24/20 07:47 Pulse 83 08/24/20 12:45 Resp 20 08/24/20 12:45 BP 148/91 H 08/24/20 12:45 Pulse Ox 99 08/24/20 12:45 Weight - Most Recent: 99.836 kg I&O - Last 24 Hours: Intake & Output 08/23/20 08/24/20 08/24/20 22:59 06:59 14:59 Intake Total 1702 2076 Output Total 1900 1200 Balance -198 876 Lab Results Last 24 Hours: Laboratory Results - last 24 hr 08/24/20 08/24/20 Range/Units 06:29 06:29 WBC 10.99 H (3.98-10.04) K/mm3 RBC 4.09 (3.98-5.22) M/mm3 Hgb 11.6 (11.2-15.7) gm/dl Hct 37.1 (34.1-44.9) % MCV 90.7 (79.4-94.8) fl MCH 28.4 (25.6-32.2) pg MCHC 31.3 L (32.2-35.5) g/dl RDW Std Deviation 43.6 (36.4-46.3) fL Plt Count 415 H (182-369) K/mm3 MPV 8.3 L (9.4-12.3) fl Neut % (Auto) 63.0 (34.0-71.1) % Lymph % (Auto) 27.8 (19.3-51.7) % [place] % (Auto) 7.8 (4.7-12.5) % Eos % (Auto) 0.9 (0.7-5.8) Baso % (Auto) 0.2 (0.1-1.2) % Neut # (Auto) 6.92 H (1.56-6.13) K/mm3 Lymph # (Auto) 3.06 (1.18-3.74) K/mm3 [place] # (Auto) 0.86 H (0.24-0.36) K/mm3 Eos # (Auto) 0.10 (0.04-0.36) K/mm3 Baso # (Auto) 0.02 (0.01-0.08) K/mm3 Sodium 145 (136-145) mEq/L Potassium 3.6 (3.5-5.1) mEq/L Chloride 108 H (98-107) mEq/L Carbon Dioxide 29 (21-32) mEq/L Anion Gap 11.6 (5-15) BUN 6 L (7-18) mg/dL Creatinine 0.8 (0.55-1.02) mg/dL Est Cr Clr Drug Dosing 87.99 mL/min Estimated GFR (MDRD) > 60 (>60) mL/min BUN/Creatinine Ratio 7.5 L (14-18) Glucose 91 (70-99) mg/dL Calcium 8.4 L (8.5-10.1) mg/dL Med Orders - Current: Current Medications Acetaminophen (Acetaminophen 325 Mg Tab) 650 mg PO Q4H PRN PRN Reason: Pain (Mild 1-3)/fever Last Admin: 08/24/20 10:15 Dose: 650 mg Documented by: Albuterol (Albuterol 6.7 Gm Inhaler) 0 gm INH Q4H PRN PRN Reason: asthma Cholestyramine Resin (Cholestyramine/Sucrose Powder 4 Gm Packet) 4 gm PO TID PRN PRN Reason: Diarrhea Last Admin: 08/22/20 17:21 Dose: 4 gm Documented by: Docusate Sodium (Docusate Sodium 100 Mg Cap) 100 mg PO BID PRN PRN Reason: Constipation Enoxaparin Sodium (Enoxaparin 40 Mg/0.4 Ml Syringe) 40 mg SUBCUT DAILY [facility] Last Admin: 08/24/20 08:55 Dose: 40 mg Documented by: Hydromorphone HCl (Hydromorphone 0.5 Mg/0.5 Ml Syringe) 0.5 mg IVPUSH Q2H PRN PRN Reason: Pain (severe 7-10) Last Admin: 08/24/20 12:30 Dose: 0.5 mg Documented by: Lactated Ringer's (Ringers, Lactated) 1,000 mls @ 125 mls/hr IV ASDIRECTED [facility] Last Admin: 08/24/20 13:50 Dose: 125 mls/hr Documented by: Ondansetron HCl (Ondansetron 4 Mg Tab.Dis) 4 mg PO Q4H PRN PRN Reason: nausea, able to take PO Ondansetron HCl (Ondansetron 4 Mg/2 Ml Sdv) 4 mg IV Q4H PRN PRN Reason: Nausea/Vomiting Last Admin: 08/24/20 09:03 Dose: 4 mg Documented by: Oxycodone HCl (Oxycodone 5 Mg Tab) 5 mg PO Q4H PRN PRN Reason: Pain (moderate 4-6) Last Admin: 08/24/20 10:16 Dose: 5 mg Documented by: Prednisone (Prednisone 20 Mg Tab) 20 mg PO DAILY@0800 [facility] Last Admin: 08/24/20 08:55 Dose: 20 mg Documented by: Sodium Chloride (Sodium Chloride 0.9% 10 Ml Syringe) 10 ml FLUSH ASDIRECTED PRN PRN Reason: Keep Vein Open Last Admin: 08/22/20 13:41 Dose: 10 ml Documented by: Temazepam (Temazepam 7.5 Mg Cap) 7.5 mg PO BEDTIME PRN PRN Reason: Sleep Vancomycin HCl (Vancomycin 250 Mg Cap) 250 mg PO QID [facility] Last Admin: 08/24/20 12:30 Dose: 250 mg Documented by: Discontinued Medications Hydromorphone HCl (Hydromorphone 0.5 Mg/0.5 Ml Syringe) 0.5 mg IVPUSH ONETIME ONE Stop: 08/22/20 13:15 Last Admin: 08/22/20 13:41 Dose: 0.5 mg Documented by: Sodium Chloride (Normal Saline) 1,000 mls @ 999 mls/hr IV ONETIME ONE Stop: 08/22/20 14:14 Last Admin: 08/22/20 13:40 Dose: 999 mls/hr Documented by: Potassium Chloride 10 meq/ (Premix) 100 mls @ 100 mls/hr IV Q1H [facility] Stop: 08/22/20 18:59 Last Admin: 08/22/20 18:34 Dose: 100 mls/hr Documented by: Magnesium Sulfate 2 gm/ Premix 50 mls @ 25 mls/hr IV ONETIME ONE Stop: 08/23/20 08:56 Last Admin: 08/23/20 08:42 Dose: 25 mls/hr Documented by: Magnesium Sulfate 2 gm/ Premix 50 mls @ 25 mls/hr IV ONETIME ONE Stop: 08/24/20 13:29 Last Admin: 08/24/20 12:30 Dose: 25 mls/hr Documented by: Ondansetron HCl (Ondansetron 4 Mg/2 Ml Sdv) 4 mg IVPUSH ONETIME ONE Stop: 08/22/20 13:15 Last Admin: 08/22/20 13:41 Dose: 4 mg Documented by: Potassium Chloride (Potassium Chloride 20 Meq Tab.Er) 20 meq PO ONETIME ONE Stop: 08/22/20 16:35 Last Admin: 08/22/20 17:38 Dose: Not Given Documented by: Prednisone (Prednisone 20 Mg Tab) 20 mg PO WITHBREAKFAST [facility] Prednisone (Prednisone 20 Mg Tab) 20 mg PO ONETIME ONE Stop: 08/23/20 16:55 Prednisone (Prednisone 20 Mg Tab) 20 mg PO ONETIME ONE Stop: 08/22/20 17:31 Last Admin: 08/22/20 17:45 Dose: 20 mg Documented by: Vancomycin HCl (Vancomycin 125 Mg Cap) 250 mg PO QID [facility] Last Admin: 08/23/20 08:43 Dose: 250 mg Documented by: - Exam Quality Assessment: DVT Prophylaxis. No: Supplemental Oxygen General: Alert, Oriented, Cooperative HEENT: Pupils Equal, Pupils Reactive Neck: Supple, Trachea Midline Lungs: Clear to Auscultation, Normal Respiratory Effort Cardiovascular: Regular Rate, Regular Rhythm GI/Abdominal Exam: Normal Bowel Sounds, Soft, Tender (Female) Exam: Deferred Back Exam: Normal Inspection, Full Range of Motion Extremities: Normal Inspection, Normal Range of Motion, No Pedal Edema Skin: Warm, Dry, Intact Neurological: No New Focal Deficit Psy/Mental Status: Alert, Normal Affect, Normal Mood - Patient Data Lab Results Last 24 hrs: Laboratory Results - last 24 hr 08/24/20 08/24/20 Range/Units 06:29 06:29 WBC 10.99 H (3.98-10.04) K/mm3 RBC 4.09 (3.98-5.22) M/mm3 Hgb 11.6 (11.2-15.7) gm/dl Hct 37.1 (34.1-44.9) % MCV 90.7 (79.4-94.8) fl MCH 28.4 (25.6-32.2) pg MCHC 31.3 L (32.2-35.5) g/dl RDW Std Deviation 43.6 (36.4-46.3) fL Plt Count 415 H (182-369) K/mm3 MPV 8.3 L (9.4-12.3) fl Neut % (Auto) 63.0 (34.0-71.1) % Lymph % (Auto) 27.8 (19.3-51.7) % [place] % (Auto) 7.8 (4.7-12.5) % Eos % (Auto) 0.9 (0.7-5.8) Baso % (Auto) 0.2 (0.1-1.2) % Neut # (Auto) 6.92 H (1.56-6.13) K/mm3 Lymph # (Auto) 3.06 (1.18-3.74) K/mm3 [place] # (Auto) 0.86 H (0.24-0.36) K/mm3 Eos # (Auto) 0.10 (0.04-0.36) K/mm3 Baso # (Auto) 0.02 (0.01-0.08) K/mm3 Sodium 145 (136-145) mEq/L Potassium 3.6 (3.5-5.1) mEq/L Chloride 108 H (98-107) mEq/L Carbon Dioxide 29 (21-32) mEq/L Anion Gap 11.6 (5-15) BUN 6 L (7-18) mg/dL Creatinine 0.8 (0.55-1.02) mg/dL Est Cr Clr Drug Dosing 87.99 mL/min Estimated GFR (MDRD) > 60 (>60) mL/min BUN/Creatinine Ratio 7.5 L (14-18) Glucose 91 (70-99) mg/dL Calcium 8.4 L (8.5-10.1) mg/dL Result Diagrams: 08/24/20 06:29 08/24/20 06:29 Sepsis Event Note - Evaluation Sepsis Screening Result: No Definite Risk - Focused Exam Vital Signs: Vital Signs Temp Pulse Resp BP Pulse Ox 08/24/20 12:45 83 20 148/91 H 99 08/24/20 07:47 36.6 C 73 16 117/98 H 96 08/24/20 02:57 36.8 C 81 12 128/70 94 L - Problem List & Annotations (1) Dehydration SNOMED Code(s): 89983547 Code(s): E86.0 - DEHYDRATION Status: Acute Priority: High Current Visit: Yes (2) Diarrhea associated with pseudomembranous colitis SNOMED Code(s): 15640091, 191842888 Code(s): A04.72 - ENTEROCOLITIS D/T CLOSTRIDIUM DIFFICILE, NOT SPCF RECUR Status: Chronic Priority: High Current Visit: Yes (3) Sicca syndrome, Sjogren's SNOMED Code(s): 68131394 Code(s): M35.00 - SICCA SYNDROME, UNSPECIFIED Status: Chronic Priority: Medium Current Visit: Yes Qualifiers: Sjogren's organ involvement: unspecified organ involvement Qualified Code(s): M35.00 - Sicca syndrome, unspecified (4) C. difficile colitis SNOMED Code(s): 352583773 Code(s): A04.72 - ENTEROCOLITIS D/T CLOSTRIDIUM DIFFICILE, NOT SPCF RECUR Status: Chronic Priority: High Current Visit: Yes - Problem List Review Problem List Initiated/Reviewed/Updated: Yes - My Orders Last 24 Hours: My Active Orders 08/24/20 Breakfast Regular Diet [DIET] - Assessment Assessment:: The patient is a 29-year-old lady who is being treated currently for flare of her chronic C. difficile colitis. Her IV fluids will be continued to help with her dehydration. The patient will also remain on vancomycin p.o. 250 mg 4 times daily. She has been advised to follow-up with her certified registered nurse practitioner of choice upon discharge. Repeat laboratory studies have been ordered. Continue on clear liquid diet. The patient has been encouraged to ambulate. The patient should be appropriate for discharge tomorrow when her diet is advanced and tolerated. 08/24/2020 The patient is a 29-year-old lady who is not ready to go home yet today. The patient's diet has been advanced. She will be continued on the p.o. vancomycin 250 mg p.o. 4 times daily. The patient had an initial interview with gastroente rologist in [place] and needs a follow-up appointment with this certified registered nurse practitioner. This is for consideration for fecal transplant. The patient's IV fluids will be continued as ordered. I have also ordered repeat laboratory studies for the morning. The patient should be appropriate for discharge tomorrow. She has been encouraged to ambulate. - Plan Plan:: The patient is a 29-year-old lady who has been admitted to observation after concern for refractory C. difficile colitis. Because of the patient's dehydration status I have ordered fluids lactated Ringer's at 125 mL/h. The patient has a follow-up scheduled with her certified registered nurse practitioner in at least a couple of weeks. For now the patient will be started on vancomycin 250 mg p.o. 4 times daily along with cholestyramine 4 g 4 times daily as needed to help with diarrhea. The patient's electrolytes will also be monitored and she is hypokalemic and I have ordered this replaced. The patient will have pain control with the use of narcotic pain medications. The patient also has an autoimmune disorder, predominantly Sicca syndrome along with lupus and she has been chronically on steroids and this will be continued. The patient will also have DVT prophylaxis with the use of Lovenox 30 mg subcu daily. She will be placed on clear liquid diet for now. The patient's diet will be advanced as t olerated. The patient should be appropriate for discharge in 1 day to 2 days.
[2020-08-25] MEDS: HYDROmorphone 0.5 MG/0.5 ML Syringe IVPUSH PRN ×4 (03:51→15:32)
[2020-08-25] MEDS: Vancomycin 250 MG Cap PO SCH ×2 (08:25→13:31)
[2020-08-25] MEDS: predniSONE 20 MG Tab PO SCH (08:25)
[2020-08-25] MEDS: Enoxaparin 40 MG/0.4 ML Syringe SUBCUT SCH (08:26)
[2020-08-25] MEDS ORDERED: Magnesium Sulfate/Water 2 GM in Premix Bag 1 BAG IV ONE (09:00)
[2020-08-25] MEDS: oxyCODONE 5 MG Tab PO PRN (09:06)
--- NOTE | 2020-08-25 09:06 | CR ---
Abdomen: Supine and upright views of the abdomen were obtained. Comparison: No prior abdominal plain film study is available, previous renal CT exam of 05/28/20 was utilized. Surgical clips are seen from previous cholecystectomy. No abnormal calcifications are seen on this plain film study. Bowel gas pattern is normal. No free air is seen. Bony structures are within normal limits for the patient's age. Visualized lung bases show nothing acute. Impression: 1. Prior cholecystectomy. 2. Nothing acute is otherwise appreciated on this 2 view abdominal plain film study. Diagnostic code #2
[2020-08-25] MEDS: Acetaminophen 325 MG Tab PO PRN (09:07)
[2020-08-25] MEDS: Lactated Ringers 1,000 ML IV SCH (09:09)
[2020-08-25] MEDS ORDERED: Potassium Chloride 10 MEQ in Premix Bag 1 BAG IV ONE (12:00)
[2020-08-25] MEDS: Ondansetron 4 MG/2 ML SDV IV PRN (12:03)
[2020-08-25 12:30] VITALS: BP 125/81; PULSE 72
== END 2020-08-25 15:53 | disposition home or self-care (01) ==
LOC: JD.ED 12:35 → JD.MS 14:33
PROVIDERS: ADMIT Internal Medicine; ATTEND Internal Medicine
DX: A04.72 Enterocolitis due to Clostridium difficile, not specified as recurrent (principal); E86.0 Dehydration; M54.9 Dorsalgia, unspecified; E66.9 Obesity, unspecified; M35.00 Sjogren syndrome, unspecified; Z20.822 Contact with and (suspected) exposure to COVID-19; Z79.52 Long term (current) use of systemic steroids; Z88.1 Allergy status to other antibiotic agents; Z88.0 Allergy status to penicillin; Z91.02 Food additives allergy status; Z88.8 Allergy status to other drugs, medicaments and biological substances; Z79.899 Other long term (current) drug therapy; Z98.890 Other specified postprocedural states
CPT/HCPCS: 36415; 74019; 80048; 80053; 81001; 83735; 85025; 86140; 87635; 96365; 96366; 96372; 96375; 96376; 99284; A9270; G0378; J1170; J1650; J2405; J3475; J3480; J7030; J7120; J7512; 96374; 99217; 99219; 99225; U0002

== ENCOUNTER 2020-10-14 21:45 | Emergency (ER) | payer MEDICAID ==
[2020-10-14 21:59] VITALS: BP 138/101; PULSE 83
[2020-10-14] MEDS ORDERED: HYDROmorphone 0.5 MG/0.5 ML Syringe IVPUSH ONE (22:37)
[2020-10-14] MEDS ORDERED: Ondansetron 4 MG/2 ML SDV IVPUSH ONE (22:37)
[2020-10-14] MEDS ORDERED: Sodium Chloride 0.9% 1,000 ML IV ONE (22:37)
--- NOTE | 2020-10-14 22:43 | EDM.PDOC ---
ED HPI GENERAL MEDICAL PROBLEM - General Chief Complaint: General Stated Complaint: HEART BEETS UP AND DOWN Time Seen by Provider: 10/14/20 22:18 Source of Information: Reports: Patient, Family (Mother) History Limitations: Reports: No Limitations - History of Present Illness INITIAL COMMENTS - FREE TEXT/NARRATIVE: Ms. Pablo is a pleasant 30-year-old woman who now presents to the ED stating that she has had Clostridium difficile, both with and without colitis, for about a year. When she has colitis, her diarrhea often becomes bloody. She states that she has been on vancomycin, with or without metronidazole, on and off for about a year. She states that she was recently scheduled to undergo a colonoscopy followed by a fecal transplant, however, no fecal transplant sample was available, therefore the colonoscopy was put off. The patient was reports that she has been on prednisone for at least a year, in order to treat her rheumatoid arthritis/SLE/Sjogren's. She now presents to the ED stating that she has had generalized abdominal crampiness for about a year, which has been worse for the past 3 days, that her diarrhea turned bloody yesterday, and that she d eveloped lower back pain with gross hematuria and dysuria yesterday. She states that she feels dehydrated, and that as a result her heartbeat feels irregular. The patient has a history of thin basement membrane nephropathy, also known as benign familial hematuria, and that as a result, she often has gross hematuria. Here in the ED, the patient's initial BP is found to be slightly elevated at 13 8/101, otherwise, she is hemodynamically stable, afebrile, saturating 95% on room air. She appears to be somewhat anxious, but in no acute distress. The patient denies having a recent fever, chills, sore throat, ear pain, nasal or sinus congestion, cough, dyspnea, chest pain, nausea, vomiting, constipation, recent weight gain or weight loss, recent joint aches, headaches, or rashes. The patient's PCP is FOSTER Boone. Her Salon Customer Experience Specialist is Dr. Edward Joseph, in [place]. Her Power Machine Operator is Dr. Taco Alejandra, at [facility] in [place], [place]. Her EP Layout Technician is Dr. Huber Alcala. Her Allergist/Pediatric Pulmonologist is Dr. Laquita Bird, at [facility], in [place], [place]. Her Manager Front is Dr. Richard Taylor. She does not recall the name of her Neurologist at [facility]. Middle Abdomen Pain Score (Numeric/FACES): 7 - Related Data Allergies Allergy/AdvReac Type Severity Reaction Status Date / Time amoxicillin Allergy Severe Other Verified 10/14/20 21:59 amoxicillin trihydrate Allergy Severe Other Verified 10/14/20 21:59 [From Augmentin] ciprofloxacin Allergy Severe Itching Verified 10/14/20 21:59 clindamycin Allergy Severe Rash Verified 10/14/20 21:59 lemon Allergy Severe Hives Verified 10/14/20 21:59 Penicillins Allergy Severe Hives Verified 10/14/20 21:59 potassium chloride Allergy Severe Hives Verified 10/14/20 21:59 potassium clavulanate Allergy Severe Other Verified 10/14/20 21:59 [From Augmentin] diphenhydramine HCl AdvReac Severe "muscle Verified 10/14/20 21:59 [From Benadryl] aches" Home Meds: Home Meds Albuterol Sulfate [Proair Hfa] 2 puff IH Q4H PRN 11/22/17 [History] ondansetron HCL [Zofran] 4 mg BUCCAL Q8H PRN 11/22/17 [History] traMADol [Ultram] 50 mg PO Q6H PRN 11/22/17 [History] Ibuprofen [Advil] 800 mg PO BID PRN 10/06/19 [History] predniSONE [Prednisone] 40 mg PO DAILY 10/06/19 [History] Cholestyramine/Sucrose [Cholestyramine] 4 gm PO TID PRN 30 Days #90 packet 08/25/20 [Rx] Vancomycin [Vancomycin Cap] 250 mg PO TID 10/14/20 [History] Past Medical History HEENT History: Reports: Impaired Vision (wears glasses) Cardiovascular History: Reports: Arrhythmia (SVT, s/p ablation), Other (See Below) Gastrointestinal History: Reports: Diverticulosis Genitourinary History: Reports: Renal Calculus, Renal Disease (Thin basement membrane nephropathy, aka benign familial hematuria) 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: Spontaneous (x 2) : 7 Para: 6 Neurological History: Reports: Migraines Psychiatric History: Reports: Anxiety (untreated), Depression (untreated) Endocrine/Metabolic History: Reports: Obesity/BMI 30+ Immunologic History: Reports: SLE, Other (See Below) (RA, Sjogren's) - Infectious Disease History Infectious Disease History: Reports: C-Difficile - Past Surgical History HEENT Surgical History: Reports: Oral Surgery (dental extractions) Cardiovascular Surgical History: Reports: Cardiac Ablation (for SVT, 2018) GI Surgical History: Reports: Cholecystectomy (2015), Colonoscopy (x 5 to 7), EGD (x 3 or 4) Female Surgical History: Reports: D&C (x 1), Lithotripsy/ESWL (2016) Social & Family History - Tobacco Use Tobacco Use Status *Q: Never Tobacco User - Caffeine Use Caffeine Use: Reports: Soda Other Caffeine Use: coffee rarely Caffeine Use Comment: 1 cup per day - Recreational Drug Use Recreational Drug Use: No - Living Situation & Occupation Living situation: Reports: , with Spouse, with Family (6 kids) Occupation: Unemployed ED ROS GENERAL - Review of Systems Review Of Systems: Comprehensive ROS is negative, except as noted in HPI. ED EXAM, GENERAL - Physical Exam Exam: See Below Exam Limited By: No Limitations General Appearance: Alert, WD/WN, No Apparent Distress Eye Exam: Bilateral Eye: EOMI, Normal Inspection Ears: Normal External Exam, Hearing Grossly Normal Nose: Normal Inspection Throat/Mouth: Normal Inspection, Normal Lips, Normal Voice, No Airway Compromise Head: Atraumatic, Normocephalic Neck: Normal Inspection, Full Range of Motion Respiratory/Chest: No Respiratory Distress, Lungs Clear, Normal Breath Sounds, No Accessory Muscle Use Cardiovascular: Normal Peripheral Pulses, Regular Rate, Rhythm, No Gallop, No JVD, No Murmur, No Rub Peripheral Pulses: 3+: Radial (L), Radial (R) GI/Abdominal: Normal Bowel Sounds, Soft, No Organomegaly, No Distention, No Abnormal Bruit, No Mass, Tender (Generalized, non-focal) Back Exam: Normal Inspection, Full Range of Motion. No: CVA Tenderness (L), CVA Tenderness (R) Extremities: Normal Inspection, Normal Range of Motion, Normal Capillary Refill Neurological: Alert, Oriented, Normal Cognition, No Motor/Sensory Deficits Psychiatric: Normal Affect Skin Exam: Warm, Dry, Intact, Normal Color, No Rash #1 Interpretation EKG Date: 10/14/20 Time: 22:50 Rhythm: NSR Rate (Beats/Min): 78 [place]: Normal P-Wave: Present QRS: Normal ST-T: Normal QT: Normal Comparison: No Change (04/15/2017) Course - Vital Signs Last Recorded V/S: Last Vital Signs Temp 36.2 C 10/14/20 21:55 Pulse 83 10/14/20 21:55 Resp 16 10/14/20 21:55 BP 138/101 H 10/14/20 21:55 Pulse Ox 95 10/14/20 21:55 Orthostatic Blood Pressure [ 144/94 Standing] Orthostatic Blood Pressure [ 157/98 Sitting] Orthostatic Blood Pressure [ 144/80 Supine] - Orders/Labs/Meds Labs: Laboratory Tests 10/14/20 10/14/20 10/14/20 Range/Units 22:52 22:52 22:58 WBC 17.74 H (3.98-10.04) K/mm3 RBC 4.68 (3.98-5.22) M/mm3 Hgb 13.3 (11.2-15.7) gm/dl Hct 42.1 (34.1-44.9) % MCV 90.0 (79.4-94.8) fl MCH 28.4 (25.6-32.2) pg MCHC 31.6 L (32.2-35.5) g/dl RDW Std Deviation 46.1 (36.4-46.3) fL Plt Count 487 H (182-369) K/mm3 MPV 8.3 L (9.4-12.3) fl Neutrophils % (Manual) 87 H (40-60) % Band Neutrophils % 0 (0-10) % Lymphocytes % (Manual) 8 L (20-40) % Atypical Lymphs % 0 % Monocytes % (Manual) 5 (2-10) % Eosinophils % (Manual) 0 L (0.7-5.8) % Basophils % (Manual) 0 L (0.1-1.2) Platelet Estimate Increased Hypochromasia 1+ slight RBC Morph Comment Abnormal Sodium 142 (136-145) mEq/L Potassium 3.9 (3.5-5.1) mEq/L Chloride 103 (98-107) mEq/L Carbon Dioxide 29 (21-32) mEq/L Anion Gap 13.9 (5-15) BUN 23 H (7-18) mg/dL Creatinine 1.0 (0.55-1.02) mg/dL Est Cr Clr Drug Dosing 69.74 mL/min Estimated GFR (MDRD) > 60 (>60) mL/min BUN/Creatinine Ratio 23.0 H (14-18) Glucose 103 H (70-99) mg/dL Lactic Acid (0.4-2.0) mmol/L Calcium 9.7 (8.5-10.1) mg/dL Magnesium 1.8 (1.8-2.4) mg/dL Total Bilirubin 1.0 (0.2-1.0) mg/dL AST 13 L (15-37) U/L ALT 26 (14-59) U/L Alkaline Phosphatase 49 (46-116) U/L Total Protein 8.0 (6.4-8.2) g/dl Albumin 3.7 (3.4-5.0) g/dl Globulin 4.3 gm/dL Albumin/Globulin Ratio 0.9 L (1-2) Lipase 319 (73-393) U/L Urine Color Yellow (Yellow) Urine Appearance Slt cloudy H (Clear) Urine pH 6.0 (5.0-8.0) Ur Specific [place] > or = 1.030 (1.005-1.030) Urine Protein 2+ H (Negative) Urine Glucose (UA) Negative (Negative) Urine Ketones Negative (Negative) Urine Occult Blood 3+ H (Negative) Urine Nitrite Negative (Negative) Urine Bilirubin Negative (Negative) Urine Urobilinogen 0.2 (0.2-1.0) Ur Leukocyte Esterase Negative (Negative) Urine RBC 5-10 H (0-5) /hpf Urine WBC 5-10 H (0-5) /hpf Ur Squamous Epith Cells 5-10 H (0-5) /hpf Calcium Oxalate Crystal Rare H (NONE) Urine Bacteria Many H (FEW) /hpf Urine Mucus Moderate H (FEW) /hpf Urine HCG, Qual (NEGATIVE) 10/14/20 10/14/20 Range/Units 22:58 23:04 WBC (3.98-10.04) K/mm3 RBC (3.98-5.22) M/mm3 Hgb (11.2-15.7) gm/dl Hct (34.1-44.9) % MCV (79.4-94.8) fl MCH (25.6-32.2) pg MCHC (32.2-35.5) g/dl RDW Std Deviation (36.4-46.3) fL Plt Count (182-369) K/mm3 MPV (9.4-12.3) fl Neutrophils % (Manual) (40-60) % Band Neutrophils % (0-10) % Lymphocytes % (Manual) (20-40) % Atypical Lymphs % % Monocytes % (Manual) (2-10) % Eosinophils % (Manual) (0.7-5.8) % Basophils % (Manual) (0.1-1.2) Platelet Estimate Hypochromasia RBC Morph Comment Sodium (136-145) mEq/L Potassium (3.5-5.1) mEq/L Chloride (98-107) mEq/L Carbon Dioxide (21-32) mEq/L Anion Gap (5-15) BUN (7-18) mg/dL Creatinine (0.55-1.02) mg/dL Est Cr Clr Drug Dosing mL/min Estimated GFR (MDRD) (>60) mL/min BUN/Creatinine Ratio (14-18) Glucose (70-99) mg/dL Lactic Acid 1.2 (0.4-2.0) mmol/L Calcium (8.5-10.1) mg/dL Magnesium (1.8-2.4) mg/dL Total Bilirubin (0.2-1.0) mg/dL AST (15-37) U/L ALT (14-59) U/L Alkaline Phosphatase (46-116) U/L Total Protein (6.4-8.2) g/dl Albumin (3.4-5.0) g/dl Globulin gm/dL Albumin/Globulin Ratio (1-2) Lipase (73-393) U/L Urine Color (Yellow) Urine Appearance (Clear) Urine pH (5.0-8.0) Ur Specific [place] (1.005-1.030) Urine Protein (Negative) Urine Glucose (UA) (Negative) Urine Ketones (Negative) Urine Occult Blood (Negative) Urine Nitrite (Negative) Urine Bilirubin (Negative) Urine Urobilinogen (0.2-1.0) Ur Leukocyte Esterase (Negative) Urine RBC (0-5) /hpf Urine WBC (0-5) /hpf Ur Squamous Epith Cells (0-5) /hpf Calcium Oxalate Crystal (NONE) Urine Bacteria (FEW) /hpf Urine Mucus (FEW) /hpf Urine HCG, Qual Negative (NEGATIVE) Meds: Medications Discontinued Medications Generic Name Dose Route Start Last Admin Trade Name Jarvis PRN Reason Stop Dose Admin Hydromorphone HCl 0.5 mg 10/14/20 22:37 10/14/20 23:01 Hydromorphone 0.5 Mg/0.5 Ml Syringe IVPUSH 10/14/20 22:38 0.5 mg ONETIME ONE Administration Sodium Chloride 1,000 mls @ 999 mls/hr 10/14/20 22:37 10/14/20 22:53 Normal Saline IV 10/14/20 23:37 999 mls/hr ONETIME ONE Administration Ondansetron HCl 4 mg 10/14/20 22:37 10/14/20 22:54 Ondansetron 4 Mg/2 Ml Sdv IVPUSH 10/14/20 22:38 4 mg ONETIME ONE Administration - Re-Assessments/Exams Free Text/Narrative Re-Assessment/Exam: 10/14/20 22:38 As above, the patient has been suffering with C. difficile, +/-colitis for the past year. She is currently on oral vancomycin and prednisone, but states that she redeveloped bloody diarrhea yesterday and feels dehydrated with palpitations as a result. She also reports having lower back pain and gross hematuria since yesterday, and she is concerned that she might have a kidney stone or UTI. On examination, the patient has generalized abdominal tenderness, however, her abdomen is soft with normoactive bowel sounds. I am not recommending a repeat CT scan, however, I am recommending a work-up that includes orthostatics, several blood tests, a urinalysis by quick catheter, and an ECG. In the meantime, the patient will be given some IV Dilaudid, IV Zofran, and IV fluid. 10/15/20 00:00 The patient is not orthostatic. The patient's CBC is remarkable for leukocytosis of 17.74, but with 0% bandemia, and thrombocytosis of 487,000, with the remainder of his CBC being unremarkable. Her CMP is remarkable for a BUN slightly elevated at 23, but with a Cr normal at 1.0, and slight hyperglycemia of 103, with the remainder of her CMP being unremarkable. Her magnesium level is within normal limits at 1.8. Her lactic acid level is within normal limits at 1.2. Her lipase level is within normal limits at 319. Her urinalysis is remarkable for slightly cloudy appearance, 3+ occult blood with 5-10 RBCs, leukocyte esterase negative with 5-10 WBCs, nitrate negative with many bacteria, and 5-10 squamous epithelial cells. Her urine test is negative. 10/15/20 00:14 Test results discussed with the patient and her mother. As above, today's work- up is unremarkable. She states that she feels somewhat better following the IV fluid, IV Dilaudid, and IV Zofran. I will discharge her home with the recommendation that she continue her current medications as prescribed. Departure - Departure Time of Disposition: 00:14 Disposition: Home, Self-Care 01 Condition: Good Clinical Impression: Abdominal cramps, Lower back pain - Discharge Information *PRESCRIPTION DRUG MONITORING PROGRAM REVIEWED*: Not Applicable *COPY OF PRESCRIPTION DRUG MONITORING REPORT IN PATIENT [place]: Not Applicable Instructions: Acute Back Pain, Adult, Abdominal Pain, Adult, [id number] Referrals: Shy Fuchs PA-C [Primary Care Provider] - Huber Alcala [Ordering Only Provider] - Richard Taylor MD [Ordering Only Provider] - Taco Alejandra MD [Ordering Only Provider] - Laquita Bird MD [Ordering Only Provider] - Edward Ashraf MD [Ordering Only Provider] - Forms: ED Department Discharge Additional Instructions: You were seen in the emergency room for abdominal cramps and lower back pain with feeling dehydrated, in the setting of bloody diarrhea while being treated for C. difficile colitis. Work-up in the ER included positional blood pressure checks, numerous blood tests, urinalysis, urine test, and an ECG. Your white blood cell count was found to be elevated at 17.74, but with 0% of the type of white blood cells that fight bacteria. This is because you are on steroids. The remainder of your work-up was unremarkable. You are not dehydrated. You do not have a urinary tract infection. Your ECG was normal. Your blood pressure did not drop between lying and standing. Your symptoms improved somewhat following IV fluid, IV Dilaudid, and IV Zofran. Going forward, we recommend that you continue to take your current medications as prescribed. Follow-up with your specialty transformer assembler, Dr. Edward Ashraf, in [place], at your next scheduled appointment. If any other problems, please do not hesitate to return to the ER. Sepsis Event Note (ED) - Evaluation Sepsis Screening Result: No Definite Risk - Focused Exam Vital Signs: Vital Signs Temp Pulse Resp BP Pulse Ox 10/14/20 21:55 36.2 C 83 16 138/101 H 95
== END 2020-10-15 00:30 | disposition home or self-care (01) ==
LOC: JD.ED 21:45
DX: M54.5 Low back pain (principal); R10.84 Generalized abdominal pain; E66.9 Obesity, unspecified; Z68.37 Body mass index [BMI] 37.0-37.9, adult; Z88.0 Allergy status to penicillin; Z88.1 Allergy status to other antibiotic agents; Z91.018 Allergy to other foods; Z88.8 Allergy status to other drugs, medicaments and biological substances; Z79.899 Other long term (current) drug therapy
CPT/HCPCS: 36415; 80053; 81001; 81025; 83605; 83690; 83735; 85007; 85027; 93005; 96374; 96375; 99284; J1170; J2405; J7030; 93010

== ENCOUNTER 2020-10-15 14:35 | Emergency (ER) | payer MEDICAID ==
[2020-10-15 14:49] VITALS: BP 137/98; PULSE 90
[2020-10-15] MEDS ORDERED: Sodium Chloride 0.9% 10 ML Syringe FLUSH PRN (15:09)
[2020-10-15] MEDS ORDERED: HYDROmorphone 0.5 MG/0.5 ML Syringe IVPUSH ONE ×3 (15:32→18:51)
[2020-10-15] MEDS ORDERED: Ondansetron 4 MG/2 ML SDV IVPUSH ONE (15:32)
[2020-10-15] MEDS ORDERED: Sodium Chloride 0.9% 1,000 ML IV ONE (15:32)
--- NOTE | 2020-10-15 17:18 | EDM.PDOC ---
ED HPI GENERAL MEDICAL PROBLEM - General Chief Complaint: Gastrointestinal Problem Stated Complaint: C DIFF SYMPTOMS NOT BETTER Time Seen by Provider: 10/15/20 14:42 Source of Information: Reports: Patient History Limitations: Reports: No Limitations - History of Present Illness INITIAL COMMENTS - FREE TEXT/NARRATIVE: 30-year-old female presents the emergency department complaints of abdominal pain. Patient was seen in the emergency department last night with complaints of abdominal pain. She states that she has had C. difficile for the past year with and without colitis. She states she has been treated with vancomycin over the past year with and without Flagyl. She states she was scheduled to undergo the colonoscopy with a fecal transplant however there were no fecal samples available so the colonoscopy was put off. At this time the patient states that she is scheduled for the colonoscopy with fecal transplant at [facility] in [place] on Monday, 21 October however she states that her abdominal pain has worsened. She states that she would like to go to [place] however she does not feel that she can tolerate the drive there due to the amount of pain she is having. She also has a history of rheumatoid arthritis/SLE/Sjogren's. So she has been on prednisone for this. She states that about 2-1/2 months ago her prednisone dose was increased to 40 mg daily. She denies any recent fever, chills, nausea, vomiting or constipation. She denies any recent cough headache sore throat or shortness of breath. 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 She states that when she left the emergency department last evening her pain seemed to be under control however throughout the night it worsened and returned and she has not been able to eat or drink anything for the past 24 hours. She also states that in the past 24 hours she has had numerous loose watery stools. Some of which do have nayely red blood noted. Abdomen Pain Score (Numeric/FACES): 8 - Related Data Allergies Allergy/AdvReac Type Severity Reaction Status Date / Time amoxicillin Allergy Severe Other Verified 10/14/20 21:59 amoxicillin trihydrate Allergy Severe Other Verified 10/14/20 21:59 [From Augmentin] ciprofloxacin Allergy Severe Itching Verified 10/14/20 21:59 clindamycin Allergy Severe Rash Verified 10/14/20 21:59 lemon Allergy Severe Hives Verified 10/14/20 21:59 Penicillins Allergy Severe Hives Verified 10/14/20 21:59 potassium chloride Allergy Severe Hives Verified 10/14/20 21:59 potassium clavulanate Allergy Severe Other Verified 10/14/20 21:59 [From Augmentin] diphenhydramine HCl AdvReac Severe "muscle Verified 10/14/20 21:59 [From Benadryl] aches" Home Meds: Home Meds Albuterol Sulfate [Proair Hfa] 2 puff IH Q4H PRN 11/22/17 [History] ondansetron HCL [Zofran] 4 mg BUCCAL Q8H PRN 11/22/17 [History] traMADol [Ultram] 50 mg PO Q6H PRN 11/22/17 [History] Ibuprofen [Advil] 800 mg PO BID PRN 10/06/19 [History] predniSONE [Prednisone] 40 mg PO DAILY 10/06/19 [History] Cholestyramine/Sucrose [Cholestyramine] 4 gm PO TID PRN 30 Days #90 packet 08/25/20 [Rx] Vancomycin [Vancomycin Cap] 250 mg PO TID 10/14/20 [History] Past Medical History HEENT History: Reports: Impaired Vision Other HEENT History: wears glasses Cardiovascular History: Reports: Arrhythmia, Other (See Below) Other Cardiovascular History: SVT, vericose veins Respiratory History: Reports: Asthma, Other (See Below) Other Respiratory History: pleurisy Gastrointestinal History: Reports: Diverticulosis Other Gastrointestinal History: chronic c-diff Genitourinary History: Reports: Renal Calculus, Renal Disease Other Genitourinary History: thin basement membrane; painful Loin disease ASSEMBLER SANDAL PARTS History: Reports: Spontaneous Other ASSEMBLER SANDAL PARTS History: Hx of PP hemorrhage following third son's delivery. Musculoskeletal History: Reports: RA, SLE, Other (See Below) Other Musculoskeletal History: Sjogren syndrome Neurological History: Reports: Migraines Psychiatric History: Reports: Anxiety, Depression Other Psychiatric History: PP depression following second child's delivery. Endocrine/Metabolic History: Reports: Obesity/BMI 30+ Hematologic History: Reports: Anemia Immunologic History: Reports: SLE, Other (See Below) Other Immunologic History: lupus Dermatologic History: Reports: Other (See Below) Other Dermatologic History: Severe cellulitis with pseudomonal infection to L ear cartlidge following ear piercing at age 11--required a PICC line and 6 weeks of IV abx as well as two reconstructive surgeries following daily debridement over a period of weeks as well; sores/lesions to neck and face occasionally - Infectious Disease History Infectious Disease History: Reports: C-Difficile - Past Surgical History HEENT Surgical History: Reports: Oral Surgery Other HEENT Surgeries/Procedures: ear piercing removed; wisdom teeth removed Cardiovascular Surgical History: Reports: Cardiac Ablation Respiratory Surgical History: Reports: None GI Surgical History: Reports: Cholecystectomy, Colonoscopy, EGD Female Surgical History: Reports: D&C, Lithotripsy/ESWL Musculoskeletal Surgical History: Reports: None Social & Family History - Family History Family Medical History: No Pertinent Family History - Tobacco Use Tobacco Use Status *Q: Never Tobacco User Second Hand Smoke Exposure: No - Caffeine Use Caffeine Use: Reports: Soda Other Caffeine Use: coffee rarely Caffeine Use Comment: 1 cup per day - Recreational Drug Use Recreational Drug Use: No - Living Situation & Occupation Living situation: Reports: , with Spouse, with Family (6 kids) Occupation: Unemployed ED ROS GENERAL - Review of Systems Review Of Systems: Comprehensive ROS is negative, except as noted in HPI. ED EXAM, GI/ABD - Physical Exam Exam: See Below Exam Limited By: No Limitations General Appearance: Alert, WD/WN, No Apparent Distress Ears: Normal External Exam, Hearing Grossly Normal Nose: Normal Inspection Throat/Mouth: Normal Inspection, Normal Lips, Normal Voice, No Airway Compromise Head: Atraumatic, Normocephalic Neck: Normal Inspection, Supple Respiratory/Chest: No Respiratory Distress, Lungs Clear, Normal Breath Sounds, No Accessory Muscle Use, Chest Non-Tender Cardiovascular: Normal Peripheral Pulses, Regular Rate, Rhythm, No Edema, No Murmur GI/Abdominal Exam: Normal Bowel Sounds, Soft, No Distention, Tender (Tender in all quadrants with palpation) (Female) Exam: Deferred Rectal (Female) Exam: Deferred Back Exam: Normal Inspection Extremities: Normal Inspection Neurological: Alert, Oriented, Normal Cognition Psychiatric: Normal Affect, Normal Mood Skin Exam: Warm, Dry, Intact, Normal Color, No Rash Lymphatic: No Adenopathy Course - Vital Signs Text/Narrative:: As stated above the patient does have a history of C. difficile being treated over the past year with vancomycin. She is to receive a colonoscopy with a fecal transplant on Wednesday October 21, 2020 at [facility] in [place]. She states that she feels she is getting worse and has been put on an on-call list. She is requesting IV fluids and to have nausea and pain control today and then states that her mom will drive her down to [place]. I have ordered baseline labs as well as a urinalysis. Patient will also receive normal saline 1 L, Dilaudid, and Zofran. Last Recorded V/S: Last Vital Signs Temp 97.5 F 10/15/20 14:40 Pulse 90 10/15/20 14:40 Resp 20 10/15/20 14:40 BP 137/98 H 10/15/20 14:40 Pulse Ox 100 10/15/20 14:40 - Orders/Labs/Meds Orders: Active Orders 24 hr Category Date Time Status CULTURE URINE [MREF] Stat Lab 10/15/20 16:30 Received Sodium Chloride 0.9% [Saline Flush] Med 10/15/20 15:09 Active 10 ml FLUSH ASDIRECTED PRN Saline Lock Insert [OM.PC] Stat Oth 10/15/20 15:09 Ordered Medication Orders Sodium Chloride (Sodium Chloride 0.9% 10 Ml Syringe) 10 ml FLUSH ASDIRECTED PRN PRN Reason: Keep Vein Open Last Admin: 10/15/20 15:48 Dose: 10 ml Documented by: LANETTE Labs: Laboratory Tests 10/15/20 10/15/20 10/15/20 Range/Units 15:30 15:30 16:30 WBC 15.97 H (3.98-10.04) K/mm3 RBC 4.77 (3.98-5.22) M/mm3 Hgb 13.5 (11.2-15.7) gm/dl Hct 43.3 (34.1-44.9) % MCV 90.8 (79.4-94.8) fl MCH 28.3 (25.6-32.2) pg MCHC 31.2 L (32.2-35.5) g/dl RDW Std Deviation 46.7 H (36.4-46.3) fL Plt Count 420 H (182-369) K/mm3 MPV 8.4 L (9.4-12.3) fl Neut % (Auto) 85.8 H (34.0-71.1) % Lymph % (Auto) 10.0 L (19.3-51.7) % Glascock % (Auto) 3.1 L (4.7-12.5) % Eos % (Auto) 0.3 L (0.7-5.8) Baso % (Auto) 0.1 (0.1-1.2) % Neut # (Auto) 13.70 H (1.56-6.13) K/mm3 Lymph # (Auto) 1.60 (1.18-3.74) K/mm3 Glascock # (Auto) 0.50 H (0.24-0.36) K/mm3 Eos # (Auto) 0.04 (0.04-0.36) K/mm3 Baso # (Auto) 0.02 (0.01-0.08) K/mm3 Sodium 142 (136-145) mEq/L Potassium 3.6 (3.5-5.1) mEq/L Chloride 102 (98-107) mEq/L Carbon Dioxide 30 (21-32) mEq/L Anion Gap 13.6 (5-15) BUN 16 (7-18) mg/dL Creatinine 1.0 (0.55-1.02) mg/dL Est Cr Clr Drug Dosing 69.74 mL/min Estimated GFR (MDRD) > 60 (>60) mL/min BUN/Creatinine Ratio 16.0 (14-18) Glucose 111 H (70-99) mg/dL Calcium 9.6 (8.5-10.1) mg/dL Magnesium 1.6 L (1.8-2.4) mg/dL Total Bilirubin 2.0 H (0.2-1.0) mg/dL AST 18 (15-37) U/L ALT 27 (14-59) U/L Alkaline Phosphatase 48 (46-116) U/L Total Protein 8.0 (6.4-8.2) g/dl Albumin 3.8 (3.4-5.0) g/dl Globulin 4.2 gm/dL Albumin/Globulin Ratio 0.9 L (1-2) TSH 3rd Generation 0.662 (0.358-3.74) uIU/mL Urine Color Yellow (Yellow) Urine Appearance Clear (Clear) Urine pH 7.0 (5.0-8.0) Ur Specific [place] 1.015 (1.005-1.030) Urine Protein Negative (Negative) Urine Glucose (UA) Negative (Negative) Urine Ketones Negative (Negative) Urine Occult Blood 2+ H (Negative) Urine Nitrite Negative (Negative) Urine Bilirubin Negative (Negative) Urine Urobilinogen 0.2 (0.2-1.0) Ur Leukocyte Esterase 1+ H (Negative) Urine RBC 5-10 H (0-5) /hpf Urine WBC 5-10 H (0-5) /hpf Ur Squamous Epith Cells 0-5 (0-5) /hpf Urine Bacteria Few (FEW) /hpf Urine Mucus Few (FEW) /hpf Meds: Medications Generic Name Dose Route Start Last Admin Trade Name Freq PRN Reason Stop Dose Admin Sodium Chloride 10 ml 10/15/20 15:09 10/15/20 15:48 Sodium Chloride 0.9% 10 Ml Syringe FLUSH 10 ml ASDIRECTED PRN Administration Keep Vein Open Discontinued Medications Generic Name Dose Route Start Last Admin Trade Name Freq PRN Reason Stop Dose Admin Hydromorphone HCl 0.5 mg 10/15/20 15:32 10/15/20 15:47 Hydromorphone 0.5 Mg/0.5 Ml Syringe IVPUSH 10/15/20 15:33 0.5 mg ONETIME ONE Administration Hydromorphone HCl 0.5 mg 10/15/20 17:17 10/15/20 18:14 Hydromorphone 0.5 Mg/0.5 Ml Syringe IVPUSH 10/15/20 17:18 0.5 mg ONETIME ONE Administration Hydromorphone HCl 0.5 mg 10/15/20 18:51 Hydromorphone 0.5 Mg/0.5 Ml Syringe IVPUSH 10/15/20 18:52 ONETIME ONE Sodium Chloride 1,000 mls @ 999 mls/hr 10/15/20 15:32 10/15/20 15:47 Normal Saline IV 10/15/20 16:32 999 mls/hr ONETIME ONE Administration Ondansetron HCl 4 mg 10/15/20 15:32 10/15/20 15:48 Ondansetron 4 Mg/2 Ml Sdv IVPUSH 10/15/20 15:33 4 mg ONETIME ONE Administration - Re-Assessments/Exams Free Text/Narrative Re-Assessment/Exam: 10/15/20 17:27 Hematology reveals a WBC of 15.97, hemoglobin 13.5, hematocrit 43.3, platelet count 420 Chemistry reveals a sodium of 142, potassium 3.6, carbon dioxide 30, anion gap 13.6, BUN 16, creatinine 1.0, glucose 111, magnesium 1.6, total bilirubin 2.0, AST 18, ALT 27, alk phos 48, TSH 0.662 Urinalysis reveals 2+ occult blood, nitrate negative, leukocyte esterase 1+, urine RBC 5-10, urine WBC 5-10, urine culture is pending. Patient's labs are improved from yesterday. Glucose and WBCs are elevated however this likely is due to the prednisone. Patient is now requesting more pain medication as she states her pain level is a 6 out of 10 and I have ordered a repeat dose of Dilaudid. 10/15/20 18:53 Patient reports that her pain is still not a 6 out of 10. I discussed the fact that we likely will be able to make her pain completely go away. I will give her 1 more dose of IV Dilaudid and then she states that she will be ready to go and her mom is going to drive her to [place]. Departure - Departure Time of Disposition: 18:54 Disposition: Home, Self-Care 01 Condition: Good Clinical Impression: Abdominal cramps, Nausea - Discharge Information Referrals: Shy Fuchs PA-C [Primary Care Provider] - Forms: ED Department Discharge Additional Instructions: You were seen in the emergency department today with complaints of abdominal cramping due to C. difficile, nausea and vomiting and inability to eat. Labs were completed which were improved from the lab work that was completed last night. Urine analysis does show some white blood cells in your urine however I am going to wait for the culture to come back. If you urinary tract infection, we will call you and send a prescription for antibiotic to your pharmacy. However if there is no infection you will not hear from us. You were given IV fluids, nausea medication and pain medication while in the emergency department. It is unlikely that your pain will completely resolve due to the fact that you do have the C. difficile infection. Recommend that you go to [place] as planned and follow-up with the mold runner for your fecal transplantation and further work-up. Should your condition worsen or change, do not hesitate returning to the emergency department. Sepsis Event Note (ED) - Evaluation Sepsis Screening Result: No Definite Risk - Focused Exam Vital Signs: Vital Signs Temp Pulse Resp BP Pulse Ox 10/15/20 14:40 97.5 F 90 20 137/98 H 100 - My Orders Last 24 Hours: My Active Orders 10/15/20 15:09 Sodium Chloride 0.9% [Saline Flush] 10 ml FLUSH ASDIRECTED PRN Saline Lock Insert [OM.PC] Stat 10/15/20 16:30 CULTURE URINE [MREF] Stat - Assessment/Plan Last 24 Hours: My Active Orders 10/15/20 15:09 Sodium Chloride 0.9% [Saline Flush] 10 ml FLUSH ASDIRECTED PRN Saline Lock Insert [OM.PC] Stat 10/15/20 16:30 CULTURE URINE [MREF] Stat
== END 2020-10-15 19:15 | disposition home or self-care (01) ==
LOC: JD.ED 14:35
DX: R10.9 Unspecified abdominal pain (principal); R11.0 Nausea; J45.909 Unspecified asthma, uncomplicated; M06.9 Rheumatoid arthritis, unspecified; E66.9 Obesity, unspecified; Z68.37 Body mass index [BMI] 37.0-37.9, adult; Z88.0 Allergy status to penicillin; Z88.1 Allergy status to other antibiotic agents; Z91.018 Allergy to other foods; Z88.8 Allergy status to other drugs, medicaments and biological substances; Z79.899 Other long term (current) drug therapy
CPT/HCPCS: 36415; 80053; 81001; 83735; 84443; 85025; 87086; 96374; 96375; 96376; 99284; J1170; J2405; J7030

== ENCOUNTER 2020-11-02 21:44 | Emergency (ER) | payer MEDICAID ==
[2020-11-02 22:00] VITALS: BP 173/95; PULSE 80
[2020-11-02] MEDS ORDERED: Acetaminophen/oxyCODONE 325-5 MG Tab PO ONE (22:12)
--- NOTE | 2020-11-02 22:26 | EDM.PDOC ---
ED HPI GENERAL MEDICAL PROBLEM - General Chief Complaint: Genitourinary Problem Stated Complaint: KIDNEY STONE Time Seen by Provider: 11/02/20 22:01 Source of Information: Reports: Patient, Old Records (Clinic visit from 10/27/2020), RN Notes Reviewed History Limitations: Reports: No Limitations - History of Present Illness INITIAL COMMENTS - FREE TEXT/NARRATIVE: Patient is a 30-year-old female who presents to the ER for the evaluation of her ongoing pain from kidney stones. Patient was seen in the clinic last week by Rebecca Fuchs, and had ultrasound down, and demonstrated quite a few kidney stones. Patient has had multiple CTs in the past for kidney stones, so this is why a CT was not performed. Patient has an extensive medical history, to include Sjogren's, parathyroid issues, recent fecal transplant for C. difficile infection, and recurrent kidney stones. Patient believes that the parathyroid dysfunction is causing her to create kidney stones, and she is supposed to get in contact with the thyroid/public works commissioner specialist for further management of this. Patient did take Tylenol, ibuprofen, tramadol at home, this did not seem to be helping. Patient states that she is "in a flare" and notes that her prednisone has been increased to 60mg as well. Patient has not had any fevers or chills, cough or shortness of breath, nausea/vomiting/diarrhea. States she has had quite a bit of blood in her urine, and it hurts to pee a little bit. She did have a urinalysis taken on Monday with a culture, that was consistent with contamination. Patient is very hesitant to be placed on any start antibiotics, due to the recent fecal transplant for the C. difficile infection. Treatments BRICK BURNER: Reports: Acetaminophen, NSAIDS, Other Medication(s) Other Treatments BRICK BURNER: ibuprofen, tylenol, and tramadol taken BRICK BURNER Bilateral Flank Pain Score (Numeric/FACES): 9 - Related Data Allergies Allergy/AdvReac Type Severity Reaction Status Date / Time amoxicillin Allergy Severe Other Verified 11/02/20 22:00 amoxicillin trihydrate Allergy Severe Other Verified 11/02/20 22:00 [From Augmentin] ciprofloxacin Allergy Severe Itching Verified 11/02/20 22:00 clindamycin Allergy Severe Rash Verified 11/02/20 22:00 lemon Allergy Severe Hives Verified 11/02/20 22:00 Penicillins Allergy Severe Hives Verified 11/02/20 22:00 potassium chloride Allergy Severe Hives Verified 11/02/20 22:00 potassium clavulanate Allergy Severe Other Verified 11/02/20 22:00 [From Augmentin] diphenhydramine HCl AdvReac Severe "muscle Verified 11/02/20 22:00 [From Benadryl] aches" Home Meds: Home Meds Albuterol Sulfate [Proair Hfa] 2 puff IH Q4H PRN 11/22/17 [History] ondansetron HCL [Zofran] 4 mg BUCCAL Q8H PRN 11/22/17 [History] traMADol [Ultram] 50 mg PO Q6H PRN 11/22/17 [History] Ibuprofen [Advil] 800 mg PO BID PRN 10/06/19 [History] predniSONE [Prednisone] 60 mg PO DAILY 10/06/19 [History] Acetaminophen/oxyCODONE [Percocet 325-5 MG] 1 each PO Q6H PRN #20 tab 11/02/20 [Rx] Past Medical History HEENT History: Reports: Impaired Vision Other HEENT History: wears glasses Cardiovascular History: Reports: Arrhythmia, Other (See Below) Other Cardiovascular History: SVT, vericose veins Respiratory History: Reports: Asthma, Other (See Below) Other Respiratory History: pleurisy Gastrointestinal History: Reports: Diverticulosis Other Gastrointestinal History: chronic c-diff with fecal transplant at [facility] in 10/19/20 Genitourinary History: Reports: Renal Calculus, Renal Disease Other Genitourinary History: thin basement membrane; painful Loin disease PIZZA MAKER History: Reports: , Spontaneous Other PIZZA MAKER History: Hx of PP hemorrhage following third son's delivery. Musculoskeletal History: Reports: RA, SLE, Other (See Below) Other Musculoskeletal History: Sjogren syndrome Neurological History: Reports: Migraines Psychiatric History: Reports: Anxiety, Depression Other Psychiatric History: PP depression following second child's delivery. Endocrine/Metabolic History: Reports: Hyperparathyroidism, Obesity/BMI 30+ Hematologic History: Reports: Anemia Immunologic History: Reports: SLE, Other (See Below) Other Immunologic History: lupus Dermatologic History: Reports: Other (See Below) Other Dermatologic History: Severe cellulitis with pseudomonal infection to L ear cartlidge following ear piercing at age 11--required a PICC line and 6 weeks of IV abx as well as two reconstructive surgeries following daily debridement over a period of weeks as well; sores/lesions to neck and face occasionally - Infectious Disease History Infectious Disease History: Reports: C-Difficile - Past Surgical History HEENT Surgical History: Reports: Oral Surgery Other HEENT Surgeries/Procedures: ear piercing removed; wisdom teeth removed Cardiovascular Surgical History: Reports: Cardiac Ablation GI Surgical History: Reports: Cholecystectomy, Colonoscopy, EGD Female Surgical History: Reports: D&C, Lithotripsy/ESWL Social & Family History - Family History Family Medical History: No Pertinent Family History - Tobacco Use Tobacco Use Status *Q: Never Tobacco User Second Hand Smoke Exposure: No - Caffeine Use Caffeine Use: Reports: Soda Other Caffeine Use: coffee rarely Caffeine Use Comment: 1 cup per day - Recreational Drug Use Recreational Drug Use: No - Living Situation & Occupation Living situation: Reports: , with Spouse, with Family (6 kids) Occupation: Unemployed ED ROS GENERAL - Review of Systems Review Of Systems: Comprehensive ROS is negative, except as noted in HPI. ED EXAM, RENAL/ - Physical Exam Exam: See Below Exam Limited By: No Limitations General Appearance: Alert, WD/WN, No Apparent Distress Respiratory/Chest: No Respiratory Distress, Lungs Clear, Normal Breath Sounds, No Accessory Muscle Use, Chest Non-Tender Cardiovascular: Normal Peripheral Pulses, Regular Rate, Rhythm, No Edema GI/Abdominal: Normal Bowel Sounds, Soft, Non-Tender, No Distention, No Mass Extremities: Normal Inspection, Normal Capillary Refill Neurological: Alert, Oriented, Normal Cognition, No Motor/Sensory Deficits Psychiatric: Normal Affect, Normal Mood Skin Exam: Warm, Dry, Intact, Normal Color, No Rash Course - Vital Signs Last Recorded V/S: Last Vital Signs Temp 97 F 11/02/20 21:54 Pulse 80 11/02/20 21:54 Resp 18 11/02/20 21:54 BP 173/95 H 11/02/20 21:54 Pulse Ox - Orders/Labs/Meds Meds: Medications Discontinued Medications Generic Name Dose Route Start Last Admin Trade Name Freq PRN Reason Stop Dose Admin Oxycodone/Acetaminophen 2 tab 11/02/20 22:12 11/02/20 22:19 Acetaminophen/Oxycodone 325-5 Mg Tab PO 11/02/20 22:13 1 tab ONETIME ONE Administration - Re-Assessments/Exams Free Text/Narrative Re-Assessment/Exam: 11/02/20 22:16 Patient presents to the ER basically for pain management due to kidney stones. She had ultrasound done on Monday that demonstrated kidney stones in the clinic. Patient has had multiple CTs in the past, so I do not feel that this would help us much at all. We will try 2 tablets of Percocet 5 mg to see if this helps relieve some of her pain, plan is to hopefully get her going home with oral medications and have her follow-up in clinic if not much better. 11/02/20 22:48 Patient was reassessed at bedside, and states she is feeling somewhat better, we will go ahead and discharge her home and have her follow-up with regular care provider for ongoing management. Departure - Departure Time of Disposition: 22:49 Disposition: Home, Self-Care 01 Condition: Good Clinical Impression: Flank pain, acute - Discharge Information *PRESCRIPTION DRUG MONITORING PROGRAM REVIEWED*: Yes *COPY OF PRESCRIPTION DRUG MONITORING REPORT IN PATIENT FLORENTINO: No Prescriptions: Acetaminophen/oxyCODONE [Percocet 325-5 MG] 1 each PO Q6H PRN #20 tab PRN Reason: Pain Instructions: Flank Pain, Adult, [id number] Referrals: Shy Fuchs PA-C [Primary Care Provider] - Forms: ED Department Discharge Additional Instructions: You were seen in the ER tonight for your ongoing pain due to kidney stones that were diagnosed in clinic last week. Laboratory evaluation was reviewed from your last clinic visit, and the urinalysis culture only grew out jonathon that was suggestive of cross contamination. You have been given some prescriptions for both of Percocet 5/325 mg tablets for ongoing pain management, you may take 1 to 2 tablets every 6 hours as needed for ongoing pain management. These medications can be addictive, so please take as few as possible to achieve adequate pain management. These medications also can cause constipation so I highly suggest you start a stool softener like MiraLAX, Dulcolax or Colace while taking these medications. This medication was electronically sent to [facility]. Please follow-up with your regular care provider, for ongoing management and coordination with the thyroid/public works commissioner specialist for your parathyroid issues. Do not hesitate to return to the ER at any time if symptoms change or worsen. Sepsis Event Note (ED) - Evaluation Sepsis Screening Result: No Definite Risk - Focused Exam Vital Signs: Vital Signs Temp Pulse Resp BP 11/02/20 21:54 97 F 80 18 173/95 H
== END 2020-11-02 23:05 | disposition home or self-care (01) ==
LOC: JD.ED 21:44
DX: R10.9 Unspecified abdominal pain (principal); E66.9 Obesity, unspecified; Z88.0 Allergy status to penicillin; Z88.1 Allergy status to other antibiotic agents; Z88.8 Allergy status to other drugs, medicaments and biological substances; Z68.37 Body mass index [BMI] 37.0-37.9, adult
CPT/HCPCS: 99283; A9270

== ENCOUNTER 2020-11-28 21:43 | Emergency (ER) | payer MEDICAID ==
[2020-11-28] MEDS ORDERED: Sodium Chloride 0.9% 1,000 ML IV ONE (23:07)
[2020-11-28] MEDS ORDERED: HYDROmorphone 1 MG/ML Syringe IVPUSH ONE (23:07)
--- NOTE | 2020-11-28 23:15 | EDM.PDOC ---
ED HPI GENERAL MEDICAL PROBLEM - General Chief Complaint: Flank Pain Stated Complaint: FLANK PAIN/BLOOD IN URINE/LOWER BACK PAIN Time Seen by Provider: 11/28/20 22:53 Source of Information: Reports: Patient History Limitations: Reports: No Limitations - History of Present Illness INITIAL COMMENTS - FREE TEXT/NARRATIVE: Ms. Pablo is a very pleasant 30-year-old woman who now presents the ED stating that she has been experiencing bilateral flank pain radiating to her bilateral lower abdomen, gross hematuria, and dysuria, waxing and waning for about 1 month, with worsening symptoms since this past , 11/26/2020. No recent fever, chills, sore throat, ear pain, nasal or sinus congestion, cough, dyspnea, chest pain, palpitations, nausea, vomiting, constipation, diarrhea, recent weight gain or weight loss, recent bloody bowel movements or black bowel movements, recent joint aches, headaches, or rashes. She states that she was hospitalized at [facility] about 1 month ago for these symptoms, but that a Urologist was not fully available, therefore all of the intended tests were not performed. She has a history of basement membrane nephropathy, also known as benign familial hematuria, which often causes gross hematuria. The patient also has a history of rheumatoid arthritis/SLE/Sjogren's, on prednisone for at least a year, specifically, 60 mg daily for about 1 month. The patient states that she came to the ED tonight for IV fluid and pain control, not a work-up of her kidney disease. She is prescribed Percocet 5/325 and tramadol per her PCP, but it is not clear if she is out of those prescribed medications. Here in the ED, the patient's initial BP is found to be elevated 167/102, otherwise, she is hemodynamically stable, afebrile, saturating 99% on room air. The patient's PCP is FOSTER Boone. Her Urologist is Dr. Manuel Viveros at [facility]. Her Terminal Operations Manager is Dr. Laquita Bird, at [facility]. Her Regional Planner is Dr. Jose Aviles, at [facility]. Her Laminate Floor Installer is Dr. Edward Joseph, in [place]. Her EP Air Bag Curer is Dr. Huber Alcala. Her Elastic Attacher Chainstitch is Dr. Richard Taylor, at [facility]. She does not recall the name of her Neurologist at [facility]. She has not received a COVID vaccination. Bilateral Flank Pain Score (Numeric/FACES): 7 - Related Data Allergies Allergy/AdvReac Type Severity Reaction Status Date / Time clindamycin Allergy Intermediate Rash Verified 11/03/20 14:05 lemon Allergy Intermediate Hives Verified 11/03/20 14:05 Penicillins Allergy Intermediate Hives Verified 11/03/20 14:05 potassium chloride Allergy Intermediate Hives Verified 11/03/20 14:05 ciprofloxacin Allergy Mild Itching Verified 11/03/20 14:05 amoxicillin Allergy Unknown Other Verified 11/03/20 14:05 amoxicillin trihydrate Allergy Unknown Other Verified 11/03/20 14:05 [From Augmentin] potassium clavulanate Allergy Unknown Other Verified 11/03/20 14:05 [From Augmentin] diphenhydramine HCl AdvReac Mild "muscle Verified 11/03/20 14:05 [From Benadryl] aches" Home Meds: Home Meds Albuterol Sulfate [Proair Hfa] 2 puff IH Q4H PRN 11/22/17 [History] ondansetron HCL [Zofran] 4 mg BUCCAL Q8H PRN 11/22/17 [History] traMADol [Ultram] 50 mg PO Q6H PRN 11/22/17 [History] Ibuprofen [Advil] 800 mg PO BID PRN 10/06/19 [History] predniSONE [Prednisone] 60 mg PO DAILY 10/06/19 [History] Acetaminophen/oxyCODONE [Percocet 325-5 MG] 1 each PO Q6H PRN #20 tab 11/02/20 [Rx] Past Medical History HEENT History: Reports: Impaired Vision (wears glasses) Cardiovascular History: Reports: Arrhythmia (SVT, s/p ablation) Gastrointestinal History: Reports: Diverticulosis Genitourinary History: Reports: Renal Calculus, Renal Disease (Thin basement membrane nephropathy, aka benign familial hematuria) PORTER MARINA History: Reports: Spontaneous (x 2) : 7 Para: 6 Neurological History: Reports: Migraines Psychiatric History: Reports: Anxiety (untreated), Depression (untreated) Endocrine/Metabolic History: Reports: Obesity/BMI 30+, Other (See Below) (Prediabetes) Immunologic History: Reports: SLE, Other (See Below) (RA, Sjogren's) - Infectious Disease History Infectious Disease History: Reports: C-Difficile - Past Surgical History HEENT Surgical History: Reports: Oral Surgery (dental extractions) Cardiovascular Surgical History: Reports: Cardiac Ablation (for SVT, 2018) GI Surgical History: Reports: Cholecystectomy (2015), Colonoscopy (x 5 to 7), EGD (x 3 or 4) Female Surgical History: Reports: D&C (x 1), Lithotripsy/ESWL (2016) Social & Family History - Tobacco Use Tobacco Use Status *Q: Never Tobacco User - Caffeine Use Caffeine Use: Reports: Coffee, Soda Other Caffeine Use: coffee rarely Caffeine Use Comment: 1 cup per day - Alcohol Use Alcohol Use History: No - Recreational Drug Use Recreational Drug Use: No - Living Situation & Occupation Living situation: Reports: , with Spouse, with Family (6 kids) Occupation: Unemployed ED ROS GENERAL - Review of Systems Review Of Systems: Comprehensive ROS is negative, except as noted in HPI. ED EXAM, RENAL/ - Physical Exam Exam: See Below Exam Limited By: No Limitations General Appearance: Alert, WD/WN, No Apparent Distress Eye Exam: Bilateral Eye: EOMI, Normal Inspection Ears: Normal External Exam, Hearing Grossly Normal Nose: Normal Inspection Throat/Mouth: Normal Inspection, Normal Lips, Normal Voice, No Airway Compromise Head: Atraumatic, Normocephalic Neck: Normal Inspection, Full Range of Motion Respiratory/Chest: No Respiratory Distress, Lungs Clear, Normal Breath Sounds, No Accessory Muscle Use Cardiovascular: Normal Peripheral Pulses, Regular Rate, Rhythm, No Gallop, No JVD, No Murmur, No Rub GI/Abdominal: Normal Bowel Sounds, Soft, No Organomegaly, No Distention, No Abnormal Bruit, No Mass, Tender (mild, generalized, probably greater in the left lower quadrant and right lower quadrant than elsewhere) Back Exam: Normal Inspection, Full Range of Motion. No: CVA Tenderness (L), CVA Tenderness (R) Extremities: Normal Inspection, Normal Range of Motion, Normal Capillary Refill Neurological: Alert, Oriented, Normal Cognition, No Motor/Sensory Deficits Psychiatric: Normal Affect Skin Exam: Warm, Dry, Intact, Normal Color, No Rash Course - Vital Signs Last Recorded V/S: Last Vital Signs Temp 36.4 C 11/28/20 22:07 Pulse 90 11/28/20 22:07 Resp 20 11/28/20 22:07 BP 167/102 H 11/28/20 22:07 Pulse Ox 99 11/28/20 22:07 - Orders/Labs/Meds Labs: Laboratory Tests 11/28/20 11/28/20 11/28/20 Range/Units 22:25 22:25 23:13 WBC 14.67 H (3.98-10.04) K/mm3 RBC 4.57 (3.98-5.22) M/mm3 Hgb 13.5 (11.2-15.7) gm/dl Hct 42.0 (34.1-44.9) % MCV 91.9 (79.4-94.8) fl MCH 29.5 (25.6-32.2) pg MCHC 32.1 L (32.2-35.5) g/dl RDW Std Deviation 50.3 H (36.4-46.3) fL Plt Count 365 (182-369) K/mm3 MPV 8.1 L (9.4-12.3) fl Neutrophils % (Manual) 82 H (40-60) % Band Neutrophils % 0 (0-10) % Lymphocytes % (Manual) 11 L (20-40) % Atypical Lymphs % 0 % Monocytes % (Manual) 7 (2-10) % Eosinophils % (Manual) 0 L (0.7-5.8) % Basophils % (Manual) 0 L (0.1-1.2) Platelet Estimate Adequate RBC Morph Comment Normal Sodium (136-145) mEq/L Potassium (3.5-5.1) mEq/L Chloride (98-107) mEq/L Carbon Dioxide (21-32) mEq/L Anion Gap (5-15) BUN (7-18) mg/dL Creatinine (0.55-1.02) mg/dL Est Cr Clr Drug Dosing Estimated GFR (MDRD) (>60) mL/min BUN/Creatinine Ratio (14-18) Glucose (70-99) mg/dL Calcium (8.5-10.1) mg/dL Magnesium (1.8-2.4) mg/dL Total Bilirubin (0.2-1.0) mg/dL AST (15-37) U/L ALT (14-59) U/L Alkaline Phosphatase (46-116) U/L Total Protein (6.4-8.2) g/dl Albumin (3.4-5.0) g/dl Globulin gm/dL Albumin/Globulin Ratio (1-2) Urine Color [place] H (Yellow) Urine Appearance Slt cloudy H (Clear) Urine pH 7.0 (5.0-8.0) Ur Specific [place] 1.025 (1.005-1.030) Urine Protein 2+ H (Negative) Urine Glucose (UA) Negative (Negative) Urine Ketones Negative (Negative) Urine Occult Blood 3+ H (Negative) Urine Nitrite Negative (Negative) Urine Bilirubin Negative (Negative) Urine Urobilinogen 0.2 (0.2-1.0) Ur Leukocyte Esterase Negative (Negative) Urine RBC >100 H (0-5) /hpf Urine WBC 0-5 (0-5) /hpf Ur Squamous Epith Cells 0-5 (0-5) /hpf Urine Bacteria Few (FEW) /hpf Urine Mucus Not seen (FEW) /hpf Urine HCG, Qual Negative (NEGATIVE) 11/28/20 Range/Units 23:13 WBC (3.98-10.04) K/mm3 RBC (3.98-5.22) M/mm3 Hgb (11.2-15.7) gm/dl Hct (34.1-44.9) % MCV (79.4-94.8) fl MCH (25.6-32.2) pg MCHC (32.2-35.5) g/dl RDW Std Deviation (36.4-46.3) fL Plt Count (182-369) K/mm3 MPV (9.4-12.3) fl Neutrophils % (Manual) (40-60) % Band Neutrophils % (0-10) % Lymphocytes % (Manual) (20-40) % Atypical Lymphs % % Monocytes % (Manual) (2-10) % Eosinophils % (Manual) (0.7-5.8) % Basophils % (Manual) (0.1-1.2) Platelet Estimate RBC Morph Comment Sodium 142 (136-145) mEq/L Potassium 4.1 (3.5-5.1) mEq/L Chloride 104 (98-107) mEq/L Carbon Dioxide 27 (21-32) mEq/L Anion Gap 15.1 H (5-15) BUN 16 (7-18) mg/dL Creatinine 0.8 (0.55-1.02) mg/dL Est Cr Clr Drug Dosing TNP Estimated GFR (MDRD) > 60 (>60) mL/min BUN/Creatinine Ratio 20.0 H (14-18) Glucose 141 H (70-99) mg/dL Calcium 9.0 (8.5-10.1) mg/dL Magnesium 1.8 (1.8-2.4) mg/dL Total Bilirubin 0.8 (0.2-1.0) mg/dL AST 10 L (15-37) U/L ALT 30 (14-59) U/L Alkaline Phosphatase 38 L (46-116) U/L Total Protein 7.6 (6.4-8.2) g/dl Albumin 3.7 (3.4-5.0) g/dl Globulin 3.9 gm/dL Albumin/Globulin Ratio 1.0 (1-2) Urine Color (Yellow) Urine Appearance (Clear) Urine pH (5.0-8.0) Ur Specific [place] (1.005-1.030) Urine Protein (Negative) Urine Glucose (UA) (Negative) Urine Ketones (Negative) Urine Occult Blood (Negative) Urine Nitrite (Negative) Urine Bilirubin (Negative) Urine Urobilinogen (0.2-1.0) Ur Leukocyte Esterase (Negative) Urine RBC (0-5) /hpf Urine WBC (0-5) /hpf Ur Squamous Epith Cells (0-5) /hpf Urine Bacteria (FEW) /hpf Urine Mucus (FEW) /hpf Urine HCG, Qual (NEGATIVE) Meds: Medications Discontinued Medications Generic Name Dose Route Start Last Admin Trade Name Getq PRN Reason Stop Dose Admin Hydromorphone HCl 1 mg 11/28/20 23:07 11/28/20 23:19 Hydromorphone 1 Mg/Ml Syringe IVPUSH 11/28/20 23:08 1 mg ONETIME ONE Administration Hydromorphone HCl 1 mg 11/29/20 00:09 Hydromorphone 1 Mg/Ml Syringe IVPUSH 11/29/20 00:10 ONETIME ONE Sodium Chloride 1,000 mls @ 999 mls/hr 11/28/20 23:07 11/28/20 23:24 Normal Saline IV 11/29/20 00:07 999 mls/hr ONETIME ONE Administration Ondansetron HCl 4 mg 11/28/20 23:16 11/28/20 23:24 Ondansetron 4 Mg/2 Ml Sdv IVPUSH 11/28/20 23:17 4 mg ONETIME ONE Administration - Re-Assessments/Exams Free Text/Narrative Re-Assessment/Exam: 11/28/20 23:10 As above, the patient has had bilateral flank pain radiating to her bilateral lower abdomen, along with waxing and waning gross hematuria, for about 1 month, with worsening of her symptoms since . No fever, nausea, vomiting, constipation, or diarrhea, although she reports 1 month of dysuria, also worse since . She is requesting pain medication and IV fluid, not diagnostic work-up. On physical exam, the patient reports generalized abdominal pain, probably worse in the left lower quadrant and right lower quadrant than elsewhere, and she reports bilateral CVA tenderness. A urinalysis, ordered at triage, is remarkable for 3+ occult blood with >100 RBCs, leukocyte esterase negative with 0-5 WBCs, nitrate negative with few bacteria, and 0-5 squamous epithelial cells. A urine test is negative. I have ordered a CBC, CMP, and magnesium level, and in the meantime, the patient will be given 1 L of IV fluid and IV Dilaudid. 11/28/20 23:16 Notified by Ángel PETERSON that the patient told her that she developed nausea, and is requesting something for nausea as well. I ordered IV Zofran. 11/29/20 00:03 The patient CBC is remarkable for leukocytosis of 14.67, with 0% bandemia, and the remainder of her CBC being unremarkable. Her CMP is remarkable for hyperglycemia of 141, and is otherwise unremarkable. Her magnesium level is within normal limits at 1.8. 11/29/20 00:09 Test results discussed with the patient. She is feeling considerably better, but requested an additional dose of Dilaudid. She has about 300 mL of IV fluid remaining. She will be discharged home when that finishes infusing. Departure - Departure Time of Disposition: 00:11 Disposition: Home, Self-Care 01 Condition: Good Clinical Impression: Flank pain, Gross hematuria, Prediabetes - Discharge Information *PRESCRIPTION DRUG MONITORING PROGRAM REVIEWED*: Not Applicable *COPY OF PRESCRIPTION DRUG MONITORING REPORT IN PATIENT [place]: Not Applicable Referrals: Shy Fuchs PA-C [Primary Care Provider] - Manuel Viveros MD [Ordering Only Provider] - Laquita Bird MD [Ordering Only Provider] - Huber Alcala [Ordering Only Provider] - Richard Taylor MD [Ordering Only Provider] - Forms: ED Department Discharge Additional Instructions: You were seen in the emergency room for 1 month of waxing and waning pain in both of your flanks, blood in your urine, and painful urination, all worse since . Work-up in the ER included several blood tests, a urinalysis, and a urine test. Your blood work found your blood sugar to be elevated at 141, consistent with prediabetes, and there was blood in your urine, but no sign of a urinary tract infection. The remainder of your work-up was unremarkable. You were treated with IV fluid, IV Dilaudid, and IV Zofran in the ER. You may resume your usual medications, as prescribed. Please follow-up with your PCP, FOSTER Boone, to establish a plan for what to do if you have flares of pain. Please follow-up with your Urologist at the next available appointment. If any other problems, please do not hesitate to return to the ER. Sepsis Event Note (ED) - Focused Exam Vital Signs: Vital Signs Temp Pulse Resp BP Pulse Ox 11/28/20 22:07 36.4 C 90 20 167/102 H 99
[2020-11-28] MEDS ORDERED: Ondansetron 4 MG/2 ML SDV IVPUSH ONE (23:16)
[2020-11-29] MEDS ORDERED: HYDROmorphone 1 MG/ML Syringe IVPUSH ONE (00:09)
[2020-11-29 00:40] VITALS: BP 142/99; PULSE 71
== END 2020-11-29 00:40 | disposition home or self-care (01) ==
LOC: JD.ED 21:43
DX: R31.0 Gross hematuria (principal); R10.84 Generalized abdominal pain; R73.03 Prediabetes; E66.9 Obesity, unspecified; Z88.1 Allergy status to other antibiotic agents; Z91.018 Allergy to other foods; Z88.0 Allergy status to penicillin; Z88.8 Allergy status to other drugs, medicaments and biological substances; Z79.899 Other long term (current) drug therapy
CPT/HCPCS: 36415; 80053; 81001; 81025; 83735; 85007; 85027; 96374; 96375; 96376; 99284; J1170; J2405; J7030

== ENCOUNTER 2020-12-24 14:00 | Emergency (ER) | payer MEDICAID ==
[2020-12-24] MEDS ORDERED: Sodium Chloride 0.9% 10 ML Syringe FLUSH PRN (14:34)
[2020-12-24] MEDS ORDERED: Dicyclomine 10 MG Cap PO ONE (14:34)
[2020-12-24] MEDS ORDERED: HYDROmorphone 0.5 MG/0.5 ML Syringe IVPUSH ONE ×2 (14:43→15:59)
[2020-12-24] MEDS ORDERED: Ketorolac 30 MG/ML SDV IVPUSH ONE (14:43)
--- NOTE | 2020-12-24 14:50 | EDM.PDOC ---
ED HPI GENERAL MEDICAL PROBLEM - General Chief Complaint: Abdominal Pain Stated Complaint: C DIFF HAVING ALOT OF PAIN Time Seen by Provider: 12/24/20 14:24 Source of Information: Reports: Patient, RN Notes Reviewed History Limitations: Reports: No Limitations - History of Present Illness INITIAL COMMENTS - FREE TEXT/NARRATIVE: Patient is a 30-year-old female who presents to the ER for evaluation of abdominal pain. Patient has an extensive history of visits to this ER. She had C. 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 Patient states she became ill after this with a kidney stone and received 1 dose of antibiotics, and then again redeveloped C. difficile. She has been admitted to the hospital in [place], for IV vancomycin, and has continued oral vancomycin for ongoing management. She has been in contact with her GI doctor at [place], and they state that they cannot get her until possibly March for another fecal transplant. Patient's not had any sort of fevers or chills, cough or shortness of breath, but she is having increased abdominal pain, and obviously having loose stools per day. She states that she has a history of autoimmune disorders as well, and is chronically on steroids and her doctor is trying to taper her off the steroids as well. She is recently went from 60 mg, down to 40 mg. So she believes that some of her abdomen pain could be due to the decrease in steroids. Lower Abdomen Pain Score (Numeric/FACES): 7 - Related Data Allergies Allergy/AdvReac Type Severity Reaction Status Date / Time clindamycin Allergy Intermediate Rash Verified 11/03/20 14:05 lemon Allergy Intermediate Hives Verified 11/03/20 14:05 Penicillins Allergy Intermediate Hives Verified 11/03/20 14:05 potassium chloride Allergy Intermediate Hives Verified 11/03/20 14:05 ciprofloxacin Allergy Mild Itching Verified 11/03/20 14:05 amoxicillin Allergy Unknown Other Verified 11/03/20 14:05 amoxicillin trihydrate Allergy Unknown Other Verified 11/03/20 14:05 [From Augmentin] potassium clavulanate Allergy Unknown Other Verified 11/03/20 14:05 [From Augmentin] diphenhydramine HCl AdvReac Mild "muscle Verified 11/03/20 14:05 [From Benadryl] aches" Home Meds: Home Meds Albuterol Sulfate [Proair Hfa] 2 puff IH Q4H PRN 11/22/17 [History] ondansetron HCL [Zofran] 4 mg BUCCAL Q8H PRN 11/22/17 [History] traMADol [Ultram] 50 mg PO Q6H PRN 11/22/17 [History] Ibuprofen [Advil] 800 mg PO BID PRN 10/06/19 [History] predniSONE [Prednisone] 60 mg PO DAILY 10/06/19 [History] Acetaminophen/oxyCODONE [Percocet 325-5 MG] 1 each PO Q6H PRN #20 tab 11/02/20 [Rx] Ketorolac [Toradol] 10 mg PO TID PRN #10 tab 12/24/20 [Rx] Past Medical History HEENT History: Reports: Impaired Vision Other HEENT History: wears glasses Cardiovascular History: Reports: Arrhythmia Other Cardiovascular History: SVT, varicose veins Respiratory History: Reports: Asthma, Other (See Below) Other Respiratory History: pleurisy Gastrointestinal History: Reports: Diverticulosis Other Gastrointestinal History: 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 Musculoskeletal History: Reports: RA, SLE, Other (See Below) Other Musculoskeletal History: Sjogren syndrome Neurological History: Reports: Migraines Psychiatric History: Reports: Anxiety, Depression Other Psychiatric History: PP depression following second child's delivery. Endocrine/Metabolic History: Reports: Obesity/BMI 30+ Hematologic History: Reports: Anemia Immunologic History: Reports: SLE, Other (See Below) Other Immunologic History: lupus Dermatologic History: Reports: Other (See Below) Other Dermatologic History: Severe cellulitis with pseudomonal infection to L ear cartlidge following ear piercing at age 11--required a PICC line and 6 weeks of IV abx as well as two reconstructive surgeries following daily debridement over a period of weeks as well; sores/lesions to neck and face occasionally - Infectious Disease History Infectious Disease History: Reports: C-Difficile - Past Surgical History HEENT Surgical History: Reports: Oral Surgery Other HEENT Surgeries/Procedures: ear piercing removed; wisdom teeth removed Cardiovascular Surgical History: Reports: Cardiac Ablation GI Surgical History: Reports: Cholecystectomy, Colonoscopy, EGD Female Surgical History: Reports: D&C, Lithotripsy/ESWL Social & Family History - Family History Family Medical History: No Pertinent Family History - Tobacco Use Tobacco Use Status *Q: Never Tobacco User Second Hand Smoke Exposure: No - Caffeine Use Caffeine Use: Reports: Coffee, Soda Other Caffeine Use: coffee rarely Caffeine Use Comment: 1 cup per day - Recreational Drug Use Recreational Drug Use: No - Living Situation & Occupation Living situation: Reports: , with Spouse, with Family (6 kids) Occupation: Unemployed ED ROS GENERAL - Review of Systems Review Of Systems: Comprehensive ROS is negative, except as noted in HPI. ED EXAM, GI/ABD - Physical Exam Exam: See Below Exam Limited By: No Limitations General Appearance: Alert, WD/WN, No Apparent Distress Respiratory/Chest: No Respiratory Distress, Lungs Clear, Normal Breath Sounds, No Accessory Muscle Use, Chest Non-Tender Cardiovascular: Normal Peripheral Pulses, Regular Rate, Rhythm, No Edema GI/Abdominal Exam: Normal Bowel Sounds, Soft, No Distention, No Mass, Tender (generalized) Extremities: Normal Inspection, Normal Capillary Refill Neurological: Alert, Oriented, Normal Cognition, No Motor/Sensory Deficits Psychiatric: Normal Affect, Normal Mood Skin Exam: Warm, Dry, Intact, Normal Color, No Rash Course - Orders/Labs/Meds Orders: Active Orders 24 hr Category Date Time Status Peripheral IV Care [RC] . DIRECTED Care 12/24/20 14:34 Ordered Sodium Chloride 0.9% [Saline Flush] Med 12/24/20 14:34 Ordered 10 ml FLUSH ASDIRECTED PRN Peripheral IV Insertion Adult [OM.PC] Routine Oth 12/24/20 14:33 Ordered Medication Orders Sodium Chloride (Sodium Chloride 0.9% 10 Ml Syringe) 10 ml FLUSH ASDIRECTED PRN PRN Reason: Keep Vein Open Last Admin: 12/24/20 15:11 Dose: 10 ml Documented by: OLIVER Labs: Laboratory Tests 12/24/20 12/24/20 Range/Units 15:00 15:00 WBC 14.95 H (3.98-10.04) K/mm3 RBC 4.47 (3.98-5.22) M/mm3 Hgb 13.2 (11.2-15.7) gm/dl Hct 41.4 (34.1-44.9) % MCV 92.6 (79.4-94.8) fl MCH 29.5 (25.6-32.2) pg MCHC 31.9 L (32.2-35.5) g/dl RDW Std Deviation 49.5 H (36.4-46.3) fL Plt Count 365 (182-369) K/mm3 MPV 8.4 L (9.4-12.3) fl Neut % (Auto) 86.7 H (34.0-71.1) % Lymph % (Auto) 6.4 L (19.3-51.7) % Morrison % (Auto) 4.9 (4.7-12.5) % Eos % (Auto) 0.1 L (0.7-5.8) Baso % (Auto) 0.1 (0.1-1.2) % Neut # (Auto) 12.95 H (1.56-6.13) K/mm3 Lymph # (Auto) 0.96 L (1.18-3.74) K/mm3 Morrison # (Auto) 0.74 H (0.24-0.36) K/mm3 Eos # (Auto) 0.01 L (0.04-0.36) K/mm3 Baso # (Auto) 0.02 (0.01-0.08) K/mm3 Sodium 140 (136-145) mEq/L Potassium 4.0 (3.5-5.1) mEq/L Chloride 101 (98-107) mEq/L Carbon Dioxide 28 (21-32) mEq/L Anion Gap 15.0 (5-15) BUN 20 H (7-18) mg/dL Creatinine 1.1 H (0.55-1.02) mg/dL Est Cr Clr Drug Dosing 63.40 mL/min Estimated GFR (MDRD) 58 (>60) mL/min BUN/Creatinine Ratio 18.2 H (14-18) Glucose 183 H (70-99) mg/dL Calcium 9.9 (8.5-10.1) mg/dL Magnesium 1.8 (1.8-2.4) mg/dL Total Bilirubin 1.0 (0.2-1.0) mg/dL AST 20 (15-37) U/L ALT 37 (14-59) U/L Alkaline Phosphatase 38 L (46-116) U/L Total Protein 7.3 (6.4-8.2) g/dl Albumin 3.5 (3.4-5.0) g/dl Globulin 3.8 gm/dL Albumin/Globulin Ratio 0.9 L (1-2) Meds: Medications Generic Name Dose Route Start Last Admin Trade Name Freq PRN Reason Stop Dose Admin Sodium Chloride 10 ml 12/24/20 14:34 12/24/20 15:11 Sodium Chloride 0.9% 10 Ml Syringe FLUSH 10 ml ASDIRECTED PRN Administration Keep Vein Open Discontinued Medications Generic Name Dose Route Start Last Admin Trade Name Freq PRN Reason Stop Dose Admin Dicyclomine HCl 20 mg 12/24/20 14:34 12/24/20 15:10 Dicyclomine 10 Mg Cap PO 12/24/20 14:35 20 mg ONETIME ONE Administration Hydromorphone HCl 0.5 mg 12/24/20 14:43 12/24/20 15:10 Hydromorphone 0.5 Mg/0.5 Ml Syringe IVPUSH 12/24/20 14:44 0.5 mg ONETIME ONE Administration Hydromorphone HCl 0.5 mg 12/24/20 15:59 Hydromorphone 0.5 Mg/0.5 Ml Syringe IVPUSH 12/24/20 16:00 ONETIME ONE Ketorolac Tromethamine 30 mg 12/24/20 14:43 12/24/20 15:10 Ketorolac 30 Mg/Ml Sdv IVPUSH 12/24/20 14:44 30 mg ONETIME ONE Administration Ondansetron HCl 4 mg 12/24/20 15:21 12/24/20 15:35 Ondansetron 4 Mg/2 Ml Sdv IVPUSH 12/24/20 15:22 4 mg ONETIME ONE Administration - Re-Assessments/Exams Free Text/Narrative Re-Assessment/Exam: 12/24/20 14:50 Patient presents to the ER for the evaluation of her abdominal pain. An abdominal pelvis CT was offered for further evaluation however the patient has had multiple of these and would rather not risk more radiation exposure if possible. We will go ahead and check some basic labs, give her some IV pain meds for further management. Departure - Departure Time of Disposition: 16:00 Disposition: Home, Self-Care 01 Condition: Good Clinical Impression: Abdominal pain Qualifiers: Abdominal location: generalized Qualified Code(s): R10.84 - Generalized abdominal pain - Discharge Information *PRESCRIPTION DRUG MONITORING PROGRAM REVIEWED*: No *COPY OF PRESCRIPTION DRUG MONITORING REPORT IN PATIENT FLORENTINO: No Prescriptions: Ketorolac [Toradol] 10 mg PO TID PRN #10 tab PRN Reason: Pain Instructions: Abdominal Pain, Adult, [id number] Referrals: Shy Fuchs PA-C [Primary Care Provider] - Forms: ED Department Discharge Additional Instructions: You were evaluated in the ER today for abdominal discomfort. Laboratory evaluation done at today's visit is essentially unremarkable for your clinical situation. I would recommend that if you feel better taking the prednisone at a 60 mg dose, please continue that dose and talk with your provider that was trying to de crease this. You have been given a prescription for a few tablets of Toradol, this is for your arthritis/back pain. Please do not take more than 3 days in a row and take as few days as possible to achieve adequate pain management. Do not take this while you are taking the prednisone, as it can cause some GI discomfort. Recommend that you take a medication like Pepcid or omeprazole if you are not already doing so, to protect your stomach while using these medications together. The Toradol prescription has been sent to the clinic pharmacy located in the [facility]. Would recommend that you take 1-1/2 tablets of your oxycodone/acetaminophen 10/325 mg tablets at home for ongoing pain management over the next few days. Please keep in contact with your GI team to keep asking them about if they can get you in sooner for a fecal transplant. Do not hesitate to return to the ER at any time if symptoms change or worsen. - My Orders Last 24 Hours: My Active Orders 12/24/20 14:33 Peripheral IV Insertion Adult [OM.PC] Routine 12/24/20 14:34 Peripheral IV Care [RC] . DIRECTED Sodium Chloride 0.9% [Saline Flush] 10 ml FLUSH ASDIRECTED PRN - Assessment/Plan Last 24 Hours: My Active Orders 12/24/20 14:33 Peripheral IV Insertion Adult [OM.PC] Routine 12/24/20 14:34 Peripheral IV Care [RC] . DIRECTED Sodium Chloride 0.9% [Saline Flush] 10 ml FLUSH ASDIRECTED PRN
[2020-12-24] MEDS ORDERED: Ondansetron 4 MG/2 ML SDV IVPUSH ONE (15:21)
== END 2020-12-24 16:25 | disposition home or self-care (01) ==
LOC: JD.ED 14:00
DX: R10.84 Generalized abdominal pain (principal); J45.909 Unspecified asthma, uncomplicated; E66.9 Obesity, unspecified; Z88.0 Allergy status to penicillin; Z88.1 Allergy status to other antibiotic agents; Z88.8 Allergy status to other drugs, medicaments and biological substances; Z68.36 Body mass index [BMI] 36.0-36.9, adult
CPT/HCPCS: 36415; 80053; 83735; 85025; 96374; 96375; 96376; 99284; A9270; J1170; J1885; J2405

== ENCOUNTER 2021-01-05 13:07 | Emergency (ER) | payer MEDICAID ==
[2021-01-05] MEDS ORDERED: Sodium Chloride 0.9% 10 ML Syringe FLUSH PRN (15:08)
[2021-01-05] MEDS ORDERED: HYDROmorphone 1 MG/ML Syringe IVPUSH ONE (15:08)
[2021-01-05] MEDS ORDERED: Sodium Chloride 0.9% 1,000 ML IV ONE (15:08)
[2021-01-05] MEDS ORDERED: Ondansetron 4 MG/2 ML SDV IVPUSH ONE (15:13)
--- NOTE | 2021-01-05 15:19 | EDM.PDOC ---
ED HPI GENERAL MEDICAL PROBLEM - General Chief Complaint: Abdominal Pain Stated Complaint: ABDOMINAL PAIN C DIFF + Time Seen by Provider: 01/05/21 15:08 Source of Information: Reports: Patient, RN Notes Reviewed History Limitations: Reports: No Limitations - History of Present Illness INITIAL COMMENTS - FREE TEXT/NARRATIVE: Patient is a 30-year-old female who presents to the ER for her ongoing abdominal discomfort. Patient is well-known to this ER for her prolonged bouts of C. difficile. Patient states that she has had a fecal transplant, at the beginning of the summer, then was placed on antibiotics after that, and developed C. difficile again. She has been in and out of the hospital for ongoing management. She went to see her scanner operator in [place] last week, and states that her provider put in a few calls and she is set to have a fecal transplant in [place] this coming . She states she is having a lot of nausea and vomiting, and patient states that she feels very weak. She has tried Tylenol and ibuprofen in her tramadol for abdominal pain management and states nothing really has been helping. She is worried that she will not really make it to her appointment this week in [place]. Denying any fevers or chills, cough or shortness of breath. Abdomen Pain Score (Numeric/FACES): 10 - Related Data Allergies Allergy/AdvReac Type Severity Reaction Status Date / Time amoxicillin Allergy Severe Other Verified 01/05/21 13:30 amoxicillin trihydrate Allergy Severe Other Verified 01/05/21 13:30 [From Augmentin] ciprofloxacin Allergy Severe Itching Verified 01/05/21 13:30 clindamycin Allergy Severe Rash Verified 01/05/21 13:30 lemon Allergy Severe Hives Verified 01/05/21 13:30 Penicillins Allergy Severe Hives Verified 01/05/21 13:30 potassium chloride Allergy Severe Hives Verified 01/05/21 13:30 potassium clavulanate Allergy Severe Other Verified 01/05/21 13:30 [From Augmentin] diphenhydramine HCl AdvReac Severe "muscle Verified 01/05/21 13:30 [From Benadryl] aches" Home Meds: Home Meds Albuterol Sulfate [Proair Hfa] 2 puff IH Q4H PRN 11/22/17 [History] ondansetron HCL [Zofran] 4 mg BUCCAL Q8H PRN 11/22/17 [History] traMADol [Ultram] 50 mg PO Q6H PRN 11/22/17 [History] Ibuprofen [Advil] 800 mg PO BID PRN 10/06/19 [History] predniSONE [Prednisone] 40 mg PO DAILY 10/06/19 [History] Past Medical History HEENT History: Reports: Impaired Vision Other HEENT History: wears glasses Cardiovascular History: Reports: Arrhythmia Other Cardiovascular History: SVT, varicose veins Respiratory History: Reports: Asthma, Other (See Below) Other Respiratory History: pleurisy Gastrointestinal History: Reports: Diverticulosis Other Gastrointestinal History: chronic c-diff with fecal transplant at [facility] [facility] in 10/19/20 Genitourinary History: Reports: Renal Calculus, Renal Disease Other Genitourinary History: thin basement membrane; painful Loin disease RESEARCH ASSISTANT PROFESSOR History: Reports: Spontaneous Other RESEARCH ASSISTANT PROFESSOR History: Hx of PP hemorrhage following third son's delivery. Musculoskeletal History: Reports: RA, SLE, Other (See Below) Other Musculoskeletal History: Sjogren syndrome Neurological History: Reports: Migraines Psychiatric History: Reports: Anxiety, Depression Other Psychiatric History: PP depression following second child's delivery. Endocrine/Metabolic History: Reports: Obesity/BMI 30+ Hematologic History: Reports: Anemia Immunologic History: Reports: SLE, Other (See Below) Other Immunologic History: lupus Dermatologic History: Reports: Other (See Below) Other Dermatologic History: Severe cellulitis with pseudomonal infection to L ear cartlidge following ear piercing at age 11--required a PICC line and 6 weeks of IV abx as well as two reconstructive surgeries following daily debridement over a period of weeks as well; sores/lesions to neck and face occasionally - Infectious Disease History Infectious Disease History: Reports: C-Difficile - Past Surgical History HEENT Surgical History: Reports: Oral Surgery Other HEENT Surgeries/Procedures: ear piercing removed; wisdom teeth removed Cardiovascular Surgical History: Reports: Cardiac Ablation Respiratory Surgical History: Reports: None GI Surgical History: Reports: Cholecystectomy, Colonoscopy, EGD Female Surgical History: Reports: D&C, Lithotripsy/ESWL Social & Family History - Family History Family Medical History: No Pertinent Family History - Tobacco Use Tobacco Use Status *Q: Never Tobacco User - Caffeine Use Caffeine Use: Reports: Soda Other Caffeine Use: coffee rarely Caffeine Use Comment: 1 cup per day - Recreational Drug Use Recreational Drug Use: No - Living Situation & Occupation Living situation: Reports: , with Spouse, with Family (6 kids) Occupation: Unemployed ED ROS GENERAL - Review of Systems Review Of Systems: Comprehensive ROS is negative, except as noted in HPI. ED EXAM, GI/ABD - Physical Exam Exam: See Below Exam Limited By: No Limitations General Appearance: Alert, WD/WN, No Apparent Distress Respiratory/Chest: No Respiratory Distress, Lungs Clear, Normal Breath Sounds, No Accessory Muscle Use, Chest Non-Tender Cardiovascular: Normal Peripheral Pulses, Regular Rate, Rhythm, No Edema GI/Abdominal Exam: Normal Bowel Sounds, Soft, No Distention, No Mass, Tender (slight generalized) Extremities: Normal Inspection, Normal Capillary Refill Neurological: Alert, Oriented, Normal Cognition, No Motor/Sensory Deficits Psychiatric: Normal Affect, Normal Mood Skin Exam: Warm, Dry, Intact, Normal Color, No Rash Course - Vital Signs Last Recorded V/S: Last Vital Signs Temp 97.9 F 01/05/21 13:28 Pulse 90 01/05/21 15:54 Resp 16 01/05/21 15:54 BP 149/97 H 01/05/21 15:54 Pulse Ox 97 01/05/21 15:54 - Orders/Labs/Meds Orders: Active Orders 24 hr Category Date Time Status Peripheral IV Care [RC] . DIRECTED Care 01/05/21 15:09 Active Sodium Chloride 0.9% [Saline Flush] Med 01/05/21 15:08 Active 10 ml FLUSH ASDIRECTED PRN Peripheral IV Insertion Adult [OM.PC] Routine Oth 01/05/21 15:08 Ordered Medication Orders Sodium Chloride (Sodium Chloride 0.9% 10 Ml Syringe) 10 ml FLUSH ASDIRECTED PRN PRN Reason: Keep Vein Open Last Admin: 01/05/21 15:50 Dose: 10 ml Documented by: SHANIQUE Labs: Laboratory Tests 01/05/21 01/05/21 Range/Units 15:40 15:40 WBC 14.25 H (3.98-10.04) K/mm3 RBC 4.59 (3.98-5.22) M/mm3 Hgb 13.5 (11.2-15.7) gm/dl Hct 42.2 (34.1-44.9) % MCV 91.9 (79.4-94.8) fl MCH 29.4 (25.6-32.2) pg MCHC 32.0 L (32.2-35.5) g/dl RDW Std Deviation 49.7 H (36.4-46.3) fL Plt Count 422 H (182-369) K/mm3 MPV 8.4 L (9.4-12.3) fl Neut % (Auto) 88.1 H (34.0-71.1) % Lymph % (Auto) 6.7 L (19.3-51.7) % [place] % (Auto) 3.6 L (4.7-12.5) % Eos % (Auto) 0 L (0.7-5.8) Baso % (Auto) 0.1 (0.1-1.2) % Neut # (Auto) 12.55 H (1.56-6.13) K/mm3 Lymph # (Auto) 0.95 L (1.18-3.74) K/mm3 [place] # (Auto) 0.51 H (0.24-0.36) K/mm3 Eos # (Auto) 0.00 L (0.04-0.36) K/mm3 Baso # (Auto) 0.02 (0.01-0.08) K/mm3 Sodium 139 (136-145) mEq/L Potassium 3.7 (3.5-5.1) mEq/L Chloride 104 (98-107) mEq/L Carbon Dioxide 25 (21-32) mEq/L Anion Gap 13.7 (5-15) BUN 18 (7-18) mg/dL Creatinine 1.0 (0.55-1.02) mg/dL Est Cr Clr Drug Dosing 69.74 mL/min Estimated GFR (MDRD) > 60 (>60) mL/min BUN/Creatinine Ratio 18.0 (14-18) Glucose 159 H (70-99) mg/dL Calcium 10.0 (8.5-10.1) mg/dL Total Bilirubin 1.3 H (0.2-1.0) mg/dL AST 15 (15-37) U/L ALT 42 (14-59) U/L Alkaline Phosphatase 38 L (46-116) U/L Total Protein 7.8 (6.4-8.2) g/dl Albumin 3.8 (3.4-5.0) g/dl Globulin 4.0 gm/dL Albumin/Globulin Ratio 1.0 (1-2) Meds: Medications Generic Name Dose Route Start Last Admin Trade Name Jarvis PRN Reason Stop Dose Admin Sodium Chloride 10 ml 01/05/21 15:08 01/05/21 15:50 Sodium Chloride 0.9% 10 Ml Syringe FLUSH 10 ml ASDIRECTED PRN Administration Keep Vein Open Discontinued Medications Generic Name Dose Route Start Last Admin Trade Name Jarvis PRN Reason Stop Dose Admin Hydromorphone HCl 1 mg 01/05/21 15:08 01/05/21 15:47 Hydromorphone 1 Mg/Ml Syringe IVPUSH 01/05/21 15:09 1 mg ONETIME ONE Administration Sodium Chloride 1,000 mls @ 999 mls/hr 01/05/21 15:08 01/05/21 15:46 Normal Saline IV 01/05/21 16:08 999 mls/hr ONETIME ONE Administration Ondansetron HCl 4 mg 01/05/21 15:13 01/05/21 15:49 Ondansetron 4 Mg/2 Ml Sdv IVPUSH 01/05/21 15:14 4 mg ONETIME ONE Administration - Re-Assessments/Exams Free Text/Narrative Re-Assessment/Exam: 01/05/21 15:34 Patient presents to the ER for the evaluation of her abdominal pain, and possible dehydration. Due to this patient being very well-known to the ER, we will get basic labs, patient would prefer not to have extra CT radiation if at all possible and I do not believe her clinical course warrants this at this time. We will go ahead and get her some IV fluids, IV pain meds and nausea meds for further management as well. 01/05/21 16:40 Patient was reassessed at bedside, and she states she is feeling a little bit better. I will go ahead and get her a prescription for Percocet tablets and dicyclomine tablets to the [facility] machine. Once the patient's fluids are done, we will go ahead and likely get her discharged home. Her white count was mildly elevated, but it is historically elevated due to her chronic prednisone use. Metabolic panel is still pending. 01/05/21 17:10 Metabolic panel is unremarkable. We will go ahead and get the patient discharged home. Departure - Departure Time of Disposition: 16:41 Disposition: Home, Self-Care 01 Condition: Good Clinical Impression: C. difficile colitis Abdominal pain Qualifiers: Abdominal location: generalized Qualified Code(s): R10.84 - Generalized abdominal pain - Discharge Information *PRESCRIPTION DRUG MONITORING PROGRAM REVIEWED*: No *COPY OF PRESCRIPTION DRUG MONITORING REPORT IN PATIENT FLORENTINO: No Instructions: Abdominal Pain, Adult, [id number] Referrals: Shy Fuchs PA-C [Primary Care Provider] - Forms: ED Department Discharge Additional Instructions: You were evaluated in the ER today for your ongoing abdominal pain, and issues with C. difficile. Basic laboratory evaluation to include a CBC and a CMP were performed and all of this was essentially unremarkable. You were given IV fluids, IV pain meds, and IV nausea meds for ongoing management in the ER. You were given a prescription for a strong pain medication, oxycodone/acetamino phen 5/325 mg, please take 2-3 tab every 6 hours as needed for pain not relieved by Tylenol or ibuprofen alone. Please note this medication does contain Tylenol in it, so do not take more than 4000 mg in a 24-hour time span. These medications can be addictive, so please take as few as possible to achieve adequate pain control. These meds can also be quite constipating, recommend that you increase your oral fluid intake and take a stool softener like MiraLAX while taking these medications. Do not drive while taking this medication. You were given a prescription for dicyclomine tablets as well, please take as directed. These medications were provided to you through the [facility] been seen in our ER waiting lobby. Please attend your appointment at [place] on for your next GI appointment. Please do not hesitate to return to the ER at any time if symptoms change or worsen. Sepsis Event Note (ED) - Evaluation Sepsis Screening Result: No Definite Risk - Focused Exam Vital Signs: Vital Signs Temp Pulse Resp BP Pulse Ox 01/05/21 15:54 90 16 149/97 H 97 01/05/21 13:28 97.9 F 104 H 18 155/104 H 99 - My Orders Last 24 Hours: My Active Orders 01/05/21 15:08 Sodium Chloride 0.9% [Saline Flush] 10 ml FLUSH ASDIRECTED PRN Peripheral IV Insertion Adult [OM.PC] Routine 01/05/21 15:09 Peripheral IV Care [RC] . DIRECTED - Assessment/Plan Last 24 Hours: My Active Orders 01/05/21 15:08 Sodium Chloride 0.9% [Saline Flush] 10 ml FLUSH ASDIRECTED PRN Peripheral IV Insertion Adult [OM.PC] Routine 01/05/21 15:09 Peripheral IV Care [RC] . DIRECTED
[2021-01-05 15:57] VITALS: BP 149/97; PULSE 90
== END 2021-01-05 17:52 | disposition home or self-care (01) ==
LOC: JD.ED 13:07
DX: A04.72 Enterocolitis due to Clostridium difficile, not specified as recurrent (principal); E66.9 Obesity, unspecified; Z88.0 Allergy status to penicillin; Z88.8 Allergy status to other drugs, medicaments and biological substances; Z79.899 Other long term (current) drug therapy; Z90.49 Acquired absence of other specified parts of digestive tract; Z68.36 Body mass index [BMI] 36.0-36.9, adult
CPT/HCPCS: 36415; 80053; 85025; 96374; 96375; 99284; J1170; J2405; J7030

== ENCOUNTER 2021-02-11 16:00 | Emergency (ER) | payer MEDICAID ==
[2021-02-11 16:29] VITALS: BP 153/88; PULSE 86
[2021-02-11] MEDS ORDERED: HYDROmorphone 0.5 MG/0.5 ML Syringe IVPUSH ONE ×2 (16:42→18:54)
[2021-02-11] MEDS ORDERED: Sodium Chloride 0.9% 1,000 ML IV STA (16:42)
[2021-02-11] MEDS ORDERED: Ondansetron 4 MG/2 ML SDV IVPUSH ONE (16:42)
--- NOTE | 2021-02-11 16:58 | EDM.PDOC ---
ED HPI GENERAL MEDICAL PROBLEM - General Chief Complaint: Abdominal Pain Stated Complaint: ABDOMINAL PAIN Time Seen by Provider: 02/11/21 16:20 Source of Information: Reports: Patient, RN Notes Reviewed History Limitations: Reports: No Limitations - History of Present Illness INITIAL COMMENTS - FREE TEXT/NARRATIVE: Patient is a 30-year-old female presenting to the emergency part with complaints of abdominal pain, diarrhea, and vomiting. Symptoms began at the end of January and have been progressively worsening. She developed vomiting on Monday and states that today she has been unble to keep food and liquids down. She took Zofran earlier today but vomited after. 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 States that 8 hours after the procedure her diarrhea resolved and she had been doing well until the end of January when her diarrhea recurred. She had been on oral vancomycin up until her fecal transplant the beginning of January. She denies any fever or chills. Abdominal pain is generalized but seems to be worse in the upper and left lateral abdomen. She also reports some low back pain and has a history of urinary tract infections. Left Abdomen Pain Score (Numeric/FACES): 6 - Related Data Allergies Allergy/AdvReac Type Severity Reaction Status Date / Time amoxicillin Allergy Severe Other Verified 01/05/21 13:30 amoxicillin trihydrate Allergy Severe Other Verified 01/05/21 13:30 [From Augmentin] ciprofloxacin Allergy Severe Itching Verified 01/05/21 13:30 clindamycin Allergy Severe Rash Verified 01/05/21 13:30 lemon Allergy Severe Hives Verified 01/05/21 13:30 Penicillins Allergy Severe Hives Verified 01/05/21 13:30 potassium chloride Allergy Severe Hives Verified 01/05/21 13:30 potassium clavulanate Allergy Severe Other Verified 01/05/21 13:30 [From Augmentin] diphenhydramine HCl AdvReac Severe "muscle Verified 01/05/21 13:30 [From Benadryl] aches" Home Meds: Home Meds Albuterol Sulfate [Proair Hfa] 2 puff IH Q4H PRN 11/22/17 [History] ondansetron HCL [Zofran] 4 mg BUCCAL Q8H PRN 11/22/17 [History] traMADol [Ultram] 50 mg PO Q6H PRN 11/22/17 [History] Ibuprofen [Advil] 800 mg PO BID PRN 10/06/19 [History] predniSONE [Prednisone] 30 mg PO DAILY 10/06/19 [History] Past Medical History HEENT History: Reports: Impaired Vision Other HEENT History: wears glasses Cardiovascular History: Reports: Arrhythmia Other Cardiovascular History: SVT, varicose veins Respiratory History: Reports: Asthma, Other (See Below) Other Respiratory History: pleurisy Gastrointestinal History: Reports: Diverticulosis Other Gastrointestinal History: chronic c-diff with fecal transplant at [facility] in 10/19/20 & Jan 07 2021 Genitourinary History: Reports: Renal Calculus, Renal Disease Other Genitourinary History: thin basement membrane; painful Loin disease REEL WORKER History: Reports: Spontaneous Other REEL WORKER History: Hx of PP hemorrhage following third son's delivery. Musculoskeletal History: Reports: RA, SLE, Other (See Below) Other Musculoskeletal History: Sjogren syndrome Neurological History: Reports: Migraines Psychiatric History: Reports: Anxiety, Depression Other Psychiatric History: PP depression following second child's delivery. Endocrine/Metabolic History: Reports: Obesity/BMI 30+ Hematologic History: Reports: Anemia Immunologic History: Reports: SLE, Other (See Below) Other Immunologic History: lupus Dermatologic History: Reports: Other (See Below) Other Dermatologic History: Severe cellulitis with pseudomonal infection to L ear cartlidge following ear piercing at age 11--required a PICC line and 6 weeks of IV abx as well as two reconstructive surgeries following daily debridement over a period of weeks as well; sores/lesions to neck and face occasionally - Infectious Disease History Infectious Disease History: Reports: C-Difficile, Novel Coronavirus Other Infectious Disease History: feels she had covid but not tested - Past Surgical History HEENT Surgical History: Reports: Oral Surgery Other HEENT Surgeries/Procedures: ear piercing removed; wisdom teeth removed Cardiovascular Surgical History: Reports: Cardiac Ablation Respiratory Surgical History: Reports: None GI Surgical History: Reports: Cholecystectomy, Colonoscopy Female Surgical History: Reports: D&C, Lithotripsy/ESWL Endocrine Surgical History: Reports: None Neurological Surgical History: Reports: None Musculoskeletal Surgical History: Reports: None Dermatological Surgical History: Reports: None Social & Family History - Family History Family Medical History: No Pertinent Family History - Tobacco Use Tobacco Use Status *Q: Never Tobacco User - Caffeine Use Caffeine Use: Reports: Coffee Other Caffeine Use: coffee rarely Caffeine Use Comment: 1 cup per day - Recreational Drug Use Recreational Drug Use: No - Living Situation & Occupation Living situation: Reports: , with Spouse, with Family (6 kids) Occupation: Unemployed ED ROS GENERAL - Review of Systems Review Of Systems: Comprehensive ROS is negative, except as noted in HPI. ED EXAM, GI/ABD - Physical Exam Exam: See Below Exam Limited By: No Limitations General Appearance: Alert, WD/WN, No Apparent Distress Respiratory/Chest: No Respiratory Distress, Lungs Clear, Normal Breath Sounds, No Accessory Muscle Use, Chest Non-Tender Cardiovascular: Normal Peripheral Pulses, Regular Rate, Rhythm, No Edema, No Gallop, No JVD, No Murmur, No Rub GI/Abdominal Exam: Normal Bowel Sounds, Soft, No Organomegaly, No Distention, No Abnormal Bruit, No Mass, Pelvis Stable, Tender (Generalized throughout, worse i n the left upper and left lower quadrants) Back Exam: Normal Inspection, Full Range of Motion. No: CVA Tenderness (L), CVA Tenderness (R) Neurological: Alert, Oriented, CN II-XII Intact, Normal Cognition, Normal Gait, Normal Reflexes, No Motor/Sensory Deficits Psychiatric: Normal Affect, Normal Mood Skin Exam: Warm, Dry, Intact, Normal Color, No Rash Course - Vital Signs Last Recorded V/S: Last Vital Signs Temp 97.1 F 02/11/21 16:25 Pulse 86 02/11/21 16:25 Resp 20 02/11/21 16:25 BP 153/88 H 02/11/21 16:25 Pulse Ox 99 02/11/21 16:25 - Orders/Labs/Meds Orders: Active Orders 24 hr Category Date Time Status Abdomen Pelvis w Cont [CT] Stat Exams 02/11/21 19:53 Taken STOOL CULTURE/SHIGA TOXIN [MREF] Stat Lab 02/11/21 18:23 Received Labs: Laboratory Tests 02/11/21 02/11/21 02/11/21 Range/Units 17:07 17:07 17:32 WBC 12.46 H (3.98-10.04) K/mm3 RBC 4.44 (3.98-5.22) M/mm3 Hgb 13.1 (11.2-15.7) gm/dl Hct 41.2 (34.1-44.9) % MCV 92.8 (79.4-94.8) fl MCH 29.5 (25.6-32.2) pg MCHC 31.8 L (32.2-35.5) g/dl RDW Std Deviation 47.9 H (36.4-46.3) fL Plt Count 438 H (182-369) K/mm3 MPV 8.6 L (9.4-12.3) fl Neut % (Auto) 86.1 H (34.0-71.1) % Lymph % (Auto) 8.3 L (19.3-51.7) % [place] % (Auto) 4.4 L (4.7-12.5) % Eos % (Auto) 0.1 L (0.7-5.8) Baso % (Auto) 0.2 (0.1-1.2) % Neut # (Auto) 10.73 H (1.56-6.13) K/mm3 Lymph # (Auto) 1.04 L (1.18-3.74) K/mm3 [place] # (Auto) 0.55 H (0.24-0.36) K/mm3 Eos # (Auto) 0.01 L (0.04-0.36) K/mm3 Baso # (Auto) 0.02 (0.01-0.08) K/mm3 Sodium 141 (136-145) mEq/L Potassium 3.6 (3.5-5.1) mEq/L Chloride 103 (98-107) mEq/L Carbon Dioxide 26 (21-32) mEq/L Anion Gap 15.6 H (5-15) BUN 16 (7-18) mg/dL Creatinine 0.9 (0.55-1.02) mg/dL Est Cr Clr Drug Dosing 77.49 mL/min Estimated GFR (MDRD) > 60 (>60) mL/min BUN/Creatinine Ratio 17.8 (14-18) Glucose 190 H (70-99) mg/dL Calcium 9.7 (8.5-10.1) mg/dL Total Bilirubin 1.5 H (0.2-1.0) mg/dL AST 13 L (15-37) U/L ALT 22 (14-59) U/L Alkaline Phosphatase 36 L (46-116) U/L C-Reactive Protein < 0.2 (<1.0) mg/dL Total Protein 7.7 (6.4-8.2) g/dl Albumin 3.8 (3.4-5.0) g/dl Globulin 3.9 gm/dL Albumin/Globulin Ratio 1.0 (1-2) Urine Color Yellow (Yellow) Urine Appearance Slt cloudy H (Clear) Urine pH 6.5 (5.0-8.0) Ur Specific [place] 1.025 (1.005-1.030) Urine Protein 1+ H (Negative) Urine Glucose (UA) Negative (Negative) Urine Ketones Negative (Negative) Urine Occult Blood 3+ H (Negative) Urine Nitrite Negative (Negative) Urine Bilirubin Negative (Negative) Urine Urobilinogen 0.2 (0.2-1.0) Ur Leukocyte Esterase Negative (Negative) Urine RBC 10-20 H (0-5) /hpf Urine WBC 0-5 (0-5) /hpf Ur Squamous Epith Cells 10-20 H (0-5) /hpf Urine Bacteria Moderate H (FEW) /hpf Urine Mucus Few (FEW) /hpf C.difficile [id number] C. difficile Tox (PCR) 02/11/21 Range/Units 18:20 WBC (3.98-10.04) K/mm3 RBC (3.98-5.22) M/mm3 Hgb (11.2-15.7) gm/dl Hct (34.1-44.9) % MCV (79.4-94.8) fl MCH (25.6-32.2) pg MCHC (32.2-35.5) g/dl RDW Std Deviation (36.4-46.3) fL Plt Count (182-369) K/mm3 MPV (9.4-12.3) fl Neut % (Auto) (34.0-71.1) % Lymph % (Auto) (19.3-51.7) % [place] % (Auto) (4.7-12.5) % Eos % (Auto) (0.7-5.8) Baso % (Auto) (0.1-1.2) % Neut # (Auto) (1.56-6.13) K/mm3 Lymph # (Auto) (1.18-3.74) K/mm3 [place] # (Auto) (0.24-0.36) K/mm3 Eos # (Auto) (0.04-0.36) K/mm3 Baso # (Auto) (0.01-0.08) K/mm3 Sodium (136-145) mEq/L Potassium (3.5-5.1) mEq/L Chloride (98-107) mEq/L Carbon Dioxide (21-32) mEq/L Anion Gap (5-15) BUN (7-18) mg/dL Creatinine (0.55-1.02) mg/dL Est Cr Clr Drug Dosing mL/min Estimated GFR (MDRD) (>60) mL/min BUN/Creatinine Ratio (14-18) Glucose (70-99) mg/dL Calcium (8.5-10.1) mg/dL Total Bilirubin (0.2-1.0) mg/dL AST (15-37) U/L ALT (14-59) U/L Alkaline Phosphatase (46-116) U/L C-Reactive Protein (<1.0) mg/dL Total Protein (6.4-8.2) g/dl Albumin (3.4-5.0) g/dl Globulin gm/dL Albumin/Globulin Ratio (1-2) Urine Color (Yellow) Urine Appearance (Clear) Urine pH (5.0-8.0) Ur Specific [place] (1.005-1.030) Urine Protein (Negative) Urine Glucose (UA) (Negative) Urine Ketones (Negative) Urine Occult Blood (Negative) Urine Nitrite (Negative) Urine Bilirubin (Negative) Urine Urobilinogen (0.2-1.0) Ur Leukocyte Esterase (Negative) Urine RBC (0-5) /hpf Urine WBC (0-5) /hpf Ur Squamous Epith Cells (0-5) /hpf Urine Bacteria (FEW) /hpf Urine Mucus (FEW) /hpf C.difficile [id number] Presumptive negative C. difficile Tox (PCR) Negative Meds: Medications Discontinued Medications Generic Name Dose Route Start Last Admin Trade Name Freq PRN Reason Stop Dose Admin Hydromorphone HCl 0.5 mg 02/11/21 16:42 02/11/21 16:57 Hydromorphone 0.5 Mg/0.5 Ml Syringe IVPUSH 02/11/21 16:43 0.5 mg ONETIME ONE Administration Hydromorphone HCl 0.5 mg 02/11/21 18:54 02/11/21 19:20 Hydromorphone 0.5 Mg/0.5 Ml Syringe IVPUSH 02/11/21 18:55 0.5 mg ONETIME ONE Administration Sodium Chloride 1,000 mls @ 999 mls/hr 02/11/21 16:42 02/11/21 16:57 Normal Saline IV 02/11/21 17:42 999 mls/hr NOW STA Administration Iopamidol 100 ml 02/11/21 20:12 02/11/21 20:20 Iopamidol 612 Mg/Ml 100 Ml Bottle IVPUSH 02/11/21 20:13 100 ml ONETIME ONE Administration Ondansetron HCl 4 mg 02/11/21 16:42 02/11/21 16:57 Ondansetron 4 Mg/2 Ml Sdv IVPUSH 02/11/21 16:43 4 mg ONETIME ONE Administration Sodium Chloride 10 ml 02/11/21 20:12 02/11/21 20:20 Sodium Chloride 0.9% 10 Ml Sdv FLUSH 02/11/21 20:13 10 ml ONETIME ONE Administration - Re-Assessments/Exams Free Text/Narrative Re-Assessment/Exam: Patient is a 30-year-old female presenting to the emergency department with complaints of nausea vomiting abdominal cramping and diarrhea. She has a history of recurrent C. difficile. She has generalized abdominal tenderness worse in the left upper and left lower quadrants. Exam is otherwise unremarkable. Have ordered blood work, urinalysis, and stool studies. I will give her 1 L bolus of normal saline, Dilaudid, and Zofran. 02/11/21 19:52 Patient C. difficile is negative. Discussed further options with patient she would like to proceed with CT scan of the abdomen pelvis. She does not think she will be able to tolerate the oral contrast we will order with only IV contrast. 02/11/21 21:11 CT scan of the abdomen pelvis showed no acute findings. Results discussed with patient. She has Zofran at home. We will discharge her with [facility] prescription for dicyclomine and [place]. Discharge instructions as documented. Departure - Departure Time of Disposition: 21:11 Disposition: Home, Self-Care 01 Condition: Good Clinical Impression: Gastroenteritis - Discharge Information *PRESCRIPTION DRUG MONITORING PROGRAM REVIEWED*: Yes *COPY OF PRESCRIPTION DRUG MONITORING REPORT IN PATIENT [place]: No Instructions: Viral Gastroenteritis, Adult, [id number] Referrals: Shy Fuchs PA-C [Primary Care Provider] - Forms: ED Department Discharge Additional Instructions: Increase oral fluid intake. Use Tylenol ibuprofen is a for discomfort. For pain not relieved by this, you may use [address] [place] or work for 12 hours after taking this as it can be sedating. Use dicyclomine as needed for abdominal cramping and Zofran as needed for nausea. Follow-up with Rebecca Reyes on Monday. Return to ER as needed. Sepsis Event Note (ED) - Focused Exam Vital Signs: Vital Signs Temp Pulse Resp BP Pulse Ox 02/11/21 16:25 97.1 F 86 20 153/88 H 99 - My Orders Last 24 Hours: My Active Orders 02/11/21 18:23 STOOL CULTURE/SHIGA TOXIN [MREF] Stat 02/11/21 19:53 Abdomen Pelvis w Cont [CT] Stat - Assessment/Plan Last 24 Hours: My Active Orders 02/11/21 18:23 STOOL CULTURE/SHIGA TOXIN [MREF] Stat 02/11/21 19:53 Abdomen Pelvis w Cont [CT] Stat
[2021-02-11] MEDS ORDERED: Iopamidol 612 MG/ML 100 ML Bottle IVPUSH ONE (20:12)
[2021-02-11] MEDS ORDERED: Sodium Chloride 0.9% 10 ML SDV FLUSH ONE (20:12)
--- NOTE | 2021-02-12 05:56 | CT ---
CT abdomen and pelvis Technique: Multiple axial sections were obtained from above the dome of the diaphragm inferiorly through the pubic symphysis. Intravenous contrast was utilized. Delayed images were also obtained to the bladder. Reconstructed coronal and sagittal images were obtained. Comparison: Prior MRI abdomen study of 11/17/20 as well as prior noncontrast CT abdomen and pelvis study of 05/28/20. Findings: Visualized lung base shows nothing acute. Liver shows slight fatty infiltration. No focal abnormality is appreciated within the liver. Spleen size is normal. Surgical clips are seen which are from prior cholecystectomy. Adrenal glands show no nodules. Pancreas shows no discrete abnormality. Kidneys show several small nonobstructing calculi on both sides. Small cyst is noted within the left kidney. Slightly larger cyst is noted within the right kidney measuring 1.7 cm. No ureteral dilatation or bladder calculi are seen. Slight diastases of the rectus muscle is seen which contains fat. Abdominal aorta shows no aneurysm. No retroperitoneal adenopathy or mesenteric abnormalities are seen. No pelvic mass or adenopathy is seen. Delayed images showscontrast within the distal ureters and within the bladder. Bone window settings were reviewed which appear within normal limits for the patient's age. Impression: 1. Small nonobstructing calculi within both kidneys. Cysts within both kidneys. No ureteral dilatation or ureteral stone is seen. 2. Mild fatty infiltration within the liver. 3. Nothing acute is appreciated on CT study of the abdomen and pelvis. Diagnostic code #2 I agree with preliminary report from [facility], finalized on 02/11/21, 9:52 PM CDT, code 1
== END 2021-02-11 21:30 | disposition home or self-care (01) ==
LOC: JD.ED 16:00
DX: K52.9 Noninfective gastroenteritis and colitis, unspecified (principal); E66.9 Obesity, unspecified; Z68.36 Body mass index [BMI] 36.0-36.9, adult; Z88.0 Allergy status to penicillin; Z88.1 Allergy status to other antibiotic agents; Z91.018 Allergy to other foods; Z88.8 Allergy status to other drugs, medicaments and biological substances
CPT/HCPCS: 36415; 74177; 80053; 81001; 85025; 86140; 87045; 87046; 87493; 87899; 96374; 96375; 96376; 99284; J1170; J2405; J7030; Q9967

== ENCOUNTER 2021-02-15 21:28 | Emergency (ER) | payer MEDICAID ==
[2021-02-15 21:57] VITALS: BP 160/95; PULSE 85
[2021-02-15] MEDS ORDERED: Acetaminophen/HYDROcodone 325-5 MG Tab PO ONE (22:52)
--- NOTE | 2021-02-15 22:56 | EDM.PDOC ---
ED HPI GENERAL MEDICAL PROBLEM - General Chief Complaint: Gastrointestinal Problem Stated Complaint: ABD PAIN/BLOOD IN STOOLS Time Seen by Provider: 02/15/21 21:55 Source of Information: Reports: Patient, Old Records (ED visit 02/11/2021) History Limitations: Reports: No Limitations - History of Present Illness INITIAL COMMENTS - FREE TEXT/NARRATIVE: Mrs. Pablo is a pleasant 30-year-old woman with a past medical history significant for recurrent C. 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 Medical records indicate that the patient was seen in this ED on 02/11/2021, complaining at that time of abdominal pain, watery diarrhea, and vomiting since the end of January,, progressively worsening. She had not had fever or chills. She was found to be hemodynamically stable, afebrile, saturating 99% on room air. Work-up included a CBC, CMP, CRP, urinalysis, stool for C. difficile, a stool culture, and a CT of the abdomen and pelvis with IV contrast. She was found to have mild leukocytosis of 12.46, and thrombocytosis of 438. Her blood glucose was found to be elevated 190, and her TBil 1.5. Her CRP was undetectably low. Her urinalysis was remarkable for 3+ occult blood with 10-20 RBCs, and nitrate positive with moderate bacteria. Her C. difficile test was negative. The stool culture has since returned negative for growth of pathogens. The CT of her abdomen and pelvis was unremarkable. She was treated with 2 doses of IV Dilaudid, IV Zofran, and IV fluid before being discharged home with prescriptions for Zofran, Bentyl, and Mabelvale. The patient now states that her abdominal pain has been worsening. She reports anorexia since last 02/07/2021, and "gushing" bright red blood per rectum since 02/10/2021. She acknowledges that she has not followed up since her last ED visit, although she states that she has an appointment to see a new Education Director on 02/22/2021, in [place]. She states that she has been taking ibuprofen and acetaminophen, along with her prescription tramadol, which she states is "not touching" her abdominal pain. Here in the ED tonight, the patient's initial BP is found to be elevated at 160/95, otherwise, she is hemodynamically stable, afebrile, saturating 96% on room air. She appears to be comfortable, in no acute distress. The patient denies having a recent fever, chills, sore throat, ear pain, nasal or sinus congestion, cough, dyspnea, chest pain, palpitations, constipation, urinary symptoms, recent weight gain or weight loss, recent black bowel movements, recent joint aches, headaches, or rashes. I reviewed the PMHx/PSHx/SocHx, which was reviewed with the patient by the RN. The patient's PCP is FOSTER Boone. Her new Education Director is Dr. Jose Quiroz, in [place]. She has an appointment to meet him on 02/22/2021. Her Urologist is Dr. Manuel Viveros, at [facility]. Her Diesel Truck Crane Operator is Dr. Laquita Bird, at [facility]. Her EP Cfd Engineer is Dr. Huber Alcala. Her Neurologist is Dr. Andres Brown, in [place]. Her Seismic Engineer is Dr. Richard Taylor, at [facility]. She has an appointment to see him on 03/02/2021. She has not received a COVID vaccination, nor an influenza vaccination this season. abdomen Pain Score (Numeric/FACES): 4 - Related Data Allergies Allergy/AdvReac Type Severity Reaction Status Date / Time amoxicillin Allergy Severe Other Verified 02/15/21 21:57 amoxicillin trihydrate Allergy Severe Other Verified 02/15/21 21:57 [From Augmentin] ciprofloxacin Allergy Severe Itching Verified 02/15/21 21:57 clindamycin Allergy Severe Rash Verified 02/15/21 21:57 lemon Allergy Severe Hives Verified 02/15/21 21:57 Penicillins Allergy Severe Hives Verified 02/15/21 21:57 potassium chloride Allergy Severe Hives Verified 02/15/21 21:57 potassium clavulanate Allergy Severe Other Verified 02/15/21 21:57 [From Augmentin] diphenhydramine HCl AdvReac Severe "muscle Verified 02/15/21 21:57 [From Benadryl] aches" Home Meds: Home Meds Albuterol Sulfate [Proair Hfa] 2 puff IH Q4H PRN 11/22/17 [History] ondansetron HCL [Zofran] 4 mg BUCCAL Q8H PRN 11/22/17 [History] traMADol [Ultram] 50 mg PO Q6H PRN 11/22/17 [History] Ibuprofen [Advil] 800 mg PO BID PRN 10/06/19 [History] predniSONE [Prednisone] 30 mg PO DAILY 10/06/19 [History] Past Medical History HEENT History: Reports: Impaired Vision Other HEENT History: wears glasses Cardiovascular History: Reports: Arrhythmia Other Cardiovascular History: SVT, varicose veins Respiratory History: Reports: Asthma, Other (See Below) Other Respiratory History: pleurisy Gastrointestinal History: Reports: Diverticulosis Other Gastrointestinal History: chronic c-diff with fecal transplant at [facility] in 10/19/20 & Jan 07 2021 Genitourinary History: Reports: Renal Calculus, Renal Disease Other Genitourinary History: thin basement membrane; painful Loin disease SENIOR MATERIALS PLANNER History: Reports: Spontaneous Other SENIOR MATERIALS PLANNER History: Hx of PP hemorrhage following third son's delivery. Musculoskeletal History: Reports: RA, SLE, Other (See Below) Other Musculoskeletal History: Sjogren syndrome Neurological History: Reports: Migraines Psychiatric History: Reports: Anxiety, Depression Other Psychiatric History: PP depression following second child's delivery. Endocrine/Metabolic History: Reports: Obesity/BMI 30+ Hematologic History: Reports: Anemia Immunologic History: Reports: SLE, Other (See Below) Other Immunologic History: lupus Dermatologic History: Reports: Other (See Below) Other Dermatologic History: Severe cellulitis with pseudomonal infection to L ear cartlidge following ear piercing at age 11--required a PICC line and 6 weeks of IV abx as well as two reconstructive surgeries following daily debridement over a period of weeks as well; sores/lesions to neck and face occasionally - Infectious Disease History Infectious Disease History: Reports: C-Difficile Other Infectious Disease History: feels she had covid but not tested - Past Surgical History HEENT Surgical History: Reports: Oral Surgery Other HEENT Surgeries/Procedures: ear piercing removed; wisdom teeth removed Cardiovascular Surgical History: Reports: Cardiac Ablation Respiratory Surgical History: Reports: None GI Surgical History: Reports: Cholecystectomy, Colonoscopy Female Surgical History: Reports: D&C, Lithotripsy/ESWL Endocrine Surgical History: Reports: None Neurological Surgical History: Reports: None Musculoskeletal Surgical History: Reports: None Dermatological Surgical History: Reports: None Social & Family History - Family History Family Medical History: No Pertinent Family History - Tobacco Use Tobacco Use Status *Q: Never Tobacco User - Caffeine Use Caffeine Use: Reports: Coffee Other Caffeine Use: coffee rarely Caffeine Use Comment: 1 cup per day - Recreational Drug Use Recreational Drug Use: No - Living Situation & Occupation Living situation: Reports: , with Spouse, with Family (6 kids) Occupation: Unemployed ED ROS GENERAL - Review of Systems Review Of Systems: Comprehensive ROS is negative, except as noted in HPI. ED EXAM, GI/ABD - Physical Exam Exam: See Below Exam Limited By: No Limitations General Appearance: Alert, WD/WN, No Apparent Distress Eyes: Bilateral: Normal Appearance, EOMI Ears: Normal External Exam, Hearing Grossly Normal Nose: Normal Inspection Throat/Mouth: Normal Inspection, Normal Lips, Normal Voice, No Airway Compromise Head: Atraumatic, Normocephalic Neck: Normal Inspection, Full Range of Motion Respiratory/Chest: No Respiratory Distress, Lungs Clear, Normal Breath Sounds, No Accessory Muscle Use Cardiovascular: Normal Peripheral Pulses, Regular Rate, Rhythm, No Gallop, No JVD, No Murmur, No Rub GI/Abdominal Exam: Normal Bowel Sounds, Soft, No Organomegaly, No Distention, No Abnormal Bruit, No Mass, Tender (mild, generalized, non-focal) Rectal (Female) Exam: Normal Exam, Normal Rectal Tone, Heme - Stool, Hemorrhoids (2 small, non-inflammed) Back Exam: Normal Inspection, Full Range of Motion. No: CVA Tenderness (L), CVA Tenderness (R) Extremities: Normal Inspection, Normal Range of Motion, Normal Capillary Refill Neurological: Alert, Oriented, Normal Cognition, No Motor/Sensory Deficits Psychiatric: Normal Affect Skin Exam: Warm, Dry, Intact, Normal Color, No Rash Course - Vital Signs Last Recorded V/S: Last Vital Signs Temp 36.5 C 02/15/21 21:52 Pulse 85 02/15/21 21:52 Resp 18 02/15/21 21:52 BP 160/95 H 02/15/21 21:52 Pulse Ox 96 02/15/21 21:52 Orthostatic Blood Pressure [ 134/89 Standing] Orthostatic Blood Pressure [ 134/89 Supine] - Orders/Labs/Meds Labs: Laboratory Tests 02/15/21 Range/Units 23:10 WBC 16.85 H (3.98-10.04) K/mm3 RBC 4.50 (3.98-5.22) M/mm3 Hgb 13.3 (11.2-15.7) gm/dl Hct 41.6 (34.1-44.9) % MCV 92.4 (79.4-94.8) fl MCH 29.6 (25.6-32.2) pg MCHC 32.0 L (32.2-35.5) g/dl RDW Std Deviation 47.4 H (36.4-46.3) fL Plt Count 436 H (182-369) K/mm3 MPV 8.7 L (9.4-12.3) fl Neut % (Auto) 83.5 H (34.0-71.1) % Lymph % (Auto) 9.4 L (19.3-51.7) % [place] % (Auto) 5.7 (4.7-12.5) % Eos % (Auto) 0 L (0.7-5.8) Baso % (Auto) 0.1 (0.1-1.2) % Neut # (Auto) 14.06 H (1.56-6.13) K/mm3 Lymph # (Auto) 1.59 (1.18-3.74) K/mm3 [place] # (Auto) 0.96 H (0.24-0.36) K/mm3 Eos # (Auto) 0.00 L (0.04-0.36) K/mm3 Baso # (Auto) 0.02 (0.01-0.08) K/mm3 Meds: Medications Discontinued Medications Generic Name Dose Route Start Last Admin Trade Name Jarvis PRN Reason Stop Dose Admin Hydrocodone Bitart/Acetaminophen 2 tab 02/15/21 22:52 02/15/21 23:05 Acetaminophen/Hydrocodone 325-5 Mg Tab PO 02/15/21 22:53 2 tab ONETIME ONE Administration - Re-Assessments/Exams Free Text/Narrative Re-Assessment/Exam: 02/15/21 22:52 Although the patient states that she is having large amounts of bright red blood per rectum, she is heme-negative on rectal exam. She denies eating red candy, cranberries, red wine, or other foods that might discolor her stools or red. Her H/H were within normal limits on 02/11/2021. I have ordered orthostatics and a CBC to make sure that she has not developed anemia. The patient has been pressing me hard for pain medication, stating that the ibuprofen, Tylenol, tramadol, and Mabelvale that she has been prescribed are ineffective. I have ordered 2 tablets of Mabelvale, but I am not comfortable with giving her stronger medications, given her negative work-up from just a few days ago. 02/15/21 23:21 The patient is not orthostatic. 02/16/21 00:08 The patient's CBC is remarkable for leukocytosis of 16.85, and thrombocytosis of 436, with the remainder of her CBC being unremarkable. She is not anemic. 02/16/21 00:09 Test results discussed with the patient. She did not seem happy with the results. I don't find it credible that she could be "gushing" blood from the rectum but not be orthostatic, not be anemic, and be heme negative on a rectal exam. Drug-seeking behavior is a distinct possibility. Either way, I explained to the patient that the only way to find the source of a GI bleed is to undergo endoscopy, and therefore she needs to keep her appointment with the Education Director Dr. Quiroz in [place] on 02/22/2021. Departure - Departure Time of Disposition: 00:11 Disposition: Home, Self-Care 01 Condition: Good Clinical Impression: Abdominal pain of unknown etiology - Discharge Information *PRESCRIPTION DRUG MONITORING PROGRAM REVIEWED*: Not Applicable *COPY OF PRESCRIPTION DRUG MONITORING REPORT IN PATIENT [place]: Not Applicable Instructions: Abdominal Pain, Adult Referrals: Shy Fuchs PA-C [Primary Care Provider] - Manuel Viveros MD [Ordering Only Provider] - Laquita Bird MD [Ordering Only Provider] - Huber Alcala [Ordering Only Provider] - Andres Brown MD [Ordering Only Provider] - Richard Tyalor MD [Ordering Only Provider] - Jose Pan MD [Ordering Only Provider] - Forms: ED Department Discharge Additional Instructions: You were seen in the emergency room for worsening abdominal pain since 02/01/2021, decreased appetite since 02/07/2021, and bright red blood per rectum since 02/10/2021. Your stool was heme-negative (no microscopic blood found) on rectal exam. Work-up in the ER included positional blood pressure checks and a CBC. Both were normal. You are not anemic. The cause of your symptoms is not immediately clear, however, an extensive work- up performed on 02/11/2021 was unremarkable. We recommend that you follow-up with your Education Director, Dr. Jose Quiroz, at your previously scheduled appointment in [place] on 02/22/2021. If any other problems, please do not hesitate to return to the ER. Sepsis Event Note (ED) - Evaluation Sepsis Screening Result: No Definite Risk
== END 2021-02-16 00:25 | disposition home or self-care (01) ==
LOC: JD.ED 21:28
DX: R10.84 Generalized abdominal pain (principal); D72.829 Elevated white blood cell count, unspecified; J45.909 Unspecified asthma, uncomplicated; E66.9 Obesity, unspecified; Z68.36 Body mass index [BMI] 36.0-36.9, adult; Z88.0 Allergy status to penicillin; Z88.1 Allergy status to other antibiotic agents; Z91.018 Allergy to other foods; Z88.8 Allergy status to other drugs, medicaments and biological substances; Z79.899 Other long term (current) drug therapy
CPT/HCPCS: 36415; 85025; 99284; A9270

== ENCOUNTER 2021-03-11 12:10 | Emergency (ER) | payer MEDICAID ==
[2021-03-11] MEDS ORDERED: Sodium Chloride 0.9% 10 ML Syringe FLUSH PRN (12:38)
--- NOTE | 2021-03-11 12:41 | EDM.PDOC ---
ED HPI GENERAL MEDICAL PROBLEM - General Chief Complaint: Respiratory Problem Stated Complaint: SJ AMB Time Seen by Provider: 03/11/21 12:13 Source of Information: Reports: Patient, EMS - History of Present Illness INITIAL COMMENTS - FREE TEXT/NARRATIVE: 30 Y/O female comes in by ambulance with hx of recent hospitalization [facility] March 03 for covid pnemonia, colitis with C Dif related colitis, worsening diarrhea discharged home about 5 days ago. She is now feeling much worse from discharge, still coughing, more short of breath on 4 L oxygen, reported to be having vomiting and diarrhea as well. Her hx is complicated due to underlying hx of RA, Lupus, on chronic steroids, moderate obesity. She has not been vaccinated due to prior hx of the RA and Lupus on steroids. She feels short of breath, weak, dizzy, not eating or drinking much, mouth feels very dry. - Related Data Allergies Allergy/AdvReac Type Severity Reaction Status Date / Time amoxicillin Allergy Severe Other Verified 03/11/21 12:21 amoxicillin trihydrate Allergy Severe Other Verified 03/11/21 12:21 [From Augmentin] ciprofloxacin Allergy Severe Itching Verified 03/11/21 12:21 clindamycin Allergy Severe Rash Verified 03/11/21 12:21 lemon Allergy Severe Hives Verified 03/11/21 12:21 Penicillins Allergy Severe Hives Verified 03/11/21 12:21 potassium chloride Allergy Severe Hives Verified 03/11/21 12:21 potassium clavulanate Allergy Severe Other Verified 03/11/21 12:21 [From Augmentin] diphenhydramine HCl AdvReac Severe "muscle Verified 03/11/21 12:21 [From Benadryl] aches" Home Meds: Home Meds Albuterol Sulfate [Proair Hfa] 2 puff IH Q4H PRN 11/22/17 [History] ondansetron HCL [Zofran] 4 mg SL Q8H PRN 11/22/17 [History] traMADol [Ultram] 50 - 100 mg PO Q6H PRN 11/22/17 [History] Ibuprofen [Advil] 800 mg PO BID PRN 10/06/19 [History] predniSONE [Prednisone] 60 mg PO MOWEFR 10/06/19 [History] ALPRAZolam [Alprazolam ER] 0.5 mg PO BID PRN 03/11/21 [History] oxyCODONE HCl/Acetaminophen [Endocet 10-325 mg Tablet] 1 tab PO Q4H PRN 03/11/21 [History] Past Medical History HEENT History: Reports: Impaired Vision Other HEENT History: wears glasses Cardiovascular History: Reports: Arrhythmia Other Cardiovascular History: SVT, varicose veins Respiratory History: Reports: Asthma, Other (See Below) Other Respiratory History: pleurisy Gastrointestinal History: Reports: Diverticulosis Other Gastrointestinal History: chronic c-diff with fecal transplant at [place] in 10/19/20 & Jan 07 2021 Genitourinary History: Reports: Renal Calculus, Renal Disease Other Genitourinary History: thin basement membrane; painful Loin disease BRASS ROLLER History: Reports: Spontaneous Other BRASS ROLLER History: Hx of PP hemorrhage following third son's delivery. Musculoskeletal History: Reports: RA, SLE, Other (See Below) Other Musculoskeletal History: Sjogren syndrome Neurological History: Reports: Migraines Psychiatric History: Reports: Anxiety, Depression Other Psychiatric History: PP depression following second child's delivery. Endocrine/Metabolic History: Reports: Obesity/BMI 30+ Hematologic History: Reports: Anemia Immunologic History: Reports: SLE, Other (See Below) Other Immunologic History: lupus Dermatologic History: Reports: Other (See Below) Other Dermatologic History: Severe cellulitis with pseudomonal infection to L ear cartlidge following ear piercing at age 11--required a PICC line and 6 weeks of IV abx as well as two reconstructive surgeries following daily debridement over a period of weeks as well; sores/lesions to neck and face occasionally - Infectious Disease History Infectious Disease History: Reports: C-Difficile, Novel Coronavirus Other Infectious Disease History: feels she had covid but not tested - Past Surgical History HEENT Surgical History: Reports: Oral Surgery Other HEENT Surgeries/Procedures: ear piercing removed; wisdom teeth removed Cardiovascular Surgical History: Reports: Cardiac Ablation Respiratory Surgical History: Reports: None GI Surgical History: Reports: Cholecystectomy, Colonoscopy Female Surgical History: Reports: D&C, Lithotripsy/ESWL Endocrine Surgical History: Reports: None Neurological Surgical History: Reports: None Musculoskeletal Surgical History: Reports: None Dermatological Surgical History: Reports: None Social & Family History - Family History Family Medical History: No Pertinent Family History - Tobacco Use Tobacco Use Status *Q: Unknown Ever Used Tobacco - Caffeine Use Caffeine Use: Reports: Coffee Other Caffeine Use: coffee rarely Caffeine Use Comment: 1 cup per day - Recreational Drug Use Recreational Drug Use: No - Living Situation & Occupation Living situation: Reports: , with Spouse, with Family (6 kids) Occupation: Unemployed ED ROS GENERAL - Review of Systems Review Of Systems: See Below Constitutional: Reports: Fever, Chills HEENT: Reports: Other (mouth is dry) Respiratory: Reports: Shortness of Breath, Cough Cardiovascular: Reports: Lightheadedness. Denies: Chest Pain Endocrine: Reports: Fatigue GI/Abdominal: Reports: Diarrhea, Nausea, Vomiting Musculoskeletal: Reports: Other (generalized achiness) Skin: Reports: No Symptoms Neurological: Reports: Headache, Weakness (generalized) ED EXAM, GENERAL - Physical Exam Exam: See Below General Appearance: Lethargic Head: Atraumatic Neck: Supple Respiratory/Chest: Decreased Breath Sounds (R base), Rhonchi (R sided) Cardiovascular: Tachycardia GI/Abdominal: Non-Tender Extremities: No Pedal Edema. No: Leg Pain, Redness Neurological: Oriented, No Motor/Sensory Deficits, Other (Pt does answer questions appropriately) Skin Exam: Normal Color, No Rash #1 Interpretation EKG Date: 03/11/21 Rhythm: Other (sinus tach) Rate (Beats/Min): 126 P-Wave: Present QRS: Normal ST-T: Other (t wave inversions multiple leads) Course - Vital Signs Last Recorded V/S: Last Vital Signs Temp 99 F 03/11/21 12:17 Pulse 126 H 03/11/21 15:27 Resp 16 03/11/21 15:27 BP 103/57 L 03/11/21 15:27 Pulse Ox 90 L 03/11/21 18:26 - Orders/Labs/Meds Orders: Active Orders 24 hr Category Date Time Status Insert Ren Catheter [Insert Urinary Catheter] [OM.PC] Care 03/11/21 18:30 Ordered Q24H Oxygen Therapy [RC] ASDIRECTED Care 03/11/21 13:00 Active Peripheral IV Care [RC] . DIRECTED Care 03/11/21 12:40 Active Urinary Catheter Assessment [RC] ASDIRECTED Care 03/11/21 18:22 Active BLOOD CULTURE [MREF] Stat Lab 03/11/21 12:55 Received BLOOD CULTURE [MREF] Stat Lab 03/11/21 13:05 Received Norepinephrine [Levophed] 4 mg Med 03/11/21 14:45 Active Dextrose 5% in Water 246 ml IV TITRATE Sodium Chloride 0.9% [Normal Saline] 1,000 ml Med 03/11/21 17:15 Active IV ASDIRECTED Sodium Chloride 0.9% [Normal Saline] 1,000 ml Med 03/11/21 12:45 Active IV ONETIME Sodium Chloride 0.9% [Saline Flush] Med 03/11/21 12:38 Active 10 ml FLUSH ASDIRECTED PRN Peripheral IV Insertion Adult [OM.PC] Stat Oth 03/11/21 12:38 Ordered RT Oxygen High Flow [RESPCARE] Stat Oth 03/11/21 13:50 Active Medication Orders Sodium Chloride (Normal Saline) 1,000 mls @ 999 mls/hr IV ONETIME RADHA Last Admin: 03/11/21 12:44 Dose: 999 mls/hr Documented by: LANETTE Norepinephrine Bitartrate 4 mg (/ Dextrose/Water) 250 mls @ 7.5 mls/hr IV TITRATE RADHA; Protocol Last Admin: 03/11/21 15:21 Dose: 2 mcg/min, 7.5 mls/hr Documented by: LANETTE Sodium Chloride (Normal Saline) 1,000 mls @ 75 mls/hr IV ASDIRECTED RADHA Last Admin: 03/11/21 17:48 Dose: 75 mls/hr Documented by: LANETTE Sodium Chloride (Sodium Chloride 0.9% 10 Ml Syringe) 10 ml FLUSH ASDIRECTED PRN PRN Reason: Keep Vein Open Last Admin: 03/11/21 12:44 Dose: 10 ml Documented by: LANETTE Labs: Laboratory Tests 03/11/21 03/11/21 03/11/21 Range/Units 12:17 12:17 12:17 WBC 9.72 (3.98-10.04) K/mm3 RBC 3.68 L (3.98-5.22) M/mm3 Hgb 10.6 L D (11.2-15.7) gm/dl Hct 33.6 L (34.1-44.9) % MCV 91.3 (79.4-94.8) fl MCH 28.8 (25.6-32.2) pg MCHC 31.5 L (32.2-35.5) g/dl RDW Std Deviation 48.0 H (36.4-46.3) fL Plt Count 560 H D (182-369) K/mm3 MPV 8.9 L (9.4-12.3) fl Neut % (Auto) 87.5 H (34.0-71.1) % Lymph % (Auto) 7.6 L (19.3-51.7) % Gregory % (Auto) 1.0 L (4.7-12.5) % Eos % (Auto) 0.6 L (0.7-5.8) Baso % (Auto) 0.2 (0.1-1.2) % Neut # (Auto) 8.50 H (1.56-6.13) K/mm3 Lymph # (Auto) 0.74 L (1.18-3.74) K/mm3 Gregory # (Auto) 0.10 L (0.24-0.36) K/mm3 Eos # (Auto) 0.06 (0.04-0.36) K/mm3 Baso # (Auto) 0.02 (0.01-0.08) K/mm3 D-Dimer, Quantitative (0.19-0.50) mg/L Puncture Site ABG pH (7.35-7.45) ABG pCO2 (35.0-45.0) mmHg ABG pO2 (80.0-100.0) mmHg ABG HCO3 (22.0-26.0) meq/L ABG O2 Saturation (96.0-97.0) % ABG Base Excess (-2-2.0) Kp Test O2 Delivery Device Oxygen Flow Rate Sodium 139 (136-145) mEq/L Potassium 4.0 (3.5-5.1) mEq/L Chloride 101 (98-107) mEq/L Carbon Dioxide 24 (21-32) mEq/L Anion Gap 18.0 H (5-15) BUN 43 H D (7-18) mg/dL Creatinine 3.2 H D (0.55-1.02) mg/dL Est Cr Clr Drug Dosing TNP Estimated GFR (MDRD) 17 (>60) mL/min BUN/Creatinine Ratio 13.4 L (14-18) Glucose 116 H (70-99) mg/dL Lactic Acid (0.4-2.0) mmol/L Calcium 8.0 L D (8.5-10.1) mg/dL Total Bilirubin 0.8 (0.2-1.0) mg/dL AST 20 (15-37) U/L ALT 21 (14-59) U/L Alkaline Phosphatase 42 L (46-116) U/L C-Reactive Protein 47.3 H* (<1.0) mg/dL NT-Pro-B Natriuret Pep (0-125) pg/mL Total Protein 6.2 L (6.4-8.2) g/dl Albumin 2.0 L (3.4-5.0) g/dl Globulin 4.2 gm/dL Albumin/Globulin Ratio 0.5 L (1-2) Urine Color (Yellow) Urine Appearance (Clear) Urine pH (5.0-8.0) Ur Specific [place] (1.005-1.030) Urine Protein (Negative) Urine Glucose (UA) (Negative) Urine Ketones (Negative) Urine Occult Blood (Negative) Urine Nitrite (Negative) Urine Bilirubin (Negative) Urine Urobilinogen (0.2-1.0) Ur Leukocyte Esterase (Negative) U Hyaline Cast (Auto) (0-5) /lpf Urine RBC (0-5) /hpf Urine WBC (0-5) /hpf Ur Squamous Epith Cells (0-5) /hpf Urine Bacteria (FEW) /hpf Coarse Granular Casts (0-5) /hpf Urine Mucus (FEW) /hpf Urine Opiates Screen (CQANMU=477) Ur Buprenorphine Scrn (CUTOFF=10) Ur Oxycodone Screen (DWD2RU=404) Urine Methadone Screen (TRAQTV=939) Ur Propoxyphene Screen (MYADPG=805) Ur Barbiturates Screen (JKDJSU=679) Ur Tricyclics Screen (FJINAJ=192) Ur Phencyclidine Scrn (CUTOFF=25) Ur Amphetamine Screen (QICQCO=627) U Methamphetamines Scrn (KRHGRP=924) U Benzodiazepines Scrn (ZLATFD=004) U Cocaine Metab Screen (TIQUPQ=534) U Marijuana (THC) Screen (CUTOFF=50) 03/11/21 03/11/21 03/11/21 Range/Units 12:17 12:17 12:25 WBC (3.98-10.04) K/mm3 RBC (3.98-5.22) M/mm3 Hgb (11.2-15.7) gm/dl Hct (34.1-44.9) % MCV (79.4-94.8) fl MCH (25.6-32.2) pg MCHC (32.2-35.5) g/dl RDW Std Deviation (36.4-46.3) fL Plt Count (182-369) K/mm3 MPV (9.4-12.3) fl Neut % (Auto) (34.0-71.1) % Lymph % (Auto) (19.3-51.7) % Gregory % (Auto) (4.7-12.5) % Eos % (Auto) (0.7-5.8) Baso % (Auto) (0.1-1.2) % Neut # (Auto) (1.56-6.13) K/mm3 Lymph # (Auto) (1.18-3.74) K/mm3 Gregory # (Auto) (0.24-0.36) K/mm3 Eos # (Auto) (0.04-0.36) K/mm3 Baso # (Auto) (0.01-0.08) K/mm3 D-Dimer, Quantitative 1.17 H (0.19-0.50) mg/L Puncture Site Lt radial ABG pH 7.40 (7.35-7.45) ABG pCO2 37.8 (35.0-45.0) mmHg ABG pO2 54.0 L (80.0-100.0) mmHg ABG HCO3 22.7 (22.0-26.0) meq/L ABG O2 Saturation 82.7 L (96.0-97.0) % ABG Base Excess -1.3 (-2-2.0) Kp Test Positive O2 Delivery Device Nasal cannula Oxygen Flow Rate 4.0 Sodium (136-145) mEq/L Potassium (3.5-5.1) mEq/L Chloride (98-107) mEq/L Carbon Dioxide (21-32) mEq/L Anion Gap (5-15) BUN (7-18) mg/dL Creatinine (0.55-1.02) mg/dL Est Cr Clr Drug Dosing Estimated GFR (MDRD) (>60) mL/min BUN/Creatinine Ratio (14-18) Glucose (70-99) mg/dL Lactic Acid (0.4-2.0) mmol/L Calcium (8.5-10.1) mg/dL Total Bilirubin (0.2-1.0) mg/dL AST (15-37) U/L ALT (14-59) U/L Alkaline Phosphatase (46-116) U/L C-Reactive Protein (<1.0) mg/dL NT-Pro-B Natriuret Pep 2139 H (0-125) pg/mL Total Protein (6.4-8.2) g/dl Albumin (3.4-5.0) g/dl Globulin gm/dL Albumin/Globulin Ratio (1-2) Urine Color (Yellow) Urine Appearance (Clear) Urine pH (5.0-8.0) Ur Specific [place] (1.005-1.030) Urine Protein (Negative) Urine Glucose (UA) (Negative) Urine Ketones (Negative) Urine Occult Blood (Negative) Urine Nitrite (Negative) Urine Bilirubin (Negative) Urine Urobilinogen (0.2-1.0) Ur Leukocyte Esterase (Negative) U Hyaline Cast (Auto) (0-5) /lpf Urine RBC (0-5) /hpf Urine WBC (0-5) /hpf Ur Squamous Epith Cells (0-5) /hpf Urine Bacteria (FEW) /hpf Coarse Granular Casts (0-5) /hpf Urine Mucus (FEW) /hpf Urine Opiates Screen (TXQOAY=962) Ur Buprenorphine Scrn (CUTOFF=10) Ur Oxycodone Screen (LLL4VB=973) Urine Methadone Screen (YJXPQH=887) Ur Propoxyphene Screen (LEJLFR=293) Ur Barbiturates Screen (KXNSDK=182) Ur Tricyclics Screen (GMWTKL=596) Ur Phencyclidine Scrn (CUTOFF=25) Ur Amphetamine Screen (DJMDLZ=719) U Methamphetamines Scrn (EKSOZG=668) U Benzodiazepines Scrn (AJMFYG=806) U Cocaine Metab Screen (VTZOHP=739) U Marijuana (THC) Screen (CUTOFF=50) 03/11/21 03/11/21 03/11/21 Range/Units 13:05 15:36 16:40 WBC (3.98-10.04) K/mm3 RBC (3.98-5.22) M/mm3 Hgb (11.2-15.7) gm/dl Hct (34.1-44.9) % MCV (79.4-94.8) fl MCH (25.6-32.2) pg MCHC (32.2-35.5) g/dl RDW Std Deviation (36.4-46.3) fL Plt Count (182-369) K/mm3 MPV (9.4-12.3) fl Neut % (Auto) (34.0-71.1) % Lymph % (Auto) (19.3-51.7) % Gregory % (Auto) (4.7-12.5) % Eos % (Auto) (0.7-5.8) Baso % (Auto) (0.1-1.2) % Neut # (Auto) (1.56-6.13) K/mm3 Lymph # (Auto) (1.18-3.74) K/mm3 Gregory # (Auto) (0.24-0.36) K/mm3 Eos # (Auto) (0.04-0.36) K/mm3 Baso # (Auto) (0.01-0.08) K/mm3 D-Dimer, Quantitative (0.19-0.50) mg/L Puncture Site ABG pH (7.35-7.45) ABG pCO2 (35.0-45.0) mmHg ABG pO2 (80.0-100.0) mmHg ABG HCO3 (22.0-26.0) meq/L ABG O2 Saturation (96.0-97.0) % ABG Base Excess (-2-2.0) Kp Test O2 Delivery Device Oxygen Flow Rate Sodium (136-145) mEq/L Potassium (3.5-5.1) mEq/L Chloride (98-107) mEq/L Carbon Dioxide (21-32) mEq/L Anion Gap (5-15) BUN (7-18) mg/dL Creatinine (0.55-1.02) mg/dL Est Cr Clr Drug Dosing Estimated GFR (MDRD) (>60) mL/min BUN/Creatinine Ratio (14-18) Glucose (70-99) mg/dL Lactic Acid 2.1 H* 1.4 (0.4-2.0) mmol/L Calcium (8.5-10.1) mg/dL Total Bilirubin (0.2-1.0) mg/dL AST (15-37) U/L ALT (14-59) U/L Alkaline Phosphatase (46-116) U/L C-Reactive Protein (<1.0) mg/dL NT-Pro-B Natriuret Pep (0-125) pg/mL Total Protein (6.4-8.2) g/dl Albumin (3.4-5.0) g/dl Globulin gm/dL Albumin/Globulin Ratio (1-2) Urine Color Dark yellow (Yellow) Urine Appearance Slt cloudy H (Clear) Urine pH 5.0 (5.0-8.0) Ur Specific [place] 1.015 (1.005-1.030) Urine Protein 2+ H (Negative) Urine Glucose (UA) Negative (Negative) Urine Ketones Trace H (Negative) Urine Occult Blood 2+ H (Negative) Urine Nitrite Negative (Negative) Urine Bilirubin 1+ H (Negative) Urine Urobilinogen 0.2 (0.2-1.0) Ur Leukocyte Esterase Negative (Negative) U Hyaline Cast (Auto) 20-30 H (0-5) /lpf Urine RBC 5-10 H (0-5) /hpf Urine WBC 5-10 H (0-5) /hpf Ur Squamous Epith Cells 0-5 (0-5) /hpf Urine Bacteria Moderate H (FEW) /hpf Coarse Granular Casts 0-5 (0-5) /hpf Urine Mucus Few (FEW) /hpf Urine Opiates Screen (ZTSGYK=869) Ur Buprenorphine Scrn (CUTOFF=10) Ur Oxycodone Screen (BHW4CM=324) Urine Methadone Screen (DFWUOZ=830) Ur Propoxyphene Screen (EWCCEG=159) Ur Barbiturates Screen (LGMDUD=385) Ur Tricyclics Screen (EELFUK=289) Ur Phencyclidine Scrn (CUTOFF=25) Ur Amphetamine Screen (FJDFXZ=761) U Methamphetamines Scrn (DIFIQQ=619) U Benzodiazepines Scrn (XXJTFA=021) U Cocaine Metab Screen (SAVVNM=654) U Marijuana (THC) Screen (CUTOFF=50) 03/11/21 Range/Units 16:40 WBC (3.98-10.04) K/mm3 RBC (3.98-5.22) M/mm3 Hgb (11.2-15.7) gm/dl Hct (34.1-44.9) % MCV (79.4-94.8) fl MCH (25.6-32.2) pg MCHC (32.2-35.5) g/dl RDW Std Deviation (36.4-46.3) fL Plt Count (182-369) K/mm3 MPV (9.4-12.3) fl Neut % (Auto) (34.0-71.1) % Lymph % (Auto) (19.3-51.7) % Gregory % (Auto) (4.7-12.5) % Eos % (Auto) (0.7-5.8) Baso % (Auto) (0.1-1.2) % Neut # (Auto) (1.56-6.13) K/mm3 Lymph # (Auto) (1.18-3.74) K/mm3 Gregory # (Auto) (0.24-0.36) K/mm3 Eos # (Auto) (0.04-0.36) K/mm3 Baso # (Auto) (0.01-0.08) K/mm3 D-Dimer, Quantitative (0.19-0.50) mg/L Puncture Site ABG pH (7.35-7.45) ABG pCO2 (35.0-45.0) mmHg ABG pO2 (80.0-100.0) mmHg ABG HCO3 (22.0-26.0) meq/L ABG O2 Saturation (96.0-97.0) % ABG Base Excess (-2-2.0) Kp Test O2 Delivery Device Oxygen Flow Rate Sodium (136-145) mEq/L Potassium (3.5-5.1) mEq/L Chloride (98-107) mEq/L Carbon Dioxide (21-32) mEq/L Anion Gap (5-15) BUN (7-18) mg/dL Creatinine (0.55-1.02) mg/dL Est Cr Clr Drug Dosing Estimated GFR (MDRD) (>60) mL/min BUN/Creatinine Ratio (14-18) Glucose (70-99) mg/dL Lactic Acid (0.4-2.0) mmol/L Calcium (8.5-10.1) mg/dL Total Bilirubin (0.2-1.0) mg/dL AST (15-37) U/L ALT (14-59) U/L Alkaline Phosphatase (46-116) U/L C-Reactive Protein (<1.0) mg/dL NT-Pro-B Natriuret Pep (0-125) pg/mL Total Protein (6.4-8.2) g/dl Albumin (3.4-5.0) g/dl Globulin gm/dL Albumin/Globulin Ratio (1-2) Urine Color (Yellow) Urine Appearance (Clear) Urine pH (5.0-8.0) Ur Specific [place] (1.005-1.030) Urine Protein (Negative) Urine Glucose (UA) (Negative) Urine Ketones (Negative) Urine Occult Blood (Negative) Urine Nitrite (Negative) Urine Bilirubin (Negative) Urine Urobilinogen (0.2-1.0) Ur Leukocyte Esterase (Negative) U Hyaline Cast (Auto) (0-5) /lpf Urine RBC (0-5) /hpf Urine WBC (0-5) /hpf Ur Squamous Epith Cells (0-5) /hpf Urine Bacteria (FEW) /hpf Coarse Granular Casts (0-5) /hpf Urine Mucus (FEW) /hpf Urine Opiates Screen Negative (PZUHAT=552) Ur Buprenorphine Scrn Negative (CUTOFF=10) Ur Oxycodone Screen Presumptive positive H (CLM4UO=650) Urine Methadone Screen Negative (ZVXUOG=315) Ur Propoxyphene Screen Negative (CEAKGU=614) Ur Barbiturates Screen Negative (LJCHDO=032) Ur Tricyclics Screen Negative (NURSTT=067) Ur Phencyclidine Scrn Negative (CUTOFF=25) Ur Amphetamine Screen Negative (PEKLLN=201) U Methamphetamines Scrn Negative (FTISQI=062) U Benzodiazepines Scrn Negative (NRQVQM=830) U Cocaine Metab Screen Negative (NMMEEZ=545) U Marijuana (THC) Screen Negative (CUTOFF=50) Meds: Medications Generic Name Dose Route Start Last Admin Trade Name Freq PRN Reason Stop Dose Admin Sodium Chloride 1,000 mls @ 999 mls/hr 03/11/21 12:45 03/11/21 12:44 Normal Saline IV 999 mls/hr ONETIME RADHA Administration Norepinephrine Bitartrate 4 mg 250 mls @ 7.5 mls/hr 03/11/21 14:45 03/11/21 15:21 / Dextrose/Water IV 2 mcg/min TITRATE RADHA 7.5 mls/hr Administration Protocol 2 MCG/MIN Sodium Chloride 1,000 mls @ 75 mls/hr 03/11/21 17:15 03/11/21 17:48 Normal Saline IV 75 mls/hr ASDIRECTED RADHA Administration Sodium Chloride 10 ml 03/11/21 12:38 03/11/21 12:44 Sodium Chloride 0.9% 10 Ml Syringe FLUSH 10 ml ASDIRECTED PRN Administration Keep Vein Open Discontinued Medications Generic Name Dose Route Start Last Admin Trade Name Jarvis PRN Reason Stop Dose Admin Acetaminophen 975 mg 03/11/21 16:51 03/11/21 17:12 Acetaminophen 325 Mg Tab PO 03/11/21 16:52 975 mg NOW STA Administration Albuterol/Ipratropium Confirm 03/11/21 13:36 03/11/21 15:43 Albuterol/Ipratropium 3.0-0.5 Mg/3 Ml Neb Soln Administered 03/11/21 13:37 Not Given Dose 3 ml .ROUTE .STK-MED ONE Apixaban 2.5 mg 03/11/21 15:58 03/11/21 16:15 Apixaban 2.5 Mg Tab PO 03/11/21 15:59 2.5 mg ONETIME ONE Administration Dexamethasone 8 mg 03/11/21 15:22 03/11/21 15:50 Dexamethasone 10 Mg/Ml Sdv IVPUSH 03/11/21 15:23 8 mg ONETIME ONE Administration Sodium Chloride 1,000 mls @ 999 mls/hr 03/11/21 15:22 03/11/21 15:22 Normal Saline IV 03/11/21 16:22 999 mls/hr ONETIME ONE Administration Morphine Sulfate 4 mg 03/11/21 17:45 03/11/21 17:52 Morphine 4 Mg/Ml Syringe IVPUSH 03/11/21 17:46 4 mg ONETIME ONE Administration - Re-Assessments/Exams Free Text/Narrative Re-Assessment/Exam: 03/11/21 14:35. I did discuss this with Dr Munguia, our Hospitalist. He strongly believes she needs higher level of care with her underlying hx, current serious medical condition. Her labs show a WBC of 9720, D Dimer 1.17, ABG's 4 L NC 7.4, 37.8, pO2 54, Co2 23, Creat 3.2, BUN 43, CRP 47.3, BNP 2139. CXR shows severe R covid pneumonia, probable R pleural effusion in addition. We did go up to 6 L NC and sats remained stuck at 84 to 85 %. RT has come over to start high flow NC. She initially did not respond to that but finally at 60 L, fio2 90 her sats did come up to 96 to 97 %. Have ordered chest CT without contrast for further information. 03/11/21 14:45. [place] [facility], [facility], [facility] all on ICU diversion. 14:50. Have called the [facility] transfer #. Coordinator on duty states all of the higher level ICU beds at the [facility] level as well as [place] and [place] are all full, on diversion at this time. She is going to check with [facility], will keep trying but for now there are no appropriate transfer options available. Her BP did drop to 80/40 a short time ago. Dr Munguia is putting in a central line at this time with plan to start a levophed drip. We have given a 500 ml NS bolus, currently running that a [address] Munguia agrees not to push fluids more aggressively at this time with concern of making pulmonary condition worse. 03/11/21 15:06. Noncontrast chest CT shows diffuse consolidation areas of R upper lung as well as diffuse consolidation R lower lung. No pleural effusions are seen. 2 Nodular densities L chest likely representing addition infection. See Radiologist report for details. 03/11/21 16:30. I checked back with the [facility] transfer admission coordinator. She states there are no higher level ICU beds available in the region at this time. 16:40 I have discussed this Dr Munguia again, he is going to do some more checking before accepting patient. 18:05. Dr [facility]ung[facility] I do not know his name. The Critical Care provider [facility] has accepted patient for transfer to their facility. Dr Munguia worked out this transfer arrangement. I will write the transfer orders. She will go by [facility] if available. 03/11/21 18:15. 109/57. heart rate is down to 115. 02 sats 91-93 %. She was down to 50 L high flow for awhile but back to 60 L, 90 % fIO2 at this time. She has had 1.5 L IV fluid. Repeat lactic acid 1.4. Departure - Departure Time of Disposition: 18:00 Disposition: DC/Tfer to Acute Hospital 02 Condition: Critical Clinical Impression: Pneumonia due to COVID-19 virus, Hypoxia, Renal insufficiency - Discharge Information Referrals: PCP,None [Primary Care Provider] - Forms: ED Department Discharge Sepsis Event Note (ED) - Evaluation Sepsis Screening Result: Possible Sepsis Risk - Focused Exam Vital Signs: Vital Signs Temp Pulse Resp BP Pulse Ox Pulse Ox 03/11/21 18:26 90 L 03/11/21 15:32 95 03/11/21 15:27 126 H 16 103/57 L 92 L 03/11/21 13:00 85 L 03/11/21 12:17 99 F 130 H 30 H 93/46 L 84 L - My Orders Last 24 Hours: My Active Orders 03/11/21 12:38 Sodium Chloride 0.9% [Saline Flush] 10 ml FLUSH ASDIRECTED PRN Peripheral IV Insertion Adult [OM.PC] Stat 03/11/21 12:40 Peripheral IV Care [RC] . DIRECTED 03/11/21 12:45 Sodium Chloride 0.9% [Normal Saline] 1,000 ml IV ONETIME 03/11/21 12:55 BLOOD CULTURE [MREF] Stat 03/11/21 13:00 Oxygen Therapy [RC] ASDIRECTED 03/11/21 13:05 BLOOD CULTURE [MREF] Stat 03/11/21 13:50 RT Oxygen High Flow [RESPCARE] Stat 03/11/21 17:15 Sodium Chloride 0.9% [Normal Saline] 1,000 ml IV ASDIRECTED 03/11/21 18:22 Urinary Catheter Assessment [RC] ASDIRECTED 03/11/21 18:30 Insert Ren Catheter [Insert Urinary Catheter] [OM.PC] Q24H - Assessment/Plan Last 24 Hours: My Active Orders 03/11/21 12:38 Sodium Chloride 0.9% [Saline Flush] 10 ml FLUSH ASDIRECTED PRN Peripheral IV Insertion Adult [OM.PC] Stat 03/11/21 12:40 Peripheral IV Care [RC] . DIRECTED 03/11/21 12:45 Sodium Chloride 0.9% [Normal Saline] 1,000 ml IV ONETIME 03/11/21 12:55 BLOOD CULTURE [MREF] Stat 03/11/21 13:00 Oxygen Therapy [RC] ASDIRECTED 03/11/21 13:05 BLOOD CULTURE [MREF] Stat 03/11/21 13:50 RT Oxygen High Flow [RESPCARE] Stat 03/11/21 17:15 Sodium Chloride 0.9% [Normal Saline] 1,000 ml IV ASDIRECTED 03/11/21 18:22 Urinary Catheter Assessment [RC] ASDIRECTED 03/11/21 18:30 Insert Ren Catheter [Insert Urinary Catheter] [OM.PC] Q24H
[2021-03-11] MEDS ORDERED: Sodium Chloride 0.9% 1,000 ML IV SCH ×2 (12:45→17:15)
--- NOTE | 2021-03-11 13:13 | CR ---
Chest: Frontal view of the chest was obtained. Comparison: Prior chest x-ray of 04/15/17. Heart is enlarged. Diffuse consolidation is seen within the right upper and right lower lung. Difficult to exclude right-sided pleural effusion. Slight density is seen within the left retrocardiac regions likely representing additional COVID -19 pneumonia. Impression: 1. Consolidation within the right upper and right lower lung. Difficult to exclude a fairly prominent right-sided pleural effusion. Findings presumably are due to COVID - [address] would be needed to rule out the pleural effusion. 2. Heart is enlarged. 3. Slight density within the left retrocardiac region within the left lung base. This most likely represents an additional area of COVID - 19 pneumonia. Diagnostic code #3
[2021-03-11] MEDS ORDERED: Albuterol/Ipratropium 3.0-0.5 MG/3 ML Neb Soln ONE (13:36)
[2021-03-11] MEDS ORDERED: Norepinephrine 4 MG in Dextrose 5% in Water 246 ML IV SCH ×2 (14:45)
--- NOTE | 2021-03-11 15:11 | CT ---
CT chest Technique: Multiple axial sections through the chest were obtained. Intravenous contrast was not utilized. Comparison: Prior chest x-ray performed earlier on the same day (12:45 PM) Findings: Diffuse consolidation is seen within portions of the right upper lung as well as diffuse consolidation within the right lower lung. No pleural effusions are seen. Left lung shows nodular density within the left base measuring 2.7 cm. Smaller nodular density is also seen within the left base measuring 1.3 cm. Lesser parenchymal densities are scattered throughout the left chest. Thoracic aorta shows no aneurysm. Mediastinum shows no adenopathy. No pericardial thickening is seen. Bone window settings were reviewed. No acute osseous abnormality is appreciated. Impression: 1. Diffuse consolidation within portions of the upper right lung as well as diffuse consolidation within the right lower lung. No pleural effusions are seen. 2. Two nodular densities with the left chest most likely representing additional infection. Follow-up chest CT recommended in 6 months to confirm that these findings resolve. 3. Overall, findings are felt compatible with severe COVID - 19 pneumonia. Diagnostic code #3 CT abdomen and pelvis Technique: Multiple axial sections were obtained from above the dome of the diaphragm inferiorly through the pubic symphysis. Intravenous and oral contrast was not utilized. Reconstructed coronal and sagittal images were obtained. Comparison: Prior CT abdomen and pelvis study of 02/11/21. Findings: Noncontrast appearance of the liver shows no focal abnormality. Small low density finding is seen next to the ligamentum teres fissure which is a normal finding. Spleen size is normal. Adrenal glands show no nodule. Pancreas shows no discrete abnormality. Kidneys shows a small calcification within the right kidney compatible with nonobstructing calculus. This finding measures approximately 1 mm. Small calcification is also seen within the left kidney measuring 4 mm compatible with probable additional nonobstructing calculus. No hydronephrosis is seen. No ureteral dilatation is seen. Surgical clips are seen from prior cholecystectomy. Abdominal aorta shows no aneurysm. No retroperitoneal adenopathy or mesenteric abnormalities are seen. No pelvic mass or adenopathy is seen. No free fluid or inflammatory change is seen. Appendix is seen which is normal in size. Bone window settings were reviewed which show no acute osseous finding. Impression: 1. Nonobstructing calculi are seen within both kidneys. 2. Nothing acute is otherwise seen on CT study of the abdomen and pelvis. Diagnostic code #2
[2021-03-11] MEDS ORDERED: Sodium Chloride 0.9% 1,000 ML IV ONE (15:22)
[2021-03-11] MEDS ORDERED: Dexamethasone 10 MG/ML SDV IVPUSH ONE (15:22)
--- NOTE | 2021-03-11 15:38 | CR ---
Chest: Frontal view of the chest was obtained utilizing portable technique. Comparison: Prior chest x-ray performed earlier on the same day (12:45 PM). Diffuse consolidation within the right lung is seen. Lesser consolidation is seen within the left lung. Right-sided jugular line is seen. Tip lies within the superior vena cava. Heart is mildly enlarged. Bony structures show nothing acute. Impression: 1. Right jugular line with tip lying within the superior vena cava. 2. Stable consolidation within both lungs, worse on the right side as described above. 3. Stable cardiomegaly. Diagnostic code #3
--- NOTE | 2021-03-11 15:56 | PCM.PRNOTE ---
- Free Text/Narrative Note: Procedure: Right internal jugular central venous catheter placement. Triple- lumen. Physician performing procedure: Jd Jacobson Jr., DO. Physical Education Teacher: David Martínez PA-C Indication: Hypotension, vascular access Consent obtained by patient and patient's father and an emergent setting. Description of procedure: The right internal jugular vein as well as its coinciding right carotid artery were identified by ultrasound prior to initiation of procedure. A timeout was performed identifying the correct procedure, insertion site, and patient graphics. Once confirmed, the patient was prepped and draped in the usual sterile fashion. 1% lidocaine was used for local anesthesia over the insertion site. Under the guidance of ultrasound visualization, the right internal jugular vein and carotid artery were identified. The right IJ was then cannulated using a finder needle. The syringe was then extracted off of the needle and a guidewire was inserted into the vessel. Ectopy was appreciated, and the guidewire was then retracted until no further ectopy was noted. The finder needle was then extracted; the guidewire was then pinned. Using the supplied 11 blade scalpel, a small cut was made at the skin at the insertion site to make way for the dilator. The dilator was then over wired onto the guidewire and then inserted into the vessel. The dilator was then extracted as the guidewire was pinned. 14 [place] triple-lumen catheter was then over wired into the vessel and inserted down to 15 cm. Initially ectopy was noted and the catheter was then extracted a few centimeters. The catheter was then sutured in place. The insertion site was then cleaned with chlorhexidine and sterile saline. An antibiotic infused Tegaderm was placed over the insertion site and catheter. Patient tolerated the procedure well. Postprocedure chest x-ray confirmed adequate placement of the line and no evidence of pneumothorax was noted. Blood loss: 5 cc All ports were adequately flushed properly.
[2021-03-11] MEDS ORDERED: Apixaban 2.5 MG Tab PO ONE (15:58)
[2021-03-11] MEDS ORDERED: Acetaminophen 325 MG Tab PO STA (16:51)
[2021-03-11] MEDS ORDERED: Morphine 4 MG/ML Syringe IVPUSH ONE (17:45)
[2021-03-11] MEDS ORDERED: Morphine 2 MG/ML SYRINGE IVPUSH ONE ×2 (19:11→19:12)
[2021-03-11 19:25] VITALS: BP 107/53; PULSE 105
== END 2021-03-11 19:24 ==
LOC: JD.ED 12:10
DX: I95.9 Hypotension, unspecified (principal); U07.1 COVID-19; J12.82 Pneumonia due to coronavirus disease 2019; J45.909 Unspecified asthma, uncomplicated; G43.909 Migraine, unspecified, not intractable, without status migrainosus; F41.9 Anxiety disorder, unspecified; F32.A Depression, unspecified; E66.9 Obesity, unspecified; Z90.49 Acquired absence of other specified parts of digestive tract; Z98.890 Other specified postprocedural states; Z88.0 Allergy status to penicillin; Z88.1 Allergy status to other antibiotic agents; Z88.8 Allergy status to other drugs, medicaments and biological substances; Z91.018 Allergy to other foods; Z79.899 Other long term (current) drug therapy
CPT/HCPCS: 36415; 36556; 36600; 71045; 71250; 74176; 80053; 80306; 81001; 82803; 83605; 83880; 85025; 85379; 86140; 87040; 87077; 87150; 87186; 93005; 96365; 96366; 96375; 96376; 99285; A9270; J1100; J2270; J7030; J7060

== ENCOUNTER 2021-03-22 20:17 | Emergency (ER) | payer MEDICAID ==
[2021-03-22 20:43] VITALS: BP 129/77; PULSE 84
[2021-03-22] MEDS ORDERED: Sodium Chloride 0.9% 10 ML Syringe FLUSH PRN (21:11)
--- NOTE | 2021-03-22 21:29 | EDM.PDOC ---
ED HPI GENERAL MEDICAL PROBLEM - General Chief Complaint: Diabetic Complaint Stated Complaint: HIGH BLOOD SUGAR Time Seen by Provider: 03/22/21 21:11 Source of Information: Reports: Patient History Limitations: Reports: No Limitations - History of Present Illness INITIAL COMMENTS - FREE TEXT/NARRATIVE: 30-year-old female presents the emergency department with complaints of high blood sugars. Patient has a pretty extensive history. She developed Covid March 03, 2021 and was transferred to [facility] for treatment as patient does have a complicated history due to the fact she has a history of lupus and rheumatoid arthritis. Patient states she spent some time there and then was discharged home on oxygen. She states that she failed to get better at home and progressively got worse when she presented to this emergency department and was found to have worsening oxygen saturations and severe low blood pressures. Patient was essentially transferred to [facility] and was recently discharged 2 days ago. Patient continues on 2 L of oxygen per nasal cannula. She states she is chronically on steroids due to her history of lupus and rheumatoid arthritis however was discharged home on the milligrams of prednisone daily. She states that while she was in the hospital she was receiving sliding scale insulin 10 times per day. She was then discharged home on glipizide 2.5 mg daily. She states that her blood sugars have progressively gotten higher. She states in the mornings they're in the 100s creeping up to the mid 200s by noon and then low 300s by evening. She has not been on a low-carb diet and did have a few sips of regular soda today. She is also complaining of bilateral flank pain and does have a history of decreased kidney function. Patient denies any urinary symptoms at this time. Patient did call her primary care provider today and was notified that she be seen in the emergency department. Back Pain Score (Numeric/FACES): 7 - Related Data Allergies Allergy/AdvReac Type Severity Reaction Status Date / Time amoxicillin Allergy Severe Other Verified 03/11/21 12:21 amoxicillin trihydrate Allergy Severe Other Verified 03/11/21 12:21 [From Augmentin] ciprofloxacin Allergy Severe Itching Verified 03/11/21 12:21 clindamycin Allergy Severe Rash Verified 03/11/21 12:21 lemon Allergy Severe Hives Verified 03/11/21 12:21 Penicillins Allergy Severe Hives Verified 03/11/21 12:21 potassium chloride Allergy Severe Hives Verified 03/11/21 12:21 potassium clavulanate Allergy Severe Other Verified 03/11/21 12:21 [From Augmentin] diphenhydramine HCl AdvReac Severe "muscle Verified 03/11/21 12:21 [From Benadryl] aches" Home Meds: Home Meds Albuterol Sulfate [Proair Hfa] 2 puff IH Q4H PRN 11/22/17 [History] ondansetron HCL [Zofran] 4 mg SL Q8H PRN 11/22/17 [History] traMADol [Ultram] 50 - 100 mg PO Q6H PRN 11/22/17 [History] Ibuprofen [Advil] 800 mg PO BID PRN 10/06/19 [History] predniSONE [Prednisone] 40 mg PO MOWEFR 10/06/19 [History] ALPRAZolam [Alprazolam ER] 0.5 mg PO BID PRN 03/11/21 [History] oxyCODONE HCl/Acetaminophen [Endocet 10-325 mg Tablet] 1 tab PO Q4H PRN 03/11/21 [History] Ondansetron [Zofran ODT] 4 mg PO Q6H PRN #15 tab.dis 03/22/21 [Rx] Past Medical History HEENT History: Reports: Impaired Vision Other HEENT History: wears glasses Cardiovascular History: Reports: Arrhythmia Other Cardiovascular History: SVT, varicose veins Respiratory History: Reports: Asthma, Other (See Below) Other Respiratory History: pleurisy Gastrointestinal History: Reports: Diverticulosis Other Gastrointestinal History: 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 Musculoskeletal History: Reports: RA, SLE, Other (See Below) Other Musculoskeletal History: Sjogren syndrome Neurological History: Reports: Migraines Psychiatric History: Reports: Anxiety, Depression Other Psychiatric History: PP depression following second child's delivery. Endocrine/Metabolic History: Reports: Obesity/BMI 30+ Hematologic History: Reports: Anemia Immunologic History: Reports: SLE, Other (See Below) Other Immunologic History: lupus Dermatologic History: Reports: Other (See Below) Other Dermatologic History: Severe cellulitis with pseudomonal infection to L ear cartlidge following ear piercing at age 11--required a PICC line and 6 weeks of IV abx as well as two reconstructive surgeries following daily debridement over a period of weeks as well; sores/lesions to neck and face occasionally - Infectious Disease History Infectious Disease History: Reports: C-Difficile, Novel Coronavirus Other Infectious Disease History: feels she had covid but not tested - Past Surgical History HEENT Surgical History: Reports: Oral Surgery Other HEENT Surgeries/Procedures: ear piercing removed; wisdom teeth removed Cardiovascular Surgical History: Reports: Cardiac Ablation Respiratory Surgical History: Reports: None GI Surgical History: Reports: Cholecystectomy, Colonoscopy Female Surgical History: Reports: D&C, Lithotripsy/ESWL Endocrine Surgical History: Reports: None Neurological Surgical History: Reports: None Musculoskeletal Surgical History: Reports: None Dermatological Surgical History: Reports: None Social & Family History - Family History Family Medical History: No Pertinent Family History - Tobacco Use Tobacco Use Status *Q: Never Tobacco User - Caffeine Use Caffeine Use: Reports: Coffee, Soda, Tea Other Caffeine Use: coffee rarely Caffeine Use Comment: 1 cup per day - Recreational Drug Use Recreational Drug Use: No - Living Situation & Occupation Living situation: Reports: , with Spouse, with Family (6 kids) Occupation: Unemployed ED ROS GENERAL - Review of Systems Review Of Systems: Comprehensive ROS is negative, except as noted in HPI. ED EXAM GENERAL NO PERIP PULSE - Physical Exam Exam: See Below Exam Limited By: No Limitations General Appearance: Alert, WD/WN, No Apparent Distress Ears: Normal External Exam, Hearing Grossly Normal Nose: Normal Inspection Throat/Mouth: Normal Inspection, Normal Lips, Normal Voice, No Airway Compromise Head: Atraumatic Neck: Normal Inspection, Supple Respiratory/Chest: No Respiratory Distress, Lungs Clear, Normal Breath Sounds, No Accessory Muscle Use, Chest Non-Tender Cardiovascular: Normal Peripheral Pulses, Regular Rate, Rhythm, No Edema, No Murmur GI/Abdominal: Normal Bowel Sounds, Soft, Non-Tender, No Distention (Female) Exam: Deferred Rectal (Female) Exam: Deferred Back Exam: Normal Inspection Extremities: Normal Inspection Neurological: Alert, Oriented, Normal Cognition Psychiatric: Normal Affect, Normal Mood Skin Exam: Warm, Dry, Intact, Normal Color, No Rash Lymphatic: No Adenopathy Course - Vital Signs Text/Narrative:: As stated above patient presents with elevated blood sugars currently taking prednisone 40 mg daily. Also complains of bilateral flank pain. Physical exam is essentially unremarkable. Patient is on oxygen per nasal cannula which she was discharged to home with. Lung sounds are clear to all samuel. Will obtain lab studies as well as urinalysis with micro and urine ketones. Last Recorded V/S: Last Vital Signs Temp 98.0 F 03/22/21 20:42 Pulse 84 03/22/21 20:42 Resp 20 03/22/21 20:42 BP 129/77 03/22/21 20:42 Pulse Ox 99 03/22/21 20:42 - Orders/Labs/Meds Orders: Active Orders 24 hr Category Date Time Status Sodium Chloride 0.9% [Saline Flush] Med 03/22/21 21:11 Active 10 ml FLUSH ASDIRECTED PRN Saline Lock Insert [OM.PC] Stat Oth 03/22/21 21:11 Ordered Medication Orders Sodium Chloride (Sodium Chloride 0.9% 10 Ml Syringe) 10 ml FLUSH ASDIRECTED PRN PRN Reason: Keep Vein Open Last Admin: 03/22/21 22:29 Dose: 10 ml Documented by: PERLA Labs: Laboratory Tests 03/22/21 03/22/21 03/22/21 Range/Units 21:30 21:30 21:30 WBC 9.61 (3.98-10.04) K/mm3 RBC 3.87 L (3.98-5.22) M/mm3 Hgb 11.1 L (11.2-15.7) gm/dl Hct 35.2 (34.1-44.9) % MCV 91.0 (79.4-94.8) fl MCH 28.7 (25.6-32.2) pg MCHC 31.5 L (32.2-35.5) g/dl RDW Std Deviation 48.7 H (36.4-46.3) fL Plt Count 537 H (182-369) K/mm3 MPV 9.2 L (9.4-12.3) fl Neut % (Auto) 86.0 H (34.0-71.1) % Lymph % (Auto) 4.8 L (19.3-51.7) % [place] % (Auto) 6.5 (4.7-12.5) % Eos % (Auto) 0 L (0.7-5.8) Baso % (Auto) 0.1 (0.1-1.2) % Neut # (Auto) 8.27 H (1.56-6.13) K/mm3 Lymph # (Auto) 0.46 L (1.18-3.74) K/mm3 [place] # (Auto) 0.62 H (0.24-0.36) K/mm3 Eos # (Auto) 0.00 L (0.04-0.36) K/mm3 Baso # (Auto) 0.01 (0.01-0.08) K/mm3 Sodium 137 (136-145) mEq/L Potassium 4.4 (3.5-5.1) mEq/L Chloride 101 (98-107) mEq/L Carbon Dioxide 27 (21-32) mEq/L Anion Gap 13.4 (5-15) BUN 24 H (7-18) mg/dL Creatinine 1.0 D (0.55-1.02) mg/dL Est Cr Clr Drug Dosing 69.74 mL/min Estimated GFR (MDRD) > 60 (>60) mL/min BUN/Creatinine Ratio 24.0 H (14-18) Glucose 283 H (70-99) mg/dL Calcium 8.7 (8.5-10.1) mg/dL Magnesium 1.8 (1.8-2.4) mg/dL Total Bilirubin 0.8 (0.2-1.0) mg/dL AST 10 L (15-37) U/L ALT 25 (14-59) U/L Alkaline Phosphatase 45 L (46-116) U/L Total Protein 6.7 (6.4-8.2) g/dl Albumin 3.1 L (3.4-5.0) g/dl Globulin 3.6 gm/dL Albumin/Globulin Ratio 0.9 L (1-2) Urine Color (Yellow) Urine Appearance (Clear) Urine pH (5.0-8.0) Ur Specific [place] (1.005-1.030) Urine Protein (Negative) Urine Glucose (UA) (Negative) Urine Ketones (Negative) Urine Occult Blood (Negative) Urine Nitrite (Negative) Urine Bilirubin (Negative) Urine Urobilinogen (0.2-1.0) Ur Leukocyte Esterase (Negative) Urine RBC (0-5) /hpf Urine WBC (0-5) /hpf Ur Squamous Epith Cells (0-5) /hpf Urine Bacteria (FEW) /hpf Urine Mucus (FEW) /hpf Ketones <0.01 (0.0-0.3) mM 12/20/21 Range/Units 22:10 WBC (3.98-10.04) K/mm3 RBC (3.98-5.22) M/mm3 Hgb (11.2-15.7) gm/dl Hct (34.1-44.9) % MCV (79.4-94.8) fl MCH (25.6-32.2) pg MCHC (32.2-35.5) g/dl RDW Std Deviation (36.4-46.3) fL Plt Count (182-369) K/mm3 MPV (9.4-12.3) fl Neut % (Auto) (34.0-71.1) % Lymph % (Auto) (19.3-51.7) % [place] % (Auto) (4.7-12.5) % Eos % (Auto) (0.7-5.8) Baso % (Auto) (0.1-1.2) % Neut # (Auto) (1.56-6.13) K/mm3 Lymph # (Auto) (1.18-3.74) K/mm3 [place] # (Auto) (0.24-0.36) K/mm3 Eos # (Auto) (0.04-0.36) K/mm3 Baso # (Auto) (0.01-0.08) K/mm3 Sodium (136-145) mEq/L Potassium (3.5-5.1) mEq/L Chloride (98-107) mEq/L Carbon Dioxide (21-32) mEq/L Anion Gap (5-15) BUN (7-18) mg/dL Creatinine (0.55-1.02) mg/dL Est Cr Clr Drug Dosing mL/min Estimated GFR (MDRD) (>60) mL/min BUN/Creatinine Ratio (14-18) Glucose (70-99) mg/dL Calcium (8.5-10.1) mg/dL Magnesium (1.8-2.4) mg/dL Total Bilirubin (0.2-1.0) mg/dL AST (15-37) U/L ALT (14-59) U/L Alkaline Phosphatase (46-116) U/L Total Protein (6.4-8.2) g/dl Albumin (3.4-5.0) g/dl Globulin gm/dL Albumin/Globulin Ratio (1-2) Urine Color Yellow (Yellow) Urine Appearance Clear (Clear) Urine pH 6.0 (5.0-8.0) Ur Specific [place] 1.025 (1.005-1.030) Urine Protein Negative (Negative) Urine Glucose (UA) 3+ H (Negative) Urine Ketones Negative (Negative) Urine Occult Blood 2+ H (Negative) Urine Nitrite Negative (Negative) Urine Bilirubin Negative (Negative) Urine Urobilinogen 0.2 (0.2-1.0) Ur Leukocyte Esterase Negative (Negative) Urine RBC 10-20 H (0-5) /hpf Urine WBC 0-5 (0-5) /hpf Ur Squamous Epith Cells 0-5 (0-5) /hpf Urine Bacteria Few (FEW) /hpf Urine Mucus Few (FEW) /hpf Ketones (0.0-0.3) mM Meds: Medications Generic Name Dose Route Start Last Admin Trade Name Jarvis PRN Reason Stop Dose Admin Sodium Chloride 10 ml 03/22/21 21:11 03/22/21 22:29 Sodium Chloride 0.9% 10 Ml Syringe FLUSH 10 ml ASDIRECTED PRN Administration Keep Vein Open Discontinued Medications Generic Name Dose Route Start Last Admin Trade Name Jarvis PRN Reason Stop Dose Admin Hydromorphone HCl 0.5 mg 03/22/21 21:58 03/22/21 22:28 Hydromorphone 0.5 Mg/0.5 Ml Syringe IVPUSH 03/22/21 21:59 0.5 mg ONETIME ONE Administration - Re-Assessments/Exams Free Text/Narrative Re-Assessment/Exam: 03/22/21 22:54 Hematology reveals a WBC of 9.61, hemoglobin 11.1, hematocrit 35.2, platelet count 537 Sodium 137, potassium 4.4, anion gap 13.4, BUN 24, creatinine 1.0, glucose 283, magnesium 1.8, Urinalysis reveals 3+ glucose, 2+ occult blood, nitrite negative, leukocyte Estrace negative, urine RBC 10-20 Toxicology reveals less than 0.01 ketones Discussed the case with Dr. Tirado regarding the patient's blood sugars. He recommends that I do not make any changes to her medications at this time. Patient does have an appointment scheduled with her primary care provider for Monday, March 24, 2021. She can be reevaluated at that time. Did discuss with the patient to adhere to a diabetic low carbohydrate diet. Patient does verbalize understanding of this. Departure - Departure Time of Disposition: 22:55 Disposition: Home, Self-Care Condition: Good Clinical Impression: Hyperglycemia, Flank pain - Discharge Information Prescriptions: Ondansetron [Zofran ODT] 4 mg PO Q6H PRN #15 tab.dis PRN Reason: Nausea/Vomiting Referrals: Shy Fuchs PA-C [Primary Care Provider] - Forms: ED Department Discharge Additional Instructions: You are seen in the emergency department this evening with concerns regarding high blood sugars as well as flank pain. Lab studies were completed and were essentially unremarkable. Your kidney function is within normal limits and there is no sign of urinary tract infection. Blood sugar while in the emergency department was 283. At this time there is no emergent treatment warranted. Recommend adhering to a low carbohydrate diabetic diet to manage blood sugars at home. Follow-up with your primary care provider as scheduled March 24, 2021. I have sent a prescription for Zofran ODT to clinic pharmacy. You should be able to pick that up tomorrow. Sepsis Event Note (ED) - Focused Exam Vital Signs: Vital Signs Temp Pulse Resp BP Pulse Ox 03/22/21 20:42 98.0 F 84 20 129/77 99 - My Orders Last 24 Hours: My Active Orders 03/22/21 21:11 Sodium Chloride 0.9% [Saline Flush] 10 ml FLUSH ASDIRECTED PRN Saline Lock Insert [OM.PC] Stat - Assessment/Plan Last 24 Hours: My Active Orders 03/22/21 21:11 Sodium Chloride 0.9% [Saline Flush] 10 ml FLUSH ASDIRECTED PRN Saline Lock Insert [OM.PC] Stat
[2021-03-22] MEDS ORDERED: HYDROmorphone 0.5 MG/0.5 ML Syringe IVPUSH ONE (21:58)
== END 2021-03-22 23:35 | disposition home or self-care (01) ==
LOC: JD.ED 20:17
DX: R73.9 Hyperglycemia, unspecified (principal); R10.9 Unspecified abdominal pain; E66.9 Obesity, unspecified; Z68.34 Body mass index [BMI] 34.0-34.9, adult; Z88.0 Allergy status to penicillin; Z88.1 Allergy status to other antibiotic agents; Z91.018 Allergy to other foods; Z88.8 Allergy status to other drugs, medicaments and biological substances
CPT/HCPCS: 36415; 80053; 81001; 82009; 83735; 85025; 96374; 99284; J1170

== ENCOUNTER 2021-04-03 18:12 | Emergency (ER) | payer MEDICAID ==
[2021-04-03 18:25] VITALS: BP 160/91; PULSE 104
--- NOTE | 2021-04-03 18:59 | EDM.PDOC ---
ED HPI GENERAL MEDICAL PROBLEM - General Chief Complaint: Diabetic Complaint Stated Complaint: HIGH BLOOD SUGAR Time Seen by Provider: 04/03/21 18:34 Source of Information: Reports: Patient History Limitations: Reports: No Limitations - History of Present Illness INITIAL COMMENTS - FREE TEXT/NARRATIVE: Ms. Pablo is a pleasant 30-year-old woman who now presents to the ED for hyperglycemia. The patient has chronically been on steroids for SLE and rheumatoid arthritis, and was recently hospitalized at [facility] for complications from COVID-19, during which time she was found to have hyperglycemia, presumably due to prediabetes. She was treated with insulin per a sliding scale while hospitalized, but at discharge, she was prescribed glipizide every morning, which she states she has been taking as prescribed. She states that she checks her blood glucose 4-6 times a day, with a normal range of 150 to 420. Tonight her blood glucose was 435. When asked about her diet, she reported that she has been adhering to a low glycemic index diet, and stated that she has not had a soda since before , however, in reviewing the ED record from 03/22/2021, she acknowledged at that time that she had not been adhering to a diabetic diet, and that she had had a soda that day. The patient states that she saw her PCP plus a dietitian last week. She acknowl edged that they are trying to avoid putting her on insulin, however, the patient indicated several times during my evaluation that she really thinks that she should be on insulin, stating that there is no other way to keep her blood glucose under control. The patient has an Mill Representative, but has not met with him in months. At triage, the patient's initial BP was found to be elevated 160/91, with slight tachycardia of 104. She is afebrile, saturating 99 to 100% 3 L of oxygen per nasal cannula. She appears to be comfortable, in no acute distress. I turned the oxygen off, in order to check what her SpO2 is on room air. I reviewed the PMHx/PSHx/SocHx, which was reviewed with the patient by the RN. The patient's PCP is FOSTER Boone. She has an appointment to see Ms. Fuchs this coming 04/05/2021, to be followed by a meeting with the dietitian. Her Mill Representative is Dr. Richard Taylor, at [facility]. Her Marketing Intelligence Manager is Dr. Jose Quiroz, in [place]. Her Urologist is Dr. Manuel Viveros, at [facility]. Her Business Strategy Manager is Dr. Laquita Bird, at [facility]. Her EP Director Of Undergraduate Admissions is Dr. Huber Alcala. Her Neurologist is Dr. Andres Brown, in [place]. She has not received a COVID vaccination, nor an influenza vaccination this season. - Related Data Allergies Allergy/AdvReac Type Severity Reaction Status Date / Time clindamycin Allergy Intermediate Rash Verified 03/23/21 12:07 lemon Allergy Intermediate Hives Verified 03/23/21 12:07 Penicillins Allergy Intermediate Hives Verified 03/23/21 12:07 potassium chloride Allergy Intermediate Hives Verified 03/23/21 12:07 ciprofloxacin Allergy Mild Itching Verified 03/23/21 12:07 amoxicillin Allergy Unknown Other Verified 03/23/21 12:07 amoxicillin trihydrate Allergy Unknown Other Verified 03/23/21 12:07 [From Augmentin] potassium clavulanate Allergy Unknown Other Verified 03/23/21 12:07 [From Augmentin] haloperidol [From Haldol] Allergy Change Verified 04/03/21 18:25 Mental Status diphenhydramine HCl AdvReac Mild "muscle Verified 03/23/21 12:07 [From Benadryl] aches" Home Meds: Home Meds Albuterol Sulfate [Proair Hfa] 2 puff IH Q4H PRN 11/22/17 [History] ondansetron HCL [Zofran] 4 mg SL Q8H PRN 11/22/17 [History] traMADol [Ultram] 50 - 100 mg PO Q6H PRN 11/22/17 [History] Ibuprofen [Advil] 800 mg PO BID PRN 10/06/19 [History] predniSONE [Prednisone] 40 mg PO MOWEFR 10/06/19 [History] ALPRAZolam [Alprazolam ER] 0.5 mg PO BID PRN 03/11/21 [History] oxyCODONE HCl/Acetaminophen [Endocet 10-325 mg Tablet] 1 tab PO Q4H PRN 03/11/21 [History] Ondansetron [Zofran ODT] 4 mg PO Q6H PRN #15 tab.dis 03/22/21 [Rx] Past Medical History HEENT History: Reports: Impaired Vision Other HEENT History: wears glasses Cardiovascular History: Reports: Arrhythmia Other Cardiovascular History: SVT, varicose veins Respiratory History: Reports: Asthma, Other (See Below) Other Respiratory History: pleurisy Gastrointestinal History: Reports: Diverticulosis Other Gastrointestinal History: chronic c-diff with fecal transplant at [place] in 10/19/20 & Jan 07 2021 Genitourinary History: Reports: Renal Calculus, Renal Disease Other Genitourinary History: thin basement membrane; painful Loin disease PRINT SHOP MANAGER History: Reports: Spontaneous Other PRINT SHOP MANAGER History: Hx of PP hemorrhage following third son's delivery. Musculoskeletal History: Reports: RA, SLE, Other (See Below) Other Musculoskeletal History: Sjogren syndrome Neurological History: Reports: Migraines Psychiatric History: Reports: Anxiety, Depression Other Psychiatric History: PP depression following second child's delivery. Endocrine/Metabolic History: Reports: Obesity/BMI 30+ Hematologic History: Reports: Anemia Immunologic History: Reports: SLE, Other (See Below) Other Immunologic History: lupus Dermatologic History: Reports: Other (See Below) Other Dermatologic History: Severe cellulitis with pseudomonal infection to L ear cartlidge following ear piercing at age 11--required a PICC line and 6 weeks of IV abx as well as two reconstructive surgeries following daily debridement over a period of weeks as well; sores/lesions to neck and face occasionally - Infectious Disease History Infectious Disease History: Reports: C-Difficile, Novel Coronavirus Other Infectious Disease History: feels she had covid but not tested - Past Surgical History HEENT Surgical History: Reports: Oral Surgery Other HEENT Surgeries/Procedures: ear piercing removed; wisdom teeth removed Cardiovascular Surgical History: Reports: Cardiac Ablation Respiratory Surgical History: Reports: None GI Surgical History: Reports: Cholecystectomy, Colonoscopy Female Surgical History: Reports: D&C, Lithotripsy/ESWL Endocrine Surgical History: Reports: None Neurological Surgical History: Reports: None Musculoskeletal Surgical History: Reports: None Dermatological Surgical History: Reports: None Social & Family History - Family History Family Medical History: No Pertinent Family History - Tobacco Use Tobacco Use Status *Q: Never Tobacco User - Caffeine Use Caffeine Use: Reports: Coffee, Soda, Tea Other Caffeine Use: coffee rarely Caffeine Use Comment: 1 cup per day - Living Situation & Occupation Living situation: Reports: , with Spouse, with Family (6 kids) Occupation: Unemployed ED ROS GENERAL - Review of Systems Review Of Systems: Comprehensive ROS is negative, except as noted in HPI. ED EXAM GENERAL NO PERIP PULSE - Physical Exam Exam: See Below Exam Limited By: No Limitations General Appearance: Alert, WD/WN, No Apparent Distress Eye Exam: Bilateral Eye: EOMI, Normal Inspection Ears: Normal External Exam, Hearing Grossly Normal Nose: Normal Inspection Throat/Mouth: Normal Inspection, Normal Lips, Normal Voice, No Airway Compromise Head: Atraumatic, Normocephalic Neck: Normal Inspection, Full Range of Motion Respiratory/Chest: No Respiratory Distress, Lungs Clear, Normal Breath Sounds, No Accessory Muscle Use Cardiovascular: Normal Peripheral Pulses, Regular Rate, Rhythm, No Edema, No Gallop, No JVD, No Murmur, No Rub GI/Abdominal: Normal Bowel Sounds, Soft, Non-Tender, No Organomegaly, No Diste ntion, No Abnormal Bruit, No Mass Back Exam: Normal Inspection, Full Range of Motion, NT Extremities: Normal Inspection, Normal Range of Motion, No Pedal Edema, Normal Capillary Refill Neurological: Alert, Oriented, Normal Cognition, No Motor/Sensory Deficits Psychiatric: Normal Affect Skin Exam: Warm, Dry, Intact, Normal Color, No Rash Course - Vital Signs Last Recorded V/S: Last Vital Signs Temp 35.9 C L 04/03/21 18:18 Pulse 104 H 04/03/21 18:18 Resp 20 04/03/21 18:18 BP 160/91 H 04/03/21 18:18 Pulse Ox 99 04/03/21 18:18 Orthostatic Blood Pressure [ 128/97 Standing] Orthostatic Blood Pressure [ 135/76 Supine] - Orders/Labs/Meds Labs: Laboratory Tests 04/03/21 04/03/21 04/03/21 Range/Units 18:48 19:10 19:10 WBC 10.42 H (3.98-10.04) K/mm3 RBC 3.62 L (3.98-5.22) M/mm3 Hgb 10.1 L (11.2-15.7) gm/dl Hct 33.4 L (34.1-44.9) % MCV 92.3 (79.4-94.8) fl MCH 27.9 (25.6-32.2) pg MCHC 30.2 L (32.2-35.5) g/dl RDW Std Deviation 52.4 H (36.4-46.3) fL Plt Count 522 H (182-369) K/mm3 MPV 8.4 L (9.4-12.3) fl Neut % (Auto) 78.9 H (34.0-71.1) % Lymph % (Auto) 12.6 L (19.3-51.7) % Appling % (Auto) 5.6 (4.7-12.5) % Eos % (Auto) 0 L (0.7-5.8) Baso % (Auto) 0.3 (0.1-1.2) % Neut # (Auto) 8.23 H (1.56-6.13) K/mm3 Lymph # (Auto) 1.31 (1.18-3.74) K/mm3 Appling # (Auto) 0.58 H (0.24-0.36) K/mm3 Eos # (Auto) 0.00 L (0.04-0.36) K/mm3 Baso # (Auto) 0.03 (0.01-0.08) K/mm3 Sodium 140 (136-145) mEq/L Potassium 3.8 (3.5-5.1) mEq/L Chloride 101 (98-107) mEq/L Carbon Dioxide 27 (21-32) mEq/L Anion Gap 15.8 H (5-15) BUN 11 (7-18) mg/dL Creatinine 0.9 (0.55-1.02) mg/dL Est Cr Clr Drug Dosing 77.49 mL/min Estimated GFR (MDRD) > 60 (>60) mL/min BUN/Creatinine Ratio 12.2 L (14-18) Glucose 358 H (70-99) mg/dL POC Glucose 356 H (70-99) mg/dL Calcium 9.3 (8.5-10.1) mg/dL Ketones (0.0-0.3) mM 04/03/21 Range/Units 19:10 WBC (3.98-10.04) K/mm3 RBC (3.98-5.22) M/mm3 Hgb (11.2-15.7) gm/dl Hct (34.1-44.9) % MCV (79.4-94.8) fl MCH (25.6-32.2) pg MCHC (32.2-35.5) g/dl RDW Std Deviation (36.4-46.3) fL Plt Count (182-369) K/mm3 MPV (9.4-12.3) fl Neut % (Auto) (34.0-71.1) % Lymph % (Auto) (19.3-51.7) % Appling % (Auto) (4.7-12.5) % Eos % (Auto) (0.7-5.8) Baso % (Auto) (0.1-1.2) % Neut # (Auto) (1.56-6.13) K/mm3 Lymph # (Auto) (1.18-3.74) K/mm3 Appling # (Auto) (0.24-0.36) K/mm3 Eos # (Auto) (0.04-0.36) K/mm3 Baso # (Auto) (0.01-0.08) K/mm3 Sodium (136-145) mEq/L Potassium (3.5-5.1) mEq/L Chloride (98-107) mEq/L Carbon Dioxide (21-32) mEq/L Anion Gap (5-15) BUN (7-18) mg/dL Creatinine (0.55-1.02) mg/dL Est Cr Clr Drug Dosing mL/min Estimated GFR (MDRD) (>60) mL/min BUN/Creatinine Ratio (14-18) Glucose (70-99) mg/dL POC Glucose (70-99) mg/dL Calcium (8.5-10.1) mg/dL Ketones 0.02 (0.0-0.3) mM Meds: Medications Discontinued Medications Generic Name Dose Route Start Last Admin Trade Name Freq PRN Reason Stop Dose Admin Sodium Chloride 1,000 mls @ 999 mls/hr 04/03/21 20:07 04/03/21 20:21 Normal Saline IV 04/03/21 21:07 999 mls/hr ONETIME ONE Administration Insulin Human Regular 5 unit 04/03/21 19:17 04/03/21 19:57 Insulin Regular, Human 100 Units/Ml 3 Ml Vial SUBCUT 04/03/21 19:18 5 unit ONETIME STA Administration - Re-Assessments/Exams Free Text/Narrative Re-Assessment/Exam: 04/03/21 18:56 I ordered orthostatics, an Accu-Chek, and some blood work to make sure that the patient has not developed acidosis or a significant fluid/electrolyte shift. 04/03/21 19:05 The patient's Accu-Chek is 356. Her SpO2 on room air is 95%. Based on the above, I will order some subcutaneous insulin. 04/03/21 20:06 The patient is orthostatic. Her CBC is remarkable for slight leukocytosis of 10.42, and an H/H slightly depressed at 10.1/33.4, and thrombocytosis of 522,000. Her BMP is unremarkable. Her serum ketones are within normal limits at 0.02. Based on the above, I have ordered 1 L of NS, to be followed by repeat ortho statics. 04/03/21 21:53 Following 1 L of IV fluid, the patient is no longer orthostatic. I will discharge her home. Departure - Departure Time of Disposition: 21:53 Disposition: Home, Self-Care 01 Condition: Good Clinical Impression: Hyperglycemia, Orthostasis - Discharge Information *PRESCRIPTION DRUG MONITORING PROGRAM REVIEWED*: Not Applicable *COPY OF PRESCRIPTION DRUG MONITORING REPORT IN PATIENT [place]OR[place]: Not Applicable Instructions: Orthostatic Hypotension, Hyperglycemia, [id number] Referrals: Shy Fuchs PA-C [Primary Care Provider] - Huber Alcala [Ordering Only Provider] - Andres Brown MD [Ordering Only Provider] - Richard Taylor MD [Ordering Only Provider] - Manuel Viveros MD [Ordering Only Provider] - Laquita Bird MD [Ordering Only Provider] - Forms: ED Department Discharge Additional Instructions: You were seen in the emergency room for a blood sugar of 435 at home, associated with being on long-term steroids. Work-up in the ER included positional blood pressure checks, an Accu-Chek, and several blood test. Your blood sugar was found to be 356 in the ER. You were given 5 units of regular insulin. Your heart rate yoana excessively between lying and standing, a condition known as orthostasis. You were given 1 L of IV fluid in the ER, and your orthostasis resolved. Going forward, we recommend that you eat a low glycemic index (diabetic) diet, and take your currently prescribed medications as prescribed. Stay adequately hydrated, but avoid simple sugars, such as juice or soda. Please follow-up with your PCP, FOSTER Boone, at your previously scheduled appointment this coming 04/05/2021. If any other problems, please do not hesitate to return to the ER. Sepsis Event Note (ED) - Evaluation Sepsis Screening Result: No Definite Risk
[2021-04-03] MEDS ORDERED: Insulin Regular, Human 100 Units/ML 3 ML Vial SUBCUT STA (19:17)
[2021-04-03] MEDS ORDERED: Sodium Chloride 0.9% 1,000 ML IV ONE (20:07)
== END 2021-04-03 22:13 | disposition home or self-care (01) ==
LOC: JD.ED 18:12
DX: R73.9 Hyperglycemia, unspecified (principal); I95.1 Orthostatic hypotension; E66.9 Obesity, unspecified; Z88.1 Allergy status to other antibiotic agents; Z88.0 Allergy status to penicillin; Z88.5 Allergy status to narcotic agent; Z68.35 Body mass index [BMI] 35.0-35.9, adult
CPT/HCPCS: 36415; 80048; 82009; 82947; 85025; 99284; J1815; J7030

== ENCOUNTER 2021-04-05 22:04 | Emergency (ER) | payer MEDICAID ==
[2021-04-05 22:27] VITALS: BP 175/153; PULSE 85
--- NOTE | 2021-04-05 22:44 | EDM.PDOC ---
ED HPI GENERAL MEDICAL PROBLEM - General Chief Complaint: Abdominal Pain Stated Complaint: BACK PAIN/ ABDOMINAL PAIN Time Seen by Provider: 04/05/21 22:44 - History of Present Illness INITIAL COMMENTS - FREE TEXT/NARRATIVE: 30-year-old female presents with right sided abdominal pain. Patient states his pain started around 7:00 this evening pretty sudden onset. Patient has a history of recurrent kidney stones but says this is a little different usually her kidney stone start gradually but this was sudden onset. The pain is starting to radiate down from her flank into her lower abdomen. She has associated nausea with this and has significant discomfort with this. Patient has not any diarrhea or constipation she has had some nausea with this. Patient currently is taking antibiotics for bacterial pneumonia following Covid back in January. The patient was admitted to [facility] in [place] and was discharged on the on Van. Patient has type 2 diabetes very poorly controlled. Right Abdominal Pain Score (Numeric/FACES): 8 - Related Data Allergies Allergy/AdvReac Type Severity Reaction Status Date / Time clindamycin Allergy Intermediate Rash Verified 04/05/21 22:27 lemon Allergy Intermediate Hives Verified 04/05/21 22:27 Penicillins Allergy Intermediate Hives Verified 04/05/21 22:27 potassium chloride Allergy Intermediate Hives Verified 04/05/21 22:27 ciprofloxacin Allergy Mild Itching Verified 04/05/21 22:27 amoxicillin Allergy Unknown Other Verified 04/05/21 22:27 amoxicillin trihydrate Allergy Unknown Other Verified 04/05/21 22:27 [From Augmentin] potassium clavulanate Allergy Unknown Other Verified 04/05/21 22:27 [From Augmentin] haloperidol [From Haldol] Allergy Change Verified 04/05/21 22:27 Mental Status diphenhydramine HCl AdvReac Mild "muscle Verified 04/05/21 22:27 [From Benadryl] aches" Home Meds: Home Meds Albuterol Sulfate [Proair Hfa] 2 puff IH Q4H PRN 11/22/17 [History] ondansetron HCL [Zofran] 4 mg SL Q8H PRN 11/22/17 [History] traMADol [Ultram] 50 - 100 mg PO Q6H PRN 11/22/17 [History] Ibuprofen [Advil] 800 mg PO BID PRN 10/06/19 [History] predniSONE [Prednisone] 40 mg PO MOWEFR 10/06/19 [History] ALPRAZolam [Alprazolam ER] 0.5 mg PO BID PRN 03/11/21 [History] oxyCODONE HCl/Acetaminophen [Endocet 10-325 mg Tablet] 1 tab PO Q4H PRN 03/11/21 [History] Ondansetron [Zofran ODT] 4 mg PO Q6H PRN #15 tab.dis 03/22/21 [Rx] Cefpodoxime [Vantin] 200 mg PO BID 04/05/21 [History] Past Medical History HEENT History: Reports: Impaired Vision Other HEENT History: wears glasses Cardiovascular History: Reports: Arrhythmia Other Cardiovascular History: SVT, varicose veins Respiratory History: Reports: Asthma, Other (See Below) Other Respiratory History: pleurisy Gastrointestinal History: Reports: Diverticulosis Other Gastrointestinal History: 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 Musculoskeletal History: Reports: RA, SLE, Other (See Below) Other Musculoskeletal History: Sjogren syndrome Neurological History: Reports: Migraines Psychiatric History: Reports: Anxiety, Depression Other Psychiatric History: PP depression following second child's delivery. Endocrine/Metabolic History: Reports: Obesity/BMI 30+ Hematologic History: Reports: Anemia Immunologic History: Reports: SLE, Other (See Below) Other Immunologic History: lupus Dermatologic History: Reports: Other (See Below) Other Dermatologic History: Severe cellulitis with pseudomonal infection to L ear cartlidge following ear piercing at age 11--required a PICC line and 6 weeks of IV abx as well as two reconstructive surgeries following daily debridement over a period of weeks as well; sores/lesions to neck and face occasionally - Infectious Disease History Infectious Disease History: Reports: C-Difficile, Measles, Novel Coronavirus Other Infectious Disease History: feels she had covid but not tested - Past Surgical History HEENT Surgical History: Reports: Oral Surgery Other HEENT Surgeries/Procedures: ear piercing removed; wisdom teeth removed Cardiovascular Surgical History: Reports: Cardiac Ablation Respiratory Surgical History: Reports: None GI Surgical History: Reports: Cholecystectomy, Colonoscopy Female Surgical History: Reports: D&C, Lithotripsy/ESWL Endocrine Surgical History: Reports: None Neurological Surgical History: Reports: None Musculoskeletal Surgical History: Reports: None Dermatological Surgical History: Reports: None Social & Family History - Family History Family Medical History: No Pertinent Family History - Tobacco Use Tobacco Use Status *Q: Never Tobacco User Second Hand Smoke Exposure: No - Caffeine Use Caffeine Use: Reports: None Other Caffeine Use: coffee rarely Caffeine Use Comment: 1 cup per day - Recreational Drug Use Recreational Drug Use: No - Living Situation & Occupation Living situation: Reports: , with Spouse, with Family (6 kids) Occupation: Unemployed ED ROS GENERAL - Review of Systems Review Of Systems: See Below Constitutional: Reports: No Symptoms HEENT: Reports: No Symptoms Respiratory: Reports: No Symptoms Cardiovascular: Reports: No Symptoms GI/Abdominal: Reports: Abdominal Pain, Nausea. Denies: Constipation, Diarrhea : Reports: Flank Pain, Pain. Denies: Hematuria Musculoskeletal: Reports: Back Pain (Chronic) Skin: Reports: No Symptoms Neurological: Reports: No Symptoms Psychiatric: Reports: Anxiety ED EXAM, GI/ABD - Physical Exam Exam: See Below Exam Limited By: No Limitations General Appearance: Alert, No Apparent Distress, Obese Head: Atraumatic, Normocephalic Neck: Normal Inspection, Supple, Non-Tender, Full Range of Motion Respiratory/Chest: No Respiratory Distress, Lungs Clear, Normal Breath Sounds, Retractions Cardiovascular: Regular Rate, Rhythm, No Edema, No Murmur GI/Abdominal Exam: Normal Bowel Sounds, Soft, Tender (If you get right sided abdominal pain in the right lower quadrant it is worsened with palpation). No: Guarding, Rigid, Rebound Back Exam: Normal Inspection, CVA Tenderness (R). No: CVA Tenderness (L) Extremities: Normal Inspection Neurological: Alert, Oriented Psychiatric: Anxious Course - Vital Signs Last Recorded V/S: Last Vital Signs Temp 37.0 C 04/05/21 22:26 Pulse 85 04/05/21 22:26 Resp 20 04/05/21 22:26 BP 175/153 H 04/05/21 22:26 Pulse Ox 92 L 04/05/21 22:26 - Orders/Labs/Meds Orders: Active Orders 24 hr Category Date Time Status Abdomen wo Cont [CT] Stat Exams 04/06/21 00:45 Taken UA RFX ELIER AND CULT IF INDIC [URIN] Stat Lab 04/05/21 23:03 Ordered Labs: Laboratory Tests 04/05/21 04/05/21 04/05/21 Range/Units 22:20 22:37 22:37 WBC (3.98-10.04) K/mm3 RBC (3.98-5.22) M/mm3 Hgb (11.2-15.7) gm/dl Hct (34.1-44.9) % MCV (79.4-94.8) fl MCH (25.6-32.2) pg MCHC (32.2-35.5) g/dl RDW Std Deviation (36.4-46.3) fL Plt Count (182-369) K/mm3 MPV (9.4-12.3) fl Neut % (Auto) (34.0-71.1) % Lymph % (Auto) (19.3-51.7) % [place] % (Auto) (4.7-12.5) % Eos % (Auto) (0.7-5.8) Baso % (Auto) (0.1-1.2) % Neut # (Auto) (1.56-6.13) K/mm3 Lymph # (Auto) (1.18-3.74) K/mm3 [place] # (Auto) (0.24-0.36) K/mm3 Eos # (Auto) (0.04-0.36) K/mm3 Baso # (Auto) (0.01-0.08) K/mm3 Manual Slide Review Sodium (136-145) mEq/L Potassium (3.5-5.1) mEq/L Chloride (98-107) mEq/L Carbon Dioxide (21-32) mEq/L Anion Gap (5-15) BUN (7-18) mg/dL Creatinine (0.55-1.02) mg/dL Est Cr Clr Drug Dosing mL/min Estimated GFR (MDRD) (>60) mL/min BUN/Creatinine Ratio (14-18) Glucose (70-99) mg/dL Calcium (8.5-10.1) mg/dL Total Bilirubin (0.2-1.0) mg/dL AST (15-37) U/L ALT (14-59) U/L Alkaline Phosphatase (46-116) U/L Total Protein (6.4-8.2) g/dl Albumin (3.4-5.0) g/dl Globulin gm/dL Albumin/Globulin Ratio (1-2) HCG, Qual (NEGATIVE) Urine Color Yellow (Yellow) Urine Appearance Clear (Clear) Urine pH 6.5 (5.0-8.0) Ur Specific [place] > or = 1.030 (1.005-1.030) Urine Protein Trace H (Negative) Urine Glucose (UA) Negative (Negative) Urine Ketones Negative (Negative) Urine Occult Blood 2+ H (Negative) Urine Nitrite Negative (Negative) Urine Bilirubin Negative (Negative) Urine Urobilinogen 0.2 (0.2-1.0) Ur Leukocyte Esterase Negative (Negative) Urine RBC 10-20 H (0-5) /hpf Urine WBC 0-5 (0-5) /hpf Ur Squamous Epith Cells 5-10 H (0-5) /hpf Amorphous Sediment Few H (NOT SEEN) /hpf Urine Bacteria Few (FEW) /hpf Urine Mucus Moderate H (FEW) /hpf Urine HCG, Qual Negative (NEGATIVE) Influenza Type A RNA Negative (NEGATIVE) Influenza Type B RNA Negative (NEGATIVE) SARS-CoV-2 RNA (ILYA) Negative (NEGATIVE) 04/05/21 04/05/21 04/05/21 Range/Units 23:23 23:23 23:23 WBC 8.72 (3.98-10.04) K/mm3 RBC 3.82 L (3.98-5.22) M/mm3 Hgb 10.7 L (11.2-15.7) gm/dl Hct 35.3 (34.1-44.9) % MCV 92.4 (79.4-94.8) fl MCH 28.0 (25.6-32.2) pg MCHC 30.3 L (32.2-35.5) g/dl RDW Std Deviation 52.7 H (36.4-46.3) fL Plt Count 603 H D (182-369) K/mm3 MPV 8.1 L (9.4-12.3) fl Neut % (Auto) 45.7 (34.0-71.1) % Lymph % (Auto) 34.3 (19.3-51.7) % [place] % (Auto) 11.5 (4.7-12.5) % Eos % (Auto) 0.6 L (0.7-5.8) Baso % (Auto) 0.8 (0.1-1.2) % Neut # (Auto) 3.99 (1.56-6.13) K/mm3 Lymph # (Auto) 2.99 (1.18-3.74) K/mm3 [place] # (Auto) 1.00 H (0.24-0.36) K/mm3 Eos # (Auto) 0.05 (0.04-0.36) K/mm3 Baso # (Auto) 0.07 (0.01-0.08) K/mm3 Manual Slide Review Abnormal smear Sodium 145 (136-145) mEq/L Potassium 3.4 L (3.5-5.1) mEq/L Chloride 107 (98-107) mEq/L Carbon Dioxide 27 (21-32) mEq/L Anion Gap 14.4 (5-15) BUN 11 (7-18) mg/dL Creatinine 0.7 (0.55-1.02) mg/dL Est Cr Clr Drug Dosing 99.63 mL/min Estimated GFR (MDRD) > 60 (>60) mL/min BUN/Creatinine Ratio 15.7 (14-18) Glucose 89 (70-99) mg/dL Calcium 9.0 (8.5-10.1) mg/dL Total Bilirubin 0.5 (0.2-1.0) mg/dL AST 17 (15-37) U/L ALT 30 (14-59) U/L Alkaline Phosphatase 51 (46-116) U/L Total Protein 7.1 (6.4-8.2) g/dl Albumin 3.2 L (3.4-5.0) g/dl Globulin 3.9 gm/dL Albumin/Globulin Ratio 0.8 L (1-2) HCG, Qual Negative (NEGATIVE) Urine Color (Yellow) Urine Appearance (Clear) Urine pH (5.0-8.0) Ur Specific [place] (1.005-1.030) Urine Protein (Negative) Urine Glucose (UA) (Negative) Urine Ketones (Negative) Urine Occult Blood (Negative) Urine Nitrite (Negative) Urine Bilirubin (Negative) Urine Urobilinogen (0.2-1.0) Ur Leukocyte Esterase (Negative) Urine RBC (0-5) /hpf Urine WBC (0-5) /hpf Ur Squamous Epith Cells (0-5) /hpf Amorphous Sediment (NOT SEEN) /hpf Urine Bacteria (FEW) /hpf Urine Mucus (FEW) /hpf Urine HCG, Qual (NEGATIVE) Influenza Type A RNA (NEGATIVE) Influenza Type B RNA (NEGATIVE) SARS-CoV-2 RNA (ILYA) (NEGATIVE) Meds: Medications Discontinued Medications Generic Name Dose Route Start Last Admin Trade Name Jarvis PRN Reason Stop Dose Admin Fentanyl 50 mcg 04/05/21 23:05 04/05/21 23:32 Fentanyl 100 Mcg/2 Ml Sdv IVPUSH 04/05/21 23:06 50 mcg ONETIME ONE Administration Fentanyl 50 mcg 04/06/21 01:17 04/06/21 01:23 Fentanyl 100 Mcg/2 Ml Sdv IVPUSH 04/06/21 01:18 50 mcg ONETIME ONE Administration Lactated Ringer's 1,000 mls @ 100 mls/hr 04/05/21 23:15 04/05/21 23:32 Ringers, Lactated IV 100 mls/hr ASDIRECTED RADHA Administration Ondansetron HCl 4 mg 04/05/21 23:05 04/05/21 23:32 Ondansetron 4 Mg/2 Ml Sdv IVPUSH 04/05/21 23:06 4 mg ONETIME ONE Administration - Re-Assessments/Exams Free Text/Narrative Re-Assessment/Exam: 04/06/21 02:05 Received a couple doses of fentanyl here with some relief. I will not dose anymore at this time. Her work-up is really unrevealing her potassium is a little low however she has an allergy to Klor-Con. CT does not reveal any kidney stone or any other acute interabdominal pathology she is got a small right-sided pleural effusion and some changes consistent with her known pneumonia she is urged to continue taking her prednisone and antibiotic, the Vantin. As far as pain control goes with a negative work-up other than a small pleural effusion I feel reluctant to give her any opioids. The prednisone 40 mg a day should be more than enough to take care of most any or all discomfort coming from pleural effusion. Her potassium is a little low at 3.4 but she is allergic to Klor-Con she needs to find some dietary supplements to help supplement her potassium. Departure - Departure Time of Disposition: 02:07 Disposition: Home, Self-Care 01 Clinical Impression: Right sided abdominal pain, Pleural effusion, right - Discharge Information Instructions: Abdominal Pain, Adult Referrals: Shy Fuchs PA-C [Primary Care Provider] - Forms: ED Department Discharge Additional Instructions: Return to the emergency room with any questions problems or worsening symptoms. Your potassium is a little low try and find a potassium supplement that you can tolerate or a high potassium diet to help supplement this. Follow-up with your regular healthcare provider later this week discuss longer- term pain management issues. Sepsis Event Note (ED) - Focused Exam Vital Signs: Vital Signs Temp Pulse Resp BP Pulse Ox 04/05/21 22:26 37.0 C 85 20 175/153 H 92 L - My Orders Last 24 Hours: My Active Orders 04/05/21 23:03 UA RFX ELIER AND CULT IF INDIC [URIN] Stat 04/06/21 00:45 Abdomen wo Cont [CT] Stat - Assessment/Plan Last 24 Hours: My Active Orders 04/05/21 23:03 UA RFX ELIER AND CULT IF INDIC [URIN] Stat 04/06/21 00:45 Abdomen wo Cont [CT] Stat
[2021-04-05] MEDS ORDERED: fentaNYL 100 MCG/2 ML SDV IVPUSH ONE (23:05)
[2021-04-05] MEDS ORDERED: Ondansetron 4 MG/2 ML SDV IVPUSH ONE (23:05)
[2021-04-05] MEDS ORDERED: Lactated Ringers 1,000 ML IV SCH (23:15)
[2021-04-05 23:38] LABS: CORONAVIRUS COVID-19 NAA NEGATIVE (NEGATIVE)
[2021-04-06] MEDS ORDERED: fentaNYL 100 MCG/2 ML SDV IVPUSH ONE (01:17)
--- NOTE | 2021-04-06 10:36 | CT ---
EXAM: CT ABDOMEN AND PELVIS WITHOUT CONTRAST - RENAL STONE PROTOCOL LOCATION: [facility] DATE/TIME: 04/06/2021 12:49 AM INDICATION: Right flank pain. COMPARISON: None. TECHNIQUE: CT scan of the abdomen and pelvis was performed without oral or IV contrast. Multiplanar reformats were obtained. Dose reduction techniques were used. CONTRAST: None. FINDINGS: LOWER CHEST: A few small patchy opacities are scattered throughout both lung bases, right lung more prominent than left. Tiny right pleural effusion. HEPATOBILIARY: Prior cholecystectomy. SPLEEN: Unremarkable. PANCREAS: Unremarkable. ADRENAL GLANDS: Unremarkable. KIDNEYS/BLADDER: A few tiny nonobstructing bilateral renal calculi, all measuring less than 0.4 cm in diameter. No ureteral calculi. No dilatation of the intrarenal collecting systems or ureters. No suspicious renal lesions. No visualized bladder calculi. BOWEL: A few tiny appendicoliths are present within a normal caliber appendix. No evidence of appendicitis. LYMPH NODES: Unremarkable. PELVIC ORGANS: No acute findings. MUSCULOSKELETAL: No acute findings. OTHER: None. IMPRESSION: 1. No convincing cause of acute pain identified in the abdomen or pelvis. 2. A few tiny nonobstructing bilateral renal calculi. No ureteral calculi or evidence of urinary obstruction. 3. A few small patchy opacities within bilateral lung bases in addition to a tiny right pleural effusion. These findings are nonspecific, but are most likely related to infectious or inflammatory process that could be active or old. Recommend clinical correlation. SIGNED BY: Matthew Granados MD 04/06/2021 2:46 AM BRAYAN
== END 2021-04-06 03:03 | disposition home or self-care (01) ==
LOC: JD.ED 22:04
DX: R10.31 Right lower quadrant pain (principal); J90 Pleural effusion, not elsewhere classified; J45.909 Unspecified asthma, uncomplicated; E66.9 Obesity, unspecified; Z68.35 Body mass index [BMI] 35.0-35.9, adult; Z88.1 Allergy status to other antibiotic agents; Z91.018 Allergy to other foods; Z88.0 Allergy status to penicillin; Z88.8 Allergy status to other drugs, medicaments and biological substances; Z79.899 Other long term (current) drug therapy; Z20.822 Contact with and (suspected) exposure to COVID-19
CPT/HCPCS: 0240U; 36415; 74150; 80053; 81001; 81025; 84703; 85025; 96374; 96375; 96376; 99284; J2405; J3010; J7120

== ENCOUNTER 2021-04-06 11:21 | Emergency (ER) | payer MEDICAID ==
[2021-04-06 11:47] VITALS: BP 116/78; PULSE 97
[2021-04-06] MEDS ORDERED: Sodium Chloride 0.9% 10 ML Syringe FLUSH PRN (11:58)
[2021-04-06] MEDS ORDERED: Ondansetron 4 MG/2 ML SDV IVPUSH ONE (11:58)
[2021-04-06] MEDS ORDERED: Sodium Chloride 0.9% 1,000 ML IV STA (11:58)
[2021-04-06] MEDS ORDERED: HYDROmorphone 1 MG/ML Syringe IVPUSH ONE ×2 (12:00→13:06)
--- NOTE | 2021-04-06 12:10 | EDM.PDOC ---
ED HPI GENERAL MEDICAL PROBLEM - General Chief Complaint: Abdominal Pain Stated Complaint: BLOOD IN STOOL\\ABD BACK PAIN Time Seen by Provider: 04/06/21 11:33 Source of Information: Reports: Patient History Limitations: Reports: No Limitations - History of Present Illness INITIAL COMMENTS - FREE TEXT/NARRATIVE: The patient presents with nausea, abdominal pain and bloody diarrhea. This started a couple days ago. She was admitted to [facility] in [place] for COVID 19 and bacterial pneumonia last month. She was discharged on Vantin from [facility] on the . She started to have abdominal pain yesterday. She was seen here last night and labs and a CT of her abdomen and pelvis was done and the CT looked relatively normal. She was sent home and now the pain is worse and she has bloody diarrhea. She has no fever, chills, cough, chest pain or shortness of breath. 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 Onset: Gradual Duration: Day(s): Location: Reports: Abdomen Quality: Reports: Sharp Severity: Severe Improves with: Reports: None Worsens with: Reports: None Associated Symptoms: Reports: Nausea/Vomiting. Denies: Chest Pain, Cough, Fever/Chills, Headaches, Shortness of Breath Right Abdomen Pain Score (Numeric/FACES): 8 - Related Data Allergies Allergy/AdvReac Type Severity Reaction Status Date / Time ciprofloxacin Allergy Severe Itching Verified 04/06/21 11:47 clindamycin Allergy Severe Rash Verified 04/06/21 11:47 haloperidol [From Haldol] Allergy Severe Change Verified 04/06/21 11:47 Mental Status lemon Allergy Severe Hives Verified 04/06/21 11:47 Penicillins Allergy Severe Hives Verified 04/06/21 11:47 potassium chloride Allergy Severe Hives Verified 04/06/21 11:47 amoxicillin Allergy Unknown Other Verified 04/05/21 22:27 amoxicillin trihydrate Allergy Unknown Other Verified 04/05/21 22:27 [From Augmentin] potassium clavulanate Allergy Unknown Other Verified 04/05/21 22:27 [From Augmentin] diphenhydramine HCl AdvReac Severe "muscle Verified 04/06/21 11:47 [From Benadryl] aches" Home Meds: Home Meds Albuterol Sulfate [Proair Hfa] 2 puff IH Q4H PRN 11/22/17 [History] ondansetron HCL [Zofran] 4 mg SL Q8H PRN 11/22/17 [History] traMADol [Ultram] 50 - 100 mg PO Q6H PRN 11/22/17 [History] Ibuprofen [Advil] 800 mg PO BID PRN 10/06/19 [History] predniSONE [Prednisone] 40 mg PO MOWEFR 10/06/19 [History] ALPRAZolam [Alprazolam ER] 0.5 mg PO BID PRN 03/11/21 [History] oxyCODONE HCl/Acetaminophen [Endocet 10-325 mg Tablet] 1 tab PO Q4H PRN 03/11/21 [History] Ondansetron [Zofran ODT] 4 mg PO Q6H PRN #15 tab.dis 03/22/21 [Rx] Cefpodoxime [Vantin] 200 mg PO BID 04/05/21 [History] oxyCODONE HCl/Acetaminophen [Percocet 5-325 mg Tablet] 1 - 2 each PO Q6HR PRN #6 tablet 04/06/21 [Rx] Past Medical History HEENT History: Reports: Impaired Vision Other HEENT History: wears glasses Cardiovascular History: Reports: Arrhythmia Other Cardiovascular History: SVT, varicose veins Respiratory History: Reports: Asthma, Other (See Below) Other Respiratory History: pleurisy Gastrointestinal History: Reports: Diverticulosis Other Gastrointestinal History: chronic c-diff with fecal transplant at [place] in 10/19/20 & Jan 07 2021 Genitourinary History: Reports: Renal Calculus, Renal Disease Other Genitourinary History: thin basement membrane; painful Loin disease BLOCK GREASER History: Reports: Spontaneous Other BLOCK GREASER History: Hx of PP hemorrhage following third son's delivery. Musculoskeletal History: Reports: RA, SLE, Other (See Below) Other Musculoskeletal History: Sjogren syndrome Neurological History: Reports: Migraines Psychiatric History: Reports: Anxiety, Depression Other Psychiatric History: PP depression following second child's delivery. Endocrine/Metabolic History: Reports: Obesity/BMI 30+ Hematologic History: Reports: Anemia Immunologic History: Reports: SLE, Other (See Below) Other Immunologic History: lupus Dermatologic History: Reports: Other (See Below) Other Dermatologic History: Severe cellulitis with pseudomonal infection to L ear cartlidge following ear piercing at age 11--required a PICC line and 6 weeks of IV abx as well as two reconstructive surgeries following daily debridement over a period of weeks as well; sores/lesions to neck and face occasionally - Infectious Disease History Infectious Disease History: Reports: C-Difficile, Measles, Novel Coronavirus Other Infectious Disease History: feels she had covid but not tested - Past Surgical History HEENT Surgical History: Reports: Oral Surgery Other HEENT Surgeries/Procedures: ear piercing removed; wisdom teeth removed Cardiovascular Surgical History: Reports: Cardiac Ablation Respiratory Surgical History: Reports: None GI Surgical History: Reports: Cholecystectomy, Colonoscopy Female Surgical History: Reports: D&C, Lithotripsy/ESWL Endocrine Surgical History: Reports: None Neurological Surgical History: Reports: None Musculoskeletal Surgical History: Reports: None Dermatological Surgical History: Reports: None Social & Family History - Family History Family Medical History: No Pertinent Family History - Tobacco Use Tobacco Use Status *Q: Never Tobacco User - Caffeine Use Caffeine Use: Reports: None Other Caffeine Use: coffee rarely Caffeine Use Comment: 1 cup per day - Recreational Drug Use Recreational Drug Use: No - Living Situation & Occupation Living situation: Reports: , with Spouse, with Family (6 kids) Occupation: Unemployed ED ROS GENERAL - Review of Systems Review Of Systems: See Below Constitutional: Reports: No Symptoms HEENT: Reports: No Symptoms Respiratory: Reports: No Symptoms Cardiovascular: Reports: No Symptoms Endocrine: Reports: No Symptoms GI/Abdominal: Reports: Abdominal Pain, Bloody Stool, Diarrhea, Nausea, Vomiting : Reports: No Symptoms Musculoskeletal: Reports: No Symptoms ED EXAM, GI/ABD - Physical Exam Exam: See Below Exam Limited By: No Limitations General Appearance: Alert, Moderate Distress Ears: Normal External Exam Nose: Normal Inspection Head: Atraumatic, Normocephalic Neck: Normal Inspection Respiratory/Chest: No Respiratory Distress, Lungs Clear, Normal Breath Sounds Cardiovascular: Regular Rate, Rhythm, No Edema, No Murmur GI/Abdominal Exam: Soft, No Organomegaly, No Mass, Tender (Severe mid abdominal pain) Back Exam: Normal Inspection Extremities: Normal Inspection Course - Vital Signs Last Recorded V/S: Last Vital Signs Temp 97.7 F 04/06/21 11:45 Pulse 97 04/06/21 11:45 Resp 20 04/06/21 11:45 BP 116/78 04/06/21 11:45 Pulse Ox 96 04/06/21 12:41 - Orders/Labs/Meds Orders: Active Orders 24 hr Category Date Time Status Peripheral IV Care [RC] . DIRECTED Care 04/06/21 11:59 Active C DIFFICILE PCR W/REFLEX [MOLEC] Stat Lab 04/06/21 12:01 Ordered STOOL CULTURE/SHIGA TOXIN [MREF] Stat Lab 04/06/21 12:01 Ordered Sodium Chloride 0.9% [Saline Flush] Med 04/06/21 11:58 Active 10 ml FLUSH ASDIRECTED PRN ED Antiemetic Medication Reflex [OM.PC] Stat Oth 04/06/21 11:59 Ordered Peripheral IV Insertion Adult [OM.PC] Stat Oth 04/06/21 11:58 Ordered Medication Orders Sodium Chloride (Sodium Chloride 0.9% 10 Ml Syringe) 10 ml FLUSH ASDIRECTED PRN PRN Reason: Keep Vein Open Last Admin: 04/06/21 12:12 Dose: 10 ml Documented by: ION Labs: Laboratory Tests 04/06/21 04/06/21 Range/Units 11:40 11:40 WBC 11.08 H (3.98-10.04) K/mm3 RBC 3.88 L (3.98-5.22) M/mm3 Hgb 10.9 L (11.2-15.7) gm/dl Hct 35.8 (34.1-44.9) % MCV 92.3 (79.4-94.8) fl MCH 28.1 (25.6-32.2) pg MCHC 30.4 L (32.2-35.5) g/dl RDW Std Deviation 53.7 H (36.4-46.3) fL Plt Count 692 H D (182-369) K/mm3 MPV 8.6 L (9.4-12.3) fl Neut % (Auto) 66.4 (34.0-71.1) % Lymph % (Auto) 17.0 L (19.3-51.7) % Lanier % (Auto) 9.7 (4.7-12.5) % Eos % (Auto) 0.5 L (0.7-5.8) Baso % (Auto) 0.6 (0.1-1.2) % Neut # (Auto) 7.37 H (1.56-6.13) K/mm3 Lymph # (Auto) 1.88 (1.18-3.74) K/mm3 Lanier # (Auto) 1.07 H (0.24-0.36) K/mm3 Eos # (Auto) 0.05 (0.04-0.36) K/mm3 Baso # (Auto) 0.07 (0.01-0.08) K/mm3 Manual Slide Review Abnormal smear Sodium 143 (136-145) mEq/L Potassium 3.3 L (3.5-5.1) mEq/L Chloride 104 (98-107) mEq/L Carbon Dioxide 28 (21-32) mEq/L Anion Gap 14.3 (5-15) BUN 8 (7-18) mg/dL Creatinine 0.7 (0.55-1.02) mg/dL Est Cr Clr Drug Dosing 99.63 mL/min Estimated GFR (MDRD) > 60 (>60) mL/min BUN/Creatinine Ratio 11.4 L (14-18) Glucose 129 H (70-99) mg/dL Calcium 9.4 (8.5-10.1) mg/dL Total Bilirubin 0.6 (0.2-1.0) mg/dL AST 18 (15-37) U/L ALT 29 (14-59) U/L Alkaline Phosphatase 53 (46-116) U/L Total Protein 7.8 (6.4-8.2) g/dl Albumin 3.3 L (3.4-5.0) g/dl Globulin 4.5 gm/dL Albumin/Globulin Ratio 0.7 L (1-2) Lipase 269 (73-393) U/L Meds: Medications Generic Name Dose Route Start Last Admin Trade Name Freq PRN Reason Stop Dose Admin Sodium Chloride 10 ml 04/06/21 11:58 04/06/21 12:12 Sodium Chloride 0.9% 10 Ml Syringe FLUSH 10 ml ASDIRECTED PRN Administration Keep Vein Open Discontinued Medications Generic Name Dose Route Start Last Admin Trade Name Freq PRN Reason Stop Dose Admin Hydromorphone HCl 1 mg 04/06/21 12:00 04/06/21 12:12 Hydromorphone 1 Mg/Ml Syringe IVPUSH 04/06/21 12:01 1 mg ONETIME ONE Administration Hydromorphone HCl 1 mg 04/06/21 13:06 04/06/21 13:13 Hydromorphone 1 Mg/Ml Syringe IVPUSH 04/06/21 13:07 1 mg ONETIME ONE Administration Sodium Chloride 1,000 mls @ 1,000 mls/hr 04/06/21 11:58 04/06/21 12:12 Normal Saline IV 04/06/21 12:57 1,000 mls/hr .BOLUS STA Administration Ondansetron HCl 4 mg 04/06/21 11:58 04/06/21 12:12 Ondansetron 4 Mg/2 Ml Sdv IVPUSH 04/06/21 11:59 4 mg ONETIME ONE Administration - Re-Assessments/Exams Free Text/Narrative Re-Assessment/Exam: 04/06/21 12:11 I ordered an IV NS 1L bolus, zofran 4mg IV, dilaudid 1mg IV, labs and C-dif and stool culture. 04/06/21 14:19 WBC is elevated 11.08. Her Hgb is low at 10.9. Her platelets are elevated at 692. Her K is low at 3.3. Her glucose is 128. Her lipase is normal. She had more pain. I gave her another dilaudid. She had no more loose stools. I did want to get a sample to check for C-dif. I will send her home with some. She just missed her appointment with Rebecca Fuchs. I will call and let her know. 04/06/21 14:23 They could not work her in right now but they can get her in tomorrow at 9am. Departure - Departure Time of Disposition: 14:30 Disposition: Home, Self-Care 01 Condition: Good Clinical Impression: Abdominal pain Qualifiers: Abdominal location: generalized Qualified Code(s): R10.84 - Generalized abdominal pain Diarrhea Qualifiers: Diarrhea type: unspecified type Qualified Code(s): R19.7 - Diarrhea, unspecified - Discharge Information *PRESCRIPTION DRUG MONITORING PROGRAM REVIEWED*: Not Applicable *COPY OF PRESCRIPTION DRUG MONITORING REPORT IN PATIENT [place]: Not Applicable Prescriptions: oxyCODONE HCl/Acetaminophen [Percocet 5-325 mg Tablet] 1 - 2 each PO Q6HR PRN #6 tablet PRN Reason: Pain Referrals: Shy Fuchs PA-C [Primary Care Provider] - 1 Day Forms: ED Department Discharge Additional Instructions: Drink plenty of fluids. Take the percocet every 6 hours as needed. Try to bring the specimen cups back and we will test it for clostridium difficile. Follow up with Rebecca tomorrow at 9am. Please return if you are worse. Sepsis Event Note (ED) - Focused Exam Vital Signs: Vital Signs Temp Pulse Resp BP Pulse Ox 04/06/21 12:41 96 04/06/21 12:40 88 L 04/06/21 11:45 97.7 F 97 20 116/78 94 L - My Orders Last 24 Hours: My Active Orders 04/06/21 11:58 Sodium Chloride 0.9% [Saline Flush] 10 ml FLUSH ASDIRECTED PRN Peripheral IV Insertion Adult [OM.PC] Stat 04/06/21 11:59 Peripheral IV Care [RC] . DIRECTED ED Antiemetic Medication Reflex [OM.PC] Stat 04/06/21 12:01 C DIFFICILE PCR W/REFLEX [MOLEC] Stat STOOL CULTURE/SHIGA TOXIN [MREF] Stat - Assessment/Plan Last 24 Hours: My Active Orders 04/06/21 11:58 Sodium Chloride 0.9% [Saline Flush] 10 ml FLUSH ASDIRECTED PRN Peripheral IV Insertion Adult [OM.PC] Stat 04/06/21 11:59 Peripheral IV Care [RC] . DIRECTED ED Antiemetic Medication Reflex [OM.PC] Stat 04/06/21 12:01 C DIFFICILE PCR W/REFLEX [MOLEC] Stat STOOL CULTURE/SHIGA TOXIN [MREF] Stat
== END 2021-04-06 15:04 | disposition home or self-care (01) ==
LOC: JD.ED 11:21
DX: R10.84 Generalized abdominal pain (principal); R19.7 Diarrhea, unspecified; J45.909 Unspecified asthma, uncomplicated; E66.9 Obesity, unspecified; Z68.35 Body mass index [BMI] 35.0-35.9, adult; Z88.1 Allergy status to other antibiotic agents; Z88.8 Allergy status to other drugs, medicaments and biological substances; Z91.018 Allergy to other foods; Z88.0 Allergy status to penicillin; Z79.899 Other long term (current) drug therapy
CPT/HCPCS: 36415; 80053; 83690; 85025; 96374; 96375; 96376; 99284; J1170; J2405; J7030

== ENCOUNTER 2021-04-14 20:22 | Emergency (ER) | payer MEDICAID ==
[2021-04-14 20:56] VITALS: BP 145/85; PULSE 84
== END 2021-04-14 21:54 | disposition home or self-care (01) ==
LOC: JD.ED 20:22
DX: R73.9 Hyperglycemia, unspecified (principal); E66.9 Obesity, unspecified; Z68.35 Body mass index [BMI] 35.0-35.9, adult; Z88.0 Allergy status to penicillin; Z88.1 Allergy status to other antibiotic agents; Z88.5 Allergy status to narcotic agent; Z88.8 Allergy status to other drugs, medicaments and biological substances
CPT/HCPCS: 82947; 99284

== ENCOUNTER 2021-05-27 15:29 | Emergency (ER) | payer MEDICAID ==
[2021-05-27 16:12] VITALS: BP 132/86; PULSE 101
[2021-05-27] MEDS ORDERED: Lactated Ringers 1,000 ML IV ONE (16:55)
[2021-05-27] MEDS ORDERED: Lactated Ringers 1,000 ML IV SCH (17:00)
[2021-05-27] MEDS ORDERED: Ondansetron 4 MG/2 ML SDV IVPUSH ONE ×2 (17:15→19:53)
[2021-05-27] MEDS ORDERED: HYDROmorphone 0.5 MG/0.5 ML Syringe IVPUSH ONE (18:12)
[2021-05-27] MEDS ORDERED: Morphine 4 MG/ML Syringe IVPUSH ONE (19:53)
== END 2021-05-27 20:40 | disposition home or self-care (01) ==
LOC: JD.ED 15:29
DX: R19.7 Diarrhea, unspecified (principal); E66.9 Obesity, unspecified; Z68.34 Body mass index [BMI] 34.0-34.9, adult; Z88.1 Allergy status to other antibiotic agents; Z88.0 Allergy status to penicillin; Z88.5 Allergy status to narcotic agent
CPT/HCPCS: 36415; 80053; 83690; 84703; 85025; 87045; 87046; 87493; 87635; 87899; 96374; 96375; 96376; 99284; J1170; J2270; J2405; J7120; U0002

== ENCOUNTER 2021-06-25 11:07 | Emergency (ER) | payer MEDICAID ==
[2021-06-25] MEDS ORDERED: Ondansetron 4 MG/2 ML SDV IVPUSH ONE (11:39)
[2021-06-25] MEDS ORDERED: HYDROmorphone 1 MG/ML Syringe IVPUSH STA (11:39)
[2021-06-25] MEDS ORDERED: Sodium Chloride 0.9% 10 ML Syringe FLUSH PRN (11:39)
[2021-06-25] MEDS ORDERED: Sodium Chloride 0.9% 1,000 ML IV SCH (11:45)
[2021-06-25] MEDS ORDERED: Sodium Chloride 0.9% 1,000 ML IV ONE (13:11)
[2021-06-25] MEDS ORDERED: HYDROmorphone 0.5 MG/0.5 ML Syringe IVPUSH ONE (13:48)
[2021-06-25 16:33] VITALS: BP 127/66; PULSE 112
== END 2021-06-25 16:30 | disposition home or self-care (01) ==
LOC: JD.ED 11:07
DX: R10.84 Generalized abdominal pain (principal); R31.0 Gross hematuria; E66.9 Obesity, unspecified; Z68.34 Body mass index [BMI] 34.0-34.9, adult; Z88.1 Allergy status to other antibiotic agents; Z88.0 Allergy status to penicillin; Z91.018 Allergy to other foods
CPT/HCPCS: 36415; 74018; 76770; 80053; 81001; 81025; 83690; 85025; 86140; 87086; 87493; 96374; 96375; 96376; 99284; J1170; J2405; J7030; 83630; 87045; 87046; 87899; 99285

== ENCOUNTER 2021-08-21 13:58 | Emergency (ER) | payer MEDICAID ==
[2021-08-21] MEDS ORDERED: Sodium Chloride 0.9% 1,000 ML IV ONE (14:41)
[2021-08-21] MEDS ORDERED: Promethazine 25 MG in Sodium Chloride 0.9% 50 ML IV ONE (14:43)
[2021-08-21] MEDS ORDERED: Famotidine 20 MG/2 ML SDV IVPUSH ONE (14:44)
[2021-08-21] MEDS ORDERED: Prochlorperazine 10 MG in Sodium Chloride 0.9% 50 ML IV ONE (15:36)
[2021-08-21] MEDS ORDERED: Ketorolac 15 MG/ML SDV IVPUSH ONE (15:36)
[2021-08-21] MEDS ORDERED: Morphine 4 MG/ML Syringe IVPUSH ONE (16:28)
[2021-08-21 18:36] VITALS: BP 120/64; PULSE 89
== END 2021-08-21 17:30 | disposition home or self-care (01) ==
LOC: JD.ED 13:58
DX: R10.31 Right lower quadrant pain (principal); R11.0 Nausea; R19.7 Diarrhea, unspecified; E66.9 Obesity, unspecified; Z68.33 Body mass index [BMI] 33.0-33.9, adult; Z88.1 Allergy status to other antibiotic agents; Z91.018 Allergy to other foods; Z88.0 Allergy status to penicillin; Z88.8 Allergy status to other drugs, medicaments and biological substances; Z88.5 Allergy status to narcotic agent
CPT/HCPCS: 36415; 80053; 82009; 83735; 85025; 87328; 87329; 87493; 96361; 96365; 96375; 99284; J0780; J1885; J2270; J3490; J7030; 99283

== ENCOUNTER 2021-09-15 12:48 | Emergency (ER) | payer MEDICAID ==
[2021-09-15 13:28] VITALS: BP 169/95; PULSE 83
[2021-09-15] MEDS ORDERED: Sodium Chloride 0.9% 1,000 ML IV ONE (13:35)
[2021-09-15] MEDS ORDERED: Sodium Chloride 0.9% 10 ML Syringe FLUSH PRN (13:35)
[2021-09-15] MEDS ORDERED: Ondansetron 4 MG/2 ML SDV IVPUSH ONE (13:35)
[2021-09-15] MEDS ORDERED: Dicyclomine 10 MG Cap PO ONE (13:35)
[2021-09-15] MEDS ORDERED: HYDROmorphone 0.5 MG/0.5 ML Syringe IVPUSH ONE ×2 (13:35→16:44)
[2021-09-15] MEDS ORDERED: Iopamidol 612 MG/ML 100 ML Bottle IVPUSH ONE (13:44)
[2021-09-15] MEDS: Sodium Chloride 0.9% 10 ML Syringe FLUSH PRN ×2 (13:58→14:08)
[2021-09-15 15:19] LABS: CORONAVIRUS COVID-19 NAA NEGATIVE (NEGATIVE)
[2021-09-15 16:19] LABS: ESTIMATED GFR 118 mL/min (>60)
[2021-09-15] MEDS ORDERED: Magnesium Oxide 400 MG Tab PO ONE (16:28)
== END 2021-09-15 17:20 | disposition home or self-care (01) ==
LOC: JD.ED 12:48
DX: R10.12 Left upper quadrant pain (principal); R10.32 Left lower quadrant pain; E66.9 Obesity, unspecified; Z68.30 Body mass index [BMI] 30.0-30.9, adult; Z88.1 Allergy status to other antibiotic agents; Z88.0 Allergy status to penicillin; Z91.018 Allergy to other foods; Z88.5 Allergy status to narcotic agent; Z20.822 Contact with and (suspected) exposure to COVID-19
CPT/HCPCS: 0240U; 36415; 74177; 80053; 83690; 83735; 85025; 86140; 96361; 96374; 96375; 96376; 99284; A9270; J1170; J2405; J3490; J7030; Q9967

== ENCOUNTER 2021-10-18 08:47 | Emergency (ER) | payer MEDICAID ==
[2021-10-18] MEDS ORDERED: Sodium Chloride 0.9% 10 ML Syringe FLUSH PRN (11:37)
[2021-10-18] MEDS ORDERED: Hyoscyamine 0.125 MG Tab.SL SL ONE (11:37)
[2021-10-18] MEDS ORDERED: Ondansetron 4 MG/2 ML SDV IVPUSH ONE (11:37)
[2021-10-18] MEDS ORDERED: HYDROmorphone 1 MG/ML Syringe IVPUSH STA (11:37)
[2021-10-18] MEDS ORDERED: Sodium Chloride 0.9% 1,000 ML IV SCH (11:45)
[2021-10-18 11:46] VITALS: BP 133/93; PULSE 123
[2021-10-18] MEDS ORDERED: cefTRIAXone 2 GM in Sodium Chloride 0.9% 100 ML IV ONE (13:23)
[2021-10-18] MEDS ORDERED: Loperamide 2 MG Cap PO ONE (13:24)
[2021-10-18] MEDS ORDERED: Morphine 4 MG/ML Syringe IVPUSH ONE (13:24)
== END 2021-10-18 14:30 | disposition home or self-care (01) ==
LOC: JD.ED 08:47
DX: R19.7 Diarrhea, unspecified (principal); R10.11 Right upper quadrant pain; N30.01 Acute cystitis with hematuria; J45.909 Unspecified asthma, uncomplicated; E66.9 Obesity, unspecified; Z68.31 Body mass index [BMI] 31.0-31.9, adult; Z88.1 Allergy status to other antibiotic agents; Z91.018 Allergy to other foods; Z88.0 Allergy status to penicillin; Z88.8 Allergy status to other drugs, medicaments and biological substances; Z79.899 Other long term (current) drug therapy
CPT/HCPCS: 36415; 80053; 81001; 82977; 83690; 85025; 86140; 86850; 86900; 86901; 87086; 96361; 96365; 96375; 99284; A9270; J0696; J1170; J2270; J2405; J3490; J7030

== ENCOUNTER 2021-11-16 11:28 | Emergency (ER) | payer MEDICAID ==
[2021-11-16 12:07] VITALS: BP 147/97; PULSE 85
[2021-11-16] MEDS ORDERED: Ondansetron 4 MG/2 ML SDV IVPUSH ONE (13:03)
[2021-11-16] MEDS ORDERED: Sodium Chloride 0.9% 10 ML Syringe FLUSH PRN (13:03)
[2021-11-16] MEDS ORDERED: Sodium Chloride 0.9% 1,000 ML IV STA (13:03)
[2021-11-16 13:05] LABS: CORONAVIRUS COVID-19 NAA POSITIVE (NEGATIVE)
[2021-11-16] MEDS ORDERED: HYDROmorphone 1 MG/ML Syringe IVPUSH ONE (13:05)
[2021-11-16] MEDS ORDERED: Iopamidol 612 MG/ML 100 ML Bottle IVPUSH ONE (13:38)
[2021-11-16] MEDS ORDERED: Sodium Chloride 0.9% 10 ML Syringe FLUSH ONE (13:38)
[2021-11-16] MEDS ORDERED: Sodium Chloride 0.9% 100 ML IV SCH (13:45)
[2021-11-16] MEDS ORDERED: HYDROmorphone 0.5 MG/0.5 ML Syringe IVPUSH ONE (15:25)
[2021-11-16] MEDS ORDERED: Vancomycin 125 MG Cap PO SCH (21:00)
== END 2021-11-16 16:34 | disposition home or self-care (01) ==
LOC: JD.ED 11:28
DX: U07.1 COVID-19 (principal); A04.72 Enterocolitis due to Clostridium difficile, not specified as recurrent; E66.9 Obesity, unspecified; Z86.16 Personal history of COVID-19; Z88.1 Allergy status to other antibiotic agents; Z91.018 Allergy to other foods; Z88.0 Allergy status to penicillin; Z88.8 Allergy status to other drugs, medicaments and biological substances; Z88.5 Allergy status to narcotic agent; Z68.32 Body mass index [BMI] 32.0-32.9, adult
CPT/HCPCS: 0240U; 36415; 74177; 80053; 81001; 83690; 84703; 85025; 87045; 87046; 87077; 87324; 87493; 87899; 96361; 96374; 96375; 96376; 99284; J1170; J2405; J3490; J7030; Q9967

== ENCOUNTER 2021-12-23 16:05 | Emergency (ER) | payer MEDICAID ==
[2021-12-23] MEDS ORDERED: Sodium Chloride 0.9% 10 ML Syringe FLUSH PRN (16:59)
[2021-12-23] MEDS ORDERED: Dextrose 5%-0.9% NaCl 1,000 ML IV SCH (17:00)
[2021-12-23] MEDS ORDERED: Ondansetron 4 MG/2 ML SDV IVPUSH ONE (17:00)
[2021-12-23] MEDS ORDERED: HYDROmorphone 0.5 MG/0.5 ML Syringe IVPUSH ONE (17:00)
[2021-12-23 18:56] VITALS: BP 125/71; PULSE 75
== END 2021-12-23 19:30 | disposition home or self-care (01) ==
LOC: JD.ED 16:05
DX: R10.84 Generalized abdominal pain (principal); R19.7 Diarrhea, unspecified; E66.9 Obesity, unspecified; Z68.32 Body mass index [BMI] 32.0-32.9, adult; Z88.1 Allergy status to other antibiotic agents; Z91.018 Allergy to other foods; Z88.0 Allergy status to penicillin; Z88.8 Allergy status to other drugs, medicaments and biological substances; Z79.899 Other long term (current) drug therapy; Z86.16 Personal history of COVID-19; Z90.49 Acquired absence of other specified parts of digestive tract
CPT/HCPCS: 36415; 80053; 85025; 96361; 96374; 96375; 99284; J1170; J2405; J3490; J7042; 99283

== ENCOUNTER 2021-12-24 12:57 | Emergency (ER) | payer MEDICAID ==
[2021-12-24] MEDS ORDERED: Ketorolac 15 MG/ML SDV IVPUSH ONE (13:33)
[2021-12-24] MEDS ORDERED: Lactated Ringers 1,000 ML IV ONE (13:33)
[2021-12-24] MEDS ORDERED: Ondansetron 4 MG/2 ML SDV IVPUSH ONE (13:33)
[2021-12-24] MEDS ORDERED: Iopamidol 612 MG/ML 100 ML Bottle IVPUSH ONE (13:59)
[2021-12-24] MEDS: Sodium Chloride 0.9% 10 ML Syringe FLUSH PRN ×2 (14:00→14:14)
[2021-12-24] MEDS ORDERED: Magnesium Sulfate/Water 2 GM in Premix Bag 1 BAG IV ONE (14:18)
[2021-12-24] MEDS ORDERED: Acetaminophen 325 MG Tab PO ONE (14:35)
[2021-12-24] MEDS ORDERED: Morphine 4 MG/ML Syringe IVPUSH ONE (14:36)
[2021-12-24 16:21] VITALS: BP 145/84; PULSE 78
== END 2021-12-24 16:35 | disposition home or self-care (01) ==
LOC: JD.ED 12:57
DX: A04.72 Enterocolitis due to Clostridium difficile, not specified as recurrent (principal); E66.9 Obesity, unspecified; Z68.32 Body mass index [BMI] 32.0-32.9, adult; Z88.1 Allergy status to other antibiotic agents; Z91.018 Allergy to other foods; Z88.0 Allergy status to penicillin; Z88.8 Allergy status to other drugs, medicaments and biological substances; Z79.899 Other long term (current) drug therapy; Z86.16 Personal history of COVID-19; Z90.49 Acquired absence of other specified parts of digestive tract
CPT/HCPCS: 36415; 74177; 80053; 83605; 83690; 83735; 85025; 96361; 96365; 96366; 96375; 99284; A9270; J2270; J2405; J3475; J3490; J7120; Q9967

== ENCOUNTER 2022-03-02 12:44 | Emergency (ER) | payer MEDICAID ==
[2022-03-02] MEDS ORDERED: Sodium Chloride 0.9% 10 ML Syringe FLUSH PRN (13:18)
[2022-03-02] MEDS ORDERED: Ondansetron 4 MG/2 ML SDV IVPUSH ONE (13:18)
[2022-03-02] MEDS ORDERED: HYDROmorphone 1 MG/ML Syringe IVPUSH ONE ×3 (13:19→18:08)
[2022-03-02] MEDS ORDERED: Sodium Chloride 0.9% 1,000 ML IV SCH (13:30)
[2022-03-02] MEDS ORDERED: fentaNYL 100 MCG/2 ML SDV IVPUSH ONE (16:10)
[2022-03-02 18:32] VITALS: BP 137/78; PULSE 92
== END 2022-03-02 19:15 | disposition home or self-care (01) ==
LOC: JD.ED 12:44
DX: N20.2 Calculus of kidney with calculus of ureter (principal); Z79.899 Other long term (current) drug therapy; Z88.8 Allergy status to other drugs, medicaments and biological substances; Z88.5 Allergy status to narcotic agent
CPT/HCPCS: 36415; 74176; 80053; 81001; 83690; 84703; 85025; 87086; 96361; 96374; 96375; 96376; 99285; J1170; J2405; J3010; J3490; J7030; 87088; 87186

== ENCOUNTER 2022-04-11 18:10 | Emergency (ER) | payer MEDICAID ==
[2022-04-11 18:27] VITALS: BP 156/96; PULSE 88
[2022-04-11] MEDS ORDERED: Sodium Chloride 0.9% 10 ML Syringe FLUSH PRN (18:28)
[2022-04-11] MEDS ORDERED: Ondansetron 4 MG/2 ML SDV IVPUSH ONE (18:31)
[2022-04-11] MEDS ORDERED: Sodium Chloride 0.9% 1,000 ML IV ONE (18:31)
[2022-04-11] MEDS ORDERED: HYDROmorphone 1 MG/ML Syringe IVPUSH STA (18:40)
[2022-04-11 20:08] LABS: ESTIMATED GFR 76 mL/min (>60)
[2022-04-11] MEDS ORDERED: Acetaminophen/oxyCODONE 325-5 MG Tab PO ONE (20:43)
[2022-04-11] MEDS ORDERED: Nitrofurantoin Monohydrate/Macrocrystalline 100 MG Cap PO ONE (20:43)
== END 2022-04-11 21:05 | disposition home or self-care (01) ==
LOC: JD.ED 18:10
DX: R19.7 Diarrhea, unspecified (principal); E86.0 Dehydration; E66.9 Obesity, unspecified; Z68.31 Body mass index [BMI] 31.0-31.9, adult; Z88.1 Allergy status to other antibiotic agents; Z88.0 Allergy status to penicillin; Z91.018 Allergy to other foods; Z88.5 Allergy status to narcotic agent
CPT/HCPCS: 36415; 80053; 81001; 85025; 86140; 87086; 96361; 96374; 96375; 99284; A9270; J1170; J2405; J3490; J7030; 87088; 87186

== ENCOUNTER 2022-04-26 13:52 | Emergency (ER) | payer MEDICAID ==
[2022-04-26 14:03] VITALS: BP 136/92; PULSE 77
[2022-04-26] MEDS ORDERED: Ondansetron 4 MG/2 ML SDV IVPUSH ONE (15:42)
[2022-04-26] MEDS ORDERED: Sodium Chloride 0.9% 1,000 ML IV SCH (15:45)
[2022-04-26] MEDS ORDERED: oxyCODONE 5 MG Tab PO ONE (17:26)
[2022-04-26] MEDS ORDERED: Potassium Chloride 10 MEQ in Premix Bag 1 BAG IV ONE ×3 (17:53→21:59)
[2022-04-26] MEDS ORDERED: HYDROmorphone 0.5 MG/0.5 ML Syringe IVPUSH ONE ×3 (18:56→23:17)
[2022-04-26] MEDS ORDERED: cefTRIAXone 2 GM in Sodium Chloride 0.9% 100 ML IV ONE (19:42)
== END 2022-04-26 23:30 | disposition home or self-care (01) ==
LOC: JD.ED 13:52
DX: N39.0 Urinary tract infection, site not specified (principal); E87.6 Hypokalemia; I10 Essential (primary) hypertension; J45.909 Unspecified asthma, uncomplicated; E66.9 Obesity, unspecified; Z68.31 Body mass index [BMI] 31.0-31.9, adult; Z88.1 Allergy status to other antibiotic agents; Z88.0 Allergy status to penicillin; Z91.018 Allergy to other foods; Z88.8 Allergy status to other drugs, medicaments and biological substances; Z88.5 Allergy status to narcotic agent; Z79.899 Other long term (current) drug therapy
CPT/HCPCS: 36415; 74176; 80053; 81001; 83605; 85025; 87040; 87086; 87088; 87186; 96361; 96365; 96366; 96367; 96375; 96376; 99284; A9270; J0696; J1170; J2405; J3480; J7030; 99283

== ENCOUNTER 2022-05-26 12:59 | Emergency (ER) | payer MEDICAID ==
[2022-05-26] MEDS ORDERED: HYDROmorphone 1 MG/ML Syringe IM ONE ×2 (14:16→16:59)
[2022-05-26] MEDS ORDERED: Ondansetron 4 MG Tab.DIS PO ONE (14:17)
[2022-05-26] MEDS ORDERED: Dexamethasone 10 MG/ML SDV IM ONE (16:59)
[2022-05-26 18:01] VITALS: BP 119/102; PULSE 86
== END 2022-05-26 17:58 | disposition home or self-care (01) ==
LOC: JD.ED 12:59
DX: N39.0 Urinary tract infection, site not specified (principal); R19.7 Diarrhea, unspecified; I10 Essential (primary) hypertension; J45.909 Unspecified asthma, uncomplicated; Z88.1 Allergy status to other antibiotic agents; Z91.018 Allergy to other foods; Z88.0 Allergy status to penicillin; Z88.8 Allergy status to other drugs, medicaments and biological substances; Z88.5 Allergy status to narcotic agent; Z79.899 Other long term (current) drug therapy
CPT/HCPCS: 36415; 73502; 80053; 83605; 85025; 86140; 87040; 96372; 99284; A9270; J1100; J1170; 99283

== ENCOUNTER 2022-06-16 13:05 | Emergency (ER) | payer MEDICAID ==
[2022-06-16] MEDS ORDERED: Sodium Chloride 0.9% 10 ML Syringe FLUSH PRN (14:14)
[2022-06-16] MEDS ORDERED: Sodium Chloride 0.9% 1,000 ML IV SCH ×2 (14:15→18:00)
[2022-06-16 14:34] LABS: ESTIMATED GFR 76 mL/min (>60)
[2022-06-16] MEDS ORDERED: HYDROmorphone 0.5 MG/0.5 ML Syringe IVPUSH ONE ×2 (14:47→17:41)
[2022-06-16] MEDS ORDERED: Ondansetron 4 MG/2 ML SDV IVPUSH ONE (14:47)
[2022-06-16] MEDS ORDERED: Potassium Chloride 10 MEQ in Premix Bag 1 BAG IV ONE (17:41)
[2022-06-16 18:42] VITALS: BP 133/69; PULSE 78
== END 2022-06-16 20:05 | disposition home or self-care (01) ==
LOC: JD.ED 13:05
DX: N28.1 Cyst of kidney, acquired (principal); R31.9 Hematuria, unspecified; I10 Essential (primary) hypertension; E66.9 Obesity, unspecified; Z88.1 Allergy status to other antibiotic agents; Z86.16 Personal history of COVID-19; Z91.018 Allergy to other foods; Z88.0 Allergy status to penicillin; Z88.8 Allergy status to other drugs, medicaments and biological substances; Z68.31 Body mass index [BMI] 31.0-31.9, adult
CPT/HCPCS: 36415; 74176; 80053; 81001; 85025; 86140; 96361; 96365; 96375; 96376; 99284; J1170; J2405; J3480; J3490; J7030

== ENCOUNTER 2022-06-28 14:28 | Emergency (ER) | payer MEDICAID ==
[2022-06-28] MEDS ORDERED: Sodium Chloride 0.9% 1,000 ML IV ONE (15:03)
[2022-06-28] MEDS ORDERED: HYDROmorphone 0.5 MG/0.5 ML Syringe IVPUSH ONE ×2 (15:03→17:02)
[2022-06-28] MEDS ORDERED: Ondansetron 4 MG/2 ML SDV IVPUSH ONE (15:03)
[2022-06-28 16:22] LABS: ESTIMATED GFR 76 mL/min (>60)
[2022-06-28 17:52] VITALS: BP 125/80; PULSE 94
== END 2022-06-28 17:50 | disposition home or self-care (01) ==
LOC: JD.ED 14:28
DX: N12 Tubulo-interstitial nephritis, not specified as acute or chronic (principal); I10 Essential (primary) hypertension; E66.9 Obesity, unspecified; Z68.32 Body mass index [BMI] 32.0-32.9, adult; Z88.0 Allergy status to penicillin; Z88.1 Allergy status to other antibiotic agents; Z91.018 Allergy to other foods; Z88.5 Allergy status to narcotic agent; Z88.8 Allergy status to other drugs, medicaments and biological substances; Z86.16 Personal history of COVID-19
CPT/HCPCS: 36415; 74176; 80053; 81001; 84703; 85025; 86140; 87086; 87088; 87186; 96361; 96374; 96375; 96376; 99284; J1170; J2405; J7030

== ENCOUNTER 2022-07-02 20:06 | Emergency (ER) | payer BC, MEDICAID ==
[2022-07-02 20:14] VITALS: BP 171/93; PULSE 86
[2022-07-02] MEDS ORDERED: Sodium Chloride 0.9% 10 ML Syringe FLUSH PRN (20:21)
[2022-07-02] MEDS ORDERED: Ondansetron 4 MG/2 ML SDV IVPUSH ONE (20:30)
[2022-07-02] MEDS ORDERED: HYDROmorphone 0.5 MG/0.5 ML Syringe IVPUSH ONE (20:30)
[2022-07-02] MEDS ORDERED: cefTRIAXone 2 GM in Sodium Chloride 0.9% 100 ML IV ONE (20:32)
[2022-07-02 21:10] LABS: ESTIMATED GFR 76 mL/min (>60)
== END 2022-07-02 21:23 | disposition home or self-care (01) ==
LOC: JD.ED 20:06
DX: N30.01 Acute cystitis with hematuria (principal); I10 Essential (primary) hypertension; J45.909 Unspecified asthma, uncomplicated; E66.9 Obesity, unspecified; Z68.32 Body mass index [BMI] 32.0-32.9, adult; Z88.8 Allergy status to other drugs, medicaments and biological substances; Z88.0 Allergy status to penicillin; Z88.1 Allergy status to other antibiotic agents; Z88.5 Allergy status to narcotic agent; Z91.018 Allergy to other foods; Z79.899 Other long term (current) drug therapy
CPT/HCPCS: 36415; 80053; 81001; 85025; 86140; 96365; 96375; 99283; J0696; J1170; J2405; J3490; 99284

== ENCOUNTER 2022-07-04 21:13 | Observation (INO) | payer MEDICAID ==
[2022-07-04 22:10] LABS: ESTIMATED GFR 68 mL/min (>60)
[2022-07-04] MEDS ORDERED: HYDROmorphone 0.5 MG/0.5 ML Syringe IVPUSH ONE (22:16)
[2022-07-05] MEDS: Sodium Chloride 0.9% 1,000 ML IV SCH ×2 (00:46→13:45)
[2022-07-05] MEDS ORDERED: HYDROmorphone 0.5 MG/0.5 ML Syringe IVPUSH ONE ×3 (02:39→21:40)
[2022-07-05] MEDS ORDERED: oxyCODONE 5 MG Tab PO PRN (10:09)
[2022-07-05] MEDS ORDERED: Acetaminophen 325 MG Tab PO PRN (10:09)
[2022-07-05] MEDS ORDERED: Ondansetron 4 MG/2 ML SDV IV PRN (10:09)
[2022-07-05] MEDS ORDERED: Docusate Sodium 100 MG Cap PO PRN (10:09)
[2022-07-05] MEDS ORDERED: ALPRAZolam 0.5 MG Tab PO PRN (10:21)
[2022-07-05] MEDS ORDERED: cefTRIAXone 2 GM in Sodium Chloride 0.9% 100 ML IV SCH ×2 (10:30→20:00)
[2022-07-05] MEDS: Enoxaparin 40 MG/0.4 ML Syringe SUBCUT SCH (11:15)
[2022-07-05 11:21] LABS: ESTIMATED GFR 100 mL/min (>60)
[2022-07-05 11:24] LABS: HEMOGLOBIN A1C 6.3 %
[2022-07-05] MEDS ORDERED: Magnesium Sulfate/Water 2 GM in Premix Bag 1 BAG IV ONE (12:00)
[2022-07-05] MEDS: traMADol 50 MG Tab PO PRN ×2 (13:46→21:19)
[2022-07-05] MEDS: oxyCODONE 5 MG Tab PO PRN ×2 (15:24→19:35)
[2022-07-05] MEDS: predniSONE 20 MG Tab PO SCH ×2 (19:35→20:10)
[2022-07-06] MEDS: Sodium Chloride 0.9% 1,000 ML IV SCH (00:21)
[2022-07-06] MEDS: oxyCODONE 5 MG Tab PO PRN ×2 (04:19→09:45)
[2022-07-06 07:49] LABS: ESTIMATED GFR 117 mL/min (>60)
[2022-07-06] MEDS ORDERED: Magnesium Sulfate/Water 4 GM in Premix Bag 1 BAG IV ONE (08:14)
[2022-07-06] MEDS ORDERED: Hydroxychloroquine 200 MG Tab PO SCH (09:00)
[2022-07-06] MEDS: Enoxaparin 40 MG/0.4 ML Syringe SUBCUT SCH (09:45)
[2022-07-06] MEDS: predniSONE 20 MG Tab PO SCH (09:46)
[2022-07-06 09:58] VITALS: BP 116/74; PULSE 62
[2022-07-06] MEDS ORDERED: HYDROmorphone 0.5 MG/0.5 ML Syringe IVPUSH ONE (12:45)
== END 2022-07-06 13:22 | disposition home or self-care (01) ==
LOC: JD.ED 21:13 → JD.MS 07-05 09:39
PROVIDERS: ADMIT Internal Medicine; ATTEND Internal Medicine
DX: N39.0 Urinary tract infection, site not specified (principal); D72.829 Elevated white blood cell count, unspecified; J45.909 Unspecified asthma, uncomplicated; M79.7 Fibromyalgia; R73.03 Prediabetes; M35.00 Sjogren syndrome, unspecified; N20.0 Calculus of kidney; I10 Essential (primary) hypertension; G43.909 Migraine, unspecified, not intractable, without status migrainosus; F41.9 Anxiety disorder, unspecified; M32.9 Systemic lupus erythematosus, unspecified; M06.9 Rheumatoid arthritis, unspecified; F32.A Depression, unspecified; Z88.0 Allergy status to penicillin; Z88.1 Allergy status to other antibiotic agents; Z88.8 Allergy status to other drugs, medicaments and biological substances; Z91.018 Allergy to other foods; Z86.79 Personal history of other diseases of the circulatory system; Z98.890 Other specified postprocedural states; Z86.19 Personal history of other infectious and parasitic diseases; Z87.19 Personal history of other diseases of the digestive system
CPT/HCPCS: 36415; 74177; 80048; 80053; 81001; 83036; 83735; 84145; 85025; 86140; 87040; 96361; 96365; 96366; 96367; 96372; 96375; 96376; 99284; A9270; G0378; J0696; J1170; J1650; J2405; J3475; J3490; J7030; J7512; 96374; 99285

== ENCOUNTER 2022-08-13 23:37 | Emergency (ER) | payer MEDICAID ==
[2022-08-14 00:51] LABS: APPEARANCE,URINE CLOUDY (Clear); BILIRUBIN,URINE NEGATIVE (Negative); COLOR,URINE YELLOW (Yellow); GLUCOSE,URINE 2+ (Negative); KETONES,URINE NEGATIVE (Negative); LEUKOCYTE ESTERASE,URINE NEGATIVE (Negative); NITRITE,URINE NEGATIVE (Negative); OCCULT BLOOD,URINE 2+ (Negative); PROTEIN,URINE 2+ (Negative); UROBILINOGEN,URINE 0.2 (0.2-1.0)
[2022-08-14 00:59] LABS: BACTERIA,URINE MANY /hpf (FEW); CALCIUM OXALATE CRYSTALS,URINE MODERATE; MUCUS,URINE NOT SEEN /hpf (FEW); RBC,URINE 0-5 /hpf (0-5); SQUAMOUS EPITHELIAL CELLS,UR 0-5 /hpf (0-5)
[2022-08-14] MEDS ORDERED: Ondansetron 4 MG/2 ML SDV IVPUSH ONE (00:59)
[2022-08-14] MEDS ORDERED: HYDROmorphone 0.5 MG/0.5 ML Syringe IVPUSH ONE ×2 (01:02→03:07)
[2022-08-14 01:09] LABS: BASOPHILS ABSOLUTE AUTO 0.02 K/mm3 (0.01-0.08); BASOPHILS PERCENT AUTO 0.1 % (0.1-1.2); EOSINOPHILS PERCENT AUTO 0 (0.7-5.8); HEMATOCRIT 38.4 % (34.1-44.9); HEMOGLOBIN 11.7 gm/dl (11.2-15.7); IMMATURE GRAN ABSOLUTE AUTO 0.17 K/mm3 (0.00-0.10); IMMATURE GRAN PERCENT AUTO 1.2 % (<=1.0); LYMPHOCYTES ABSOLUTE AUTO 0.86 K/mm3 (1.18-3.74); LYMPHOCYTES PERCENT AUTO 6.2 % (19.3-51.7); MEAN CORPUSCULAR HEMOGLOBIN 27.2 pg (25.6-32.2); MEAN CORPUSCULAR HGB CONC 30.5 g/dl (32.2-35.5); MEAN CORPUSCULAR VOLUME 89.3 fl (79.4-94.8); MEAN PLATELET VOLUME 8.1 fl (9.4-12.3); MONOCYTES ABSOLUTE AUTO 0.58 K/mm3 (0.24-0.36); MONOCYTES PERCENT AUTO 4.2 % (4.7-12.5); NEUTROPHILS ABSOLUTE AUTO 12.29 K/mm3 (1.56-6.13); NEUTROPHILS PERCENT AUTO 88.3 % (34.0-71.1); PLATELET COUNT,PLT 478 K/mm3 (182-369); WHITE BLOOD CELL COUNT,WBC 13.92 K/mm3 (3.98-10.04)
[2022-08-14 01:30] LABS: A/G RATIO 0.8 (1-2); ALBUMIN 3.1 g/dl (3.4-5.0); ANION GAP 11.8 (5-15); BILIRUBIN TOTAL 0.6 mg/dL (0.2-1.0); BUN/CREATININE RATIO 18.9 (14-18); CALCIUM 8.8 mg/dL (8.5-10.1); CREATININE 0.9 mg/dL (0.55-1.02); POTASSIUM,K 3.8 mEq/L (3.5-5.1)
[2022-08-14] MEDS ORDERED: cefTRIAXone 1 GM Vial IM ONE (02:24)
[2022-08-14] MEDS ORDERED: cefTRIAXone 1 GM in Sodium Chloride 0.9% 100 ML IV ONE (02:33)
[2022-08-14 03:22] VITALS: BP 125/74; PULSE 77
== END 2022-08-14 03:21 | disposition home or self-care (01) ==
LOC: JD.ED 23:37
DX: N30.01 Acute cystitis with hematuria (principal); I10 Essential (primary) hypertension; J45.909 Unspecified asthma, uncomplicated; E66.9 Obesity, unspecified; Z68.32 Body mass index [BMI] 32.0-32.9, adult; Z91.018 Allergy to other foods; Z88.0 Allergy status to penicillin
CPT/HCPCS: 36415; 80053; 81001; 83605; 85025; 87040; 87086; 87088; 87186; 96365; 96375; 96376; 99284; J0696; J1170; J2405; J3490

== ENCOUNTER 2022-09-23 23:35 | Emergency (ER) | payer MEDICAID ==
[2022-09-24 00:26] LABS: APPEARANCE,URINE CLEAR (Clear); BILIRUBIN,URINE NEGATIVE (Negative); COLOR,URINE YELLOW (Yellow); GLUCOSE,URINE NEGATIVE (Negative); KETONES,URINE NEGATIVE (Negative); LEUKOCYTE ESTERASE,URINE NEGATIVE (Negative); NITRITE,URINE NEGATIVE (Negative); OCCULT BLOOD,URINE 2+ (Negative); PH,URINE 6.5 (5.0-8.0); PROTEIN,URINE 1+ (Negative); UROBILINOGEN,URINE 0.2 (0.2-1.0)
[2022-09-24 00:54] LABS: BACTERIA,URINE RARE /hpf (FEW); MUCUS,URINE NOT SEEN /hpf (FEW); SQUAMOUS EPITHELIAL CELLS,UR 0-5 /hpf (0-5); WBC,URINE 0-5 /hpf (0-5)
[2022-09-24] MEDS ORDERED: HYDROmorphone 0.5 MG/0.5 ML Syringe IVPUSH ONE ×2 (03:29→07:36)
[2022-09-24] MEDS ORDERED: Ondansetron 4 MG/2 ML SDV IVPUSH ONE (03:29)
[2022-09-24] MEDS ORDERED: Sodium Chloride 0.9% 1,000 ML IV SCH (03:30)
[2022-09-24 03:47] LABS: HEMATOCRIT 35.9 % (34.1-44.9); MEAN CORPUSCULAR HEMOGLOBIN 27.3 pg (25.6-32.2); MEAN CORPUSCULAR HGB CONC 30.6 g/dl (32.2-35.5); MEAN CORPUSCULAR VOLUME 89.1 fl (79.4-94.8); MEAN PLATELET VOLUME 8.2 fl (9.4-12.3); PLATELET COUNT,PLT 474 K/mm3 (182-369); RED BLOOD CELL COUNT 4.03 M/mm3 (3.98-5.22)
[2022-09-24 04:12] LABS: A/G RATIO 0.8 (1-2); ANION GAP 13.9 (5-15); BILIRUBIN TOTAL 0.4 mg/dL (0.2-1.0); BUN/CREATININE RATIO 17.8 (14-18); CALCIUM 8.9 mg/dL (8.5-10.1); CREATININE 0.9 mg/dL (0.55-1.02); POTASSIUM,K 3.9 mEq/L (3.5-5.1); PROTEIN TOTAL,TP 6.8 g/dl (6.4-8.2)
[2022-09-24 05:52] LABS: BAND PERCENT MAN 1 % (0-10); BASOPHILS PERCENT MAN 0 (0.1-1.2); EOSINOPHILS PERCENT MAN 0 % (0.7-5.8); LYMPHOCYTES % ATYPICAL MANUAL 0 %; LYMPHOCYTES PERCENT MAN 22 % (20-40); MONOCYTES PERCENT MAN 7 % (2-10); MYELOCYTE PERCENT MAN 2
[2022-09-24 05:53] LABS: ANISOCYTOSIS 1+ SLIGHT; HYPOCHROMASIA 1+ SLIGHT
[2022-09-24 07:56] VITALS: BP 127/87; PULSE 69
[2022-09-24] MEDS ORDERED: Phenazopyridine 95 MG Tab PO SCH (09:00)
== END 2022-09-24 07:58 | disposition home or self-care (01) ==
LOC: JD.ED 23:35
DX: N12 Tubulo-interstitial nephritis, not specified as acute or chronic (principal); I10 Essential (primary) hypertension; E66.9 Obesity, unspecified; Z68.33 Body mass index [BMI] 33.0-33.9, adult; Z88.1 Allergy status to other antibiotic agents; Z88.0 Allergy status to penicillin; Z91.018 Allergy to other foods; Z88.6 Allergy status to analgesic agent; Z79.899 Other long term (current) drug therapy
CPT/HCPCS: 36415; 80053; 81001; 85007; 85027; 87040; 87086; 96361; 96374; 96375; 96376; 99284; A9270; J1170; J2405; J7030

== ENCOUNTER 2022-11-14 16:28 | Emergency (ER) | payer MEDICAID ==
[2022-11-14 17:50] LABS: APPEARANCE,URINE SLT CLOUDY (Clear); BILIRUBIN,URINE NEGATIVE (Negative); COLOR,URINE YELLOW (Yellow); GLUCOSE,URINE NEGATIVE (Negative); KETONES,URINE NEGATIVE (Negative); LEUKOCYTE ESTERASE,URINE NEGATIVE (Negative); NITRITE,URINE NEGATIVE (Negative); OCCULT BLOOD,URINE 2+ (Negative); PH,URINE 6.5 (5.0-8.0); PROTEIN,URINE 2+ (Negative); UROBILINOGEN,URINE 0.2 (0.2-1.0)
[2022-11-14 18:18] LABS: BACTERIA,URINE FEW /hpf (FEW); HYALINE CASTS,URINE 0-5 /lpf (0-5); MUCUS,URINE FEW /hpf (FEW); SQUAMOUS EPITHELIAL CELLS,UR 0-5 /hpf (0-5); WBC,URINE 0-5 /hpf (0-5)
[2022-11-14] MEDS ORDERED: HYDROmorphone 1 MG/ML Syringe IM ONE (19:23)
[2022-11-14] MEDS ORDERED: Ondansetron 4 MG Tab.DIS PO ONE (19:24)
[2022-11-14 20:18] VITALS: BP 122/70; PULSE 88
== END 2022-11-14 20:13 ==
LOC: JD.ED 16:28
DX: M54.50 Low back pain, unspecified (principal); R35.0 Frequency of micturition; I10 Essential (primary) hypertension; J45.909 Unspecified asthma, uncomplicated; E66.9 Obesity, unspecified; Z86.16 Personal history of COVID-19; Z88.1 Allergy status to other antibiotic agents; Z88.0 Allergy status to penicillin; Z88.8 Allergy status to other drugs, medicaments and biological substances; Z68.32 Body mass index [BMI] 32.0-32.9, adult
CPT/HCPCS: 74176; 81001; 87086; 96372; 99284; A9270; J1170; 99283

== ENCOUNTER 2022-12-04 11:25 | Emergency (ER) | payer MEDICAID ==
[2022-12-04 12:39] LABS: BASOPHILS PERCENT AUTO 0.3 % (0.0-1.0); EOSINOPHILS ABSOLUTE AUTO 0.1 K/mm3 (0.0-0.4); EOSINOPHILS PERCENT AUTO 0.5 % (0.0-6.0); HEMOGLOBIN 11.2 gm/dl (12.0-16.0); IMMATURE GRAN ABSOLUTE AUTO 0.32 K/mm3 (0.00-0.05); IMMATURE GRAN PERCENT AUTO 2.4 % (0.0-0.4); LYMPHOCYTES ABSOLUTE AUTO 3.1 K/mm3 (1.0-4.8); LYMPHOCYTES PERCENT AUTO 22.9 % (24.0-44.0); MEAN CORPUSCULAR HEMOGLOBIN 28.1 pg (28.0-32.0); MEAN CORPUSCULAR HGB CONC 31.1 g/dl (32.0-36.0); MEAN CORPUSCULAR VOLUME 90.2 fl (83.0-99.0); MONOCYTES ABSOLUTE AUTO 0.8 K/mm3 (0.0-0.8); MONOCYTES PERCENT AUTO 6.3 % (0.0-8.0); NEUTROPHILS ABSOLUTE AUTO 9.1 K/mm3 (1.8-7.7); NEUTROPHILS PERCENT AUTO 67.6 % (41.0-71.0); NRBC ABSOLUTE 0.04 (0.00-0.02); NRBC PERCENT 0.3 % (0.0-0.2); PLATELET COUNT,PLT 482 K/mm3 (150-400); RED BLOOD CELL COUNT 3.99 M/mm3 (4.10-5.30); WHITE BLOOD CELL COUNT,WBC 13.39 K/mm3 (3.9-11.3)
[2022-12-04 12:49] LABS: ALBUMIN 3.4 g/dl (3.4-5.0); ANION GAP 11.7 (5-15); BILIRUBIN TOTAL 0.6 mg/dL (0.2-1.0); BUN/CREATININE RATIO 14.4 (14-18); CALCIUM 8.9 mg/dL (8.5-10.1); CREATININE 0.9 mg/dL (0.55-1.02); EST CRCL DRUG DOSING (CG) 79.25 mL/min; POTASSIUM,K 3.7 mEq/L (3.5-5.1); PROTEIN TOTAL,TP 6.9 g/dl (6.4-8.2)
[2022-12-04 13:23] LABS: APPEARANCE,URINE CLEAR (Clear); BILIRUBIN,URINE NEGATIVE (Negative); COLOR,URINE YELLOW (Yellow); GLUCOSE,URINE NEGATIVE (Negative); KETONES,URINE NEGATIVE (Negative); LEUKOCYTE ESTERASE,URINE 2+ (Negative); NITRITE,URINE NEGATIVE (Negative); OCCULT BLOOD,URINE 3+ (Negative); PROTEIN,URINE 2+ (Negative); UROBILINOGEN,URINE 0.2 (0.2-1.0)
[2022-12-04 13:34] LABS: BARBITURATE SCREEN,URINE NEGATIVE (CUTOFF=200); BENZODIAZEPINES SCREEN,URINE PRESUMPTIVE POSITIVE (CUTOFF=150); BUPRENORPHINE SCREEN,URINE NEGATIVE (CUTOFF=10); METHADONE SCREEN, URINE NEGATIVE (CUTOFF=200); METHAMPHETAMINES SCREEN, URINE NEGATIVE (CUTOFF=500); OXYCODONE SCREEN,URINE PRESUMPTIVE POSITIVE (CUT0FF=100); PROPOXYPHENE SCREEN,URINE NEGATIVE (CUTOFF=300); THC SCREEN,URINE 20 NG/ML NEGATIVE (CUTOFF=50)
[2022-12-04 13:41] LABS: AMPHETAMINES SCREEN, URINE NEGATIVE (CUTOFF=500)
[2022-12-04] MEDS ORDERED: Ondansetron 4 MG Tab.DIS PO ONE (13:48)
[2022-12-04 14:09] LABS: SQUAMOUS EPITHELIAL CELLS,UR 0-5 /hpf (0-5)
[2022-12-04 14:10] LABS: BACTERIA,URINE MODERATE /hpf (FEW); MUCUS,URINE NOT SEEN /hpf (FEW)
[2022-12-04 14:13] VITALS: BP 152/87; PULSE 62
== END 2022-12-04 14:10 | disposition home or self-care (01) ==
LOC: JD.ED 11:25
DX: N20.0 Calculus of kidney (principal); J45.909 Unspecified asthma, uncomplicated; E66.9 Obesity, unspecified; Z88.1 Allergy status to other antibiotic agents; Z88.8 Allergy status to other drugs, medicaments and biological substances; Z88.0 Allergy status to penicillin; Z91.018 Allergy to other foods; Z68.33 Body mass index [BMI] 33.0-33.9, adult
CPT/HCPCS: 36415; 74176; 80053; 80306; 81001; 81025; 85025; 99284; A9270; 99283

== ENCOUNTER 2023-02-27 13:35 | Emergency (ER) | payer MEDICAID ==
[2023-02-27] MEDS ORDERED: Ondansetron 4 MG/2 ML SDV IVPUSH ONE (14:14)
[2023-02-27] MEDS ORDERED: Sodium Chloride 0.9% 1,000 ML IV SCH (14:15)
[2023-02-27 14:57] LABS: BASOPHILS ABSOLUTE AUTO 0.1 K/mm3 (0.0-0.2); BASOPHILS PERCENT AUTO 0.4 % (0.0-1.0); EOSINOPHILS ABSOLUTE AUTO 0.1 K/mm3 (0.0-0.4); EOSINOPHILS PERCENT AUTO 0.4 % (0.0-6.0); HEMATOCRIT 37.1 % (37.0-47.0); HEMOGLOBIN 11.3 gm/dl (12.0-16.0); IMMATURE GRAN ABSOLUTE AUTO 0.37 K/mm3 (0.00-0.05); IMMATURE GRAN PERCENT AUTO 2.9 % (0.0-0.4); LYMPHOCYTES ABSOLUTE AUTO 1.7 K/mm3 (1.0-4.8); MEAN CORPUSCULAR HEMOGLOBIN 27.2 pg (28.0-32.0); MEAN CORPUSCULAR HGB CONC 30.5 g/dl (32.0-36.0); MEAN CORPUSCULAR VOLUME 89.4 fl (83.0-99.0); MEAN PLATELET VOLUME 8.4 fl (9.4-12.3); MONOCYTES ABSOLUTE AUTO 0.8 K/mm3 (0.0-0.8); MONOCYTES PERCENT AUTO 6.1 % (0.0-8.0); NEUTROPHILS PERCENT AUTO 77.2 % (41.0-71.0); NRBC ABSOLUTE 0.03 (0.00-0.02); NRBC PERCENT 0.2 % (0.0-0.2); PLATELET COUNT,PLT 425 K/mm3 (150-400); RED BLOOD CELL COUNT 4.15 M/mm3 (4.10-5.30); WHITE BLOOD CELL COUNT,WBC 12.94 K/mm3 (3.9-11.3)
[2023-02-27 15:01] LABS: APPEARANCE,URINE CLEAR (Clear); BILIRUBIN,URINE NEGATIVE (Negative); COLOR,URINE YELLOW (Yellow); GLUCOSE,URINE NEGATIVE (Negative); KETONES,URINE NEGATIVE (Negative); LEUKOCYTE ESTERASE,URINE 1+ (Negative); NITRITE,URINE NEGATIVE (Negative); OCCULT BLOOD,URINE 3+ (Negative); PH,URINE 6.5 (5.0-8.0); PROTEIN,URINE 2+ (Negative); UROBILINOGEN,URINE 0.2 (0.2-1.0)
[2023-02-27 15:17] LABS: BARBITURATE SCREEN,URINE NEGATIVE (CUTOFF=200); BENZODIAZEPINES SCREEN,URINE PRESUMPTIVE POSITIVE (CUTOFF=150); BUPRENORPHINE SCREEN,URINE NEGATIVE (CUTOFF=10); METHADONE SCREEN, URINE NEGATIVE (CUTOFF=200); METHAMPHETAMINES SCREEN, URINE NEGATIVE (CUTOFF=500); OXYCODONE SCREEN,URINE PRESUMPTIVE POSITIVE (CUT0FF=100); THC SCREEN,URINE 20 NG/ML NEGATIVE (CUTOFF=50)
[2023-02-27 15:26] LABS: A/G RATIO 0.8 (1-2); ALBUMIN 3.3 g/dl (3.4-5.0); ANION GAP 14.8 (5-15); BILIRUBIN TOTAL 0.7 mg/dL (0.2-1.0); BUN/CREATININE RATIO 16.7 (14-18); CALCIUM 9.3 mg/dL (8.5-10.1); CREATININE 0.9 mg/dL (0.55-1.02); EST CRCL DRUG DOSING (CG) 76.06 mL/min; POTASSIUM,K 3.8 mEq/L (3.5-5.1); PROTEIN TOTAL,TP 7.3 g/dl (6.4-8.2)
[2023-02-27 15:38] LABS: AMPHETAMINES SCREEN, URINE NEGATIVE (CUTOFF=500)
[2023-02-27 15:46] LABS: BACTERIA,URINE MODERATE /hpf (FEW); MUCUS,URINE FEW /hpf (FEW); RBC,URINE 50-75 /hpf (0-5)
[2023-02-27 16:50] VITALS: BP 144/99; PULSE 82
== END 2023-02-27 16:40 | disposition home or self-care (01) ==
LOC: JD.ED 13:35
DX: N20.2 Calculus of kidney with calculus of ureter (principal); I10 Essential (primary) hypertension; J45.909 Unspecified asthma, uncomplicated; E66.9 Obesity, unspecified; Z68.34 Body mass index [BMI] 34.0-34.9, adult; Z88.0 Allergy status to penicillin; Z91.018 Allergy to other foods; Z88.8 Allergy status to other drugs, medicaments and biological substances; Z79.899 Other long term (current) drug therapy
CPT/HCPCS: 36415; 74176; 80053; 80306; 81001; 81025; 85025; 87086; 96374; 99284; J2405; J7030

== ENCOUNTER 2023-04-19 15:06 | Emergency (ER) | payer MEDICAID ==
[2023-04-19 16:01] LABS: BASOPHILS PERCENT AUTO 0.2 % (0.0-1.0); EOSINOPHILS PERCENT AUTO 0.3 % (0.0-6.0); HEMATOCRIT 31.7 % (37.0-47.0); HEMOGLOBIN 9.6 gm/dl (12.0-16.0); IMMATURE GRAN ABSOLUTE AUTO 0.28 K/mm3 (0.00-0.05); IMMATURE GRAN PERCENT AUTO 2.7 % (0.0-0.4); MEAN CORPUSCULAR HEMOGLOBIN 26.8 pg (28.0-32.0); MEAN CORPUSCULAR HGB CONC 30.3 g/dl (32.0-36.0); MEAN CORPUSCULAR VOLUME 88.5 fl (83.0-99.0); MEAN PLATELET VOLUME 8.4 fl (9.4-12.3); MONOCYTES ABSOLUTE AUTO 0.4 K/mm3 (0.0-0.8); MONOCYTES PERCENT AUTO 4.1 % (0.0-8.0); NEUTROPHILS ABSOLUTE AUTO 8.9 K/mm3 (1.8-7.7); NEUTROPHILS PERCENT AUTO 83.7 % (41.0-71.0); NRBC ABSOLUTE 0.04 (0.00-0.02); NRBC PERCENT 0.4 % (0.0-0.2); PLATELET COUNT,PLT 332 K/mm3 (150-400); RED BLOOD CELL COUNT 3.58 M/mm3 (4.10-5.30); WHITE BLOOD CELL COUNT,WBC 10.56 K/mm3 (3.9-11.3)
[2023-04-19 16:36] LABS: A/G RATIO 0.9 (1-2); ANION GAP 13.7 (5-15); BILIRUBIN TOTAL 0.6 mg/dL (0.2-1.0); BUN/CREATININE RATIO 18.9 (14-18); CALCIUM 8.8 mg/dL (8.5-10.1); CREATININE 0.9 mg/dL (0.55-1.02); EST CRCL DRUG DOSING (CG) 79.25 mL/min; POTASSIUM,K 3.7 mEq/L (3.5-5.1); PROTEIN TOTAL,TP 6.4 g/dl (6.4-8.2)
[2023-04-19] MEDS ORDERED: Ondansetron 4 MG Tab.DIS PO ONE (16:36)
[2023-04-19] MEDS ORDERED: HYDROmorphone 1 MG/ML Syringe IM ONE (17:17)
[2023-04-19 19:01] VITALS: BP 124/56; PULSE 78
== END 2023-04-19 18:06 | disposition home or self-care (01) ==
LOC: JD.ED 15:06
DX: R60.9 Edema, unspecified (principal); R51.9 Headache, unspecified; R07.9 Chest pain, unspecified; D64.89 Other specified anemias; I10 Essential (primary) hypertension; Z86.16 Personal history of COVID-19; Z79.899 Other long term (current) drug therapy; Z88.0 Allergy status to penicillin
CPT/HCPCS: 36415; 71046; 80053; 84484; 85025; 93005; 96372; 99285; A9270; J1170; 93010; 99283

== ENCOUNTER 2023-06-19 16:03 | Emergency (ER) | payer BC, MEDICAID ==
[2023-06-19 16:32] LABS: APPEARANCE,URINE SLT CLOUDY (Clear); BILIRUBIN,URINE NEGATIVE (Negative); COLOR,URINE YELLOW (Yellow); GLUCOSE,URINE NEGATIVE (Negative); KETONES,URINE NEGATIVE (Negative); LEUKOCYTE ESTERASE,URINE 1+ (Negative); NITRITE,URINE POSITIVE (Negative); OCCULT BLOOD,URINE 2+ (Negative); PROTEIN,URINE 2+ (Negative); UROBILINOGEN,URINE 0.2 (0.2-1.0)
[2023-06-19 17:39] LABS: BACTERIA,URINE MANY /hpf (FEW); MUCUS,URINE FEW /hpf (FEW); WBC,URINE 40-50 /hpf (0-5)
[2023-06-19 17:40] LABS: BASOPHILS PERCENT AUTO 0.1 % (0.0-1.0); HEMATOCRIT 38.1 % (37.0-47.0); HEMOGLOBIN 11.8 gm/dl (12.0-16.0); IMMATURE GRAN ABSOLUTE AUTO 0.15 K/mm3 (0.00-0.05); IMMATURE GRAN PERCENT AUTO 1.5 % (0.0-0.4); LYMPHOCYTES ABSOLUTE AUTO 0.8 K/mm3 (1.0-4.8); LYMPHOCYTES PERCENT AUTO 8.4 % (24.0-44.0); MEAN CORPUSCULAR HEMOGLOBIN 27.2 pg (28.0-32.0); MEAN CORPUSCULAR VOLUME 87.8 fl (83.0-99.0); MEAN PLATELET VOLUME 8.8 fl (9.4-12.3); MONOCYTES ABSOLUTE AUTO 0.2 K/mm3 (0.0-0.8); NEUTROPHILS ABSOLUTE AUTO 8.6 K/mm3 (1.8-7.7); NRBC ABSOLUTE 0.02 (0.00-0.02); NRBC PERCENT 0.2 % (0.0-0.2); PLATELET COUNT,PLT 464 K/mm3 (150-400); RED BLOOD CELL COUNT 4.34 M/mm3 (4.10-5.30); WHITE BLOOD CELL COUNT,WBC 9.76 K/mm3 (3.9-11.3)
[2023-06-19] MEDS: Ondansetron 4 MG Tab.DIS PO ONE (17:40)
[2023-06-19 17:58] LABS: A/G RATIO 0.7 (1-2); ALBUMIN 3.5 g/dl (3.4-5.0); ANION GAP 17.3 (5-15); BILIRUBIN TOTAL 0.7 mg/dL (0.2-1.0); EST CRCL DRUG DOSING (CG) 71.33 mL/min; POTASSIUM,K 4.3 mEq/L (3.5-5.1); PROTEIN TOTAL,TP 8.2 g/dl (6.4-8.2)
[2023-06-19] MEDS: Cefdinir 300 MG Cap PO ONE (19:30)
[2023-06-19 19:39] VITALS: BP 125/86; PULSE 80
== END 2023-06-19 19:35 | disposition home or self-care (01) ==
LOC: JD.ED 16:03
DX: N20.0 Calculus of kidney (principal); N30.01 Acute cystitis with hematuria; I10 Essential (primary) hypertension; E66.9 Obesity, unspecified; Z68.33 Body mass index [BMI] 33.0-33.9, adult; Z88.1 Allergy status to other antibiotic agents; Z91.018 Allergy to other foods; Z88.0 Allergy status to penicillin; Z88.5 Allergy status to narcotic agent; Z86.16 Personal history of COVID-19; Z90.49 Acquired absence of other specified parts of digestive tract
CPT/HCPCS: 36415; 74176; 80053; 81001; 84703; 85025; 87086; 99284; A9270; 99283

== ENCOUNTER 2023-07-17 13:48 | Emergency (ER) | payer BC ==
[2023-07-17 14:55] LABS: BASOPHILS ABSOLUTE AUTO 0.1 K/mm3 (0.0-0.2); BASOPHILS PERCENT AUTO 0.6 % (0.0-1.0); EOSINOPHILS ABSOLUTE AUTO 0.1 K/mm3 (0.0-0.4); EOSINOPHILS PERCENT AUTO 0.6 % (0.0-6.0); HEMATOCRIT 37.9 % (37.0-47.0); HEMOGLOBIN 11.6 gm/dl (12.0-16.0); IMMATURE GRAN ABSOLUTE AUTO 0.14 K/mm3 (0.00-0.05); IMMATURE GRAN PERCENT AUTO 1.1 % (0.0-0.4); LYMPHOCYTES ABSOLUTE AUTO 1.6 K/mm3 (1.0-4.8); MEAN CORPUSCULAR HEMOGLOBIN 26.2 pg (28.0-32.0); MEAN CORPUSCULAR HGB CONC 30.6 g/dl (32.0-36.0); MEAN CORPUSCULAR VOLUME 85.7 fl (83.0-99.0); MEAN PLATELET VOLUME 8.3 fl (9.4-12.3); MONOCYTES ABSOLUTE AUTO 1.1 K/mm3 (0.0-0.8); MONOCYTES PERCENT AUTO 8.4 % (0.0-8.0); NEUTROPHILS ABSOLUTE AUTO 9.5 K/mm3 (1.8-7.7); NEUTROPHILS PERCENT AUTO 76.3 % (41.0-71.0); PLATELET COUNT,PLT 450 K/mm3 (150-400); RED BLOOD CELL COUNT 4.42 M/mm3 (4.10-5.30); WHITE BLOOD CELL COUNT,WBC 12.43 K/mm3 (3.9-11.3)
[2023-07-17 15:29] LABS: LACTIC ACID 1.6 mmol/L (0.4-2.0)
[2023-07-17 15:30] LABS: APPEARANCE,URINE CLOUDY (Clear); BILIRUBIN,URINE NEGATIVE (Negative); COLOR,URINE YELLOW (Yellow); GLUCOSE,URINE NEGATIVE (Negative); KETONES,URINE NEGATIVE (Negative); LEUKOCYTE ESTERASE,URINE 2+ (Negative); NITRITE,URINE POSITIVE (Negative); OCCULT BLOOD,URINE 2+ (Negative); PH,URINE 6.5 (5.0-8.0); PROTEIN,URINE 2+ (Negative); UROBILINOGEN,URINE 0.2 (0.2-1.0)
[2023-07-17] MEDS: Ondansetron 4 MG Tab.DIS PO ONE (15:42)
[2023-07-17 15:49] LABS: RBC,URINE 20-30 /hpf (0-5); WBC,URINE 50-75 /hpf (0-5)
[2023-07-17 15:50] LABS: A/G RATIO 0.8 (1-2); ALBUMIN 3.3 g/dl (3.4-5.0); ANION GAP 17.4 (5-15); BILIRUBIN TOTAL 0.9 mg/dL (0.2-1.0); C-REACTIVE PROTEIN 3.69 mg/dL (<0.30); CALCIUM 9.4 mg/dL (8.5-10.1); CREATININE 0.9 mg/dL (0.55-1.02); EST CRCL DRUG DOSING (CG) 79.25 mL/min; POTASSIUM,K 3.4 mEq/L (3.5-5.1); PROTEIN TOTAL,TP 7.3 g/dl (6.4-8.2)
[2023-07-17 15:50] LABS: BACTERIA,URINE MANY /hpf (FEW); MUCUS,URINE MODERATE /hpf (FEW)
[2023-07-17] MEDS: Sodium Chloride 0.9% 1,000 ML IV SCH (17:45)
[2023-07-17] MEDS: cefTRIAXone 2 GM in Sodium Chloride 0.9% 100 ML IV ONE (17:45)
[2023-07-17] MEDS: Acetaminophen 325 MG Tab PO ONE (19:24)
[2023-07-17 19:26] VITALS: BP 138/96; PULSE 100
== END 2023-07-17 19:20 | disposition home or self-care (01) ==
LOC: JD.ED 13:48
DX: N30.01 Acute cystitis with hematuria (principal); I10 Essential (primary) hypertension; J45.909 Unspecified asthma, uncomplicated; E66.9 Obesity, unspecified; Z86.16 Personal history of COVID-19; Z88.0 Allergy status to penicillin; Z88.1 Allergy status to other antibiotic agents; Z88.2 Allergy status to sulfonamides; Z88.6 Allergy status to analgesic agent; Z88.8 Allergy status to other drugs, medicaments and biological substances; Z68.32 Body mass index [BMI] 32.0-32.9, adult
CPT/HCPCS: 36415; 80053; 81001; 81003; 83605; 85025; 86140; 87086; 87088; 87186; 96361; 96365; 99283; 99284-25; A9270-GY; J0696; J3490; J7030

== ENCOUNTER 2023-07-27 09:22 | Day surgery (SDC) | payer BC ==
[~2023-07-27 09:22] MED LIST: Sodium Chloride 0.9% 10 ML Syringe FLUSH PRN; Sodium Chloride 0.9% 10 ML Syringe FLUSH SCH
[2023-07-27] MEDS: Lactated Ringers 1,000 ML IV SCH (09:55)
[2023-07-27] MEDS ORDERED: Propofol 200 MG/20 ML SDV ONE (10:12)
[2023-07-27] MEDS ORDERED: Ondansetron 4 MG/2 ML SDV ONE (10:12)
[2023-07-27] MEDS ORDERED: Lidocaine 2% 5 ML SDV ONE (10:12)
[2023-07-27] MEDS ORDERED: Dexamethasone 4 MG/ML 5 ML MDV ONE (10:12)
[2023-07-27] MEDS ORDERED: fentaNYL 100 MCG/2 ML SDV ONE (10:13)
[2023-07-27] MEDS ORDERED: Midazolam 1 MG/ML 2 ML SDV ONE (10:13)
[2023-07-27] MEDS ORDERED: ceFAZolin 2 GM Vial ONE (10:45)
[2023-07-27] MEDS: Bupivacaine 0.25% 10 ML SDV ONE (11:58)
[2023-07-27] MEDS: HYDROmorphone 0.5 MG/0.5 ML Syringe IVPUSH PRN (12:26)
[2023-07-27] MEDS: Ondansetron 4 MG/2 ML SDV IVPUSH PRN (12:28)
[2023-07-27] MEDS: fentaNYL 100 MCG/2 ML SDV IVPUSH PRN (12:45)
[2023-07-27] MEDS: oxyCODONE 5 MG Tab PO PRN (13:24)
[2023-07-27 15:51] VITALS: BP 137/64; PULSE 93
== END 2023-07-27 15:40 | disposition home or self-care (01) ==
LOC: JD.SDS 09:22
PROVIDERS: ATTEND Orthopaedic Surgery
DX: M70.21 Olecranon bursitis, right elbow (principal); D17.21 Benign lipomatous neoplasm of skin and subcutaneous tissue of right arm; J45.909 Unspecified asthma, uncomplicated; M06.9 Rheumatoid arthritis, unspecified; N39.0 Urinary tract infection, site not specified; Z79.899 Other long term (current) drug therapy; Z88.0 Allergy status to penicillin; Z88.2 Allergy status to sulfonamides
CPT/HCPCS: 01710; 81025; A9270-GY; J0690; J1100; J1170; J2250; J2405; J2704; J3010; J3490; J7120

== ENCOUNTER 2023-12-31 15:27 | Emergency (ER) | payer BC ==
[2023-12-31 16:28] LABS: BASOPHILS PERCENT AUTO 0.2 % (0.0-1.0); EOSINOPHILS PERCENT AUTO 0.3 % (0.0-6.0); HEMATOCRIT 33.3 % (37.0-47.0); HEMOGLOBIN 10.2 gm/dl (12.0-16.0); IMMATURE GRAN ABSOLUTE AUTO 0.18 K/mm3 (0.00-0.05); IMMATURE GRAN PERCENT AUTO 1.4 % (0.0-0.4); LYMPHOCYTES ABSOLUTE AUTO 0.9 K/mm3 (1.0-4.8); LYMPHOCYTES PERCENT AUTO 7.3 % (24.0-44.0); MEAN CORPUSCULAR HEMOGLOBIN 27.5 pg (28.0-32.0); MEAN CORPUSCULAR HGB CONC 30.6 g/dl (32.0-36.0); MEAN CORPUSCULAR VOLUME 89.8 fl (83.0-99.0); MEAN PLATELET VOLUME 8.7 fl (9.4-12.3); MONOCYTES ABSOLUTE AUTO 0.6 K/mm3 (0.0-0.8); MONOCYTES PERCENT AUTO 4.6 % (0.0-8.0); NEUTROPHILS PERCENT AUTO 86.2 % (41.0-71.0); PLATELET COUNT,PLT 362 K/mm3 (150-400); RED BLOOD CELL COUNT 3.71 M/mm3 (4.10-5.30); WHITE BLOOD CELL COUNT,WBC 12.78 K/mm3 (3.9-11.3)
[2023-12-31 16:50] LABS: ALBUMIN 3.2 g/dl (3.4-5.0); ANION GAP 12.6 (5-15); BILIRUBIN TOTAL 0.5 mg/dL (0.2-1.0); CALCIUM 8.8 mg/dL (8.5-10.1); EST CRCL DRUG DOSING (CG) 70.66 mL/min; POTASSIUM,K 3.6 mEq/L (3.5-5.1); PROTEIN TOTAL,TP 6.5 g/dl (6.4-8.2)
[2023-12-31 18:28] VITALS: BP 148/92; PULSE 79
== END 2023-12-31 18:32 | disposition home or self-care (01) ==
LOC: JD.ED 15:27
DX: I80.02 Phlebitis and thrombophlebitis of superficial vessels of left lower extremity (principal); I10 Essential (primary) hypertension; E66.9 Obesity, unspecified; Z86.16 Personal history of COVID-19; Z90.49 Acquired absence of other specified parts of digestive tract; Z79.52 Long term (current) use of systemic steroids; Z79.84 Long term (current) use of oral hypoglycemic drugs; Z79.891 Long term (current) use of opiate analgesic; Z79.899 Other long term (current) drug therapy; Z88.5 Allergy status to narcotic agent; Z88.8 Allergy status to other drugs, medicaments and biological substances; Z88.0 Allergy status to penicillin; Z88.1 Allergy status to other antibiotic agents; Z91.018 Allergy to other foods; Z68.29 Body mass index [BMI] 29.0-29.9, adult
CPT/HCPCS: 36415; 80053; 85025; 93971-26-LT; 93971-LT; 99283; 99284

== ENCOUNTER 2024-01-16 16:15 | Emergency (ER) | payer BC ==
[2024-01-16] MEDS: Sodium Chloride 0.9% 1,000 ML IV ONE (16:51)
[2024-01-16] MEDS: Morphine 4 MG/ML Syringe IVPUSH ONE ×2 (16:52→18:46)
[2024-01-16] MEDS: Sodium Chloride 0.9% 10 ML Syringe FLUSH PRN (16:53)
[2024-01-16] MEDS: Ondansetron 4 MG/2 ML SDV IVPUSH ONE (16:55)
[2024-01-16 17:05] LABS: APPEARANCE,URINE CLOUDY (Clear); BILIRUBIN,URINE NEGATIVE (Negative); COLOR,URINE YELLOW (Yellow); GLUCOSE,URINE NEGATIVE (Negative); KETONES,URINE NEGATIVE (Negative); LEUKOCYTE ESTERASE,URINE 2+ (Negative); NITRITE,URINE NEGATIVE (Negative); OCCULT BLOOD,URINE 2+ (Negative); PROTEIN,URINE 2+ (Negative); UROBILINOGEN,URINE 0.2 (0.2-1.0)
[2024-01-16 17:09] LABS: BASOPHILS ABSOLUTE AUTO 0.1 K/mm3 (0.0-0.2); BASOPHILS PERCENT AUTO 0.4 % (0.0-1.0); EOSINOPHILS ABSOLUTE AUTO 0.1 K/mm3 (0.0-0.4); EOSINOPHILS PERCENT AUTO 0.3 % (0.0-6.0); HEMATOCRIT 39.4 % (37.0-47.0); HEMOGLOBIN 12.2 gm/dl (12.0-16.0); IMMATURE GRAN PERCENT AUTO 1.2 % (0.0-0.4); LYMPHOCYTES ABSOLUTE AUTO 1.5 K/mm3 (1.0-4.8); MEAN CORPUSCULAR HEMOGLOBIN 27.4 pg (28.0-32.0); MEAN CORPUSCULAR VOLUME 88.5 fl (83.0-99.0); MEAN PLATELET VOLUME 8.8 fl (9.4-12.3); MONOCYTES PERCENT AUTO 5.9 % (0.0-8.0); NEUTROPHILS ABSOLUTE AUTO 13.5 K/mm3 (1.8-7.7); NEUTROPHILS PERCENT AUTO 83.2 % (41.0-71.0); PLATELET COUNT,PLT 441 K/mm3 (150-400); RED BLOOD CELL COUNT 4.45 M/mm3 (4.10-5.30); WHITE BLOOD CELL COUNT,WBC 16.19 K/mm3 (3.9-11.3)
[2024-01-16 17:10] LABS: BACTERIA,URINE MODERATE /hpf (FEW); MUCUS,URINE FEW /hpf (FEW); RBC,URINE 50-75 /hpf (0-5); WBC,URINE 50-75 /hpf (0-5)
[2024-01-16] MEDS: Sodium Chloride 0.9% 10 ML Syringe FLUSH ONE (17:14)
[2024-01-16] MEDS: Iopamidol 612 MG/ML 100 ML Bottle IVPUSH ONE (17:14)
[2024-01-16 17:47] LABS: A/G RATIO 0.9 (1-2); ALBUMIN 3.7 g/dl (3.4-5.0); ANION GAP 14.9 (5-15); BILIRUBIN TOTAL 0.7 mg/dL (0.2-1.0); BUN/CREATININE RATIO 13.8 (14-18); CALCIUM 9.6 mg/dL (8.5-10.1); CREATININE 0.8 mg/dL (0.55-1.02); EST CRCL DRUG DOSING (CG) 88.32 mL/min; MAGNESIUM 1.2 mg/dL (1.8-2.4); POTASSIUM,K 2.9 mEq/L (3.5-5.1); PROTEIN TOTAL,TP 7.7 g/dl (6.4-8.2)
[2024-01-16] MEDS ORDERED: Magnesium Sulfate (4.06 MEQ/ML) 5 GM/10 ML SDV IV ONE (18:45)
[2024-01-16 18:48] VITALS: BP 119/77; PULSE 76
[2024-01-16] MEDS: cefTRIAXone 1 GM in Sodium Chloride 0.9% 100 ML IV ONE (18:49)
[2024-01-16] MEDS: Magnesium Sulfate/Water Premix 50 ML IV SCH (19:53)
== END 2024-01-16 21:13 ==
LOC: JD.ED 16:15
DX: N20.1 Calculus of ureter (principal); R82.90 Unspecified abnormal findings in urine; I10 Essential (primary) hypertension; J45.909 Unspecified asthma, uncomplicated; E66.9 Obesity, unspecified; Z68.28 Body mass index [BMI] 28.0-28.9, adult; Z86.16 Personal history of COVID-19; Z90.49 Acquired absence of other specified parts of digestive tract; Z79.52 Long term (current) use of systemic steroids; Z79.84 Long term (current) use of oral hypoglycemic drugs; Z79.899 Other long term (current) drug therapy; Z88.0 Allergy status to penicillin; Z88.1 Allergy status to other antibiotic agents; Z88.8 Allergy status to other drugs, medicaments and biological substances; Z91.018 Allergy to other foods
CPT/HCPCS: 36415; 74177; 80053; 81001; 83690; 83735; 84703; 85025; 87086; 96360; 96361; 96365; 96366; 96368; 96375; 96376; 99285; J0696; J2270; J2405; J3475; J3490; J7030; Q9967

== ENCOUNTER 2024-04-01 16:02 | Emergency (ER) | payer BC ==
[2024-04-01 17:25] LABS: BASOPHILS ABSOLUTE AUTO 0.1 K/mm3 (0.0-0.2); BASOPHILS PERCENT AUTO 0.5 % (0.0-1.0); EOSINOPHILS ABSOLUTE AUTO 0.1 K/mm3 (0.0-0.4); EOSINOPHILS PERCENT AUTO 0.5 % (0.0-6.0); HEMATOCRIT 38.1 % (37.0-47.0); HEMOGLOBIN 11.7 gm/dl (12.0-16.0); IMMATURE GRAN ABSOLUTE AUTO 0.18 K/mm3 (0.00-0.05); IMMATURE GRAN PERCENT AUTO 1.2 % (0.0-0.4); LYMPHOCYTES ABSOLUTE AUTO 1.7 K/mm3 (1.0-4.8); LYMPHOCYTES PERCENT AUTO 11.1 % (24.0-44.0); MEAN CORPUSCULAR HEMOGLOBIN 27.1 pg (28.0-32.0); MEAN CORPUSCULAR HGB CONC 30.7 g/dl (32.0-36.0); MEAN CORPUSCULAR VOLUME 88.4 fl (83.0-99.0); MEAN PLATELET VOLUME 8.3 fl (9.4-12.3); MONOCYTES PERCENT AUTO 6.6 % (0.0-8.0); NEUTROPHILS ABSOLUTE AUTO 12.4 K/mm3 (1.8-7.7); NEUTROPHILS PERCENT AUTO 80.1 % (41.0-71.0); PLATELET COUNT,PLT 382 K/mm3 (150-400); RED BLOOD CELL COUNT 4.31 M/mm3 (4.10-5.30); WHITE BLOOD CELL COUNT,WBC 15.46 K/mm3 (3.9-11.3)
[2024-04-01 17:26] LABS: APPEARANCE,URINE CLOUDY (Clear); BILIRUBIN,URINE NEGATIVE (Negative); COLOR,URINE YELLOW (Yellow); GLUCOSE,URINE NEGATIVE (Negative); KETONES,URINE NEGATIVE (Negative); LEUKOCYTE ESTERASE,URINE 3+ (Negative); NITRITE,URINE NEGATIVE (Negative); OCCULT BLOOD,URINE 2+ (Negative); PROTEIN,URINE 1+ (Negative); UROBILINOGEN,URINE 0.2 (0.2-1.0)
[2024-04-01 17:46] LABS: A/G RATIO 0.8 (1-2); ALBUMIN 3.2 g/dl (3.4-5.0); ANION GAP 17.6 (5-15); BILIRUBIN TOTAL 0.6 mg/dL (0.2-1.0); BUN/CREATININE RATIO 16.7 (14-18); CALCIUM 9.1 mg/dL (8.5-10.1); CREATININE 0.9 mg/dL (0.55-1.02); EST CRCL DRUG DOSING (CG) 78.51 mL/min; POTASSIUM,K 3.6 mEq/L (3.5-5.1); PROTEIN TOTAL,TP 7.2 g/dl (6.4-8.2)
[2024-04-01 17:54] LABS: BACTERIA,URINE MANY /hpf (FEW); MUCUS,URINE FEW /hpf (FEW); RBC,URINE 20-30 /hpf (0-5); SQUAMOUS EPITHELIAL CELLS,UR 0-5 /hpf (0-5); WBC,URINE 30-40 /hpf (0-5)
[2024-04-01] MEDS: Ondansetron 4 MG/2 ML SDV IVPUSH ONE (18:24)
[2024-04-01] MEDS: Sodium Chloride 0.9% 1,000 ML IV STA (18:24)
[2024-04-01] MEDS: HYDROmorphone 0.5 MG/0.5 ML Syringe IVPUSH ONE (18:28)
[2024-04-01] MEDS: cefTRIAXone 2 GM in Sodium Chloride 0.9% 100 ML IV ONE (18:33)
[2024-04-01 19:20] VITALS: BP 149/82; PULSE 72
== END 2024-04-01 19:39 | disposition home or self-care (01) ==
LOC: JD.ED 16:02
DX: N12 Tubulo-interstitial nephritis, not specified as acute or chronic (principal); I10 Essential (primary) hypertension; E66.9 Obesity, unspecified; Z86.16 Personal history of COVID-19; Z90.49 Acquired absence of other specified parts of digestive tract; Z79.52 Long term (current) use of systemic steroids; Z79.899 Other long term (current) drug therapy; Z88.0 Allergy status to penicillin; Z88.1 Allergy status to other antibiotic agents; Z88.5 Allergy status to narcotic agent; Z91.018 Allergy to other foods; Z88.8 Allergy status to other drugs, medicaments and biological substances; Z68.29 Body mass index [BMI] 29.0-29.9, adult
CPT/HCPCS: 36415; 80053; 81001; 85025; 86140; 87086; 87088; 87186; 96365; 96375; 99284; J0696; J2405; J7030

== ENCOUNTER 2024-04-09 16:31 | Emergency (ER) | payer BC ==
[2024-04-09] MEDS ORDERED: Naloxone 0.4 MG/ML SDV IVPUSH PRN (18:50)
[2024-04-09 19:32] LABS: BASOPHILS ABSOLUTE AUTO 0.1 K/mm3 (0.0-0.2); BASOPHILS PERCENT AUTO 0.3 % (0.0-1.0); EOSINOPHILS PERCENT AUTO 0.1 % (0.0-6.0); HEMOGLOBIN 13.1 gm/dl (12.0-16.0); IMMATURE GRAN ABSOLUTE AUTO 0.31 K/mm3 (0.00-0.05); IMMATURE GRAN PERCENT AUTO 1.7 % (0.0-0.4); LYMPHOCYTES ABSOLUTE AUTO 1.2 K/mm3 (1.0-4.8); LYMPHOCYTES PERCENT AUTO 6.4 % (24.0-44.0); MEAN CORPUSCULAR HEMOGLOBIN 27.3 pg (28.0-32.0); MEAN CORPUSCULAR HGB CONC 31.2 g/dl (32.0-36.0); MEAN CORPUSCULAR VOLUME 87.5 fl (83.0-99.0); MEAN PLATELET VOLUME 8.6 fl (9.4-12.3); MONOCYTES ABSOLUTE AUTO 0.4 K/mm3 (0.0-0.8); NEUTROPHILS PERCENT AUTO 89.5 % (41.0-71.0); PLATELET COUNT,PLT 471 K/mm3 (150-400); WHITE BLOOD CELL COUNT,WBC 17.93 K/mm3 (3.9-11.3)
[2024-04-09] MEDS: fentaNYL 100 MCG/2 ML SDV IVPUSH ONE (19:32)
[2024-04-09 20:06] LABS: A/G RATIO 0.8 (1-2); ALANINE AMINOTRANSFERASE,ALT 24 U/L (14-59); ALBUMIN 3.6 g/dl (3.4-5.0); ALKALINE PHOSPHATASE 63 U/L (46-116); ANION GAP 19.4 (5-15); ASPARTATE AMNIOTRANSFERASE,AST 14 U/L (15-37); BILIRUBIN TOTAL 0.8 mg/dL (0.2-1.0); BLOOD UREA NITROGEN,BUN 17 mg/dL (7-18); CARBON DIOXIDE,CO2 24 mEq/L (21-32); CHLORIDE,CL 102 mEq/L (98-107); ESTIMATED GFR 75 mL/min (>60); GLUCOSE RANDOM 154 mg/dL (70-99); POTASSIUM,K 4.4 mEq/L (3.5-5.1); PROTEIN TOTAL,TP 8.2 g/dl (6.4-8.2); SODIUM,NA 141 mEq/L (136-145)
[2024-04-09] MEDS ORDERED: cefTRIAXone 1 GM in Sodium Chloride 0.9% 50 ML IV ONE (20:16)
[2024-04-09] MEDS: Sodium Chloride 0.9% 500 ML IV ONE (20:50)
[2024-04-09] MEDS: cefTRIAXone 1 GM Vial IV ONE (20:50)
[2024-04-09 21:27] VITALS: BP 124/86; PULSE 74
== END 2024-04-09 21:25 | disposition home or self-care (01) ==
LOC: JD.ED 16:31
DX: S80.12XA Contusion of left lower leg, initial encounter (principal); I10 Essential (primary) hypertension; E66.9 Obesity, unspecified; Z79.899 Other long term (current) drug therapy; Z86.16 Personal history of COVID-19; Z88.0 Allergy status to penicillin; Z88.6 Allergy status to analgesic agent; Z88.5 Allergy status to narcotic agent; Z91.018 Allergy to other foods; Z88.1 Allergy status to other antibiotic agents; W54.8XXA Other contact with dog, initial encounter
CPT/HCPCS: 36415; 80053; 85025; 93971; 96374; 96375; 99284; J0696; J3010; J7030

== ENCOUNTER 2024-04-29 12:35 | Emergency (ER) | payer BC ==
[2024-04-29 13:37] LABS: APPEARANCE,URINE SLT CLOUDY (Clear); BILIRUBIN,URINE NEGATIVE (Negative); COLOR,URINE LIGHT YELLOW (Yellow); GLUCOSE,URINE NEGATIVE (Negative); KETONES,URINE NEGATIVE (Negative); LEUKOCYTE ESTERASE,URINE TRACE (Negative); NITRITE,URINE NEGATIVE (Negative); OCCULT BLOOD,URINE 2+ (Negative); PROTEIN,URINE 1+ (Negative); UROBILINOGEN,URINE 0.2 (0.2-1.0)
[2024-04-29 14:00] LABS: BASOPHILS ABSOLUTE AUTO 0.1 K/mm3 (0.0-0.2); BASOPHILS PERCENT AUTO 0.4 % (0.0-1.0); EOSINOPHILS ABSOLUTE AUTO 0.1 K/mm3 (0.0-0.4); EOSINOPHILS PERCENT AUTO 0.8 % (0.0-6.0); HEMATOCRIT 37.9 % (37.0-47.0); HEMOGLOBIN 11.8 gm/dl (12.0-16.0); IMMATURE GRAN ABSOLUTE AUTO 0.15 K/mm3 (0.00-0.05); IMMATURE GRAN PERCENT AUTO 1.1 % (0.0-0.4); LYMPHOCYTES PERCENT AUTO 15.2 % (24.0-44.0); MEAN CORPUSCULAR HGB CONC 31.1 g/dl (32.0-36.0); MEAN CORPUSCULAR VOLUME 89.8 fl (83.0-99.0); MEAN PLATELET VOLUME 8.5 fl (9.4-12.3); MONOCYTES ABSOLUTE AUTO 1.1 K/mm3 (0.0-0.8); MONOCYTES PERCENT AUTO 8.3 % (0.0-8.0); NEUTROPHILS ABSOLUTE AUTO 9.7 K/mm3 (1.8-7.7); NEUTROPHILS PERCENT AUTO 74.2 % (41.0-71.0); PLATELET COUNT,PLT 389 K/mm3 (150-400); RED BLOOD CELL COUNT 4.22 M/mm3 (4.10-5.30); WHITE BLOOD CELL COUNT,WBC 13.05 K/mm3 (3.9-11.3)
[2024-04-29 14:09] LABS: BACTERIA,URINE MODERATE /hpf (FEW); EPITHELIAL CELLS,URINE 0-5 /hpf (0-5); RBC,URINE 40-50 /hpf (0-5); WBC,URINE 0-5 /hpf (0-5)
[2024-04-29 14:10] LABS: MUCUS,URINE RARE /hpf (FEW)
[2024-04-29 14:19] LABS: A/G RATIO 0.8 (1-2); ALBUMIN 3.2 g/dl (3.4-5.0); ANION GAP 11.7 (5-15); BILIRUBIN TOTAL 0.7 mg/dL (0.2-1.0); BUN/CREATININE RATIO 21.1 (14-18); CALCIUM 9.6 mg/dL (8.5-10.1); CREATININE 0.9 mg/dL (0.55-1.02); EST CRCL DRUG DOSING (CG) 78.51 mL/min; POTASSIUM,K 3.7 mEq/L (3.5-5.1)
[2024-04-29] MEDS: Ibuprofen 600 MG Tab PO ONE (15:06)
[2024-04-29] MEDS: Ondansetron 4 MG/2 ML SDV IVPUSH ONE (15:06)
[2024-04-29] MEDS: Sodium Chloride 0.9% 1,000 ML IV SCH (17:37)
[2024-04-29] MEDS: droPERidol 2.5 MG/ML SDV IV ONE (18:09)
[2024-04-30 00:59] VITALS: BP 128/85; PULSE 80
== END 2024-04-29 19:50 | disposition home or self-care (01) ==
LOC: JD.ED 12:35
DX: R31.9 Hematuria, unspecified (principal); I10 Essential (primary) hypertension; E66.9 Obesity, unspecified; Z86.16 Personal history of COVID-19; Z90.49 Acquired absence of other specified parts of digestive tract; Z79.52 Long term (current) use of systemic steroids; Z88.0 Allergy status to penicillin; Z88.1 Allergy status to other antibiotic agents; Z91.018 Allergy to other foods; Z88.8 Allergy status to other drugs, medicaments and biological substances; Z88.6 Allergy status to analgesic agent; Z68.29 Body mass index [BMI] 29.0-29.9, adult
CPT/HCPCS: 36415; 74176; 74176-26; 76830; 76830-26; 80053; 81001; 81025; 85025; 87086; 87088; 87186; 96361; 96374; 99283; 99284-25; A9270-GY; J2405; J7030

== ENCOUNTER 2024-06-03 19:20 | Emergency (ER) | payer BC ==
[2024-06-03] MEDS: Sodium Chloride 0.9% 1,000 ML IV ONE (20:44)
[2024-06-03] MEDS: Sodium Chloride 0.9% 10 ML Syringe FLUSH PRN (20:45)
[2024-06-03 20:46] LABS: APPEARANCE,URINE SLT CLOUDY (Clear); BILIRUBIN,URINE NEGATIVE (Negative); COLOR,URINE YELLOW (Yellow); GLUCOSE,URINE NEGATIVE (Negative); KETONES,URINE NEGATIVE (Negative); LEUKOCYTE ESTERASE,URINE 1+ (Negative); NITRITE,URINE NEGATIVE (Negative); OCCULT BLOOD,URINE 2+ (Negative); PH,URINE 5.5 (5.0-8.0); PROTEIN,URINE NEGATIVE (Negative); UROBILINOGEN,URINE 0.2 (0.2-1.0)
[2024-06-03 20:52] LABS: HEMOGLOBIN 12.1 gm/dl (12.0-16.0); MEAN CORPUSCULAR HEMOGLOBIN 27.3 pg (28.0-32.0); MEAN PLATELET VOLUME 8.8 fl (9.4-12.3); PLATELET COUNT,PLT 366 K/mm3 (150-400); RED BLOOD CELL COUNT 4.43 M/mm3 (4.10-5.30); WHITE BLOOD CELL COUNT,WBC 10.85 K/mm3 (3.9-11.3)
[2024-06-03 21:12] LABS: BACTERIA,URINE FEW /hpf (FEW); MUCUS,URINE FEW /hpf (FEW)
[2024-06-03 21:16] LABS: INR 1.01; PROTHROMBIN TIME 10.7 SECONDS (9.7-12.0)
[2024-06-03] MEDS: HYDROmorphone 1 MG/ML Syringe IVPUSH ONE (21:27)
[2024-06-03] MEDS: Ondansetron 4 MG/2 ML SDV IVPUSH ONE (21:28)
[2024-06-03 21:42] LABS: LACTIC ACID 1.3 mmol/L (0.4-2.0)
[2024-06-03 21:45] LABS: BAND PERCENT MAN 0 % (0-10); BASOPHILS PERCENT MAN 0 (0.1-1.2); EOSINOPHILS PERCENT MAN 2 % (0.7-5.8); LYMPHOCYTES % ATYPICAL MANUAL 1 %; LYMPHOCYTES PERCENT MAN 15 % (20-40); MONOCYTES PERCENT MAN 5 % (2-10); PLATELET COUNT ESTIMATE ADEQUATE; STOMATOCYTES FEW
[2024-06-03 21:49] LABS: A/G RATIO 0.9 (1-2); ALBUMIN 3.3 g/dl (3.4-5.0); ANION GAP 15.2 (5-15); BILIRUBIN TOTAL 1.3 mg/dL (0.2-1.0); C-REACTIVE PROTEIN 0.97 mg/dL (<0.30); CREATININE 0.9 mg/dL (0.55-1.02); EST CRCL DRUG DOSING (CG) 75.34 mL/min; POTASSIUM,K 3.2 mEq/L (3.5-5.1); PROTEIN TOTAL,TP 7.2 g/dl (6.4-8.2)
[2024-06-03] MEDS: HYDROmorphone 1 MG/ML Syringe ONE (22:44)
[2024-06-03] MEDS: HYDROmorphone 0.5 MG/0.5 ML Syringe IVPUSH ONE (22:49)
[2024-06-03] MEDS: VANCOmycin 125 MG Cap PO ONE (22:49)
[2024-06-03] MEDS: Lactated Ringers 1,000 ML IV SCH (22:54)
[2024-06-03 23:50] VITALS: BP 128/87; PULSE 84
[2024-06-04] MEDS: HYDROmorphone 0.5 MG/0.5 ML Syringe IVPUSH ONE ×3 (01:08→06:04)
[2024-06-04] MEDS: Metoclopramide 10 MG/2 ML SDV IVPUSH ONE (03:46)
[2024-06-04 05:25] LABS: A/G RATIO 0.9 (1-2); ALBUMIN 3.1 g/dl (3.4-5.0); ANION GAP 14.3 (5-15); BILIRUBIN TOTAL 1.2 mg/dL (0.2-1.0); CALCIUM 8.5 mg/dL (8.5-10.1); CREATININE 0.8 mg/dL (0.55-1.02); EST CRCL DRUG DOSING (CG) 84.76 mL/min; POTASSIUM,K 3.3 mEq/L (3.5-5.1); PROTEIN TOTAL,TP 6.6 g/dl (6.4-8.2)
[2024-06-04] MEDS: VANCOmycin 125 MG Cap PO ONE (06:03)
== END 2024-06-04 06:44 | disposition home or self-care (01) ==
LOC: JD.ED 19:20
DX: A04.72 Enterocolitis due to Clostridium difficile, not specified as recurrent (principal); I10 Essential (primary) hypertension; E66.9 Obesity, unspecified; Z90.49 Acquired absence of other specified parts of digestive tract; Z86.16 Personal history of COVID-19; Z79.52 Long term (current) use of systemic steroids; Z88.0 Allergy status to penicillin; Z88.1 Allergy status to other antibiotic agents; Z88.5 Allergy status to narcotic agent; Z88.8 Allergy status to other drugs, medicaments and biological substances; Z91.018 Allergy to other foods; Z68.29 Body mass index [BMI] 29.0-29.9, adult
CPT/HCPCS: 36415; 74176; 80053; 81001; 83605; 83690; 85007; 85027; 85610; 86140; 87040; 87086; 87324; 87493; 96361; 96374; 96375; 96376; 99285; A9270; J1171; J2405; J2765; J7030; J7120; 99284

== ENCOUNTER 2024-06-09 08:44 | Emergency (ER) | payer BC ==
[2024-06-09 10:46] VITALS: BP 138/100; PULSE 72
== END 2024-06-09 10:46 | disposition home or self-care (01) ==
LOC: JD.ED 08:44
DX: M54.50 Low back pain, unspecified (principal); I10 Essential (primary) hypertension; E66.9 Obesity, unspecified; Z86.16 Personal history of COVID-19; Z90.49 Acquired absence of other specified parts of digestive tract; Z79.52 Long term (current) use of systemic steroids; Z79.899 Other long term (current) drug therapy; Z88.0 Allergy status to penicillin; Z88.1 Allergy status to other antibiotic agents; Z88.5 Allergy status to narcotic agent; Z88.8 Allergy status to other drugs, medicaments and biological substances; Z91.018 Allergy to other foods; Z68.29 Body mass index [BMI] 29.0-29.9, adult
CPT/HCPCS: 99283

== ENCOUNTER 2024-08-03 21:55 | Emergency (ER) | payer BC ==
[2024-08-03] MEDS ORDERED: Sodium Chloride 0.9% 10 ML Syringe FLUSH PRN (22:21)
[2024-08-03 22:52] LABS: APPEARANCE,URINE CLEAR (Clear); BASOPHILS PERCENT AUTO 0.1 % (0.0-1.0); BILIRUBIN,URINE NEGATIVE (Negative); COLOR,URINE YELLOW (Yellow); EOSINOPHILS PERCENT AUTO 0.2 % (0.0-6.0); GLUCOSE,URINE TRACE (Negative); HEMATOCRIT 30.9 % (37.0-47.0); HEMOGLOBIN 9.4 gm/dl (12.0-16.0); IMMATURE GRAN ABSOLUTE AUTO 0.07 K/mm3 (0.00-0.05); IMMATURE GRAN PERCENT AUTO 0.8 % (0.0-0.4); KETONES,URINE TRACE (Negative); LEUKOCYTE ESTERASE,URINE 1+ (Negative); LYMPHOCYTES ABSOLUTE AUTO 0.5 K/mm3 (1.0-4.8); LYMPHOCYTES PERCENT AUTO 6.2 % (24.0-44.0); MEAN CORPUSCULAR HEMOGLOBIN 26.7 pg (28.0-32.0); MEAN CORPUSCULAR HGB CONC 30.4 g/dl (32.0-36.0); MEAN CORPUSCULAR VOLUME 87.8 fl (83.0-99.0); MEAN PLATELET VOLUME 8.8 fl (9.4-12.3); MONOCYTES ABSOLUTE AUTO 0.2 K/mm3 (0.0-0.8); MONOCYTES PERCENT AUTO 2.2 % (0.0-8.0); NEUTROPHILS ABSOLUTE AUTO 7.6 K/mm3 (1.8-7.7); NEUTROPHILS PERCENT AUTO 90.5 % (41.0-71.0); NITRITE,URINE NEGATIVE (Negative); OCCULT BLOOD,URINE 2+ (Negative); PLATELET COUNT,PLT 367 K/mm3 (150-400); PROTEIN,URINE 1+ (Negative); RED BLOOD CELL COUNT 3.52 M/mm3 (4.10-5.30); UROBILINOGEN,URINE 0.2 (0.2-1.0); WHITE BLOOD CELL COUNT,WBC 8.45 K/mm3 (3.9-11.3)
[2024-08-03 23:00] LABS: RBC,URINE 20-30 /hpf (0-5)
[2024-08-03 23:01] LABS: BACTERIA,URINE MODERATE /hpf (FEW); MUCUS,URINE MODERATE /hpf (FEW); SQUAMOUS EPITHELIAL CELLS,UR 0-5 /hpf (0-5); YEAST,URINE MODERATE (NOT SEEN)
[2024-08-03 23:14] LABS: SLIDE REVIEW ABNORMAL SMEAR
[2024-08-03 23:15] LABS: ALBUMIN 3.4 g/dl (3.4-5.0); ANION GAP 13.3 (5-15); BILIRUBIN TOTAL 0.4 mg/dL (0.2-1.0); BUN/CREATININE RATIO 17.8 (14-18); CREATININE 0.9 mg/dL (0.55-1.02); EST CRCL DRUG DOSING (CG) 75.34 mL/min; POTASSIUM,K 4.3 mEq/L (3.5-5.1); PROTEIN TOTAL,TP 6.8 g/dl (6.4-8.2)
[2024-08-04] MEDS ORDERED: Ketorolac 30 MG/ML SDV IVPUSH ONE (00:19)
[2024-08-04] MEDS: Ketorolac 10 MG Tab PO ONE (00:37)
[2024-08-04] MEDS: cefTRIAXone 1 GM Vial IVPUSH ONE (00:41)
[2024-08-04] MEDS: Ondansetron 4 MG/2 ML SDV IVPUSH ONE (00:41)
[2024-08-04 01:45] VITALS: BP 130/80; PULSE 58
== END 2024-08-04 00:47 | disposition home or self-care (01) ==
LOC: JD.ED 21:55
DX: N30.01 Acute cystitis with hematuria (principal); I10 Essential (primary) hypertension; J45.909 Unspecified asthma, uncomplicated; Z88.1 Allergy status to other antibiotic agents; Z88.0 Allergy status to penicillin; Z88.8 Allergy status to other drugs, medicaments and biological substances; Z91.048 Other nonmedicinal substance allergy status; Z88.5 Allergy status to narcotic agent; Z79.899 Other long term (current) drug therapy; Z86.16 Personal history of COVID-19
CPT/HCPCS: 36415; 80053; 81001; 81025; 85025; 87086; 96374; 96375; 99284; J0696; J2405; 87088; 87186; 99283

== ENCOUNTER 2024-09-18 12:53 | Emergency (ER) | payer BC ==
[2024-09-18 14:41] VITALS: BP 98/61; PULSE 92
[2024-09-18] MEDS ORDERED: Naloxone 0.4 MG/ML SDV IVPUSH PRN ×3 (15:16→19:42)
[2024-09-18 15:22] LABS: BILIRUBIN,URINE NEGATIVE (Negative); COLOR,URINE YELLOW (Yellow); GLUCOSE,URINE NEGATIVE (Negative); KETONES,URINE 2+ (Negative); LEUKOCYTE ESTERASE,URINE 1+ (Negative); NITRITE,URINE NEGATIVE (Negative); OCCULT BLOOD,URINE 2+ (Negative); PH,URINE 6.5 (5.0-8.0); PROTEIN,URINE 2+ (Negative); UROBILINOGEN,URINE 0.2 (0.2-1.0)
[2024-09-18 15:36] LABS: BASOPHILS PERCENT AUTO 0.2 % (0.0-1.0); EOSINOPHILS PERCENT AUTO 0.1 % (0.0-6.0); HEMATOCRIT 43.9 % (37.0-47.0); HEMOGLOBIN 13.2 gm/dl (12.0-16.0); IMMATURE GRAN ABSOLUTE AUTO 0.11 K/mm3 (0.00-0.05); IMMATURE GRAN PERCENT AUTO 0.8 % (0.0-0.4); LYMPHOCYTES ABSOLUTE AUTO 1.3 K/mm3 (1.0-4.8); LYMPHOCYTES PERCENT AUTO 9.2 % (24.0-44.0); MEAN CORPUSCULAR HGB CONC 30.1 g/dl (32.0-36.0); MEAN CORPUSCULAR VOLUME 86.6 fl (83.0-99.0); MEAN PLATELET VOLUME 8.3 fl (9.4-12.3); MONOCYTES ABSOLUTE AUTO 0.8 K/mm3 (0.0-0.8); MONOCYTES PERCENT AUTO 5.8 % (0.0-8.0); NEUTROPHILS ABSOLUTE AUTO 11.5 K/mm3 (1.8-7.7); NEUTROPHILS PERCENT AUTO 83.9 % (41.0-71.0); PLATELET COUNT,PLT 497 K/mm3 (150-400); RED BLOOD CELL COUNT 5.07 M/mm3 (4.10-5.30); WHITE BLOOD CELL COUNT,WBC 13.72 K/mm3 (3.9-11.3)
[2024-09-18 15:39] LABS: APPEARANCE,URINE SLT CLOUDY (Clear)
[2024-09-18 15:41] LABS: BACTERIA,URINE FEW /hpf (FEW); MUCUS,URINE FEW /hpf (FEW); RBC,URINE 20-30 /hpf (0-5); SQUAMOUS EPITHELIAL CELLS,UR 20-30 /hpf (0-5); WBC,URINE 50-75 /hpf (0-5)
[2024-09-18 16:10] LABS: A/G RATIO 0.9 (1-2); ALANINE AMINOTRANSFERASE,ALT 27 U/L (14-59); ALKALINE PHOSPHATASE 62 U/L (46-116); ANION GAP 14.4 (5-15); ASPARTATE AMNIOTRANSFERASE,AST 15 U/L (15-37); BLOOD UREA NITROGEN,BUN 18 mg/dL (7-18); CALCIUM 10.4 mg/dL (8.5-10.1); CARBON DIOXIDE,CO2 28 mEq/L (21-32); CHLORIDE,CL 101 mEq/L (98-107); CREATININE 0.9 mg/dL (0.55-1.02); ESTIMATED GFR 86 mL/min (>60); GLUCOSE RANDOM 121 mg/dL (70-99); POTASSIUM,K 3.4 mEq/L (3.5-5.1); PROTEIN TOTAL,TP 8.3 g/dl (6.4-8.2); SODIUM,NA 140 mEq/L (136-145)
[2024-09-18 16:28] LABS: LACTIC ACID 2.1 mmol/L (0.4-2.0)
[2024-09-18] MEDS: Sodium Chloride 0.9% 1,000 ML IV SCH (16:35)
[2024-09-18] MEDS: Ondansetron 4 MG/2 ML SDV IVPUSH ONE (16:38)
[2024-09-18] MEDS: fentaNYL 100 MCG/2 ML SDV IVPUSH ONE ×3 (16:40→20:00)
[2024-09-18] MEDS: cefTRIAXone 2 GM in Sodium Chloride 0.9% 100 ML IV ONE (16:47)
[2024-09-18 18:17] LABS: APPEARANCE,URINE CLEAR (Clear); BILIRUBIN,URINE NEGATIVE (Negative); COLOR,URINE YELLOW (Yellow); GLUCOSE,URINE NEGATIVE (Negative); KETONES,URINE 2+ (Negative); LEUKOCYTE ESTERASE,URINE 1+ (Negative); NITRITE,URINE NEGATIVE (Negative); OCCULT BLOOD,URINE 2+ (Negative); PH,URINE 7.5 (5.0-8.0); PROTEIN,URINE 2+ (Negative); UROBILINOGEN,URINE 0.2 (0.2-1.0)
[2024-09-18 18:53] LABS: WBC,URINE 20-30 /hpf (0-5)
[2024-09-18 18:54] LABS: BACTERIA,URINE MODERATE /hpf (FEW); MUCUS,URINE FEW /hpf (FEW)
[2024-09-18] MEDS: Lactated Ringers 1,000 ML IV SCH (19:03)
[2024-09-18] MEDS ORDERED: fentaNYL 100 MCG/2 ML SDV IVPUSH ONE (19:42)
== END 2024-09-18 20:04 | disposition home or self-care (01) ==
LOC: JD.ED 12:53
DX: N39.0 Urinary tract infection, site not specified (principal); E86.0 Dehydration; I10 Essential (primary) hypertension; J45.909 Unspecified asthma, uncomplicated; Z86.16 Personal history of COVID-19; Z90.49 Acquired absence of other specified parts of digestive tract; Z88.0 Allergy status to penicillin; Z88.1 Allergy status to other antibiotic agents; Z88.8 Allergy status to other drugs, medicaments and biological substances; Z91.018 Allergy to other foods; Z79.899 Other long term (current) drug therapy
CPT/HCPCS: 36415; 74176; 80053; 81001; 81025; 83605; 85025; 86140; 87086; 96361; 96365; 96375; 96376; 99284; J0696; J2405; J3010; J7030; J7120

== ENCOUNTER 2024-10-13 12:31 | Emergency (ER) | payer BC ==
[2024-10-13 14:02] LABS: BASOPHILS ABSOLUTE AUTO 0.0 K/mm3 (0.0-0.2); BASOPHILS PERCENT AUTO 0.3 % (0.0-1.0); EOSINOPHILS ABSOLUTE AUTO 0.0 K/mm3 (0.0-0.4); EOSINOPHILS PERCENT AUTO 0.3 % (0.0-6.0); IMMATURE GRAN ABSOLUTE AUTO 0.16 K/mm3 (0.00-0.05); IMMATURE GRAN PERCENT AUTO 1.1 % (0.0-0.4); LYMPHOCYTES ABSOLUTE AUTO 1.1 K/mm3 (1.0-4.8); LYMPHOCYTES PERCENT AUTO 7.3 % (24.0-44.0); MEAN PLATELET VOLUME 8.5 fl (9.4-12.3); MONOCYTES ABSOLUTE AUTO 0.7 K/mm3 (0.0-0.8); MONOCYTES PERCENT AUTO 4.9 % (0.0-8.0); NEUTROPHILS ABSOLUTE AUTO 12.3 K/mm3 (1.8-7.7); NEUTROPHILS PERCENT AUTO 86.1 % (41.0-71.0); NRBC ABSOLUTE 0.00 (0.00-0.02); NRBC PERCENT 0.0 % (0.0-0.2); PLATELET COUNT,PLT 484 K/mm3 (150-400); RED BLOOD CELL COUNT 4.68 M/mm3 (4.10-5.30); WHITE BLOOD CELL COUNT,WBC 14.30 K/mm3 (3.9-11.3)
[2024-10-13] MEDS: Ondansetron 4 MG/2 ML SDV IVPUSH ONE (14:02)
[2024-10-13] MEDS: Ketorolac 30 MG/ML SDV IVPUSH ONE (14:12)
[2024-10-13 14:22] LABS: BUPRENORPHINE SCREEN,URINE NEGATIVE (CUTOFF=10); METHADONE SCREEN, URINE NEGATIVE (CUTOFF=200); METHAMPHETAMINES SCREEN, URINE NEGATIVE (CUTOFF=500); OXYCODONE SCREEN,URINE NEGATIVE (CUT0FF=100); THC SCREEN,URINE 20 NG/ML PRESUMPTIVE POSITIVE (CUTOFF=50)
[2024-10-13 14:23] LABS: A/G RATIO 0.9 (1-2); ALANINE AMINOTRANSFERASE,ALT 23.0 U/L (14-59); ASPARTATE AMNIOTRANSFERASE,AST 15.0 U/L (15-37); BILIRUBIN TOTAL 1.1 mg/dL (0.2-1.0); BLOOD UREA NITROGEN,BUN 16.0 mg/dL (7-18); CARBON DIOXIDE,CO2 28.0 mEq/L (21-32); CHLORIDE,CL 102.0 mEq/L (98-107); CREATINE KINASE,CK 29.0 U/L (26-192); CREATININE 0.8 mg/dL (0.55-1.02); EST CRCL DRUG DOSING (CG) 87.48 mL/min; ESTIMATED GFR 98.0 mL/min (>60); GLUCOSE RANDOM 96.0 mg/dL (70-99); POTASSIUM,K 3.2 mEq/L (3.5-5.1); PROTEIN TOTAL,TP 7.8 g/dl (6.4-8.2); SODIUM,NA 138.0 mEq/L (136-145)
[2024-10-13 14:24] LABS: AMPHETAMINES SCREEN, URINE NEGATIVE (CUTOFF=500)
[2024-10-13 15:22] VITALS: BP 129/80; PULSE 66
== END 2024-10-13 15:22 | disposition home or self-care (01) ==
LOC: JD.ED 12:31
DX: N20.0 Calculus of kidney (principal); N30.01 Acute cystitis with hematuria; I10 Essential (primary) hypertension; J45.909 Unspecified asthma, uncomplicated; Z88.1 Allergy status to other antibiotic agents; Z88.0 Allergy status to penicillin; Z88.8 Allergy status to other drugs, medicaments and biological substances; Z91.018 Allergy to other foods; Z88.5 Allergy status to narcotic agent; Z79.899 Other long term (current) drug therapy; Z86.16 Personal history of COVID-19; Z90.49 Acquired absence of other specified parts of digestive tract
CPT/HCPCS: 36415; 74176; 80053; 80306; 82550; 83690; 83735; 85025; 96361; 96374; 96375; 99284; A9270; J0696; J2405; J7030

== ENCOUNTER 2024-12-08 18:56 | Emergency (ER) | payer BC ==
[2024-12-08 19:16] VITALS: BP 153/87; PULSE 70
[2024-12-08 19:24] LABS: APPEARANCE,URINE SLT CLOUDY (Clear); GLUCOSE,URINE NEGATIVE (Negative); OCCULT BLOOD,URINE 2+ (Negative)
[2024-12-08 19:24] LABS: BASOPHILS ABSOLUTE AUTO 0.0 K/mm3 (0.0-0.2); BASOPHILS PERCENT AUTO 0.3 % (0.0-1.0); EOSINOPHILS ABSOLUTE AUTO 0.0 K/mm3 (0.0-0.4); EOSINOPHILS PERCENT AUTO 0.2 % (0.0-6.0); IMMATURE GRAN ABSOLUTE AUTO 0.15 K/mm3 (0.00-0.05); IMMATURE GRAN PERCENT AUTO 1.2 % (0.0-0.4); LYMPHOCYTES ABSOLUTE AUTO 1.3 K/mm3 (1.0-4.8); LYMPHOCYTES PERCENT AUTO 10.4 % (24.0-44.0); MEAN PLATELET VOLUME 8.3 fl (9.4-12.3); MONOCYTES ABSOLUTE AUTO 0.4 K/mm3 (0.0-0.8); MONOCYTES PERCENT AUTO 3.4 % (0.0-8.0); NEUTROPHILS ABSOLUTE AUTO 10.4 K/mm3 (1.8-7.7); NEUTROPHILS PERCENT AUTO 84.5 % (41.0-71.0); NRBC ABSOLUTE 0.00 (0.00-0.02); NRBC PERCENT 0.0 % (0.0-0.2); PLATELET COUNT,PLT 404 K/mm3 (150-400); RED BLOOD CELL COUNT 4.34 M/mm3 (4.10-5.30); WHITE BLOOD CELL COUNT,WBC 12.33 K/mm3 (3.9-11.3)
[2024-12-08 19:46] LABS: A/G RATIO 1.0 (1-2); ALANINE AMINOTRANSFERASE,ALT 26.0 U/L (14-59); ASPARTATE AMNIOTRANSFERASE,AST 17.0 U/L (15-37); BILIRUBIN TOTAL 1.1 mg/dL (0.2-1.0); BLOOD UREA NITROGEN,BUN 16.0 mg/dL (7-18); CARBON DIOXIDE,CO2 29.0 mEq/L (21-32); CHLORIDE,CL 103.0 mEq/L (98-107); CREATININE 0.8 mg/dL (0.55-1.02); EST CRCL DRUG DOSING (CG) 87.48 mL/min; ESTIMATED GFR 98.0 mL/min (>60); GLUCOSE RANDOM 127.0 mg/dL (70-99); POTASSIUM,K 3.6 mEq/L (3.5-5.1); PROTEIN TOTAL,TP 7.1 g/dl (6.4-8.2); SODIUM,NA 140.0 mEq/L (136-145)
[2024-12-08 20:37] LABS: WBC CLUMPS,URINE FEW /hpf (NOT SEEN)
[2024-12-08] MEDS: Acetaminophen/HYDROcodone 325-5 MG Tab PO ONE (21:17)
[2024-12-08] MEDS: cefTRIAXone 1 GM, Lidocaine 1% 2.1 ML IM ONE (21:18)
[2024-12-08] MEDS: Ondansetron 4 MG Tab.DIS PO ONE (21:21)
== END 2024-12-08 21:31 | disposition home or self-care (01) ==
LOC: JD.ED 18:56
DX: N30.01 Acute cystitis with hematuria (principal); I12.9 Hypertensive chronic kidney disease with stage 1 through stage 4 chronic kidney disease, or unspecified chronic kidney disease; E66.9 Obesity, unspecified; N18.9 Chronic kidney disease, unspecified; Z86.16 Personal history of COVID-19; Z79.899 Other long term (current) drug therapy; Z88.8 Allergy status to other drugs, medicaments and biological substances; Z88.0 Allergy status to penicillin; Z88.1 Allergy status to other antibiotic agents; Z91.018 Allergy to other foods; Z90.49 Acquired absence of other specified parts of digestive tract; Z68.26 Body mass index [BMI] 26.0-26.9, adult
CPT/HCPCS: 36415; 74176; 80053; 81001; 81025; 85025; 87086; 96372; 99284; A9270; J0696; J2003

== ENCOUNTER 2024-12-09 15:32 | Emergency (ER) | payer BC ==
[2024-12-09 15:53] VITALS: BP 125/98; PULSE 79
[2024-12-09] MEDS ORDERED: Sodium Chloride 0.9% 10 ML Syringe FLUSH PRN (16:14)
[2024-12-09 16:27] LABS: BASOPHILS ABSOLUTE AUTO 0.1 K/mm3 (0.0-0.2); BASOPHILS PERCENT AUTO 0.5 % (0.0-1.0); EOSINOPHILS ABSOLUTE AUTO 0.1 K/mm3 (0.0-0.4); EOSINOPHILS PERCENT AUTO 0.6 % (0.0-6.0); IMMATURE GRAN ABSOLUTE AUTO 0.09 K/mm3 (0.00-0.05); IMMATURE GRAN PERCENT AUTO 0.9 % (0.0-0.4); LYMPHOCYTES ABSOLUTE AUTO 2.8 K/mm3 (1.0-4.8); LYMPHOCYTES PERCENT AUTO 27.1 % (24.0-44.0); MEAN PLATELET VOLUME 8.5 fl (9.4-12.3); MONOCYTES ABSOLUTE AUTO 0.8 K/mm3 (0.0-0.8); MONOCYTES PERCENT AUTO 8.2 % (0.0-8.0); NEUTROPHILS ABSOLUTE AUTO 6.4 K/mm3 (1.8-7.7); NEUTROPHILS PERCENT AUTO 62.7 % (41.0-71.0); NRBC ABSOLUTE 0.00 (0.00-0.02); NRBC PERCENT 0.0 % (0.0-0.2); PLATELET COUNT,PLT 473 K/mm3 (150-400); RED BLOOD CELL COUNT 4.92 M/mm3 (4.10-5.30); WHITE BLOOD CELL COUNT,WBC 10.13 K/mm3 (3.9-11.3)
[2024-12-09] MEDS: Ondansetron 4 MG/2 ML SDV IVPUSH ONE (16:37)
[2024-12-09 16:40] LABS: A/G RATIO 1.0 (1-2); ALANINE AMINOTRANSFERASE,ALT 28.0 U/L (14-59); ASPARTATE AMNIOTRANSFERASE,AST 20.0 U/L (15-37); BILIRUBIN TOTAL 1.6 mg/dL (0.2-1.0); BLOOD UREA NITROGEN,BUN 12.0 mg/dL (7-18); CARBON DIOXIDE,CO2 31.0 mEq/L (21-32); CHLORIDE,CL 101.0 mEq/L (98-107); CREATININE 1.0 mg/dL (0.55-1.02); EST CRCL DRUG DOSING (CG) 69.98 mL/min; ESTIMATED GFR 75.0 mL/min (>60); GLUCOSE RANDOM 91.0 mg/dL (70-99); POTASSIUM,K 3.2 mEq/L (3.5-5.1); PROTEIN TOTAL,TP 8.0 g/dl (6.4-8.2); SODIUM,NA 141.0 mEq/L (136-145)
== END 2024-12-09 18:10 | disposition home or self-care (01) ==
LOC: JD.ED 15:32
DX: N39.0 Urinary tract infection, site not specified (principal); E87.6 Hypokalemia; I10 Essential (primary) hypertension; J45.909 Unspecified asthma, uncomplicated; Z88.1 Allergy status to other antibiotic agents; Z88.0 Allergy status to penicillin; Z91.018 Allergy to other foods; Z88.8 Allergy status to other drugs, medicaments and biological substances; Z79.899 Other long term (current) drug therapy; Z86.16 Personal history of COVID-19
CPT/HCPCS: 36415; 80053; 83605; 85025; 96361; 96374; 96375; 96376; 99284; J0696; J1171; J2405; J7030

== ENCOUNTER 2024-12-15 03:15 | Emergency (ER) | payer BC ==
[2024-12-15 03:35] VITALS: BP 125/76; PULSE 88
[2024-12-15 04:11] LABS: BUPRENORPHINE SCREEN,URINE NEGATIVE (CUTOFF=10); METHADONE SCREEN, URINE NEGATIVE (CUTOFF=200); METHAMPHETAMINES SCREEN, URINE NEGATIVE (CUTOFF=500); OXYCODONE SCREEN,URINE NEGATIVE (CUT0FF=100); THC SCREEN,URINE 20 NG/ML PRESUMPTIVE POSITIVE (CUTOFF=50)
[2024-12-15 04:13] LABS: AMPHETAMINES SCREEN, URINE NEGATIVE (CUTOFF=500)
== END 2024-12-15 04:00 | disposition home or self-care (01) ==
LOC: JD.ED 03:15
DX: M62.830 Muscle spasm of back (principal); I10 Essential (primary) hypertension; J45.909 Unspecified asthma, uncomplicated; Z86.16 Personal history of COVID-19; Z90.49 Acquired absence of other specified parts of digestive tract; Z88.0 Allergy status to penicillin; Z88.1 Allergy status to other antibiotic agents; Z88.5 Allergy status to narcotic agent; Z88.8 Allergy status to other drugs, medicaments and biological substances; Z91.018 Allergy to other foods; Z79.899 Other long term (current) drug therapy
CPT/HCPCS: 80306; 99283

== ENCOUNTER 2024-12-29 15:49 | Emergency (ER) | payer BC ==
[2024-12-29] MEDS ORDERED: Sodium Chloride 0.9% 10 ML Syringe FLUSH PRN (16:23)
[2024-12-29 16:41] LABS: APPEARANCE,URINE SLT CLOUDY (Clear); GLUCOSE,URINE NEGATIVE (Negative); OCCULT BLOOD,URINE 3+ (Negative)
[2024-12-29] MEDS ORDERED: Naloxone 0.4 MG/ML SDV IVPUSH PRN (16:42)
[2024-12-29 16:47] LABS: BASOPHILS ABSOLUTE AUTO 0.0 K/mm3 (0.0-0.2); BASOPHILS PERCENT AUTO 0.3 % (0.0-1.0); EOSINOPHILS ABSOLUTE AUTO 0.0 K/mm3 (0.0-0.4); EOSINOPHILS PERCENT AUTO 0.2 % (0.0-6.0); IMMATURE GRAN ABSOLUTE AUTO 0.11 K/mm3 (0.00-0.05); IMMATURE GRAN PERCENT AUTO 1.0 % (0.0-0.4); LYMPHOCYTES ABSOLUTE AUTO 0.9 K/mm3 (1.0-4.8); LYMPHOCYTES PERCENT AUTO 8.4 % (24.0-44.0); MEAN PLATELET VOLUME 8.3 fl (9.4-12.3); MONOCYTES ABSOLUTE AUTO 0.3 K/mm3 (0.0-0.8); MONOCYTES PERCENT AUTO 3.1 % (0.0-8.0); NEUTROPHILS ABSOLUTE AUTO 9.6 K/mm3 (1.8-7.7); NEUTROPHILS PERCENT AUTO 87.0 % (41.0-71.0); NRBC ABSOLUTE 0.00 (0.00-0.02); NRBC PERCENT 0.0 % (0.0-0.2); PLATELET COUNT,PLT 451 K/mm3 (150-400); RED BLOOD CELL COUNT 4.40 M/mm3 (4.10-5.30); WHITE BLOOD CELL COUNT,WBC 10.99 K/mm3 (3.9-11.3)
[2024-12-29] MEDS: Ondansetron 4 MG/2 ML SDV IVPUSH ONE (17:09)
[2024-12-29 17:21] LABS: A/G RATIO 1.0 (1-2); ALANINE AMINOTRANSFERASE,ALT 23.0 U/L (14-59); ASPARTATE AMNIOTRANSFERASE,AST 12.0 U/L (15-37); BILIRUBIN TOTAL 0.6 mg/dL (0.2-1.0); BLOOD UREA NITROGEN,BUN 18.0 mg/dL (7-18); CARBON DIOXIDE,CO2 27.0 mEq/L (21-32); CHLORIDE,CL 106.0 mEq/L (98-107); CREATININE 0.9 mg/dL (0.55-1.02); EST CRCL DRUG DOSING (CG) 77.76 mL/min; ESTIMATED GFR 85.0 mL/min (>60); GLUCOSE RANDOM 218.0 mg/dL (70-99); POTASSIUM,K 3.8 mEq/L (3.5-5.1); PROTEIN TOTAL,TP 7.4 g/dl (6.4-8.2); SODIUM,NA 143.0 mEq/L (136-145)
[2024-12-29 17:30] LABS: SQUAMOUS EPITHELIAL CELLS,UR 0-5 /hpf (0-5); YEAST BUDDING,URINE RARE (NOT SEEN)
[2024-12-29] MEDS: Sodium Chloride 0.9% 10 ML Syringe FLUSH ONE (17:53)
[2024-12-29] MEDS: Iopamidol 612 MG/ML 100 ML Bottle IVPUSH ONE (17:53)
[2024-12-29] MEDS: cefTRIAXone 2 GM in Water For Injection, Sterile 20 ML IVPUSH ONE (20:14)
[2024-12-29 20:16] VITALS: BP 128/86; PULSE 83
== END 2024-12-29 20:25 | disposition home or self-care (01) ==
LOC: JD.ED 15:49
DX: N30.01 Acute cystitis with hematuria (principal); I10 Essential (primary) hypertension; Z88.1 Allergy status to other antibiotic agents; Z91.018 Allergy to other foods; Z88.8 Allergy status to other drugs, medicaments and biological substances; Z88.0 Allergy status to penicillin; Z88.5 Allergy status to narcotic agent; Z79.899 Other long term (current) drug therapy; Z86.16 Personal history of COVID-19
CPT/HCPCS: 36415; 74177; 74177-26; 80053; 81001; 81025; 85025; 86140; 87086; 96361; 96374; 96375; 96376; 99284; 99284-25; A4216; J0696; J1171; J2405; J7030; Q9967

== ENCOUNTER 2025-02-04 11:59 | Emergency (ER) | payer BC ==
[2025-02-04 12:10] VITALS: PULSE 101
[2025-02-04 14:03] LABS: BASOPHILS ABSOLUTE AUTO 0.1 K/mm3 (0.0-0.2); BASOPHILS PERCENT AUTO 0.4 % (0.0-1.0); EOSINOPHILS ABSOLUTE AUTO 0.0 K/mm3 (0.0-0.4); EOSINOPHILS PERCENT AUTO 0.1 % (0.0-6.0); IMMATURE GRAN ABSOLUTE AUTO 0.29 K/mm3 (0.00-0.05); IMMATURE GRAN PERCENT AUTO 1.9 % (0.0-0.4); LYMPHOCYTES ABSOLUTE AUTO 1.5 K/mm3 (1.0-4.8); LYMPHOCYTES PERCENT AUTO 10.3 % (24.0-44.0); MEAN PLATELET VOLUME 8.3 fl (9.4-12.3); MONOCYTES ABSOLUTE AUTO 0.8 K/mm3 (0.0-0.8); MONOCYTES PERCENT AUTO 5.3 % (0.0-8.0); NEUTROPHILS ABSOLUTE AUTO 12.3 K/mm3 (1.8-7.7); NEUTROPHILS PERCENT AUTO 82.0 % (41.0-71.0); NRBC ABSOLUTE 0.00 (0.00-0.02); NRBC PERCENT 0.0 % (0.0-0.2); PLATELET COUNT,PLT 497 K/mm3 (150-400); RED BLOOD CELL COUNT 5.10 M/mm3 (4.10-5.30); WHITE BLOOD CELL COUNT,WBC 14.98 K/mm3 (3.9-11.3)
[2025-02-04 14:31] LABS: A/G RATIO 0.9 (1-2); ALANINE AMINOTRANSFERASE,ALT 27.0 U/L (14-59); ASPARTATE AMNIOTRANSFERASE,AST 16.0 U/L (15-37); BILIRUBIN TOTAL 1.3 mg/dL (0.2-1.0); BLOOD UREA NITROGEN,BUN 23.0 mg/dL (7-18); CARBON DIOXIDE,CO2 28.0 mEq/L (21-32); CHLORIDE,CL 103.0 mEq/L (98-107); CREATININE 1.0 mg/dL (0.55-1.02); EST CRCL DRUG DOSING (CG) 69.98 mL/min; ESTIMATED GFR 75.0 mL/min (>60); GLUCOSE RANDOM 133.0 mg/dL (70-99); POTASSIUM,K 4.2 mEq/L (3.5-5.1); PROTEIN TOTAL,TP 8.3 g/dl (6.4-8.2); SODIUM,NA 142.0 mEq/L (136-145)
[2025-02-04 15:30] LABS: APPEARANCE,URINE SLT CLOUDY (Clear); GLUCOSE,URINE NEGATIVE (Negative); OCCULT BLOOD,URINE 3+ (Negative)
[2025-02-04] MEDS ORDERED: Sodium Chloride 0.9% 10 ML Syringe FLUSH ONE (16:20)
[2025-02-04] MEDS: cefTRIAXone 1 GM in Water For Injection, Sterile 10 ML IVPUSH ONE (16:23)
[2025-02-04] MEDS: Ondansetron 4 MG/2 ML SDV IVPUSH ONE (16:23)
[2025-02-04] MEDS: Ketorolac 15 MG/ML SDV IVPUSH ONE (16:31)
[2025-02-04] MEDS: Iopamidol 612 MG/ML 100 ML Bottle IVPUSH ONE (16:37)
[2025-02-04] MEDS: Acetaminophen/HYDROcodone 325-5 MG Tab PO ONE (16:51)
[2025-02-04 18:56] VITALS: BP 150/83
== END 2025-02-04 19:14 | disposition home or self-care (01) ==
LOC: JD.ED 11:59
DX: R10.A3 Flank pain, bilateral (principal); I10 Essential (primary) hypertension; J45.909 Unspecified asthma, uncomplicated; K92.1 Melena; K52.9 Noninfective gastroenteritis and colitis, unspecified; R79.89 Other specified abnormal findings of blood chemistry; Z86.16 Personal history of COVID-19; Z88.0 Allergy status to penicillin; Z91.018 Allergy to other foods; Z88.8 Allergy status to other drugs, medicaments and biological substances; Z79.899 Other long term (current) drug therapy
CPT/HCPCS: 36415; 74177; 80053; 81001; 81025; 83690; 83735; 85025; 87086; 96361; 96374; 96375; 99284; A9270; J0696; J2405; J7030; Q9967